=== PATIENT | male | born 1945 | race Caucasian/White ===

== ENCOUNTER 2024-01-15 10:58 | Outpatient (CLI) | payer MEDICARE, BC, SELFPAY ==
--- OUTSIDE RECORDS SUMMARY | 2024-01-15 11:06 | XMS_ITS | Encounter Summary ---
Author Name Department of [facility] Organization Department of [facility] Address [address] [place] [address] Support Name Relationship Address Phone IKE GREENYCE Next of Kin [address] [phone] DEMETRA GREEN Emergency Contact [address] [place] [address] Insurance Providers: All historical and current Section Date Range: From patient's date of to the date document was created. This section includes the names of all active insurance providers for the patient. Insurance Provider Type of Coverage Plan Name Start of Policy Coverage End of Policy Coverage Group Number Member ID Insurance Provider's Telephone Number Policy Lawson's Name Patient's Relationship to Policy Lawson BCBS [facility] (WNR) MEDICARE ADVANTAGE [facility] (WNR) Oct 07, 2015 [id number] [phone] VAISHNAVI GREEN ERT PATIENT Selected Encounter This section includes the information on record at ID for the Encounter. Date/Time Encounter Type Encounter Description Reason Provider Source Mar 12, 2023 10:30 AM OFFICE O/P EST MOD 30-39 MIN RHEUMATOLOGY/ART HRITIS ICD-10-CM M06.4 Inflammatory polyarthropathy JACOB BLISS MD Leanna Encounter Template Text not used by [facility] Assessments - Encounter Diagnoses This section includes the primary and secondary diagnoses documented for the Encounter. 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 This section includes future appointments and future orders which are active, pending or scheduled. Future Appointments This section includes appointments that were scheduled to occur 6 months from the date of the Encounter, up to a maximum of 20 appointments. The data comes from all ID treatment facilities. Appointment Date/Time Appointment Type Appointme nt Facility Name Mar 14, 2023 11:30 AM [facility]ORY - [facility]ICINE [facility] Apr 10, 2023 01:00 PM AMBULATORY - MEDICINE [facility] Apr 23, 2023 11:00 AM AMBULATORY - MEDICINE [facility] May 01, 2023 11:00 AM AMBULATORY - MEDICINE [facility] May 21, 2023 11:00 AM AMB[facility]ATORY - NONE [facility] May 27, 2023 09:30 AM AMBULATORY - MEDICINE [facility] Jul 09, 2023 09:00 AM [facility]ORY - [facility]ICINE [facility] Jul 10, 2023 12:00 PM AMBULATORY - MEDICINE [facility] Sep 11, 2023 02:00 PM AMBULATORY - REHAB MEDICIN [facility] Lab Results: +/- 30 days of the encounter This section includes the Chemistry and Hematology Lab Results on record with ID for the patient. Radiology Reports and Pathology Reports are provided separately, in subsequent sections. Lab Results This section contains the Chemistry/Hematology Results that were resulted 30 days before or 30 daysafter the date of the Encounter. Date/Time Source Result Type Result - Unit Interpretation Reference Range Comment Mar 12, 2023 10:20 AM [facility] AST/SGOT Specimen Type: PLASMA No comment entered. Ordering Provider: LUIS ALBERTO BLISS MD Report Released Date/Time: Jan 25, 2023 03:57 PM Reporting Lab: [facility] [id number] Performing Lab: [place] [phone] AST/SGOT 30 See_Comment Mar 12, 2023 10:20 AM [facility] ALT/SGPT Specimen Type: PLASMA No comment entered. Ordering Provider: LUIS ALBERTO BLISS MD Report Released Date/Time: Jan 25, 2023 03:57 PM Reporting Lab: [facility] [id number] Performing Lab: [place] [id number] ALT/SGPT 34 See_Comment Mar 12, 2023 10:20 AM [facility] SED RATE Specimen Type: BLOOD No comment entered. Ordering Provider: LUIS ALBERTO BLISS MD Report Released Date/Time: Jan 25, 2023 03:57 PM Reporting Lab: [facility] [id number] Performing Lab: [place] [phone] SED RATE 18 H 5-15 Mar 12, 2023 10:20 AM [facility] CREATININE(INCLUDES EGFR) Specimen Type: PLASMA No comment entered. Ordering Provider: LUIS ALBERTO BLISS MD Report Released Date/Time: Jan 25, 2023 03:57 PM Reporting Lab: [facility] [id number] Performing Lab: [facility] [id number] CREATININE 1.0 0.7-1.2 .CREAT EGFR(CKD-EPI) 78 See_Comment Mar 12, 2023 10:20 AM [facility] CBC & DIFF Specimen Type: BLOOD Comment: Automated Differential Performed Ordering Provider: LUIS ALBERTO BLISS MD Report Released Date/Time: Jan 25, 2023 03:57 PM Reporting Lab: [facility] [id number] Performing Lab: [facility] [id number] WBC 11.89 H 4.0-11.0 RBC 4.03 L 4.6-6.2 HGB 12.9 L 13.5-17.9 HCT 39.0 L 41-54 MCV 96.8 80-100 MCH 32.0 27-33 MCHC 33.1 32.0-37.5 PLT 195 150-400 MPV 10.5 H 7.4-10.4 NEUT 81.6 LYMPHS 8.7 MONO 6.0 EOSINO 1.2 BASO 0.6 RDW 12.8 11.5-14.5 ABS LYMPH 1.04 1.0-4.0 ABS MONO 0.71 0.1-1.0 ABS NEUT 9.70 H 2.0-7.7 ABS EOS 0.14 0-0.5 ABS BASO 0.07 0-0.2 IG(META,MYELO ,PRO) 1.9 ABS IMMATURE GRAN 0.23 H 0-0.1 Vital Signs: All taken on the encounter date This section contains inpatient and outpatient Vital Signs collected on the date of the Encounter. Date/Time Temperature Pulse Blood Pressure Respiratory Rate SP02 Pain Height Weight Body Mass Index Source Mar 12, 2023 10:17 AM 97.5 F 75 /min 131/79 mm[Hg] 16 /min 96 % 7 233 lb 39 [facility] Advance Directives: All historical and current Section Date Range: From patient's date of to the date document was created. This section includes ALL of a patient's completed or amended ID Advance and Rescinded Directives. The entries below indicate that a directive exists for the patient, but an actual copy is not included with this document. The data comes from all ID facilities. Date Advance Directives Provider Source Jul 22, 2018 ADVANCE DIRECTIVE DEONTE DIAZ [facility] Jul 22, 2018 ADVANCE DIRECTIVE DISCUSSION DEONTE DIAZ [facility] Encounter Notes: All associated encounter notes This section contains the clinical notes associated to the Encounter. Date/Time Encounter Note(s) Provider Source Mar 12, 2023 12:09 PM RHEUMATOLOGY ATTEN DING NOTE: LOCAL TITLE: RHEUMATOLOGY CLINIC NOTE STANDARD TITLE: RHEUMATOLOGY ATTENDING NOTE DATE OF NOTE: MAR 12, 2023@12:09 ENTRY DATE: FEBRUARY 18, 2023@16:35:23 AUTHOR: JOCELYNN BLISS EXP COSIGNER: URGENCY: STATUS: COMPLETED CC: F/U Arthralgia, Hemochromatosis, Chondrocalcinosis/CPPD, OA, seronegative inflammatory arthritis History of present illness: Pt well known to me from my [facility] practice, now following at [facility]. Multifactorial arthralgia concerns. History of multiple orthopedic surgeries including CTS , reverse total shoulder. 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 History of gout, on allopurinol, had podagra. Has not had definite gout attacks for many years. Complained of increasing arthritis pain espcially in hands over several years. Some locking, Ortho tried injections without robust benefit at that time. Was aching with fine motor tasks. No acute swelling suggestive of crystalline arthropathy symptoms. Joints have enlarged over time. We started him on prednisone, Plaquenil, then SSZ. Arthritis symptoms had initially improved, then complained of increased aching especially in the small joints of the hands, wrists over several weeks.Had some benefit from topical diclofenac.Was feeling pretty good so tapered off prednisone at that point. Continued to feel sulfasalazine, Plaquenil had provided benefit. Previously concerns with itching and occasional intermittent red scaly rash. We were wondering if could be related to topical diclofenac, so this was held. Hands were aching more with holding diclofenac. Unfortunately it seemed to irritate his chronic dermatitis, does follow with [facility]. Was noting increasing pain in right wrist, prednisone previously increased to 10 mg daily without benefit for this, decreased back to 5 mg daily. Recheck RF/ CCP remain neg.Status post R wrist injection through Ortho (Dr Lula Yap at [facility]) with benefit 12/15/21,. He has also seen Ortho for knee bursitis, did physical Therapy for. History of lumbar spine surgery, with intermittent increased mechanical low back pain concerns. 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 History of anterior scleritis/episcleritis, follows with [facility], has been treated with topicals intermittently with flares . Also has ocular sicca symptoms. Had been noting increasing hand and wrist arthralgia symptoms, needing increased prednisone dose. Low-dose leflunomide added in, tolerating. Was able to stop prednisone for some time, then flaring noted, see patient contact notes. Leflunomide increased to full dose, tolerating without concerns. Overall has felt leflunomide has provided benefit. In attempt to simplify his medication regimen we have decreased his sulfasalazine to 2 in the morning 2 in the evening, did well with dose lowering and subsequently tried going off prednisone 07/15, needed to restart about 5 days later due to some increasing aching in both hands and knees, however was not associated with swelling. Chronic swelling/deformity of the right wrist , continues to follow with Ortho for this, injections have provided some benefit. They have offered him surgery, sounds like wrist fusion which he hopes to avoid. Severe lumbar spine disease following with [facility]/Dr. Kelly, potential surgical intervention needed. Interim history: Arthralgias are about the same, continues to need prednisone up to 10 mg daily. He has been in a holding pattern for back surgery, now at this point it sounds like it may not happen. Surgeon has been sending him for additional neuro evaluation/peripheral neuropathy eval. He has an upcoming appointment with [facility]. Ophthalmology notes reviewed, has had flare of episcleritis. --------- ROS: - Constitutional:No fevers - HEENT:No oral ulcers - CVS: Denies cardiac concerns. - RESP: No change in resp status - GI: No change in bowel habits - SKIN : no new rashes ------- Past Medical History: Hallux valgus AND bunion ([facility] [id number])Hammer toe ([facility] [id number]) Essential hypertension ([facility] [id number]) Gout ([facility] [id number]) Benign prostatic hyperplasia ([facility] 747909Muujnqaf legs ([facility] 97117292) Hemochromatosis ([facility] 124218192) Chronic low back pain ([facility] 957875328) Osteoarthritis of knee ([facility] 034876814) Obstructive sleep apnea ([facility] 15727998) History of male erectile disorder ([facility] 4Dupuytren's contracture ([facility] 926695929) Bunion ([facility] 214960214) Chronic sinusitis ([facility] 84101079) Deviated nasal septum ([facility] 077691041) Obesity ([facility] 165729094) Pseudophakia ([facility] 04627017) Benign monoclonal gammopathy ([facility] 83711484) Orchialgia ([facility] 28272281) History of inflammatory bowel disease ([facility] [id number]) Injury of tendon of the rotator cuff of Impaired fasting glycaemia ([facility] 346020569) Edema ([facility] 105354173) Hallux valgus AND bunion ([facility] 392188451) Inflammatory polyarthropathy ([facility] [id number] ([facility] 595455689) Episcleritis ([facility] 468480) Gastroesophageal reflux disease ([facility] 770333925) Sensorineural hearing loss, bilateral (SDry eyes ([facility] 267165123) History of polyp of colon ([facility] [id number] ------- Social Hx: Marital status: -------- Allergies: SEASONAL ALLERGIES (Jun 16, 2009) LEVOFLOXACIN (Oct 20, 2010) DICLOFENAC (Jul 13, 2022) Active Medications: Active Outpatient Medications (including Supplies): Active Outpatient Medications Status 1) ALLOPURINOL 300MG TAB TAKE ONE TABLET BY MOUTH EVERY ACTIVE MORNING 2) ATENOLOL 50/CHLORTHALIDONE 25MG TAB TAKE 1 TABLET BY ACTIVE MOUTH EVERY DAY 3) CYCLOSPORINE 0.05% (PF) OPH EMUL 0.4ML 1 DROP BOTH ACTIVE EYES TWICE A DAY 4) DOCUSATE NA 100MG CAP TAKE ONE CAPSULE BY MOUTH TWICE ACTIVE A DAY NEEDED FOR CONSTIPATION 90 DAY SUPPLY 5) DOXAZOSIN MESYLATE 8MG TAB TAKE ONE TABLET BY MOUTH ACTIVE EVERY DAY 6) FLUTICASONE PROP 50MCG 120D NASAL INHL SPRAY 2 SPRAYS ACTIVE IN EACH NOSTRIL AT BEDTIME FOR NASAL SYMPTOMS 7) HYDROXYCHLOROQUINE SULFATE 200MG TAB TAKE ONE TABLET ACTIVE (S) BY MOUTH EVERY DAY 8) LACTOBACILLUS ACIDOPHILUS TAB TAKE 1 TABLET BY MOUTH ACTIVE EVERY MORNING 9) LEFLUNOMIDE 20MG TAB TAKE ONE TABLET BY MOUTH EVERY ACTIVE DAY 10) OMEPRAZOLE 20MG EC CAP TAKE TWO CAPSULES BY MOUTH ACTIVE EVERY DAY ON AN EMPTY STOMACH, AT LEAST 30 MINUTES PRIOR TO A MEAL 11) PRAMIPEXOLE DIHYDROCHLORIDE 0.25MG TAB TAKE THREE ACTIVE TABLETS BY MOUTH EVERY EVENING FOR RESTLESS LEGS 12) PREDNISOLONE ACETATE 1% OPH SUSP INSTILL 1 DROP IN ACTIVE RIGHT EYE EVERY OTHER DAY SHAKE WELL 13) PREDNISONE 5MG TAB TAKE 1 TO 2 TABLETS BY MOUTH EVERY ACTIVE DAY NEEDED FOR JOINT PAIN * TAKE 1 TO 2 TABLETS DAILY DIRECTED TAPER 14) SODIUM CHLORIDE 0.65% SOLN NASAL SPRAY SPRAY 2 SPRAYS ACTIVE IN EACH NOSTRIL TWICE A DAY FOR NASAL DRYNESS 15) SULFASALAZINE 500MG TAB TAKE ONE TABLET BY MOUTH HOLD TWICE A DAY 16) TAMSULOSIN HCL 0.4MG CAP TAKE ONE CAPSULE BY MOUTH ACTIVE EVERY DAY 17) VANICREAM TOP CREAM APPLY THIN LAYER TOPICALLY EVERY ACTIVE DAY FOR DRY SKIN TO AREAS OF DRY SKIN, IDEALLY WITHIN 3 MINUTES AFTER BATH OR SHOWER. Active Non-VA Medications Status 1) Non-VA CELECOXIB 200MG CAP 200MG MOUTH TWICE A DAY ACTIVE 2) Non-VA GABAPENTIN 300MG CAP 300MG MOUTH THREE TIMES A ACTIVE DAY 3) Non-VA LUBIPROSTONE CAP,ORAL 8 MCG MOUTH TWICE A DAY ACTIVE 4) Non-VA MULTIVITAMIN CAP/TAB 1 TABLET MOUTH EVERY DAY ACTIVE 5) Non-VA OXYCODONE 20MG SA TAB 20MG MOUTH EVERY 12 ACTIVE HOURS 6) Non-VA OXYCODONE 5MG TAB 5MG MOUTH TWICE A DAY ACTIVE NEEDED 23 Total Medications --------- Physical Examination: Vital signs: As per Nurse note GENERAL: NAD. GEEENT: PERRL, EOMI, non icteric SKIN focused exam remarkable findings are: no rash noted. Good skin turgor and normal tenting.No digital pitting MSK , focused exam remarkable findings are: Heberden and Jody nodules Right wrist with chronic deformity and decreased range of motion, question of some low-grade synovitis ongoing, mild tenderness. Slight left wrist swelling without definite synovitis -------- LABORATORY DATA: WBC 10.56 (11/13/22) HGB 11.9 L (11/13/22) PLT 220 (11/13/22) CREATININE 0.9 (11/13/22) COMPUTED CREATININE CLEARANCE____ URINE PROTEIN____ SGOT 35 H (11/13/22) SGPT 37 (11/13/22) ALK PHOSPHATASE____ BILIRUBIN, TOTAL____ WESTERGREN 35 H (11/13/22) C-REACTIVE PROTEIN____ RHEUMATOID FACTOR____ CCP URIC ACID____ URIC ACID CRYSTALS____ ANTINUCLEAR ABY____ SLT - SHANIQUA No data available for: .SHANIQUA SCREEN ANTI-CLAUDIO ANTI-SENIOR SOFTWARE QA ANALYST ANTI-SSA/RO ANTI-SSB/LA ANTI-SCL-70 ANTI-IKE-1 ANCA No data available Aldolase ANTI-HBs____ HBsAg____ ANTI-HEPATITIS C NEGATIVE SERUM (09/11/21 08:08) NEGATIVE SERUM (06/27/18 10:19) -------- Imaging: -------- Assessment/Plan: Osteoarthritis, suspected changes associated with hemachromatosis/ chondrocalcinosis. [employer] to have component of polyarticular CPPD, seronegative inflammatory arthritis. Also Hx of gout. - Multifactorial concerns, history of mechanical, crystalline, and inflammatory arthritis. Has had benefit from injections by hand orthopedics, repeat as needed. No new gout concerns, uric acid has been at goal on allopurinol. Overall seemed to be doing better in regards to inflammatory concerns with addition of leflunomide to sulfasalazine. Over time right wrist is more bothersome, difficult to say exactly what is driving this given his complex history. Previously Ophthalmology notes reviewed ,felt to have some increased risk factors for Plaquenil toxicity although none was noted specifically on exam, dosage lowered to 1 daily with close monitoring through ophthalmology. No Plaquenil toxicity noted from exam 03/27/2022. He has had intermittently active episcleritis. Arthritis has had variable response to increased dose of prednisone, however complicated by possible need for spine surgery. We have been in a bit of a holding pattern for potential surgery versus escalating his immunosuppressive regimen. At this point it sounds like surgery may be not happen. We will see what his peripheral neuropathy assessment is from [facility], asked that records be forwarded for my review, await further plan by surgeon. Discussed with patient and our next step would be reasonable to add an biologic, consider Humira as may be beneficial for his episcleritis. We briefly discussed side effects and concerns with this medication. Hopefully will have a plan for surgery or not within the coming weeks. I would like to see him in [place] in a few weeks for recheck, if no surgical plan we will start Humira/teaching at that visit. Continue current medications for now, pending response to Humira next goal would be to consolidate his medication regimen. High-risk medication monitoring/drug therapy requiring intensive monitoring for toxicity; monitoring labs have been acceptable. Ophthalmology following for Plaquenil, dosing remains at below 5mg/kg guideline. /es/ JOCELYNN BLISS MD Rheumatology, Staff Physician Signed: 03/18/2023 12:36 JOCELYNN BLISS MD [facility] Mar 12, 2023 10:19 AM PRIMARY CARE NURSI MCKINLEY NOTE: LOCAL TITLE: [facility] NURSING PROGRESS NOTE STANDARD TITLE: PRIMARY CARE NURSING NOTE DATE OF NOTE: MAR 12, 2023@10:19 ENTRY DATE: MAR 12, 2023@10:19:57 AUTHOR: ZOË MULTANI COSIGNER: URGENCY: STATUS: COMPLETED TYPE OF VISIT: Appointment Check In Type of appointment: In-person appointment REASON FOR VISIT: Rheum ALLERGIES: SEASONAL ALLERGIES (Jun 16, 2009) LEVOFLOXACIN (Oct 20, 2010) DICLOFENAC (Jul 13, 2022) VITAL SIGNS: Blood Pressure: 131/79 (03/12/2023 10:17) Pulse: 75 (03/12/2023 10:17) Respiration: 16 (03/12/2023 10:17) Temperature: 97.5 F [36.4 C] (03/12/2023 10:17) Weight: 233 lb [105.69 kg] (03/12/2023 10:17) Height: 65 in [165.1 cm] (07/13/2022 10:21) BMI: 38.9 O2 Sat: 96% (03/12/2023 10:17) Pain: 7 (03/12/2023 10:17) PAIN SCREEN: Patient is having significant pain that they would like to talk to their provider about today. Old (Chronic) (began more than 6 months ago) Patient states their average pain this past week is 7 Patient states the average number on how the chronic pain affects their enjoyment of life the past week is 7 Patient states during the past week the average number on how the pain has interfered with their general activity is 7 MEDICATION Active Outpatient Medications (including Supplies): ALLOPURINOL 300MG TAB TAKE ONE TABLET BY MOUTH EVERY ACTIVE MORNING ATENOLOL 50/CHLORTHALIDONE 25MG TAB TAKE 1 TABLET BY MOUTH ACTIVE EVERY DAY CYCLOSPORINE 0.05% (PF) OPH EMUL 0.4ML 1 DROP BOTH EYES ACTIVE TWICE A DAY DOCUSATE NA 100MG CAP TAKE ONE CAPSULE BY MOUTH TWICE A ACTIVE DAY NEEDED FOR CONSTIPATION 90 DAY SUPPLY DOXAZOSIN MESYLATE 8MG TAB TAKE ONE TABLET BY MOUTH EVERY ACTIVE DAY FLUTICASONE PROP 50MCG 120D NASAL INHL SPRAY 2 SPRAYS IN ACTIVE EACH NOSTRIL AT BEDTIME FOR NASAL SYMPTOMS HYDROXYCHLOROQUINE SULFATE 200MG TAB TAKE ONE TABLET BY ACTIVE MOUTH EVERY DAY LACTOBACILLUS ACIDOPHILUS TAB TAKE 1 TABLET BY MOUTH EVERY ACTIVE MORNING LEFLUNOMIDE 20MG TAB TAKE ONE TABLET BY MOUTH EVERY DAY ACTIVE OMEPRAZOLE 20MG EC CAP TAKE TWO CAPSULES BY MOUTH EVERY ACTIVE DAY ON AN EMPTY STOMACH, AT LEAST 30 MINUTES PRIOR TO A MEAL PRAMIPEXOLE DIHYDROCHLORIDE 0.25MG TAB TAKE THREE TABLETS ACTIVE BY MOUTH EVERY EVENING FOR RESTLESS LEGS PREDNISOLONE ACETATE 1% OPH SUSP INSTILL 1 DROP IN RIGHT ACTIVE EYE EVERY OTHER DAY SHAKE WELL PREDNISONE 5MG TAB TAKE 1 TO 2 TABLETS BY MOUTH EVERY DAY ACTIVE NEEDED FOR JOINT PAIN * TAKE 1 TO 2 TABLETS DAILY DIRECTED TAPER SODIUM CHLORIDE 0.65% SOLN NASAL SPRAY SPRAY 2 SPRAYS IN ACTIVE EACH NOSTRIL TWICE A DAY FOR NASAL DRYNESS SULFASALAZINE 500MG TAB TAKE ONE TABLET BY MOUTH TWICE A HOLD DAY TAMSULOSIN HCL 0.4MG CAP TAKE ONE CAPSULE BY MOUTH EVERY ACTIVE DAY VANICREAM TOP CREAM APPLY THIN LAYER TOPICALLY EVERY DAY ACTIVE FOR DRY SKIN TO AREAS OF DRY SKIN, IDEALLY WITHIN 3 MINUTES AFTER BATH OR SHOWER. Non-VA CELECOXIB 200MG CAP 200MG MOUTH TWICE A DAY ACTIVE Non-VA GABAPENTIN 300MG CAP 300MG MOUTH THREE TIMES A DAY ACTIVE Non-VA LUBIPROSTONE CAP,ORAL 8 MCG MOUTH TWICE A DAY ACTIVE Non-VA MULTIVITAMIN CAP/TAB 1 TABLET MOUTH EVERY DAY ACTIVE Non-VA OXYCODONE 20MG SA TAB 20MG MOUTH EVERY 12 HOURS ACTIVE Non-VA OXYCODONE 5MG TAB 5MG MOUTH TWICE A DAY NEEDED ACTIVE /maame/ ZOË MULTANI LPN LICENSED PRACTICAL NURSE Signed: 03/12/2023 10:25 ZOË MULTANI [facility]
--- OUTSIDE RECORDS SUMMARY | 2024-01-15 11:06 | XMS_ITS | Encounter Summary ---
Author Name [facility] Organization Department of [employer] Address [address] [place] [address] Support Name Relationship Address Phone IKE GREENYCE Next of Kin [address] [phone] DEMETRA GREEN Emergency Contact [address] [...] Name Patient's Relationship to Policy Lawson BCBS [facility] (WNR) MEDICARE ADVANTAGE MCR (WNR) Oct 07, 2015 [id number] [phone] VAISHNAVI GREEN ERT PATIENT Selected Encounter This section includes the information on record at [place] for the Encounter. Date/Time Encounter Type Encounter Description Reason Provider Source Apr 10, 2023 01:00 PM OFFICE O/P EST MOD 30-39 MIN SLEEP MEDICINE ICD-10-CM G47.33 Obstructive sleep apnea (adult) (pediatric) JULIO GARZA Leanna Encounter Template Text not used by [place] Assessments - Encounter Diagnoses This section includes the primary and secondary diagnoses documented for the Encounter. Date/Time Primary/Secondary Diagnosis Diagnosis Name Provider Source Apr 10, 2023 01:25 PM PRIMARY Obstructive sleep apnea (adult) (pediatric) JULIO GARZA [facility] Apr 10, 2023 01:25 PM SECONDARY Restless legs syndrome JULIO GARZA [facility] Plan of Treatment: Future Appointments (+ 6 months) and Future Tests (+/- 45 days) The Plan of Treatment section includes future care activities for the patient from [facility]. This section includes future appointments and future orders which are active, pending or scheduled. Future Appointments This section includes appointments that were scheduled to occur 6 months from the date of the Encounter, up to a maximum of 20 appointments. The data comes from all [facility] facilities. Appointment Date/Time Appointment Type Appointme nt Facility Name Apr 23, 2023 11:00 AM AMBULATORY - MEDICINE [facility] May 01, 2023 11:00 AM AMBULATORY - MEDICINE [facility] May 21, 2023 11:00 AM AMBULATORY - NONE [facility] May 27, 2023 09:30 AM AMBULATORY - MEDICINE [facility] Jul 09, 2023 09:00 AM [facility]ORY - [facility]ICINE [facility] Jul 10, 2023 12:00 PM AMBULATORY - MEDICINE [facility] Sep 11, 2023 02:00 PM AMBULATORY - REHAB MEDICIN [facility] Lab Results: +/- 30 days of the encounter This section includes the Chemistry and Hematology Lab Results on record with [place] for the patient. Radiology Reports and Pathology Reports are provided separately, in subsequent sections. Lab Results This section contains the Chemistry/Hematology Results that were resulted 30 days before or 30 daysafter the date of the Encounter. Date/Time Source Result Type Result - Unit Interpretation Reference Range Comment Mar 12, 2023 10:20 AM [facility] ALT/SGPT Specimen Type: PLASMA No comment entered. Ordering Provider: LUIS ALBERTO BLISS MD Report Released Date/Time: Jan 25, 2023 03:57 PM Reporting Lab: [facility] [id number] Performing Lab: [facility] [id number] ALT/SGPT 34 See_Comment Mar 12, 2023 10:20 AM [facility] AST/SGOT Specimen Type: PLASMA No comment entered. Ordering Provider: LUIS ALBERTO BLISS MD Report Released Date/Time: Jan 25, 2023 03:57 PM Reporting Lab: [facility] [id number] Performing Lab: [facility] [id number] AST/SGOT 30 See_Comment Mar 12, 2023 10:20 AM [facility] SED RATE Specimen Type: BLOOD No comment entered. Ordering Provider: LUIS ALBERTO BLISS MD Report Released Date/Time: Jan 25, 2023 03:57 PM Reporting Lab: [facility] [id number] Performing Lab: [facility] [id number] SED RATE 18 H 5-15 Mar 12, 2023 10:20 AM [facility] CREATININE(INCLUDES EGFR) Specimen Type: PLASMA No comment entered. Ordering Provider: LUIS ALBERTO BLISS MD Report Released Date/Time: Jan 25, 2023 03:57 PM Reporting Lab: [facility] [id number] Performing Lab: [facility] [id number] CREATININE 1.0 0.7-1.2 .CREAT EGFR(CKD-EPI) 78 See_Comment Mar 12, 2023 10:20 AM [facility] CBC & DIFF Specimen Type: BLOOD Comment: Automated Differential Performed Ordering Provider: LUIS ALBERTO BLISS MD Report Released Date/Time: Jan 25, 2023 03:57 PM Reporting Lab: [facility] [id number] Performing Lab: [facility] [id number] WBC 11.89 H 4.0-11.0 RBC 4.03 L [...] 1.9 ABS IMMATURE GRAN 0.23 H 0-0.1 Social History: Smoking Status (Most current) and Tobacco Use (All prior to encounter date) This section includes the most current, and the historical, smoking and tobacco- related health factors from the [place] facility where the Encounter took place. Current Smoking Status This section includes the most current smoking, or tobacco-related health factor, from the [place] facility where the Encounter took place. Date/Time Current Smoking Status Comment Facil ity Jul 23, 2017 07:44 AM FORMER TOBACCO USER OR [facility] Tobacco Use History This section includes a history of the smoking, or tobacco-related health factors, that were collected on or before the date of the Encounter. The data comes from the [place] facility where the Encounter took place. Date/Time Smoking Status/Tobacco Use Comment F acility Jul 24, 2016 08:09 AM FORMER TOBACCO USER 7 OR [facility] Jul 27, 2015 07:54 AM FORMER TOBACCO USER OR [facility] Jun 18, 2014 09:49 AM FORMER TOBACCO USER 7 OR [facility] Nov 22, 2010 09:21 AM FORMER TOBACCO USER 7 OR [facility] Jun 30, 2009 08:27 AM FORMER TOBACCO USER OR [facility] Advance Directives: All historical and current Section Date Range: From patient's date of to the date document was created. This section includes ALL of a patient's completed or amended [place] Advance and Rescinded Directives. The entries below indicate that a directive exists for the patient, but an actual copy is not included with this document. The data comes from all [facility]. Date Advance Directives Provider Source Jul 22, 2018 ADVANCE DIRECTIVE DEONTE DIAZ [facility] Jul 22, 2018 ADVANCE DIRECTIVE DISCUSSION DEONTE DIAZ [facility] Encounter Notes: All associated encounter notes This section contains the clinical notes associated to the Encounter. Date/Time Encounter Note(s) Provider Source Jun 19, 2023 01:00 PM ADDENDUM: LOCAL TITLE: Addendum STANDARD TITLE: ADDENDUM DATE OF NOTE: JUN 19, 2023@13:00:24 ENTRY DATE: JUN 19, 2023@13:00:25 AUTHOR: DIVINE MCNEIL EXP COSIGNER: URGENCY: STATUS: COMPLETED Received phone call from patient regarding his RLS and Pregabalin prescription. States he is currently taking three 25mg capsules (total 75mg). Reporting residual RLS symptoms 2x/week, which he said has decreased from previous reports of 3-4x/week. -Patient was initially instructed to titrate up to 100mg, but would like to remain at 75mg for now, states he will increase if he starts to feel his symptoms worsen. -Next f/u with sleep provider scheduled 07/10/23 PLAN: -Alerting sleep provider, please address Pregabalin refill request (would need enough capsules/month to take 75mg dose) -Patient to call sleep RN if he needs to increase to 100mg Total time with patient: 8 minutes /es/ DIVINE MCNEIL RN REGISTERED NURSE Signed: 06/19/2023 13:07 Receipt Acknowledged By: 06/19/2023 15:13 /es/ JULIO GARZA MD Staff: Pulmonary, Critical Care & Sleep Medicine --- Original Document --- 04/10/23 SLEEP MEDICINE NOTE: History of Present Illness: Macario has been using his CPAP but there is interval decrease in his overall PAP compliance lately due to back pain which makes him sleep on his recliner. Few days back he has brought down his CPAP to living area and using it when sleeping on his recliner. Furthermore despite taking his Pramipexole 0.75mg in the evening he has some residual sharp pains in his legs along with feeling numb. He will be evaluated by Neurology for possible peripheral neuropathy. He is recovering from a recent cardiac surgery. Obstructive Sleep Apnea (WILI) Auto-CPAP: 14-20 cm H2O PAP download reviewed and reported below: - 04/09/2023 Average usage: 5 hours 4 minutes (days used) Average (AHI): 8.0 (which indicates effective treatment) Average leak: 5 minutes, 39 seconds Compliance>4hours: 70% [place] Sleeepiness Scale -Sitting and reading 2 -Watching TV 3 -Sitting inactive in a public place 0 -Being a Passenger in a motor vehicle for 1 hr or more 2 -Lying down in the afternoon 2 -Sitting and talking to someone 0 -Sitting quietly after lunch 1 -Stopped for a few mins in traffic 0 -Total 07/30 The confirms or denies the following symptoms as noted: Non-restorative sleep: Denies Snoring: Denies Witnessed apneas: Denies Gasping: Denies Nocturia: Confirms Morning headaches: Denies Difficulty initiating sleep: Denies Difficulty maintaining sleep: Denies Sleep Walking: Denies Somniloquy: Denies Cataplexy: Denies Sleep paralysis: Denies Hypnagogic hallucinations: Denies Hypnopompic hallucinations: Denies Difficulty concentrating: Denies Memory loss: Denies Dry mouth: Denies Nasal congestion: Denies Nocturnal limb movements: Denies Weight gain: Denies Weight loss: Denies Bruxism: Denies Mood disorder: Denies Mood swings: Denies Sore throat: Denies Past Medical History Active problems - Computerized Problem List is the source for the followin. Hallux valgus AND bunion (SNOMED CT 419689486) 2. Hammer toe (SNOMED CT 517958684) 3. Essential hypertension 4. Gout 5. Benign prostatic hyperplasia 6. Restless legs 7. Hemochromatosis 8. Chronic low back pain - since 1995 9. Osteoarthritis of knee - R TKA 2018, L TKA 10. Obstructive sleep apnea 11. History of male erectile disorder 12. Dupuytren's contracture 13. Bunion 14. Chronic sinusitis 15. Deviated nasal septum 16. Obesity 17. Pseudophakia 18. Benign monoclonal gammopathy - IgG kappa 19. Orchialgia - 2009 20. History of inflammatory bowel disease 21. Injury of tendon of the rotator cuff of shoulder - surgery right ? 2 , left ? 1 22. Impaired fasting glycaemia 23. Edema 24. Hallux valgus AND bunion 25. Inflammatory polyarthropathy 26. Chondrocalcinosis 27. Episcleritis 28. Gastroesophageal reflux disease 29. Sensorineural hearing loss, bilateral 30. Dry eyes 31. History of polyp of colon Medications: Active Outpatient Medications (including Supplies): Outpatient Medications Status 1) ALLOPURINOL 300MG TAB TAKE ONE TABLET BY MOUTH EVERY ACTIVE MORNING 2) ATENOLOL 50/CHLORTHALIDONE 25MG TAB TAKE 1 TABLET BY ACTIVE MOUTH EVERY DAY 3) CYCLOSPORINE 0.05% (PF) OPH EMUL 0.4ML 1 DROP BOTH ACTIVE EYES TWICE A DAY 4) DICLOFENAC NA 1% TOP GEL APPLY 4 GRAMS TOPICALLY FOUR ACTIVE TIMES A DAY NEEDED TO AFFECTED AREA FOR PAIN 5) DOCUSATE NA 100MG CAP TAKE ONE CAPSULE BY MOUTH TWICE ACTIVE A DAY NEEDED FOR CONSTIPATION 90 DAY SUPPLY 6) DOXAZOSIN MESYLATE 8MG TAB TAKE ONE TABLET BY MOUTH ACTIVE EVERY DAY 7) FLUTICASONE PROP 50MCG 120D NASAL INHL SPRAY 2 SPRAYS ACTIVE IN EACH NOSTRIL AT BEDTIME FOR NASAL SYMPTOMS 8) HYDROXYCHLOROQUINE SULFATE 200MG TAB TAKE ONE TABLET ACTIVE BY MOUTH EVERY DAY 9) LACTOBACILLUS ACIDOPHILUS TAB TAKE 1 TABLET BY MOUTH ACTIVE EVERY MORNING 10) LEFLUNOMIDE 20MG TAB TAKE ONE TABLET BY MOUTH EVERY ACTIVE DAY 11) OMEPRAZOLE 20MG EC CAP TAKE TWO CAPSULES BY MOUTH ACTIVE EVERY DAY ON AN EMPTY STOMACH, AT LEAST 30 MINUTES PRIOR TO A MEAL 12) PRAMIPEXOLE DIHYDROCHLORIDE 0.25MG TAB TAKE THREE ACTIVE TABLETS BY MOUTH EVERY EVENING FOR RESTLESS LEGS 13) PREDNISOLONE ACETATE 1% OPH SUSP INSTILL 1 DROP IN ACTIVE RIGHT EYE EVERY OTHER DAY SHAKE WELL 14) PREDNISONE 5MG TAB TAKE 1 TO 2 TABLETS BY MOUTH EVERY ACTIVE DAY NEEDED FOR JOINT PAIN * TAKE 1 TO 2 TABLETS DAILY DIRECTED TAPER 15) SODIUM CHLORIDE 0.65% SOLN NASAL SPRAY SPRAY 2 SPRAYS ACTIVE IN EACH NOSTRIL TWICE A DAY FOR NASAL DRYNESS 16) SULFASALAZINE 500MG TAB TAKE ONE TABLET BY MOUTH HOLD TWICE A DAY 17) TAMSULOSIN HCL 0.4MG CAP TAKE ONE CAPSULE BY MOUTH ACTIVE EVERY DAY 18) VANICREAM TOP CREAM APPLY THIN LAYER TOPICALLY EVERY ACTIVE DAY FOR DRY SKIN TO AREAS OF DRY SKIN, IDEALLY WITHIN 3 MINUTES AFTER BATH OR SHOWER. 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 1.Severe WILI: On suto-CPAP with interval decrease in overall compliance. Mildly elevated residual AHI which is in the therapeutic range. -discussed benefits of treatment, device maintenance, use and interval replacement of supplies -counseled the patient about smoking and weight loss -educated pt about risks, benefits, side effects, and alternatives to treatment 2. RLS: Currently on Pramipexol 0.75 mg 2 hours prior to bedtime. Has residual RLS and neuropathy symptoms. Recommendation: 1. Continue Pramipexole at current dose. Start Pregabalin with gradual increase up to 100mg to be taken 2 hours prior to intended sleep. 2. Increase PAP compliance to > 70% > 4 hours per night. Return to clinic for follow up evaluation in 6 months. /maame/ JULIO GARZA MD Staff: Pulmonary, Critical Care & Sleep Medicine Signed: 04/10/2023 13:26 05/14/2023 ADDENDUM STATUS: COMPLETED Renewal request for pregabalin 25mg, four tabs qhs. Phone contact made with . He confirmed he is taking 100mg qhs. Drill Press Operator Numerical Control informed on new dosing instructions with his medication renewal for pregabalin 100mg to take one tab qhs /es/ ANAND DUVAL PHYSICIAN ROLLER MACHINE OPERATOR Signed: 05/14/2023 16:20 05/15/2023 ADDENDUM STATUS: COMPLETED Received the following Secure Message from the patient today, 05/15/23: I'm sorry I got the medication mixed up with my other sleep medication for my restless legs that I've been on 3-25 mg. The medication that Dr Mendoza put me on the pharmacy would only send me 30 pills every time so I couldn't take them as you prescribed so I couldn't take as many as I should have because the pharmacy didn't really read my prescription right so I will have to start all over. I will await for your response and I'm sorry for not letting you know sooner. Thank You Contacted patient to discuss. Patient confirms he is taking the following: -Pramipexole 0.75mg (0.25mg tabs x3/night) -Pregabalin 25mg Patient reports he was never able to titrate his Pregabalin up to 100mg because each prescription bottle only contained 30 capsules. Therefore, patient states he has been on 25mg for 3 weeks. Consulted with Nita Cantu PA-C: *patient to hold 100mg Pregabalin when prescription arrives; advised patient to place prescription in a place where it will not get confused with another prescription *patient to resume titration schedule as previously planned. Advised patient to track his RLS sx each week and stop at the dose that controls his residual RLS - patient is aware this may be lower than 100mg. RLS: -On 25mg Pregabalin, patient reports his RLS sx have started to improve. Notes residual sx at least 3x/week. Denies grogginess or other side effects. PLAN: -Sleep RN will f/u with patient to assess response in 2-3 weeks -Co-signing Dr. Garza and Nita Cantu to update Total time with patient: 22 minutes /es/ DIVINE MCNEIL RN REGISTERED NURSE Signed: 05/15/2023 16:12 Receipt Acknowledged By: 05/15/2023 16:14 /maame/ ANAND DUVAL PHYSICIAN ROLLER MACHINE OPERATOR for JULIO BRENDAN 05/15/2023 16:14 /maame/ ANAND DUVAL PHYSICIAN ROLLER MACHINE OPERATOR DIVINE MCNEIL [facility] May 15, 2023 03:52 PM ADDENDUM: LOCAL TITLE: Addendum STANDARD TITLE: ADDENDUM DATE OF NOTE: MAY 15, 2023@15:52:54 ENTRY DATE: MAY 15, 2023@15:52:55 AUTHOR: DIVINE MCNEIL EXP COSIGNER: URGENCY: STATUS: COMPLETED Received the following Secure Message from the patient today, 05/15/23: I'm sorry I got the medication mixed up with my other sleep medication for my restless legs that I've been on 3-25 mg. The medication that Dr Mendoza put me on the pharmacy would only send me 30 pills every time so I couldn't take them as you prescribed so I couldn't take as many as I should have because the pharmacy didn't really read my prescription right so I will have to start all over. I will await for your response and I'm sorry for not letting you know sooner. Thank You Contacted patient to discuss. Patient confirms he is taking the following: -Pramipexole 0.75mg (0.25mg tabs x3/night) -Pregabalin 25mg Patient reports he was never able to titrate his Pregabalin up to 100mg because each prescription bottle only contained 30 capsules. Therefore, patient states he has been on 25mg for 3 weeks. Consulted with BILL HusseinC: *patient to hold 100mg Pregabalin when prescription arrives; advised patient to place prescription in a place where it will not get confused with another prescription *patient to resume titration schedule as previously planned. Advised patient to track his RLS sx each week and stop at the dose that controls his residual RLS - patient is aware this may be lower than 100mg. RLS: -On 25mg Pregabalin, patient reports his RLS sx have started to improve. Notes residual sx at least 3x/week. Denies grogginess or other side effects. PLAN: -Sleep RN will f/u with patient to assess response in 2-3 weeks -Co-signing Dr. Garza and Nita Cantu to update Total time with patient: 22 minutes /es/ DIVINE MCNEIL RN REGISTERED NURSE Signed: 05/15/2023 16:12 Receipt Acknowledged By: 05/15/2023 16:14 /maame/ ANAND DUVAL PHYSICIAN ROLLER MACHINE OPERATOR for JOANNECHACHOCHARITY GARZA 05/15/2023 16:14 /maame/ ANAND DUVAL PHYSICIAN ROLLER MACHINE OPERATOR --- Original Document --- 04/10/23 SLEEP MEDICINE NOTE: History of Present Illness: Macario has been using his CPAP but there is interval decrease in his overall PAP compliance lately due to back pain which makes him sleep on his recliner. Few days back he has brought down his CPAP to living area and using it when sleeping on his recliner. Furthermore despite taking his Pramipexole 0.75mg in the evening he has some residual sharp pains in his legs along with feeling numb. He will be evaluated by Neurology for possible peripheral neuropathy. He is recovering from a recent cardiac surgery. Obstructive Sleep Apnea (WILI) Auto-CPAP: 14-20 cm H2O PAP download reviewed and reported below: - 04/09/2023 Average usage: 5 hours 4 minutes (days used) Average (AHI): 8.0 (which indicates effective treatment) Average leak: 5 minutes, 39 seconds Compliance>4hours: 70% [place] Sleeepiness Scale -Sitting and reading 2 -Watching TV 3 -Sitting inactive in a public place 0 -Being a Passenger in a motor vehicle for 1 hr or more 2 -Lying down in the afternoon 2 -Sitting and talking to someone 0 -Sitting quietly after lunch 1 -Stopped for a few mins in traffic 0 -Total 07/30 The confirms or denies the following symptoms as noted: Non-restorative sleep: Denies Snoring: Denies Witnessed apneas: Denies Gasping: Denies Nocturia: Confirms Morning headaches: Denies Difficulty initiating sleep: Denies Difficulty maintaining sleep: Denies Sleep Walking: Denies Somniloquy: Denies Cataplexy: Denies Sleep paralysis: Denies Hypnagogic hallucinations: Denies Hypnopompic hallucinations: Denies Difficulty concentrating: Denies Memory loss: Denies Dry mouth: Denies Nasal congestion: Denies Nocturnal limb movements: Denies Weight gain: Denies Weight loss: Denies Bruxism: Denies Mood disorder: Denies Mood swings: Denies Sore throat: Denies Past Medical History Active problems - Computerized Problem List is the source for the followin. Hallux valgus AND bunion (SNOMED CT [id number]) 2. Hammer toe (SNOMED CT 706525407) 3. Essential hypertension 4. Gout 5. Benign prostatic hyperplasia 6. Restless legs 7. Hemochromatosis 8. Chronic low back pain - since 1995 9. Osteoarthritis of knee - R TKA 2019, L TKA 10. Obstructive sleep apnea 11. History of male erectile disorder 12. Dupuytren's contracture 13. Bunion 14. Chronic sinusitis 15. Deviated nasal septum 16. Obesity 17. Pseudophakia 18. Benign monoclonal gammopathy - IgG kappa 19. Orchialgia - 2010 20. History of inflammatory bowel disease 21. Injury of tendon of the rotator cuff of shoulder - surgery right ? 2 , left ? 1 22. Impaired fasting glycaemia 23. Edema 24. Hallux valgus AND bunion 25. Inflammatory polyarthropathy 26. Chondrocalcinosis 27. Episcleritis 28. Gastroesophageal reflux disease 29. Sensorineural hearing loss, bilateral 30. Dry eyes 31. History of polyp of colon Medications: Active Outpatient Medications (including Supplies): Outpatient Medications Status 1) ALLOPURINOL 300MG TAB TAKE ONE TABLET BY MOUTH EVERY ACTIVE MORNING 2) ATENOLOL 50/CHLORTHALIDONE 25MG TAB TAKE 1 TABLET BY ACTIVE MOUTH EVERY DAY 3) CYCLOSPORINE 0.05% (PF) OPH EMUL 0.4ML 1 DROP BOTH ACTIVE EYES TWICE A DAY 4) DICLOFENAC NA 1% TOP GEL APPLY 4 GRAMS TOPICALLY FOUR ACTIVE TIMES A DAY NEEDED TO AFFECTED AREA FOR PAIN 5) DOCUSATE NA 100MG CAP TAKE ONE CAPSULE BY MOUTH TWICE ACTIVE A DAY NEEDED FOR CONSTIPATION 90 DAY SUPPLY 6) DOXAZOSIN MESYLATE 8MG TAB TAKE ONE TABLET BY MOUTH ACTIVE EVERY DAY 7) FLUTICASONE PROP 50MCG 120D NASAL INHL SPRAY 2 SPRAYS ACTIVE IN EACH NOSTRIL AT BEDTIME FOR NASAL SYMPTOMS 8) HYDROXYCHLOROQUINE SULFATE 200MG TAB TAKE ONE TABLET ACTIVE BY MOUTH EVERY DAY 9) LACTOBACILLUS ACIDOPHILUS TAB TAKE 1 TABLET BY MOUTH ACTIVE EVERY MORNING 10) LEFLUNOMIDE 20MG TAB TAKE ONE TABLET BY MOUTH EVERY ACTIVE DAY 11) OMEPRAZOLE 20MG EC CAP TAKE TWO CAPSULES BY MOUTH ACTIVE EVERY DAY ON AN EMPTY STOMACH, AT LEAST 30 MINUTES PRIOR TO A MEAL 12) PRAMIPEXOLE DIHYDROCHLORIDE 0.25MG TAB TAKE THREE ACTIVE TABLETS BY MOUTH EVERY EVENING FOR RESTLESS LEGS 13) PREDNISOLONE ACETATE 1% OPH SUSP INSTILL 1 DROP IN ACTIVE RIGHT EYE EVERY OTHER DAY SHAKE WELL 14) PREDNISONE 5MG TAB TAKE 1 TO 2 TABLETS BY MOUTH EVERY ACTIVE DAY NEEDED FOR JOINT PAIN * TAKE 1 TO 2 TABLETS DAILY DIRECTED TAPER 15) SODIUM CHLORIDE 0.65% SOLN NASAL SPRAY SPRAY 2 SPRAYS ACTIVE IN EACH NOSTRIL TWICE A DAY FOR NASAL DRYNESS 16) SULFASALAZINE 500MG TAB TAKE ONE TABLET BY MOUTH HOLD TWICE A DAY 17) TAMSULOSIN HCL 0.4MG CAP TAKE ONE CAPSULE BY MOUTH ACTIVE EVERY DAY 18) VANICREAM TOP CREAM APPLY THIN LAYER TOPICALLY EVERY ACTIVE DAY FOR DRY SKIN TO AREAS OF DRY SKIN, IDEALLY WITHIN 3 MINUTES AFTER BATH OR SHOWER. 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 1.Severe WILI: On suto-CPAP with interval decrease in overall compliance. Mildly elevated residual AHI which is in the therapeutic range. -discussed benefits of treatment, device maintenance, use and interval replacement of supplies -counseled the patient about smoking and weight loss -educated pt about risks, benefits, side effects, and alternatives to treatment 2. RLS: Currently on Pramipexol 0.75 mg 2 hours prior to bedtime. Has residual RLS and neuropathy symptoms. Recommendation: 1. Continue Pramipexole at current dose. Start Pregabalin with gradual increase up to 100mg to be taken 2 hours prior to intended sleep. 2. Increase PAP compliance to > 70% > 4 hours per night. Return to clinic for follow up evaluation in 6 months. /es/ JULIO GARZA MD Staff: Pulmonary, Critical Care & Sleep Medicine Signed: 04/10/2023 13:26 05/14/2023 ADDENDUM STATUS: COMPLETED Renewal request for pregabalin 25mg, four tabs qhs. Phone contact made with . He confirmed he is taking 100mg qhs. Drill Press Operator Numerical Control informed on new dosing instructions with his medication renewal for pregabalin 100mg to take one tab qhs /maame/ ANAND DUVAL PHYSICIAN ROLLER MACHINE OPERATOR Signed: 05/14/2023 16:20 [facility] Apr 10, 2023 12:47 PM SLEEP MEDICINE NOTE: LOCAL TITLE: SLEEP MEDICINE NOTE STANDARD TITLE: SLEEP MEDICINE NOTE DATE OF NOTE: APR 10, 2023@12:47 ENTRY DATE: APR 10, 2023@12:48:07 AUTHOR: JULIO GARZA EXP COSIGNER: URGENCY: STATUS: COMPLETED SLEEP MEDICINE NOTE Has ADDENDA History of Present Illness: Macario has been using his CPAP but there is interval decrease in his overall PAP compliance lately due to back pain which makes him sleep on his recliner. Few days back he has brought down his CPAP to living area and using it when sleeping on his recliner. Furthermore despite taking his Pramipexole 0.75mg in the evening he has some residual sharp pains in his legs along with feeling numb. He will be evaluated by Neurology for possible peripheral neuropathy. He is recovering from a recent cardiac surgery. Obstructive Sleep Apnea (WILI) Auto-CPAP: 14-20 cm H2O PAP download reviewed and reported below: - 04/09/2023 Average usage: 5 hours 4 minutes (days used) Average (AHI): 8.0 (which indicates effective treatment) Average leak: 5 minutes, 39 seconds Compliance>4hours: 70% [place] Sleeepiness Scale -Sitting and reading 2 -Watching TV 3 -Sitting inactive in a public place 0 -Being a Passenger in a motor vehicle for 1 hr or more 2 -Lying down in the afternoon 2 -Sitting and talking to someone 0 -Sitting quietly after lunch 1 -Stopped for a few mins in traffic 0 -Total 07/30 The confirms or denies the following symptoms as noted: Non-restorative sleep: Denies Snoring: Denies Witnessed apneas: Denies Gasping: Denies Nocturia: Confirms Morning headaches: Denies Difficulty initiating sleep: Denies Difficulty maintaining sleep: Denies Sleep Walking: Denies Somniloquy: Denies Cataplexy: Denies Sleep paralysis: Denies Hypnagogic hallucinations: Denies Hypnopompic hallucinations: Denies Difficulty concentrating: Denies Memory loss: Denies Dry mouth: Denies Nasal congestion: Denies Nocturnal limb movements: Denies Weight gain: Denies Weight loss: Denies Bruxism: Denies Mood disorder: Denies Mood swings: Denies Sore throat: Denies Past Medical History Active problems - Computerized Problem List is the source for the followin. Hallux valgus AND bunion (SNOMED CT 055940645) 2. Hammer toe (SNOMED CT 861335137) 3. Essential hypertension 4. Gout 5. Benign prostatic hyperplasia 6. Restless legs 7. Hemochromatosis 8. Chronic low back pain - since 1995 9. Osteoarthritis of knee - R TKA 2019, L TKA 10. Obstructive sleep apnea 11. History of male erectile disorder 12. Dupuytren's contracture 13. Bunion 14. Chronic sinusitis 15. Deviated nasal septum 16. Obesity 17. Pseudophakia 18. Benign monoclonal gammopathy - IgG kappa 19. Orchialgia - 2009 20. History of inflammatory bowel disease 21. Injury of tendon of the rotator cuff of shoulder - surgery right ? 2 , left ? 1 22. Impaired fasting glycaemia 23. Edema 24. Hallux valgus AND bunion 25. Inflammatory polyarthropathy 26. Chondrocalcinosis 27. Episcleritis 28. Gastroesophageal reflux disease 29. Sensorineural hearing loss, bilateral 30. Dry eyes 31. History of polyp of colon Medications: Active Outpatient Medications (including Supplies): Outpatient Medications Status 1) ALLOPURINOL 300MG TAB TAKE ONE TABLET BY MOUTH EVERY ACTIVE MORNING 2) ATENOLOL 50/CHLORTHALIDONE 25MG TAB TAKE 1 TABLET BY ACTIVE MOUTH EVERY DAY 3) CYCLOSPORINE 0.05% (PF) OPH EMUL 0.4ML 1 DROP BOTH ACTIVE EYES TWICE A DAY 4) DICLOFENAC NA 1% TOP GEL APPLY 4 GRAMS TOPICALLY FOUR ACTIVE TIMES A DAY NEEDED TO AFFECTED AREA FOR PAIN 5) DOCUSATE NA 100MG CAP TAKE ONE CAPSULE BY MOUTH TWICE ACTIVE A DAY NEEDED FOR CONSTIPATION 90 DAY SUPPLY 6) DOXAZOSIN MESYLATE 8MG TAB TAKE ONE TABLET BY MOUTH ACTIVE EVERY DAY 7) FLUTICASONE PROP 50MCG 120D NASAL INHL SPRAY 2 SPRAYS ACTIVE IN EACH NOSTRIL AT BEDTIME FOR NASAL SYMPTOMS 8) HYDROXYCHLOROQUINE SULFATE 200MG TAB TAKE ONE TABLET ACTIVE BY MOUTH EVERY DAY 9) LACTOBACILLUS ACIDOPHILUS TAB TAKE 1 TABLET BY MOUTH ACTIVE EVERY MORNING 10) LEFLUNOMIDE 20MG TAB TAKE ONE TABLET BY MOUTH EVERY ACTIVE DAY 11) OMEPRAZOLE 20MG EC CAP TAKE TWO CAPSULES BY MOUTH ACTIVE EVERY DAY ON AN EMPTY STOMACH, AT LEAST 30 MINUTES PRIOR TO A MEAL 12) PRAMIPEXOLE DIHYDROCHLORIDE 0.25MG TAB TAKE THREE ACTIVE TABLETS BY MOUTH EVERY EVENING FOR RESTLESS LEGS 13) PREDNISOLONE ACETATE 1% OPH SUSP INSTILL 1 DROP IN ACTIVE RIGHT EYE EVERY OTHER DAY SHAKE WELL 14) PREDNISONE 5MG TAB TAKE 1 TO 2 TABLETS BY MOUTH EVERY ACTIVE DAY NEEDED FOR JOINT PAIN * TAKE 1 TO 2 TABLETS DAILY DIRECTED TAPER 15) SODIUM CHLORIDE 0.65% SOLN NASAL SPRAY SPRAY 2 SPRAYS ACTIVE IN EACH NOSTRIL TWICE A DAY FOR NASAL DRYNESS 16) SULFASALAZINE 500MG TAB TAKE ONE TABLET BY MOUTH HOLD TWICE A DAY 17) TAMSULOSIN HCL 0.4MG CAP TAKE ONE CAPSULE BY MOUTH ACTIVE EVERY DAY 18) VANICREAM TOP CREAM APPLY THIN LAYER TOPICALLY EVERY ACTIVE DAY FOR DRY SKIN TO AREAS OF DRY SKIN, IDEALLY WITHIN 3 MINUTES AFTER BATH OR SHOWER. 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 1.Severe WILI: On suto-CPAP with interval decrease in overall compliance. Mildly elevated residual AHI which is in the therapeutic range. -discussed benefits of treatment, device maintenance, use and interval replacement of supplies -counseled the patient about smoking and weight loss -educated pt about risks, benefits, side effects, and alternatives to treatment 2. RLS: Currently on Pramipexol 0.75 mg 2 hours prior to bedtime. Has residual RLS and neuropathy symptoms. Recommendation: 1. Continue Pramipexole at current dose. Start Pregabalin with gradual increase up to 100mg to be taken 2 hours prior to intended sleep. 2. Increase PAP compliance to > 70% > 4 hours per night. Return to clinic for follow up evaluation in 6 months. /maame/ JULIO GARZA MD Staff: Pulmonary, Critical Care & Sleep Medicine Signed: 04/10/2023 13:26 05/14/2023 ADDENDUM STATUS: COMPLETED Renewal request for pregabalin 25mg, four tabs qhs. Phone contact made with . He confirmed he is taking 100mg qhs. Drill Press Operator Numerical Control informed on new dosing instructions with his medication renewal for pregabalin 100mg to take one tab qhs /es/ ANAND DUVAL PHYSICIAN ROLLER MACHINE OPERATOR Signed: 05/14/2023 16:20 05/15/2023 ADDENDUM STATUS: COMPLETED Received the following Secure Message from the patient today, 05/15/23: I'm sorry I got the medication mixed up with my other sleep medication for my restless legs that I've been on 3-[address]. [address] medication that Dr Mendoza put me on the pharmacy would only send me 30 pills every time so I couldn't take them as you prescribed so I couldn't take as many as I should have because the pharmacy didn't really read my prescription right so I will have to start all over. I will await for your response and I'm sorry for not letting you know sooner. Thank You Contacted patient to discuss. Patient confirms he is taking the following: -Pramipexole 0.75mg (0.25mg tabs x3/night) -Pregabalin 25mg Patient reports he was never able to titrate his Pregabalin up to 100mg because each prescription bottle only contained 30 capsules. Therefore, patient states he has been on 25mg for 3 weeks. Consulted with Nita Cantu PA-C: *patient to hold 100mg Pregabalin when prescription arrives; advised patient to place prescription in a place where it will not get confused with another prescription *patient to resume titration schedule as previously planned. Advised patient to track his RLS sx each week and stop at the dose that controls his residual RLS - patient is aware this may be lower than 100mg. RLS: -On 25mg Pregabalin, patient reports his RLS sx have started to improve. Notes residual sx at least 3x/week. Denies grogginess or other side effects. PLAN: -Sleep RN will f/u with patient to assess response in 2-3 weeks -Co-signing Dr. Garza and Nita Cantu to update Total time with patient: 22 minutes /maame/ DIVINE MCNEIL RN REGISTERED NURSE Signed: 05/15/2023 16:12 Receipt Acknowledged By: 05/15/2023 16:14 /maame/ ANAND DUVAL PHYSICIAN ROLLER MACHINE OPERATOR for JULIO GARZA 05/15/2023 16:14 /maame/ ANAND DUVAL PHYSICIAN ROLLER MACHINE OPERATOR 06/19/2023 ADDENDUM STATUS: COMPLETED Received phone call from patient regarding his RLS and Pregabalin prescription. States he is currently taking three 25mg capsules (total 75mg). Reporting residual RLS symptoms 2x/week, which he said has decreased from previous reports of 3-4x/week. -Patient was initially instructed to titrate up to 100mg, but would like to remain at 75mg for now, states he will increase if he starts to feel his symptoms worsen. -Next f/u with sleep provider scheduled 07/10/23 PLAN: -Alerting sleep provider, please address Pregabalin refill request (would need enough capsules/month to take 75mg dose) -Patient to call sleep RN if he needs to increase to 100mg Total time with patient: 8 minutes /es/ DIVINE MCNEIL RN REGISTERED NURSE Signed: 06/19/2023 13:07 Receipt Acknowledged By: * AWAITING SIGNATURE * JULIO GARZA [facility]
--- OUTSIDE RECORDS SUMMARY | 2024-01-15 11:06 | XMS_ITS | Continuity of Care Document ---
Author Name [facility] Organization [facility] Care Team Providers Care Tire Design Engineer Name Role Phone [facility] Unavailable Unavailable Problems Combined list of problems from Department of Defense and Veterans Affairs facilities. It does not include entries that were removed or entered in error. Problem Status Onset Date Problem Type Date of Resolution Comments Source Benign monoclonal gammopathy Active Condition Jun 25, 2018 Entered By: CHACHO MARTIN Comment: IgG kappa [facility] Benign prostatic hyperplasia Active Condition [facility] Bunion Active Condition [facility] Chondrocalcinosis [facility] Chronic low back pain Active Condition Jun 25, 2018 Entered By: CHACHO MARTIN Comment: since 1995 [facility] Chronic sinusitis Active Condition [facility] Deviated nasal septum Active Condition [facility] Dry eyes Active Condition [facility] Dupuytren's contracture Active Condition [facility] Edema Active Condition [facility] Episcleritis Active Condition [facility] Essential hypertension Active Condition [facility] Gastroesophageal reflux disease Active Condition [facility] Gout Active Condition [facility] Hallux valgus AND bunion Active Condition [facility] Hallux valgus AND bunion (SNOMED CT 358466855) Active Condition [facility] Hammer toe (SNOMED CT 459892126) Active Condition [facility] Hemochromatosis [facility] History of gout Active Condition [facility] History of inflammatory bowel disease Active Condition [facility] History of male erectile disorder Active Condition [facility] History of polyp of colon Active Condition [facility] Impaired fasting glycaemia Active Condition [facility] Inflammatory polyarthropathy Active Condition [facility] Injury of tendon of the rotator cuff of shoulder Active Condition Jun 25, 2018 Entered By: CHACHO MARTIN Comment: surgery right ? 2 , left ? 1 [facility] Obesity Active Condition [facility] Obstructive sleep apnea Active Condition May 01, 2023 Entered By: PETE PERALTA Comment: resmed airsense s11 apap 14-20 ramp 8x15 min [facility] Orchialgia Active Condition Jun 25, 2018 Entered By: CHACHO MARTIN W Comment: 2009 [facility] Osteoarthritis of knee Active Condition Jul 06, 2020 Entered By: López RATLIFF Comment: R TKA 2019, L TKA [facility] Pseudophakia Active Condition [facility] Restless legs Active Condition [facility] Sensorineural hearing loss, bilateral Active Condition [facility] Hypertension (SNOMED CT 86710966) Inactive Condition 04/16/2018 [facility] Diagnosis: ICD-10-CM M06.4 Inflammatory polyarthropathy Active Diagnosis [facility] Diagnosis: ICD-10-CM Z73.6 Limitation of activities due to disability Active Diagnosis [facility] Diagnosis: ICD-10-CM Z74.09 Other reduced mobility Active Diagnosis [facility] Diagnosis: ICD-10-CM G47.33 Obstructive sleep apnea (adult) (pediatric) Active Diagnosis [facility] Diagnosis: ICD-10-CM M54.51 Vertebrogenic low back pain Active Diagnosis [facility] Diagnosis: ICD-10-CM L98.9 Disorder of the skin and subcutaneous tissue, unspecified Active Diagnosis [facility] Diagnosis: ICD-10-CM Z01.118 Encntr for exam of ears and hearing w oth abnormal findings Active Diagnosis [facility] Diagnosis: ICD-10-CM Z46.1 Encounter for fitting and adjustment of hearing aid Active Diagnosis [facility] Diagnosis: ICD-10-CM M54.50 Low back pain, unspecified Active Diagnosis [facility] Medications Combined list of outpatient medications from Department of Defense and [facility] Affairs facilities.Medications provided include 1) outpatient medications from the last 15 months, and 2) patient-reported medications. Medication Details Route Status Patient Instructions Prescription Expires Prescription Number Last Dispense Date Ordering Provider Order Date Source ALLOPURINOL 300MG TAB TAKE ONE TABLET BY MOUTH EVERY MORNING ORALLY ACTIVE 07/09/2024 [id number] 4 Carlos HEARD NNE 2022 [facility] ALLOPURINOL 300MG TAB TAKE ONE TABLET BY MOUTH EVERY MORNING ORALLY DISCONT INUED 07/10/2023 [id number] 3 FÉLIX,A NNE 2021 [facility] ATENOLOL 50MG/CHLORT HALIDONE 25MG TAB TAKE 1 TABLET BY MOUTH EVERY DAY ORALLY ACTIVE 07/09/2024 [id number] 3 FÉLIX,A NNE 2022 [facility] ATENOLOL 50MG/CHLORT HALIDONE 25MG TAB TAKE 1 TABLET BY MOUTH EVERY DAY ORALLY DISCONT INUED 07/14/2023 [id number] 3 FÉLIX,A NNE 2021 [facility] CELECOXIB 200MG CAP TAKE 1 CAPSULE BY MOUTH TWICE A DAY ORALLY ACTIVE TAZ MAKI 2008 [facility] CYCLOSPORIN E 0.05% (PF) EMULSION,OP H,0.4ML INSTILL 1 DROP BOTH EYES TWICE A DAY BOTH EYES ACTIVE 10/30/2024 [id number] 4 SUDHIR GONZALEZ 2023 [facility] CYCLOSPORIN E 0.05% (PF) EMULSION,OP H,0.4ML 1 DROP BOTH EYES TWICE A DAY BOTH EYES 07/18/2023 [id number] 3 SUDHIR GONZALEZ 2021 [facility] DICLOFENAC NA 1% GEL,TOP APPLY 4 GRAMS TOPICALL Y FOUR TIMES A DAY NEEDED TO AFFECTED AREA FOR PAIN TOPICA LLY ACTIVE 03/15/2024 [id number] 3 JOCELYNN BLISS MD 2022 [facility] DOCUSATE NA 100MG CAP TAKE ONE CAPSULE BY MOUTH TWICE A DAY NEEDED FOR CONSTIPA TION 90 DAY SUPPLY ORALLY ACTIVE 07/09/2024 [id number] 4 FÉLIX,A NNE 2022 [facility] DOCUSATE NA 100MG CAP TAKE ONE CAPSULE BY MOUTH TWICE A DAY NEEDED FOR CONSTIPA TION 90 DAY SUPPLY ORALLY DISCONT INUED 07/14/2023 [id number] 3 FÉLIX,A NNE 2021 [facility] DOXAZOSIN MESYLATE 8MG TAB TAKE ONE TABLET BY MOUTH EVERY DAY ORALLY ACTIVE 07/09/2024 [id number] 4 FÉLIX,A NNE 2022 [facility] DOXAZOSIN MESYLATE 8MG TAB TAKE ONE TABLET BY MOUTH EVERY DAY ORALLY DISCONT INUED 07/14/2023 [id number] 3 FÉLIX,A NNE 2021 [facility] FLUTICASONE PROPIONATE 50MCG/SPRAY SOLN,NASAL, 16GM SPRAY 2 SPRAYS IN EACH NOSTRIL AT BEDTIME FOR NASAL SYMPTOMS NASAL 12/15/2023 [id number] 3 ZACHARY OAKLEY 2022 [facility] GABAPENTIN 300MG CAP TAKE 1 CAPSULE BY MOUTH THREE TIMES A DAY ORALLY ACTIVE TAZ MAKI 2008 [facility] HYDROXYCHLO ROQUINE SO4 200MG TAB TAKE ONE TABLET BY MOUTH EVERY DAY ORALLY ACTIVE 10/28/2024 [id number] 4 JOCELYNN BLISS MD 2023 [facility] HYDROXYCHLO ROQUINE SO4 200MG TAB TAKE ONE TABLET BY MOUTH EVERY DAY ORALLY DISCONT INUED 02/05/2024 [id number] 3 JOCELYNN BLISS MD 2022 [facility] HYDROXYCHLO ROQUINE SO4 200MG TAB TAKE ONE TABLET BY MOUTH EVERY DAY ORALLY DISCONT INUED 05/08/2023 [id number] 3 JOCELYNN BLISS MD 2021 [facility] LACTOBACILL US ACIDOPHILUS TAB TAKE 1 TABLET BY MOUTH EVERY MORNING ORALLY ACTIVE 07/09/2024 [id number] FÉLIX,A NNE 2022 [facility] LACTOBACILL US ACIDOPHILUS TAB TAKE 1 TABLET BY MOUTH EVERY MORNING ORALLY DISCONT INUED 07/14/2023 [id number] 3 FÉLIX,A NNE 2021 [facility] LEFLUNOMIDE 20MG TAB TAKE ONE TABLET BY MOUTH EVERY DAY ORALLY DISCONT INUED 06/11/2023 [id number] 3 JOCELYNN BLISS MD 2022 [facility] LEFLUNOMIDE 20MG TAB TAKE ONE TABLET BY MOUTH EVERY DAY ORALLY DISCONT INUED 03/17/2023 [id number] 3 JOCELYNN BLISS MD 2022 [facility] LEFLUNOMIDE 20MG TAB TAKE ONE TABLET BY MOUTH EVERY DAY ORALLY 08/25/2023 [id number] 3 JOCELYNN BLISS MD 2022 [facility] LUBIPROSTON E CAP,ORAL TAKE 8 MCG BY MOUTH TWICE A DAY ORALLY ACTIVE Hola MARTIN W 2018 [facility] MULTIVITAMI NS CAP/TAB TAKE ONE TABLET BY MOUTH EVERY DAY ORALLY ACTIVE TAZ MAKI 2008 [facility] OMEPRAZOLE 20MG CAP,EC TAKE TWO CAPSULES BY MOUTH EVERY DAY ON AN EMPTY STOMACH, AT LEAST 30 MINUTES PRIOR TO A MEAL ORALLY ACTIVE 07/09/2024 [id number] 3 Carlos HEARD NNE 2022 [facility] OMEPRAZOLE 20MG CAP,EC TAKE TWO CAPSULES BY MOUTH EVERY DAY ON AN EMPTY STOMACH, AT LEAST 30 MINUTES PRIOR TO A MEAL ORALLY DISCONT INUED 07/14/2023 [id number] 3 Carlos HEARD NNE 2021 [facility] OXYCODONE HCL 20MG TAB,SA TAKE ONE TABLET BY MOUTH EVERY 12 HOURS ORALLY ACTIVE Hola MARTIN 2017 [facility] OXYCODONE HCL 5MG TAB TAKE ONE TABLET BY MOUTH TWICE A DAY NEEDED ORALLY ACTIVE Hola MARTIN W 2017 [facility] POLYETHYLEN E GLYCOL 3350 PWDR,ORAL TAKE 17 GRAMS BY MOUTH EVERY DAY FOR CONSTIPA TION MIXED IN JUICE OR WATER DIRECTED USE THE CAP A MEASURE ORALLY ACTIVE 10/09/2024 [id number] 4 Carlos HEARD NNE 2023 [facility] PRAMIPEXOLE DIHYDROCHLO RIDE 0.25MG TAB TAKE THREE TABLETS BY MOUTH EVERY EVENING FOR RESTLESS LEGS ORALLY ACTIVE 09/20/2024 [id number] 4 [facility] 2022 [facility] PRAMIPEXOLE DIHYDROCHLO RIDE 0.25MG TAB TAKE THREE TABLETS BY MOUTH EVERY EVENING FOR RESTLESS LEGS ORALLY DISCONT INUED 06/16/2023 [id number] 3 JOANNE CARDONA JAT 2021 [facility] PREDNISOLON E ACETATE 1% SUSP,OPH INSTILL 1 DROP IN RIGHT EYE EVERY DAY RIGHT EYE ACTIVE 10/30/2024 [id number] 4 SUDHIR GONZALEZ 2023 [facility] PREDNISOLON E ACETATE 1% SUSP,OPH INSTILL 1 DROP IN RIGHT EYE EVERY DAY RIGHT EYE DISCONT INUED 05/16/2024 [id number] 3 SUDHIR GONZALEZ 2022 [facility] PREDNISOLON E ACETATE 1% SUSP,OPH INSTILL 1 DROP IN RIGHT EYE EVERY OTHER DAY SHAKE WELL RIGHT EYE 06/06/2023 [id number] 3 SUDHIR GONZALEZ 2021 [facility] PREDNISONE 5MG TAB TAKE ONE TABLET BY MOUTH EVERY DAY ORALLY HOLD 01/13/2025 [id number] JOCELYNN BLISS MD 2023 [facility] PREDNISONE 5MG TAB TAKE 1 TO 2 TABLETS BY MOUTH EVERY DAY NEEDED FOR JOINT PAIN * TAKE 1 TO 2 TABLETS DAILY DIRECTED TAPER ORALLY DISCONT INUED (EDIT) 11/04/2024 [id number] 4 JOCELYNN BLISS MD 2023 [facility] PREDNISONE 5MG TAB TAKE 1 TO 2 TABLETS BY MOUTH EVERY DAY NEEDED FOR JOINT PAIN * TAKE 1 TO 2 TABLETS DAILY DIRECTED TAPER ORALLY DISCONT INUED 12/18/2023 [id number] 3 JOCELYNN BLISS MD 2022 [facility] PREGABALIN 100MG CAP,ORAL TAKE ONE CAPSULE BY MOUTH AT BEDTIME FOR RESTLESS LEGS SYNDROME ORALLY DISCONT INUED 11/14/2023 [id number] 3 PETE BROWN 2022 [facility] PREGABALIN 25MG CAP,ORAL TAKE ONE CAPSULE BY MOUTH AT BEDTIME FOR 1 WEEK, THEN TAKE TWO CAPSULES AT BEDTIME FOR 1 WEEK, THEN TAKE THREE CAPSULES AT BEDTIME FOR 1 WEEK, THEN TAKE FOUR CAPSULES AT BEDTIME FOR RESTLESS LEGS SYNDROME START WITH ONE CAPSULE AT BEDTIME. INCREASE TIL EFFECTIV E. MAXIMUM 4 CAPSULES . ORALLY DISCONT INUED 10/12/2023 [id number] 3 JOANNE CARDONA 2022 [facility] PREGABALIN 25MG CAP,ORAL TAKE 2 CAPSULES BY MOUTH AT BEDTIME FOR 1 WEEK, THEN TAKE 3 CAPSULES AT BEDTIME NEEDED FOR 1 WEEK, THEN TAKE 4 CAPSULES AT BEDTIME NEEDED FOR RESTLESS LEGS SYNDROME ORALLY 06/14/2023 [id number] 3 PETE BROWN 2022 [facility] PREGABALIN 75MG CAP,ORAL TAKE ONE CAPSULE BY MOUTH AT BEDTIME -- START FOR RLS WITH ONE PILL AT NIGHT AND TITRATE TO EFFECT IF NOT LIMITED BY SIDE EFFECT. MAX OF 100MG. -- START FOR RLS WITH ONE PILL AT NIGHT AND TITRATE TO EFFECT IF NOT LIMITED BY SIDE EFFECT. MAX OF 100MG. ORALLY 12/20/2023 [id number] 4 JOANNE CARDONA 2022 [facility] SODIUM CHLORIDE 0.65% SOLN,NASAL SPRAY SPRAY 2 SPRAYS IN EACH NOSTRIL TWICE A DAY FOR NASAL DRYNESS NASAL 12/15/2023 [id number] 3 ZACHARY OAKLEY 2022 [facility] VANICREAM APPLY THIN LAYER TOPICALL Y EVERY DAY FOR DRY SKIN TO AREAS OF DRY SKIN, IDEALLY WITHIN 3 MINUTES AFTER BATH OR SHOWER. FOR DRY SKIN TO AREAS OF DRY SKIN, IDEALLY WITHIN 3 MINUTES AFTER BATH OR SHOWER. TOPICA LLY ACTIVE 07/09/2024 [id number] 3 FÉLIX,A NNE 2022 [facility] VANICREAM APPLY THIN LAYER TOPICALL Y EVERY DAY FOR DRY SKIN TO AREAS OF DRY SKIN, IDEALLY WITHIN 3 MINUTES AFTER BATH OR SHOWER. FOR DRY SKIN TO AREAS OF DRY SKIN, IDEALLY WITHIN 3 MINUTES AFTER BATH OR SHOWER. TOPICA LLY DISCONT INUED 08/06/2023 [id number] 3 FÉLIX,A NNE 2021 [facility] Allergies, Adverse Reactions, Alerts Combined list of allergies from Department of Defense and Veterans [facility] facilities. It does not include entries that were removed or entered in error. Substance Category Reaction Severity Reaction type Status Date Reported Comments Source DICLOFENAC Propensity to adverse reactions to drug (finding) Eruption MILD active 2 [facility] LEVOFLOXACIN Propensity to adverse reactions to drug (finding) Muscle pain, Muscle weakness active 1 [facility] SEASONAL ALLERGIES Propensity to adverse reaction (finding) Allergic rhinitis active 9 [facility] Immunizations Combined list of available immunizations from the Department of [facility] and [facility] facilities. Immunization Series Date Given Administered By Site Reaction Lot Number CVX Code Drug Audio Visual Director Status Comments Source COVID-19 (PFIZER), MRNA, LNP-S, PF, ONESIMO-SUCROSE, 30 MCG/0.3 ML (AGES 12+ YEARS) 2022 309 complet ed [facility] INFLUENZA VACCINE, QUADRIVALENT, ADJUVANTED 2022 205 complet ed [facility] COVID-19 (PFIZER), MRNA, LNP-S, BIVALENT, PF, 30 MCG/0.3 ML DOSE 2022 300 complet ed [facility] INFLUENZA VACCINE, QUADRIVALENT, ADJUVANTED 2021 205 complet ed [facility] COVID-19 ([place]), MRNA, LNP-S, PF, 30 MCG/0.3 ML DOSE, ONESIMO-SUCROSE (AGES 12+ YEARS) 4 2021 217 complet ed PFR; [id number]; 2 [facility] COVID-19 (MODERNA), MRNA, LNP-S, PF, 100 MCG/0.5ML DOSE OR 50 MCG/0.25ML DOSE 3 2020 207 complet ed [facility] INFLUENZA, INJECTABLE, QUADRIVALENT, PRESERVATIVE FREE 2020 150 complet ed [facility] COVID-19 (MODERNA), MRNA, LNP-S, PF, 100 MCG/0.5 ML DOSE 2 2020 207 complet ed MOD: [id number]; 1 [facility] COVID-19 (MODERNA), MRNA, LNP-S, PF, 100 MCG/0.5 ML DOSE 1 2020 207 complet ed MOD; [id number]; 1 [facility] ZOSTER RECOMBINANT 2 2019 187 complet ed [facility] ZOSTER RECOMBINANT 1 2019 187 complet ed [facility] INFLUENZA VACCINE, QUADRIVALENT, ADJUVANTED 2019 205 complet ed [facility] INFLUENZA, UNSPECIFIED FORMULATION 2019 88 complet ed [facility] INFLUENZA, TRIVALENT, ADJUVANTED 2018 168 complet ed [facility] INFLUENZA, SEASONAL, INJECTABLE 2018 141 complet ed [facility] INFLUENZA, TRIVALENT, ADJUVANTED 2018 168 complet ed [facility] INFLUENZA, TRIVALENT, ADJUVANTED 2017 168 complet ed [facility] TD (ADULT), 2 LF TETANUS TOXOID, PRESERVATIVE FREE, ADSORBED 2017 09 complet ed [employer], [id number], 05/02/20 [facility] INFLUENZA, TRIVALENT, ADJUVANTED 2016 168 complet ed [facility] INFLUENZA, HIGH DOSE SEASONAL 2016 135 complet ed [facility] INFLUENZA, HIGH DOSE SEASONAL 2015 135 complet ed [facility] INFLUENZA, HIGH DOSE SEASONAL 2015 135 complet ed [facility] PNEUMOCOCCAL CONJUGATE PCV 13 2015 133 complet ed [facility] INFLUENZA, HIGH DOSE SEASONAL 2014 135 complet ed [facility] INFLUENZA, SEASONAL, INJECTABLE 2014 141 complet ed [facility] PNEUMOCOCCAL CONJUGATE PCV 13 2014 133 complet ed [facility] INFLUENZA, UNSPECIFIED FORMULATION 2013 88 complet ed [facility] INFLUENZA, HIGH DOSE SEASONAL 2013 135 complet ed [facility] PNEUMOCOCCAL POLYSACCHARID E PPV23 2012 33 complet ed [facility] INFLUENZA, SEASONAL, INJECTABLE 2012 141 complet ed [facility] INFLUENZA, UNSPECIFIED FORMULATION 2012 88 complet ed [facility] PNEUMOCOCCAL, UNSPECIFIED FORMULATION 2012 109 complet ed [facility] ZOSTER LIVE 2012 121 complet ed merck;[id number] 1008'01/06 [facility] INFLUENZA, SEASONAL, INJECTABLE 2011 141 complet ed [facility] INFLUENZA, UNSPECIFIED FORMULATION 2011 88 complet ed [facility] INFLUENZA, SEASONAL, INJECTABLE, PRESERVATIVE FREE 2010 140 complet ed [facility] INFLUENZA, UNSPECIFIED FORMULATION 2010 88 complet ed [facility] INFLUENZA, UNSPECIFIED FORMULATION 2009 88 complet ed [facility] INFLUENZA, SEASONAL, INJECTABLE 2009 141 complet ed [facility] TDAP 2009 115 complet ed [facility] INFLUENZA, UNSPECIFIED FORMULATION 2008 88 complet ed [facility] INFLUENZA, SEASONAL, INJECTABLE 2007 141 complet ed [facility] TDAP 2007 115 complet ed [facility] TD(ADULT) UNSPECIFIED FORMULATION 2007 139 complet ed [facility] INFLUENZA, SEASONAL, INJECTABLE 2006 141 complet ed [facility] INFLUENZA, SEASONAL, INJECTABLE 2005 141 complet ed [facility] INFLUENZA, UNSPECIFIED FORMULATION 2004 88 complet ed [facility] INFLUENZA, UNSPECIFIED FORMULATION 2002 88 complet ed [facility] INFLUENZA (HISTORICAL) 1996 STAFF,NURSE 88 complet ed [facility] Results Combined list of recent chemistry, hematology and other laboratory results from Department of Defense and Veterans Affairs, ranging from 15 months to all on record, depending upon the facility. Order Name Results Value Reference Range Date Interpretation Specimen Comments Source ALT/SGPT ALANINE AMINOTRANS FERASE [ENZYMATIC ACTIVITY/V OLUME] IN SERUM OR PLASMA 23 <55 - 55 12/02 Specimen Type: PLASMA No comment entered. Ordering Provider: ST ANASTACIO BLISS MD Report Released Date/Time: Jul 15, 2023 06:28 PM Reporting Lab: [facility] [phone] Performing Lab: [facility] [phone] [facility] AST/SGOT ASPARTATE AMINOTRANS FERASE [ENZYMATIC ACTIVITY/V OLUME] IN SERUM OR PLASMA 20 <34 - 34 12/02 Specimen Type: PLASMA No comment entered. Ordering Provider: ST ANASTACIO BLISS MD Report Released Date/Time: Jul 15, 2023 06:28 PM Reporting Lab: [facility] [phone] Performing Lab: [facility] [phone] [facility] CREATINI NE(INCLU JUAN ANTONIO EGFR) CREATININE [MASS/VOLU ME] IN SERUM OR PLASMA 0.8 0.7 - 1.2 12/02 Specimen Type: PLASMA No comment entered. Ordering Provider: ST ANASTACIO BLISS MD Report Released Date/Time: Jul 15, 2023 06:28 PM Reporting Lab: [facility] [phone] Performing Lab: [facility] [phone] [facility] CREATINI NE(INCLU JUAN ANTONIO EGFR) GLOMERULAR FILTRATION RATE/1.73 SQ M.PREDICTE D [VOLUME RATE/AREA] IN SERUM, PLASMA OR BLOOD BY CREATININE -BASED FORMULA (CKD-EPI 2020) >90 60 12/02 Specimen Type: PLASMA No comment entered. Ordering Provider: ST ANASTACIO BLISS MD Report Released Date/Time: Jul 15, 2023 06:28 PM Reporting Lab: [facility] [phone] Performing Lab: [facility] [phone] [facility] SED RATE ERYTHROCYT E SEDIMENTAT ION RATE 97 5 - 15 12/02 H Specimen Type: BLOOD No comment entered. Ordering Provider: [facility] ANASTACIO BLISS MD Report Released Date/Time: Jul 15, 2023 06:28 PM Reporting Lab: [facility] [phone] Performing Lab: [facility] [phone] [facility] CBC & DIFF LEUKOCYTES [#/VOLUME] IN BLOOD BY AUTOMATED COUNT 19.25 4.0 - 11.0 12/02 H Specimen Type: BLOOD Comment: Manual Differentia l Performed Ordering Provider: ST ANASTACIO BLISS MD Report Released Date/Time: Jul 15, 2023 06:28 PM Reporting Lab: [facility] [phone] Performing Lab: [facility] [phone] [facility] CBC & DIFF ERYTHROCYT ES [#/VOLUME] IN BLOOD BY AUTOMATED COUNT 3.40 4.6 - 6.2 12/02 L Specimen Type: BLOOD Comment: Manual Differentia l Performed Ordering Provider: ST ANASTACIO BLISS MD Report Released Date/Time: Jul 15, 2023 06:28 PM Reporting Lab: [facility] [phone] Performing Lab: [facility] [phone] [facility] CBC & DIFF HEMOGLOBIN [MASS/VOLU ME] IN BLOOD 8.5 13.5 - 17.9 12/02 L Specimen Type: BLOOD Comment: Manual Differentia l Performed Ordering Provider: ST ANASTACIO BLISS MD Report Released Date/Time: Jul 15, 2023 06:28 PM Reporting Lab: [facility] [phone] Performing Lab: [facility] [phone] [facility] CBC & DIFF HEMATOCRIT [VOLUME FRACTION] OF BLOOD BY AUTOMATED COUNT 28.3 41 - 54 12/02 L Specimen Type: BLOOD Comment: Manual Differentia l Performed Ordering Provider: ST ANASTACIO BLISS MD Report Released Date/Time: Jul 15, 2023 06:28 PM Reporting Lab: [facility] [phone] Performing Lab: [facility] [phone] [facility] CBC & DIFF MCV [ENTITIC VOLUME] BY AUTOMATED COUNT 83.2 80 - 100 12/02 Specimen Type: BLOOD Comment: Manual Differentia l Performed Ordering Provider: ST ANASTACIO BLISS MD Report Released Date/Time: Jul 15, 2023 06:28 PM Reporting Lab: [facility] [phone] Performing Lab: [facility] [phone] [facility] CBC & DIFF MCH [ENTITIC MASS] BY AUTOMATED COUNT 25.0 27 - 33 12/02 L Specimen Type: BLOOD Comment: Manual Differentia l Performed Ordering Provider: ST ANASTACIO BLISS MD Report Released Date/Time: Jul 15, 2023 06:28 PM Reporting Lab: [facility] [phone] Performing Lab: [facility] [phone] [facility] CBC & DIFF MCHC [MASS/VOLU ME] BY AUTOMATED COUNT 30.0 32.0 - 37.5 12/02 L Specimen Type: BLOOD Comment: Manual Differentia l Performed Ordering Provider: ST ANASTACIO BLISS MD Report Released Date/Time: Jul 15, 2023 06:28 PM Reporting Lab: [facility] [phone] Performing Lab: [facility] [phone] [facility] CBC & DIFF PLATELETS [#/VOLUME] IN BLOOD BY AUTOMATED COUNT 481 150 - 400 12/02 H Specimen Type: BLOOD Comment: Manual Differentia l Performed Ordering Provider: ST ANASTACIO BLISS MD Report Released Date/Time: Jul 15, 2023 06:28 PM Reporting Lab: [facility] [phone] Performing Lab: [facility] [phone] [facility] CBC & DIFF PLATELET MEAN VOLUME [ENTITIC VOLUME] IN BLOOD BY AUTOMATED COUNT 9.1 7.4 - 10.4 12/02 Specimen Type: BLOOD Comment: Manual Differentia l Performed Ordering Provider: ST ANASTACIO LBISS MD Report Released Date/Time: Jul 15, 2023 06:28 PM Reporting Lab: [facility] [phone] Performing Lab: [facility] [phone] [facility] CBC & DIFF NEUTROPHIL S/100 LEUKOCYTES IN BLOOD BY MANUAL COUNT 85.5 12/02 Specimen Type: BLOOD Comment: Manual Differentia l Performed Ordering Provider: ST ANASTACIO BLISS MD Report Released Date/Time: Jul 15, 2023 06:28 PM Reporting Lab: [facility] [phone] Performing Lab: [facility] [phone] [facility] CBC & DIFF LYMPHOCYTE S/100 LEUKOCYTES IN BLOOD BY MANUAL COUNT 10.5 12/02 Specimen Type: BLOOD Comment: Manual Differentia l Performed Ordering Provider: ST ANASTACIO BLISS MD Report Released Date/Time: Jul 15, 2023 06:28 PM Reporting Lab: [facility] [phone] Performing Lab: [facility] [phone] [facility] CBC & DIFF MONOCYTES/ 100 LEUKOCYTES IN BLOOD BY AUTOMATED COUNT 3.0 12/02 Specimen Type: BLOOD Comment: Manual Differentia l Performed Ordering Provider: ST ANASTACIO BLISS MD Report Released Date/Time: Jul 15, 2023 06:28 PM Reporting Lab: [facility] [phone] Performing Lab: [facility] [phone] [facility] CBC & DIFF EOSINOPHIL S/100 LEUKOCYTES IN BLOOD BY AUTOMATED COUNT 0.5 12/02 Specimen Type: BLOOD Comment: Manual Differentia l Performed Ordering Provider: ST ANASTACIO BLISS MD Report Released Date/Time: Jul 15, 2023 06:28 PM Reporting Lab: [facility] [address] Performing Lab: [facility] [id number] [facility] CBC & DIFF BASOPHILS/ 100 LEUKOCYTES IN BLOOD BY MANUAL COUNT 0.5 12/02 Specimen Type: BLOOD Comment: Manual Differentia l Performed Ordering Provider: ST ANASTACIO BLISS MD Report Released Date/Time: Jul 15, 2023 06:28 PM Reporting Lab: [facility] [id number] Performing Lab: [facility] [address] INUPIAT [facility] CBC & DIFF ANISOCYTOS IS [PRESENCE] IN BLOOD BY LIGHT MICROSCOPY MODERATE 12/02 Specimen Type: BLOOD Comment: Manual Differentia l Performed Ordering Provider: ST ANASTACIO BLISS MD Report Released Date/Time: Jul 15, 2023 06:28 PM Reporting Lab: [facility] [id number] Performing Lab: [facility] [phone] [facility] CBC & DIFF MICROCYTES [PRESENCE] IN BLOOD BY LIGHT MICROSCOPY SLIGHT 12/02 Specimen Type: BLOOD Comment: Manual Differentia l Performed Ordering Provider: ST ANASTACIO BLISS MD Report Released Date/Time: Jul 15, 2023 06:28 PM Reporting Lab: [facility] [address] Performing Lab: [facility] [address] [facility] CBC & DIFF MACROCYTES [PRESENCE] IN BLOOD BY LIGHT MICROSCOPY SLIGHT 12/02 Specimen Type: BLOOD Comment: Manual Differentia l Performed Ordering Provider: ST ANASTACIO BLISS MD Report Released Date/Time: Jul 15, 2023 06:28 PM Reporting Lab: [facility] [address] Performing Lab: [facility] [address] [facility] CBC & DIFF POLYCHROMA KATHRYN [PRESENCE] IN BLOOD BY LIGHT MICROSCOPY SLIGHT 12/02 Specimen Type: BLOOD Comment: Manual Differentia l Performed Ordering Provider: ST ANASTACIO BLISS MD Report Released Date/Time: Jul 15, 2023 06:28 PM Reporting Lab: [facility] [phone] Performing Lab: [facility] [address] [facility] CBC & DIFF HYPOCHROMI A [PRESENCE] IN BLOOD BY LIGHT MICROSCOPY MODERATE 12/02 Specimen Type: BLOOD Comment: Manual Differentia l Performed Ordering Provider: ST ANASTACIO BLISS MD Report Released Date/Time: Jul 15, 2023 06:28 PM Reporting Lab: [facility] [address] Performing Lab: [facility] [address] [facility] CBC & DIFF ERYTHROCYT E DISTRIBUTI ON WIDTH [RATIO] BY AUTOMATED COUNT 18.2 11.5 - 14.5 12/02 H Specimen Type: BLOOD Comment: Manual Differentia l Performed Ordering Provider: ST ANASTACIO BLISS MD Report Released Date/Time: Jul 15, 2023 06:28 PM Reporting Lab: [facility] [address] Performing Lab: [facility] [address] [facility] CBC & DIFF LYMPHOCYTE S [#/VOLUME] IN BLOOD BY AUTOMATED COUNT 2.02 1.0 - 4.0 12/02 Specimen Type: BLOOD Comment: Manual Differentia l Performed Ordering Provider: ST ANASTACIO BLISS MD Report Released Date/Time: Jul 15, 2023 06:28 PM Reporting Lab: [facility] [address] Performing Lab: [facility] [address] [facility] CBC & DIFF MONOCYTES [#/VOLUME] IN BLOOD BY AUTOMATED COUNT 0.58 0.1 - 1.0 12/02 Specimen Type: BLOOD Comment: Manual Differentia l Performed Ordering Provider: ST ANASTACIO BLISS MD Report Released Date/Time: Jul 15, 2023 06:28 PM Reporting Lab: [facility] [address] Performing Lab: [facility] [address] [facility] CBC & DIFF NEUTROPHIL S [#/VOLUME] IN BLOOD BY AUTOMATED COUNT 16.46 2.0 - 7.7 12/02 H Specimen Type: BLOOD Comment: Manual Differentia l Performed Ordering Provider: ST ANASTACIO BLISS MD Report Released Date/Time: Jul 15, 2023 06:28 PM Reporting Lab: [facility] [address] Performing Lab: [facility] [address] [facility] CBC & DIFF EOSINOPHIL S [#/VOLUME] IN BLOOD BY AUTOMATED COUNT 0.10 0 - 0.5 12/02 Specimen Type: BLOOD Comment: Manual Differentia l Performed Ordering Provider: ST ANASTACIO BLISS MD Report Released Date/Time: Jul 15, 2023 06:28 PM Reporting Lab: [facility] [address] Performing Lab: [facility] [address] [facility] CBC & DIFF BASOPHILS [#/VOLUME] IN BLOOD BY AUTOMATED COUNT 0.10 0 - 0.2 12/02 Specimen Type: BLOOD Comment: Manual Differentia l Performed Ordering Provider: ST ANASTACIO BLISS MD Report Released Date/Time: Jul 15, 2023 06:28 PM Reporting Lab: [facility] [address] Performing Lab: [facility] [address] [facility] CBC & DIFF ERYTHROCYT E MORPHOLOGY FINDING [IDENTIFIE R] IN BLOOD PRESENT 12/02 Specimen Type: BLOOD Comment: Manual Differentia l Performed Ordering Provider: ST ANASTACIO BLISS MD Report Released Date/Time: Jul 15, 2023 06:28 PM Reporting Lab: [facility] [address] Performing Lab: [facility] [address] [facility] HEMOGLOB IN A1C HEMOGLOBIN A1C/HEMOGL OBIN.TOTAL IN BLOOD 5.1 4.0 - 6.0 07/09 Specimen Type: BLOOD Comment: Values obtained from A1C measurement s can vary. For typical A1C assays, a reported value of 7.0 could actually be between 6.7 and 7.3 if measured by a reference method. A reported value of 9.0 could actually be between 8.7 and 9.3. Ref: http://www. ngsp.org/[place] Pdata.asp Ordering Provider: SANDRA HEARD Report Released Date/Time: Jul 09, 2023 09:30 AM Reporting Lab: [facility] [address] Performing Lab: [facility] [address] [facility] LIPID PANEL,NO N-FASTIN G CHOLESTERO L [MASS/VOLU ME] IN SERUM OR PLASMA 157 <199 - 199 07/09 Specimen Type: PLASMA No comment entered. Ordering Provider: SANDRA HEARD Report Released Date/Time: Jul 09, 2023 09:30 AM Reporting Lab: [facility] [address] Performing Lab: [facility] [address] [facility] LIPID PANEL,NO N-FASTIN G CHOLESTERO L IN HDL [MASS/VOLU ME] IN SERUM OR PLASMA 43 40 07/09 Specimen Type: PLASMA No comment entered. Ordering Provider: SANDRA HEARD Report Released Date/Time: Jul 09, 2023 09:30 AM Reporting Lab: [facility] [address] Performing Lab: [facility] [address] [facility] LIPID PANEL,NO N-FASTIN G CHOLESTERO L IN LDL [MASS/VOLU ME] IN SERUM OR PLASMA BY CALCULATIO N 90 <99 - 99 07/09 Specimen Type: PLASMA No comment entered. Ordering Provider: SANDRA HEARD Report Released Date/Time: Jul 09, 2023 09:30 AM Reporting Lab: [facility] [address] Performing Lab: [facility] [address] [facility] LIPID PANEL,NO N-FASTIN G CHOLESTERO L IN VLDL [MASS/VOLU ME] IN SERUM OR PLASMA BY CALCULATIO N 24 <29 - 29 07/09 Specimen Type: PLASMA No comment entered. Ordering Provider: SANDRA HEARD Report Released Date/Time: Jul 09, 2023 09:30 AM Reporting Lab: [facility] [address] Performing Lab: [facility] [address] [facility] LIPID PANEL,NO N-FASTIN G CHOLESTERO L NON HDL [MASS/VOLU ME] IN SERUM OR PLASMA 114 <129 - 129 07/09 Specimen Type: PLASMA No comment entered. Ordering Provider: SANDRA HEARD Report Released Date/Time: Jul 09, 2023 09:30 AM Reporting Lab: [facility] [address] Performing Lab: [facility] [address] [facility] LIPID PANEL,NO N-FASTIN G TRIGLYCERI DE [MASS/VOLU ME] IN SERUM OR PLASMA 118 <149 - 149 07/09 Specimen Type: PLASMA No comment entered. Ordering Provider: SANDRA HEARD Report Released Date/Time: Jul 09, 2023 09:30 AM Reporting Lab: [facility] [address] Performing Lab: [facility] [address] [facility] BASIC METABOLI C PANEL+MG CREATININE [MASS/VOLU ME] IN SERUM OR PLASMA 0.9 0.7 - 1.2 07/09 Specimen Type: PLASMA No comment entered. Ordering Provider: SANDRA HEARD Report Released Date/Time: Jul 09, 2023 09:30 AM Reporting Lab: [facility] [address] Performing Lab: [facility] [address] [facility] BASIC METABOLI C PANEL+MG UREA NITROGEN [MASS/VOLU ME] IN SERUM OR PLASMA 11 8 - 26 07/09 Specimen Type: PLASMA No comment entered. Ordering Provider: SANDRA HEARD Report Released Date/Time: Jul 09, 2023 09:30 AM Reporting Lab: [facility] [address] Performing Lab: [facility] [address] [facility] BASIC METABOLI C PANEL+MG GLUCOSE [MASS/VOLU ME] IN SERUM OR PLASMA 138 70 - 100 07/09 H Specimen Type: PLASMA No comment entered. Ordering Provider: SANDRA HEARD Report Released Date/Time: Jul 09, 2023 09:30 AM Reporting Lab: [facility] [address] Performing Lab: [facility] [address] [facility] BASIC METABOLI C PANEL+MG SODIUM [MOLES/VOL UME] IN SERUM OR PLASMA 138 136 - 145 07/09 Specimen Type: PLASMA No comment entered. Ordering Provider: SANDRA HEARD Report Released Date/Time: Jul 09, 2023 09:30 AM Reporting Lab: [facility] [address] Performing Lab: [facility] [address] [facility] BASIC METABOLI C PANEL+MG POTASSIUM [MOLES/VOL UME] IN SERUM OR PLASMA 3.2 3.5 - 5.1 07/09 L Specimen Type: PLASMA No comment entered. Ordering Provider: SANDRA HEARD Report Released Date/Time: Jul 09, 2023 09:30 AM Reporting Lab: [facility] [address] Performing Lab: [facility] [address] [facility] BASIC METABOLI C PANEL+MG CHLORIDE [MOLES/VOL UME] IN SERUM OR PLASMA 100 98 - 107 07/09 Specimen Type: PLASMA No comment entered. Ordering Provider: SANDRA HEARD Report Released Date/Time: Jul 09, 2023 09:30 AM Reporting Lab: [facility] [address] Performing Lab: [facility] [address] [facility] BASIC METABOLI C PANEL+MG CARBON DIOXIDE, TOTAL [MOLES/VOL UME] IN SERUM OR PLASMA 26 22 - 29 07/09 Specimen Type: PLASMA No comment entered. Ordering Provider: SANDRA HEARD Report Released Date/Time: Jul 09, 2023 09:30 AM Reporting Lab: [facility] [address] Performing Lab: [facility] [address] [facility] BASIC METABOLI C PANEL+MG CALCIUM [MASS/VOLU ME] IN SERUM OR PLASMA 9.3 8.4 - 10.2 07/09 Specimen Type: PLASMA No comment entered. Ordering Provider: SANDRA HEARD Report Released Date/Time: Jul 09, 2023 09:30 AM Reporting Lab: [facility] [address] Performing Lab: [facility] [address] [facility] BASIC METABOLI C PANEL+MG MAGNESIUM [MASS/VOLU ME] IN SERUM OR PLASMA 1.8 1.6 - 2.6 07/09 Specimen Type: PLASMA No comment entered. Ordering Provider: SANDRA HEARD Report Released Date/Time: Jul 09, 2023 09:30 AM Reporting Lab: [facility] [address] Performing Lab: [facility] [address] [facility] BASIC METABOLI C PANEL+MG ANION GAP IN SERUM OR PLASMA 12 5 - 15 07/09 Specimen Type: PLASMA No comment entered. Ordering Provider: SANDRA HEARD Report Released Date/Time: Jul 09, 2023 09:30 AM Reporting Lab: [facility] [address] Performing Lab: [facility] [address] [facility] BASIC METABOLI C PANEL+MG GLOMERULAR FILTRATION RATE/1.73 SQ M.PREDICTE D [VOLUME RATE/AREA] IN SERUM, PLASMA OR BLOOD BY CREATININE -BASED FORMULA (CKD-EPI 2020) 89 60 07/09 Specimen Type: PLASMA No comment entered. Ordering Provider: SANDRA HEARD Report Released Date/Time: Jul 09, 2023 09:30 AM Reporting Lab: [facility] [address] Performing Lab: [facility] [address] [facility] CBC LEUKOCYTES [#/VOLUME] IN BLOOD BY AUTOMATED COUNT 10.76 4.0 - 11.0 07/09 Specimen Type: BLOOD No comment entered. Ordering Provider: SANDRA HEARD Report Released Date/Time: Jul 09, 2023 09:30 AM Reporting Lab: [facility] [address] Performing Lab: [facility] [address] [facility] CBC ERYTHROCYT ES [#/VOLUME] IN BLOOD BY AUTOMATED COUNT 4.21 4.6 - 6.2 07/09 L Specimen Type: BLOOD No comment entered. Ordering Provider: SANDRA HEARD Report Released Date/Time: Jul 09, 2023 09:30 AM Reporting Lab: [facility] [address] Performing Lab: [facility] [address] [facility] CBC HEMOGLOBIN [MASS/VOLU ME] IN BLOOD 13.4 13.5 - 17.9 07/09 L Specimen Type: BLOOD No comment entered. Ordering Provider: SANDRA HEARD Report Released Date/Time: Jul 09, 2023 09:30 AM Reporting Lab: [facility] [address] Performing Lab: [facility] [address] [facility] CBC HEMATOCRIT [VOLUME FRACTION] OF BLOOD BY AUTOMATED COUNT 39.6 41 - 54 07/09 L Specimen Type: BLOOD No comment entered. Ordering Provider: SANDRA HEARD Report Released Date/Time: Jul 09, 2023 09:30 AM Reporting Lab: [facility] [address] Performing Lab: [facility] [address] [facility] CBC MCV [ENTITIC VOLUME] BY AUTOMATED COUNT 94.1 80 - 100 07/09 Specimen Type: BLOOD No comment entered. Ordering Provider: SANDRA HEARD Report Released Date/Time: Jul 09, 2023 09:30 AM Reporting Lab: [facility] [address] Performing Lab: [facility] [address] [facility] CBC MCH [ENTITIC MASS] BY AUTOMATED COUNT 31.8 27 - 33 07/09 Specimen Type: BLOOD No comment entered. Ordering Provider: SANDRA HEARD Report Released Date/Time: Jul 09, 2023 09:30 AM Reporting Lab: [facility] [address] Performing Lab: [facility] [address] [facility] CBC MCHC [MASS/VOLU ME] BY AUTOMATED COUNT 33.8 32.0 - 37.5 07/09 Specimen Type: BLOOD No comment entered. Ordering Provider: SANDRA HEARD Report Released Date/Time: Jul 09, 2023 09:30 AM Reporting Lab: [facility] [address] Performing Lab: [facility] [address] [facility] CBC PLATELETS [#/VOLUME] IN BLOOD BY AUTOMATED COUNT 215 150 - 400 07/09 Specimen Type: BLOOD No comment entered. Ordering Provider: SANDRA HEARD Report Released Date/Time: Jul 09, 2023 09:30 AM Reporting Lab: [facility] [address] Performing Lab: [facility] [address] [facility] CBC PLATELET MEAN VOLUME [ENTITIC VOLUME] IN BLOOD BY AUTOMATED COUNT 11.0 7.4 - 10.4 07/09 H Specimen Type: BLOOD No comment entered. Ordering Provider: SANDRA HEARD Report Released Date/Time: Jul 09, 2023 09:30 AM Reporting Lab: [facility] [address] Performing Lab: [facility] [address] [facility] CBC ERYTHROCYT E DISTRIBUTI ON WIDTH [RATIO] BY AUTOMATED COUNT 13.2 11.5 - 14.5 07/09 Specimen Type: BLOOD No comment entered. Ordering Provider: SANDRA HEARD Report Released Date/Time: Jul 09, 2023 09:30 AM Reporting Lab: [facility] [address] Performing Lab: [facility] [address] [facility] LIPID PANEL,NO N-FASTIN G CHOLESTERO L [MASS/VOLU ME] IN SERUM OR PLASMA 155 <199 - 199 07/09 Specimen Type: PLASMA No comment entered. Ordering Provider: SANDRA HEARD Report Released Date/Time: Jul 09, 2023 09:30 AM Reporting Lab: [facility] [address] Performing Lab: [facility] [address] [facility] LIPID PANEL,NO N-FASTIN G CHOLESTERO L IN HDL [MASS/VOLU ME] IN SERUM OR PLASMA 43 40 07/09 Specimen Type: PLASMA No comment entered. Ordering Provider: SANDRA EHARD Report Released Date/Time: Jul 09, 2023 09:30 AM Reporting Lab: [facility] [address] Performing Lab: [facility] [address] [facility] LIPID PANEL,NO N-FASTIN G CHOLESTERO L IN LDL [MASS/VOLU ME] IN SERUM OR PLASMA BY CALCULATIO N 88 <99 - 99 07/09 Specimen Type: PLASMA No comment entered. Ordering Provider: SANDRA HEARD Report Released Date/Time: Jul 09, 2023 09:30 AM Reporting Lab: [facility] [address] Performing Lab: [facility] [address] [facility] LIPID PANEL,NO N-FASTIN G CHOLESTERO L IN VLDL [MASS/VOLU ME] IN SERUM OR PLASMA BY CALCKEKE N 24 <29 - 29 07/09 Specimen Type: PLASMA No comment entered. Ordering Provider: SANDRA HEARD Report Released Date/Time: Jul 09, 2023 09:30 AM Reporting Lab: [facility] [address] Performing Lab: [facility] [address] [facility] LIPID PANEL,NO N-FASTIN G CHOLESTERO L NON HDL [MASS/VOLU ME] IN SERUM OR PLASMA 112 <129 - 129 07/09 Specimen Type: PLASMA No comment entered. Ordering Provider: SANDRA HEARD Report Released Date/Time: Jul 09, 2023 09:30 AM Reporting Lab: [facility] [address] Performing Lab: [facility] [address] [facility] LIPID PANEL,NO N-FASTIN G TRIGLYCERI DE [MASS/VOLU ME] IN SERUM OR PLASMA 120 <149 - 149 07/09 Specimen Type: PLASMA No comment entered. Ordering Provider: SANDRA HEARD Report Released Date/Time: Jul 09, 2023 09:30 AM Reporting Lab: [facility] [address] Performing Lab: [facility] [address] [facility] Vital Signs Combined list of inpatient and outpatient Vital Signs from Department of Defense and Veterans Affairs, ranging from 12 months to all on record, depending upon the facility. Vital Sign Value Date Comments Source SYSTOLIC BLOOD PRESSURE 129 07/09/2023 08:57:57 [facility] DIASTOLIC BLOOD PRESSURE 80 07/09/2023 08:57:57 [facility] PULSE OXIMETRY 94% 07/09/2023 08:57:57 [facility] WEIGHT 218.4 07/09/2023 08:57:57 [facility] BMI 38kg/m2 07/09/2023 08:57:57 [facility] PAIN 10 07/09/2023 08:57:57 [facility] HEIGHT 64 07/09/2023 08:57:57 [facility] TEMPERATURE 97.3 07/09/2023 08:57:57 [facility] PULSE 86 07/09/2023 08:57:57 [facility] RESPIRATION 16 07/09/2023 08:57:57 [facility] SYSTOLIC BLOOD PRESSURE 135 05/27/2023 09:25:43 [facility] DIASTOLIC BLOOD PRESSURE 81 05/27/2023 09:25:43 [facility] PULSE OXIMETRY 96% 05/27/2023 09:25:43 [facility] WEIGHT 224.1 05/27/2023 09:25:43 [facility] BMI 37kg/m2 05/27/2023 09:25:43 [facility] TEMPERATURE 97 05/27/2023 09:25:43 [facility] PULSE 90 05/27/2023 09:25:43 [facility] RESPIRATION 16 05/27/2023 09[facility]25:43 [facility] SYSTOLIC BLOOD PRESSURE 131 03/12/2023 10:17:32 [facility] DIASTOLIC BLOOD PRESSURE 79 03/12/2023 10:17:32 [facility] PULSE OXIMETRY 96% 03/12/2023 10:17:32 [facility] WEIGHT 233 03/12/2023 10:17:32 [facility] BMI 39kg/m2 03/12/2023 10:17:32 [facility] PAIN 7 03/12/2023 10:17:32 [facility] TEMPERATURE 97.5 03/12/2023 10:17:32 [facility] PULSE 75 03/12/2023 10:17:32 [facility] RESPIRATION 16 03/12/2023 10:17:32 [facility] Encounters Combined list of: 1) Encounters from Department of Veterans Affairs facilities going back up to thelast 18 months. 2) Encounters from the Department of Defense facilities going back up to 280 months. Location Location Details Encounter Type Encounter Number Reason For Visit Attending Provider ADM Date DC Date Status Disposition Source [facility] Outpatient Encounter [id number] CHATO RUGGIERO IDGET M 07/16 [place] [facility] [place] [facility] Outpatient Encounter [id number] KENDELL MORRISON SHAKIRA M 08/03 [place] [facility] OFFICE O/P EST MOD 30-39 MIN [id number] Diagnos is: ICD-10- CM 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
Geraldine BLISS MD 08/07 [facility] [place] [facility] Outpatient Encounter [id number] 08/07 [place] [facility] [place] [facility] Outpatient Encounter [id number] López BULLARD 09/13 [place] [facility] [place] [facility] Outpatient Encounter [id number] ODELL LLOYD AEL F 10/05 [place] [facility] [place] [facility] Outpatient Encounter [id number] CHATO RUGGIERO IDGET M 10/07 [place] [facility] [place] [facility] Outpatient Encounter [id number] CHATO RUGGIEROGET M 10/09 [place] [facility] [place] [facility] Outpatient Encounter [id number] PETE PERALTA S 10/29 [place] [facility] [facility] [place] [facility] Outpatient Encounter [id number] 10/30 [place] [facility] [facility] [place] [facility] Outpatient Encounter [id number] PETE PERALTA S 10/30 [place] [facility] [facility] [place] [facility] Outpatient Encounter [id number] 11/01 [place] [facility] [place] [facility] OFF/OP CNSLTJ NEW/EST MOD 40 [id number] Diagnos is: ICD-10- CM M54.50 Low back pain, unspeci fied
JACOB LUKE T 11/05 [facility] HEARING AID CHECK BOTH EARS [id number] Diagnos is: ICD-10- CM Z46.1 Encount er for fitting and adjustm ent of hearing aid<br/ > VINCENTCecil CHARLENE 11/07 [facility] OFFICE O/P EST MOD 30-39 MIN [id number] Diagnos is: ICD-10- CM 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
Geraldine BLISS MD 11/13 [facility] Outpatient Encounter [id number] 11/16 [facility] Outpatient Encounter [id number] 11/27 [facility] Outpatient Encounter [id number] Diagnos is: ICD-10- CM G47.33 Obstruc tive sleep apnea (adult) (pediat issa)
ALEXUS CARDONA AHAT 12/14 [facility] Outpatient Encounter [id number] Diagnos is: ICD-10- CM 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
Geraldine BLISS MD 12/17 [facility] HEARING AID FITTING/CH ECKING [id number] Diagnos is: ICD-10- CM Z01.118 Encntr for exam of ears and hearing w oth abnorma l finding s
RUBI NAVARRO 01/08 [facility] Outpatient Encounter [id number] 01/29 [facility] Outpatient Encounter [id number] 01/30 [place] [facility] [place] [facility] Outpatient Encounter [id number] 02/04 [place] [facility] [place] [facility] Outpatient Encounter [id number] 02/07 [place] [facility] [place] [facility] PRO PHONE CALL 11-20 MIN [id number] Diagnos is: ICD-10- CM G47.33 Obstruc tive sleep apnea (adult) (pediat sisa)
PETE PERALTA S 02/09 [place] [facility] [place] [facility] Outpatient Encounter [id number] 02/21 [place] [facility] [place] [facility] Outpatient Encounter [id number] 02/21 [place] [facility] [place] [facility] Outpatient Encounter [id number] PETE PERALTA S 03/07 [place] [facility] OFFICE O/P EST MOD 30-39 MIN [id number] Diagnos is: ICD-10- CM 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
Geraldine BLISS MD 03/12 [facility] [place] [facility] Outpatient Encounter [id number] López BULLARD 03/14 [place] [facility] OFF/OP EST MAY X REQ PHY/QHP [id number] Diagnos is: ICD-10- CM L98.9 Disorde r of the skin and subcuta neous tissue, unspeci fied
BONNY STRICKLAND 03/14 [facility] Out[facility] Encounter [id number] 03/21 [place] [facility] [place] [facility] Outpatient Encounter [id number] 03/26 [place] [facility] [place] [facility] Outpatient Encounter [id number] CACHORRO DENSON Ghislaine 04/08 [place] [facility] [place] [facility] OFFICE O/P EST MOD 30-39 MIN [id number] Diagnos is: ICD-10- CM G47.33 Obstruc tive sleep apnea (adult) (pediat issa)
ALEXUS CARDONA 04/10 [place] [facility] [place] [facility] Outpatient Encounter [id number] López BULLARD 04/16 [place] [facility] [place] [facility] Outpatient Encounter [id number] PETE PERALTA ICA S 04/17 [place] [facility] [place] [facility] Outpatient Encounter [id number] PETE PERALTA ICA S 04/18 [place] [facility] [place] [facility] Outpatient Encounter [id number] BONNY STRICKLAND 04/19 [facility] [place] [facility] Outpatient Encounter [id number] PETE PERALTA ICA S 04/19 [facility] PT EDUCATION NOC INDIVID [id number] Diagnos is: ICD-10- CM G47.33 Obstruc tive sleep apnea (adult) (pediat issa)
PETE PERALTA ICA S 04/23 [place] [facility] [place] [facility] Outpatient Encounter [id number] PETE PERALTA ICA S 04/25 [place] [facility] [place] [facility] Outpatient Encounter [id number] PETE PERALTA ICA S 04/26 [place] [facility] [place] [facility] Outpatient Encounter [id number] Lóepz BULLARD 04/29 [place] [facility] [place] [facility] Outpatient Encounter [id number] 04/29 [place] [facility] [place] [facility] PT EDUCATION NOC INDIVID [id number] Diagnos is: ICD-10- CM G47.33 Obstruc tive sleep apnea (adult) (pediat issa)
PETE PERALTA 05/01 [place] [facility] [place] [facility] Outpatient Encounter [id number] 05/14 [place] [facility] [place] [facility] Outpatient Encounter [id number] 05/16 [place] [facility] [place] [facility] OFFICE O/P EST MOD 30-39 MIN [id number] Diagnos is: ICD-10- CM 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
Geraldine BLISS MD 05/27 [place] [facility] [place] [facility] Outpatient Encounter [id number] 07/09 [place] [facility] [place] [facility] Outpatient Encounter [id number] ALIZE HEARD NE 07/09 [place] [facility] OFFICE O/P EST MOD 30-39 MIN [id number] Diagnos is: ICD-10- CM M54.51 Vertebr ogenic low back pain
ALIZE HEARD NE 07/09 [facility] [place] [facility] OFF[place] O/P EST MOD 30-39 MIN [id number] Diagnos is: ICD-10- CM G47.33 Obstruc tive sleep apnea (adult) (pediat issa)
ALEXUS CARDONA AHAHerbie 07/10 [place] [facility] [place] [facility] Outpatient Encounter [id number] CAROL OLSON 07/18 [place] [facility] [place] [facility] Outpatient Encounter [id number] López BULLARD 09/03 [place] [facility] [place] [facility] Outpatient Encounter [id number] 09/03 [place] [facility] [place] [facility] Outpatient Encounter [id number] 09/03 [place] [facility] [place] [facility] Outpatient [facility]counter [id number] Geraldine BLISS MD 09/04 [place] [facility] [place] [facility] SELF CARE MNGMENT TRAINING [id number] Diagnos is: ICD-10- CM Z74.09 Other reduced mobilit y
FRANCESCO BALL 09/11 [place] [facility] [place] [facility] Outpatient Encounter [id number] 09/17 [place] [facility] [place] [facility] Outpatient Encounter [id number] 09/23 [place] [facility] [place] [facility] Outpatient Encounter [id number] 09/25 [place] [facility] [place] [facility] Outpatient Encounter [id number] BONNY STRICKLAND 10/01 [place] [facility] [place] [facility] Outpatient Encounter [id number] BONNY STRICKLAND 10/01 [place] [facility] [place] [facility] Outpatient Encounter [id number] 10/04 [place] [facility] [place] [facility] Outpatient Encounter [id number] HERPA Zara 10/09 [place] [facility] [place] [facility] Outpatient Encounter [id number] ANAND VERMA 10/09 [facility] [place] [facility] SELF CARE MNGMENT TRAINING [id number] Diagnos is: ICD-10- CM Z73.6 Limitat ion of activit ies due to disabil ity<br/ > ANNETTARA STEFANI 11/26 [facility] [place] [facility] Outpatient Encounter [id number] PETE PERALTA 11/26 [place] [facility] [place] [facility] Outpatient Encounter [id number] 12/08 [place] [facility] [place] [facility] Outpatient Encounter [id number] López BULLARD 12/22 [facility] [place] [facility] OFFICE O/P EST MOD 30 MIN [id number] Diagnos is: ICD-10- CM 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
Geraldine BLISS MD 12/29 [facility] [place] [facility] Outpatient Encounter [id number] CAROL OLSON 12/29 [facility] [place] [facility] OFFICE O/P EST MOD 30 MIN [id number] Diagnos is: ICD-10- CM 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
Geraldine BLISS MD 01/12 [facility] [place] [facility] Outpatient Encounter [id number] 01/12 [facility] Social History Combined list of available smoking, tobacco, and other social history from Department of Defense and Veterans Affairs facilities. Social History Type Response Date Comment Sourc e Tobacco smoking status [facility] VA-TOBACCO FORMER USER 07/09/2023 [facility] History of tobacco use VA-TOBACCO QUIT 1 5 YRS OR MORE 07/09/2023 [facility] History of tobacco use [facility]-TOBACCO QUIT 1 5 YRS OR MORE 07/13/2022 [facility] OR MORE 04[facility]23/2019 [facility] History of tobacco use FORMER TOBACCO US ER 7Y OR GREATER 06/27/2018 [facility] History of tobacco use FORMER TOBACCO US ER 7Y OR GREATER 07/23/2017 [facility] History of tobacco use FORMER TOBACCO US ER 7Y OR GREATER 07/24/2016 [facility] History of tobacco use FORMER TOBACCO US ER 7Y OR GREATER 07/27/2015 [facility] History of tobacco use FORMER TOBACCO US ER 7Y OR GREATER 06/18/2014 [facility] History of tobacco use FORMER TOBACCO US ER 7Y OR GREATER 11/22/2010 [facility] History of tobacco use FORMER TOBACCO US ER 7Y OR GREATER 06/30/2009 [facility] Plan of Care List of future care activities from Department of Veterans Affairs facilities. Additional future care activities may be listed in the Assessment and Plan section. Date/Time Care Activity Care Activity Detail Facili ty 04/23/2024 AMBULATORY - MEDICINE AMBULATORY - MEDICI [facility] Advance Directives List of completed, amended, or rescinded Advance Directives on record at Department of Veterans Affairs facilities. An actual copy of the Directive is not included. Date Advance Directive Provider Source 07/22/2018 ADVANCE DIRECTIVE DEONTE DIAZ [facility] 07/22/2018 ADVANCE DIRECTIVE DISCUSSION DEONTE DIAZ [facility]
--- OUTSIDE RECORDS SUMMARY | 2024-01-15 11:06 | XMS_ITS | Clinical Summary ---
Author Name Unknown Organization [facility] Address [place], [place] [address] Care Team Providers Care Software Engineering Associate Manager Name Role Phone Brandyn Musa Marissa Unavailable [phone] Lisa Villaseñor NP Primary Care Provider Cara Brown MD Unavailable [phone] Lula Mandujano NP Unavailable Allergies Active Allergy Reactions Criticality Noted Date Comments Homeopathic Products 01/01/2007 Levofloxacin Arthralgia High 10/09/2010 Medications Medication Sig Dispensed Refills Start Date End Date Status docusate (COLACE) 100 mg capsule Take 100 mg by mouth 2 times daily if needed for Constipation. 0 11/01/19 15 Active allopurinol (ZYLOPRIM) 300 mg tabletIndications:p revention of acute gout attack Take 1 tablet by mouth once daily. 90 tablet 2 05/25/20 16 Active Lactobacillus Acidophilus 1 billion cell tabIndications:gut bacteria TAKE 1 TABLET BY MOUTH EVERY MORNING 04/28/20 20 Active cycloSPORINE (RESTASIS) 0.05 % ophthalmic emulsionIndications :keratoconjunctivit is sicca INSTILL 1 DROP BOTH EYES TWICE A DAY 12/31/19 21 Active prednisoLONE acetate 1% ophthalmic (ECONOPRED PLUS, PRED FORTE, OMNIPRED) suspensionIndicatio ns:severe ocular inflammation Place 1 Drop into right eye once daily. 02/04/20 21 Active doxazosin (CARDURA) 8 mg tabletIndications:b enign prostatic hyperplasia with lower urinary tract sx Take 4 mg by mouth at bedtime. 0 09/22/20 21 Active pramipexole (MIRAPEX) 0.25 mg tabletIndications:r estless leg syndrome Take 0.75 mg by mouth once daily in the evening. 06/15/20 22 Active hydroxychloroquine (PLAQUENIL) 200 mg tabletIndications:r heumatoid arthritis Take 1 Tablet by mouth once daily. 10/28/19 24 Active warfarin (COUMADIN) 2 mg tabletIndications:p revention of venous thromboembolism recurrence Take by mouth 4 mg (2 mg x 2) every Sat, Sat; 3 mg (2 mg x 1.5) all other days in the evening OR as directed 150 Tablet 12/02/19 24 Active atenoloL (TENORMIN) 25 mg tabletIndications:h ypertension Take 12.5 mg by mouth once daily. Active gabapentin (NEURONTIN) 600 mg tabletIndications:I nflammatory polyarthropathy (HC),Pain medication agreement Take 1 Tablet (600 mg) by mouth three times daily. 20 Tablet 12/19/19 24 Active gabapentin (NEURONTIN) 600 mg tabletIndications:I nflammatory polyarthropathy (HC),Pain medication agreement Take 0.5 Tablets (300 mg) by mouth at bedtime. 20 Tablet 12/19/19 24 Active oxyCODONE (OxyCONTIN) 20 mg SUSTAINED release tabletIndications:P ain management contract agreement,Encounter related to worker's compensation claim,Nontraumatic complete tear of rotator cuff, unspecified laterality Take 1 Tablet (20 mg) by mouth every 12 hours. 60 Tablet 12/19/19 24 Active oxyCODONE 10 mg tabletIndications:P ain medication agreement,Pain management contract agreement Take 1 Tablet (10 mg) by mouth every 3 hours if needed for Pain. 20 Tablet 12/19/19 24 Active pregabalin (LYRICA) 75 mg capsuleIndications: Pain medication agreement,Pain management contract agreement Take 1 Capsule (75 mg) by mouth at bedtime. 20 Capsule 12/19/19 24 Active lidocaine 4 % topical patchIndications:Pa in medication agreement Apply to intact skin to cover most painful area for max 12hr per 24hr period. 12/20/19 24 Active miconazole nitrate 2% ointment (CRITIC-AID CLEAR AF) 2 % ointIndications:Int ertriginous candidiasis Apply topically to affected area(s) two times daily. 12/19/19 Active amoxicillin (AMOXIL) 500 mg capsuleIndications: Indication present for endocarditis prophylaxis TAKE 4 CAPSULES BY MOUTH 1 HOUR PRIOR TO DENTAL APPOINTMENT 4 Capsule 2 06/05/20 23 024 Discontinued(*I P Discontinued) Amitiza 8 mcg capIndications:Stoker Mechanic gregory constipation TAKE TWO CAPSULES BY MOUTH EVERY MORNING AND TAKE ONE CAPSULE BY MOUTH EVERY EVENING 270 Capsule 2 09/14/20 024 Discontinued(*I P Discontinued) OxyCONTIN 20 mg SUSTAINED release tabletIndications:P ain management contract agreement,Encounter related to worker's compensation claim,Nontraumatic complete tear of rotator cuff, unspecified laterality TAKE ONE TABLET BY MOUTH EVERY 12 HOURS 60 Tablet 11/18/19 24 Discontinued pregabalin (LYRICA) 75 mg capsule Take 75 mg by mouth at bedtime. Discontinued oxyCODONE (ROXICODONE) 5 mg immediate release tablet Take 5 mg by mouth 2 times daily if needed for Pain. Discontinued(*I P Discontinued) gabapentin (NEURONTIN) 600 mg tablet Take 600 mg by mouth three times daily. 06/30/20 024 Discontinued gabapentin (NEURONTIN) 600 mg tablet Take 300 mg by mouth at bedtime. 11/19/19 24 024 Discontinued cefdinir (OMNICEF) 300 mg capsuleIndications: lower respiratory infection Take 1 Capsule (300 mg) by mouth every 12 hours for 7 days. 14 Capsule 12/19/19 24 024 sennosides-docusate (SENOKOT S) (8.6-50 mg) tabletIndications:C onstipation, unspecified constipation type Take 1-4 Tablets by mouth two times daily. 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 12/19/19 024 Active Problems Patient Care Coordination No te Formatting of this note migh t be different from the original. Patient goes to the [facility] fax [phone] Problem Noted Date Diagnosed Date Anemia 12/06/2023 HYPERTENSION 12/05/2023 RLL pneumonia 12/05/2023 Parapneumonic effusion 12/05/2023 History of pulmonary embolism 12/05/2023 Empyema of right pleural space 12/05/2023 Severe sepsis 12/05/2023 Empyema 12/05/2023 VTE (venous thromboembolism) 12/05/2023 Disorder of the skin and subcutaneous tissue, un specified 10/04/2023 Hematoma 10/04/2023 PE (pulmonary thromboembolism) 08/30/2023 PEA (Pulseless electrical activity) 08/30/2023 Other acute pulmonary embolism without acute cor pulmonale 08/30/2023 Anticoagulation monitoring, INR range 2-3 2022 Spinal stenosis of lumbar region 04/17/2023 Inflammatory polyarthropathy 03/20/2022 Obesity, morbid 03/20/2022 Pain medication agreement 12/29/2019 Overview: oxycontin SR 20 mg bid. roxicodone 5 mg every 8 hours max 2 daily. Work comp injury left rotator cuff. Drug compliance up to date. Last visit 09/22/21. Pectoralis muscle strain 02/27/2018 Gastric reflux 01/28/2018 Ventral hernia without obstruction or gangrene 0 01/28/2018 Ingrown fingernail 01/28/2018 Constipation, acute 01/28/2018 WILI (obstructive sleep apnea) 08/19/2017 Venous insufficiency 07/26/2017 Strain of left deltoid muscle 11/29/2015 Skin cancer, basal cell 10/20/2015 Hereditary hemochromatosis 07/04/2015 Overview: Follows with [facility] Wilman Rodrigo CONTINUOUS DRIER HELPER BPH (benign prostatic hyperplasia) 04/27/2015 S/P total knee arthroplasty 02/08/2015 Overview: Left Elevated hemoglobin A1c 01/20/2015 Left shoulder pain 10/21/2014 Right shoulder status post r everse total shoulder arthroplasty; DOS: 04/14/2014 06/29/2014 Leukocytosis 03/09/2014 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 Brown oncology/hematology. Sensorineural hearing loss, bilateral 02/03/2014 Subjective tinnitus 02/03/2014 Complete rupture of rotator cuff 09/04/2011 Right shoulder pain with irrepairable RCT 2010 s/p left shoulder revision RCR on 12/06/10 011 Gout 11/06/2008 Unspecified essential hypertension 01/23/2008 Pain in joint, shoulder region 11/18/2007 Lumbago 08/20/2007 Restless legs syndrome (RLS) 01/01/2007 Hx of colonic polyp Gastritis Polyp of colon Resolved Problems Problem Noted Date Diagnosed Date Resolved Date Ulcer of right lower extremi ty, limited to breakdown of skin 09/02/2017 01/28/2018 Ulcer of lower extremity, li mited to breakdown of skin 07/26/2017 09/02/2017 right rotator cuff tear 01/30/201108/08 Esophageal reflux 01/01/2007 01/28/2018 Cholecystitis 01/28/2018 Encounters Date Type Department Care Team Description 01/09/2024 Lab Requisition [facility] [phone] Anneliese Diehl NP 01/06/[address] [address] Lisa Villaseñor NP Anticoagulation (CHART UPDATE/INR OVERDUE REMINDER #1 ) 01/03/2024 10:10 AM CDT Office Visit [address] [address] Lisa Villaseñor NP Consult (INR ) 01/03/2024 9:30 AM CDT Office Visit [address] [address] Lisa Villaseñor NP Occ Med (medication) 01/03/2024 Travel 12/26/2023 Lab Requisition [facility] [phone] Sid Barboza MD 12/25/2023 Travel 12/23/2023 Lab Requisition [facility] [phone] Sid Barboza MD 12/23/2023 [address]phone [address] [place] [address] Lula Mandujano, CONTINUOUS DRIER HELPER Appointment 12/18/2023 Travel 12/15/2023 Travel 12/13/[address] [address] Francis Daigle, Follow Up (Empyema) 12/11/2023 Travel 12/10/2023 1:45 PM DE ICER FINISHER Anesthesia Event [address] [address] Claudy Vasquez MD Garbow, Miller Shea, RADIOLOGY THERAPIST 12/10/2023 1:15 PM DE ICER FINISHER - 12/10/2023 3:50 PM DE ICER FINISHER Surgery [address] [address] Andres Saenz MD RIGHT VIDEO ASSITED THORACOSCOPY, RIGHT THORACOTOMY 12/09/2023 9:16 AM DE ICER FINISHER Anesthesia Event [address] [address] Sona Patel MD 12/09/2023 Travel 12/05/2023 7:11 PM DE ICER FINISHER - 12/19/2023 11:45 AM CDT Hospital Encounter [address] [address] [facility], Hospitalist [facility] [place], MD Jermaine Whatley, MD Lorene Morgan Lyudmila, MD Cohenour, MD Kael Gonzalez, Jeff Almaguer MD Anemia, unspecified type (Primary Dx); Parapneumonic effusion; Inflammatory polyarthropathy (HC); Pain medication agreement; Pain management contract agreement; Encounter related to worker's compensation claim; Nontraumatic complete tear of rotator cuff, unspecified laterality; Pneumonia of right lower lobe due to infectious organism; Intertriginous candidiasis; Constipation, unspecified constipation type; Other chronic pulmonary embolism without acute cor pulmonale (HC) Discharge Disposition: [facility] 12/04/2023 7:12 PM DE ICER FINISHER - 12/05/2023 6:00 PM DE ICER FINISHER Hospital Encounter [facility] [address] [place] [address] Valente Flynn, ANAND Toney, MD Yamini Buckley, Alejandro Pisano, DO Street, Diego Hamm, CONTINUOUS DRIER HELPER Yelena, Carlos Valiente, [facility] Pleural effusion on right (Primary Dx); Leukocytosis, unspecified type; Elevated brain natriuretic peptide (BNP) level; Elevated lactic acid level; Elevated C-reactive protein (CRP); Anticoagulated; Thrombocytosis; Anemia, unspecified type Discharge Disposition: Health Care Facility Not On List 12/04/2023 6:40 PM DE ICER FINISHER Office Visit [facility] [address] [place] [address] Heide Araya NP Person Under Investigation (PUI) (Cough and rattling in chest x 2-3 weeks. Today seems worse. also noted some wheezing) 12/04/2023 Travel 12/02/[address] [address] Lisa Villaseñor NP Form 12/02/[address] [address] Lisa Villaseñor NP Form 11/30/[address] [address] Lisa Villaseñor NP Refill Request (Warfarin) 11/29/[address] [address] Lisa Villaseñor NP Form 11/28/2023 11:34 AM DE ICER FINISHER - 11/28/2023 11:59 PM DE ICER FINISHER Hospital Encounter [facility] [address] [place] [address] Hereditary hemochromatosis (HC) 11/28/2023 11:00 AM DE ICER FINISHER Office Visit [facility] [address] [facility] [address] Cara Brown MD Follow Up (Hereditary hemochromatosis (HC)//) 11/28/2023 10:30 AM DE ICER FINISHER Orders Only [address] [place] [address] Lab, [facility] <No scans attached> 11/28/[address] [facility] [address] Lisa Villaseñor NP Anticoagulation (12/13/2023 IVC Filter Removal ) 11/28/2023 Anticoagulation (warfarin) [address] [place] [address] 1, [facility] Anticoagulation (Chart update ) 11/28/2023 Anticoagulation (warfarin) [address] [place] [address] 1, [facility] Anticoagulation 11/28/2023 Travel 11/27/[address], [place] [address] Lisa Villaseñor NP Form 11/24/2023 Travel 11/21/2023 11:00 AM DE ICER FINISHER Office Visit [facility] [address] [facility] [address] Cara Brown MD Follow Up (Hereditary hemochromatosis (HC)//) 11/21/2023 Travel 11/15/[address] [facility] [place] [address] Lisa Villaseñor NP Refill Request (Oxycontin) 11/14/2023 10:50 AM DE ICER FINISHER Orders Only [address] [place] [address] Lab, [facility] 11/14/2023 10:30 AM DE ICER FINISHER Office Visit [address] [place] [address] Lisa Villaseñor NP Follow Up (Needs lab after appointment) 11/14/2023 Anticoagulation (warfarin) [address] [place] [address] 1, [facility] Anticoagulation 11/13/2023 Travel 11/06/2023 Orders Only [address] [place] [address] Cara Brown MD <No scans attached> 11/05/[address] [place] [address] Cara Brown MD Appointment 11/01/[address] [place] [address] Lisa Villaseñor NP Form 11/01/2023 Anticoagulation (warfarin) [address] [place] [address] 1, [facility] Anticoagulation 11/01/2023 Travel 10/25/[address] [place] [address] Lisa Villaseñor NP Fall (BACK) 10/19/[address] [place] [address] Lisa Villaseñor NP Refill Request (Oxycontin) 10/18/2023 Anticoagulation (warfarin) [address] [place] [address] 1, [facility] Anticoagulation 10/18/2023 Travel from Last 3 Months Immunizations Name Administration Dates Next Due AMB Influenza, IIV3 (Age >=3 years)(Flu Clinic Only) 07/25/2010,07/28/2008 Amb Influenza, Inact (High-d ose) (Flu Clinic Only) 06/24/2014 COVID-19 vaccine (Moderna 100mcg/0.5mL) PF, MDV 09/15/2021,12/17/2020,11/19/2020 COVID-19 vaccine (Pfizer-Bio NTech 30mcg/0.3mL) 12YO+ ONESIMO-SUCROSE PF, MDV 01/11/2022 Influenza Virus, Unspecified 07/01/2020,06/18/20 19,08/04/1997 Influenza, High-dose Inactivated 07/10/2016,06/07 Influenza, IIV3 (Age 6-35 mos) 07/01/2011 Influenza, IIV3 (Age >=3 years) 06/25/20 13,06/19/2012,07/01/2011,2006,08/26/2006 Influenza, IIV4 07/06/2021 Influenza, Inactivated AIIV4 (Age 65+ Years) Preserv Free 07/09/2023,07/13/2022,07/01/2020 Influenza, Inactivated IIV3 (Age 65+ Years) Preserv Free 06/15/2019,07/29/2018,07/02/2017 Pneumococcal Poly,23-Valent (Pneumovax) 07/03/2013 Pneumococcal conj 13-Valent (Prevnar 13) 10/10/2015,10/07/2014 Pneumococcal, Unspecified 06/07/2013 TD, UNSPECIFIED 10/07/2007 Td (Age >=7 Years) 06/27/2018 Tdap 10/07/2009,06/16/2008 Tuberculin (PPD) 12/10/2007 Zoster (Shingrix-RZV, recombinant) 09/06/2020, Zoster (Zostavax-ZVL, live) 03/11/2013 Family History Medical History Relation Name Comments Cancer Father Relation Name Status Comments Father (Age 89) Mother (Age 82) Social History Tobacco Use Types Packs/Day Years Used Date Smoking Tobacco: Former Cigarettes 1 10 0 01/01/1967 - 01/01/1977 Smokeless Tobacco: Never Tobacco Cessation:Counseling Given: Yes Alcohol Use Standard Drinks/Week Comments Yes 2 (1 standard drink = 0.6 oz pur e alcohol) social, 2 drinks a month PHQ-2 Answer Date Recorded PHQ-2 TOTAL SCORE 0 04/05/2023 Social Connections Answer Date Recorded Frequency of Communication with Friends and Fami ly 0 09/29/2023 Financial Resource Strain Answer Date R ecorded Difficulty of Paying Living Expenses 3 09/29/2023 Difficulty of Paying Living Expenses Not on file 09/29/2023 Food Insecurity Answer Date Recorded Worried About Running Out of Food in the Last Ye ar 1 09/29/2023 Transportation Needs Answer Date Record ed Lack of Transportation (Medical) 1 09/29/2023 Housing Stability Answer Date Recorded Unable to Pay for Housing in the Last Year 1 09/29/2023 Sex and Gender Information Value Date Recorded Sex Assigned at Not on file Gender Identity Not on file Sexual Orientation Not on file Obstetrics History Last Filed Vital Signs Vital Sign Reading Time Taken Comments Blood Pressure 110/54 01/03/2024 9:40 AM CDT Pulse 106 01/03/2024 9:40 AM CDT Temperature 36.7 ??C (98 ??F) 12/19/2023 8:26 AM CDT Respiratory Rate 16 12/19/2023 8:26 AM CDT Oxygen Saturation 96% 01/03/2024 9:40 AM CDT Inhaled Oxygen Concentration - - Weight 87.6 kg (193 lb 1.6 oz) 12/19/2023 6:28 A M CDT Height 165.1 cm (5' 5) 12/14/2023 5:36 AM DE ICER FINISHER Body Mass Index 32.13 12/14/2023 5:36 AM DE ICER FINISHER Plan of Treatment Upcoming Encounters Date Type Department Care Team (Late st Contact Info) Description 01/21/2024 10:50 AM CDT Office Visit [facility] [address] [place] [address] Lisa Villaseñor NP [address] [place] [address] 01/24/2024 10:30 AM CDT Appointment [facility] [address] [place] [address] 01/31/2024 10:45 AM CDT Office Visit [facility] [address] [place] [address] Lula Mandujano, CONTINUOUS DRIER HELPER [address] [facility] [place] [address] 02/17/2024 11:00 AM CDT Office Visit [facility] [address] [facility] [place] [address] Casa Sterling MD [address] [place] [address] Health Maintenance Due Date Last Done Comments Depression screening for age 12+ 04/05/2024 04/05/2023, 04/05/2023, 11/10/2021, Additional history exists Medicare Wellness for age 65+ 05/14/2024 11/19/2019 Postponed from 11/19/2020 (Patient discretion) Influenza for age 65+ 06/07/2024 07/09/2023 , 07/13/2022, 07/06/2021, Additional history exists BMI (ht and wt on same day) for age 18+ 09/09/2024 09/09/2023, 06/07/2023, 05/20/2023, Additional history exists Tetanus booster 06/27/2028 06/27/2018, 10/2009, 06/16/2008, Additional history exists Tdap Completed 10/07/2009, 06/16/2008 Pneumococcal series for age 65+ Completed 10/10/2015, 10/07/2014, 07/03/2013, Additional history exists Hepatitis C screening for age 18-79 Completed 07/11/2016 Zoster (shingles) series for age 50+ Completed 09/06/2020, 07/06/2020, 03/11/2013 COVID-19 vaccine series Completed 07/09/20, 11/16/2022, 01/11/2022, Additional history exists Medical Devices Implanted Type Area Hand Plug Shaper Device Identifier Shelf Expiration Date Model / Serial / Lot Anchr Full Threaded 4.5mm - [id number] Implanted:Qty: 2 on 12/06/2010 at [facility] Left: Shoulder [employer] [id number]# / / [id number] Baseplate [id number] Std Post - [id number] Implanted:Qty: 1 on 04/14/2014 at [facility] Right: Shoulder [employer] [id number]# / [id number] / Screw Rev [id number] Self Tap Canclls Lock - [id number] Implanted:Qty: 1 on 04/14/2014 at [facility] Right: Shoulder [employer] [id number]# / / Screw Rev [id number] Self Tap Canclls Lock - [id number] Implanted:Qty: 1 on 04/14/2014 at [facility] Right: Shoulder [employer] [id number]# / / Screw Rev [id number] Comp Self Tap Cnclls - [id number] Implanted:Qty: 1 on 04/14/2014 at [facility] Right: Shoulder [employer] [id number]# / / Glenoid [id number] 10deg Aeq Rev Ii Tilted - [id number] Implanted:Qty: 1 on 04/14/2014 at [facility] Right: Shoulder [employer] [id number]# / [id number] / Stem Hum Sz3b Ascend Flex Std - [id number] Implanted:Qty: 1 on 04/14/2014 at [facility] Right: Shoulder [employer] [id number]# / [id number] / Liner Hum Sz36mm +6 Ascend Flex - [id number] Implanted:Qty: 1 on 04/14/2014 at [facility] Right: Shoulder [employer] [id number]# / [id number] / Ty Sz0 Ascend Flex Hi Off - [id number] Implanted:Qty: 1 on 04/14/2014 at [facility] Right: Shoulder [employer] [id number]# / [id number] / Cement Simplex P#6191-1-010 - [id number] Implanted:Qty: 1 on 02/08/2015 by Abel Dowd MD at [facility] Left: Knee [employer] 01/04/2017 6191-1-01 0 / / [id number] Cement Simplex P#6191-1-010 - [id number] Implanted:Qty: 1 on 02/08/2015 by Abel Dowd MD at [facility] Left: Knee [employer] 02/03/2017 6191-1-01 0 / / [id number] - [id number] Implanted:Qty: 1 on 02/08/2015 by Abel Dowd MD at [facility] Left: Knee [employer] 10/06/2024 [id number] / / [id number] Description:Journey Nonporou s tibial baseplate [id number] - [id number] Implanted:Qty: 1 on 02/08/2015 by Abel Dowd MD at [facility] Left: Knee [employer] 11/06/2024 [id number] / / [id number] Description:Yamilet ii resur facing patellar component [id number] - [id number] Implanted:Qty: 1 on 02/08/2015 by Abel Dowd MD at [facility] Left: Knee [employer] 01/04/2025 [id number] / / [id number] Description:Bi-cruciate stab ilized journey II BCS oxinium femoral component [id number] - [id number] Implanted:Qty: 1 on 02/08/2015 by Abel Dowd MD at [facility] Left: Knee [employer] 10/06/2024 [id number] / / [id number] Description:Journey II BCS X LPE, A/P 48mm, M/L 68 mm, Articular insert Procedures Procedure Name Priority Date/Time Associated Diagnosis Comments RED CELL MORPHOLOGY Routine 01/14/2024 7 :49 AM CDT Pyothorax without fistula (HC) Weakness PLATELET ESTIMATE Routine 01/14/2024 7:4 9 AM CDT Pyothorax without fistula (HC) Weakness MANUAL DIFFERENTIAL Routine 01/14/2024 7 :49 AM CDT Pyothorax without fistula (HC) Weakness CBC WITH AUTO DIFFERENTIAL Routine 01/14/2024 7:49 AM CDT Pyothorax without fistula (HC) Weakness BASIC METABOLIC PANEL Routine 01/14/2024 7:49 AM CDT Pyothorax without fistula (HC) Weakness CBC WITH AUTO DIFFERENTIAL Routine 01/14/2024 7:49 AM CDT Pyothorax without fistula (HC) Weakness HEMOGLOBIN Routine 12/31/2023 7:12 AM CDT Anemia, unspecified RED CELL MORPHOLOGY Routine 12/24/2023 8 :00 AM CDT Pyothorax without fistula (HC) PLATELET ESTIMATE Routine 12/24/2023 8:0 0 AM CDT Pyothorax without fistula (HC) MANUAL DIFFERENTIAL Routine 12/24/2023 8 :00 AM CDT Pyothorax without fistula (HC) CBC WITH AUTO DIFFERENTIAL Routine 12/24/2023 8:00 AM CDT Pyothorax without fistula (HC) BASIC METABOLIC PANEL Routine 12/24/2023 8:00 AM CDT Pyothorax without fistula (HC) CBC WITH AUTO DIFFERENTIAL Routine 12/24/2023 8:00 AM CDT Pyothorax without fistula (HC) PROTIME-INR Early AM 12/19/2023 4:27 AM CDT APTT Early AM 12/19/2023 4:27 AM CDT HEMOGLOBIN Early AM 12/19/2023 4:27 AM CDT PLATELET COUNT Early AM 12/19/2023 4:27 AM CDT TRANSFUSE RBC (NURSE COMMUNICATION ORDER) Today 12/18/2023 1:01 PM CDT RED BLOOD CELLS EA UNIT Today 12/18/2023 11:41 AM CDT RBC W TYPE AND SCREEN Today 12/18/2023 11:17 AM CDT PROTIME-INR MIKEL 12/18/2023 4:57 AM CDT APTT Early AM 12/18/2023 4:57 AM CDT HEMOGLOBIN Early AM 12/18/2023 4:57 AM CDT PLATELET COUNT Early AM 12/18/2023 4:57 AM CDT XR VIDEO SWALLOW W SPEECH Routine 12/17/2023 11:26 AM CDT SCAN-CARDIAC STRIP 12/17/2023 8: 05 AM CDT APTT MIKEL 12/17/2023 7:51 AM CDT XR CHEST 1 VIEW PORTABLE Routine 12/17/2023 5:48 AM CDT PROTIME-INR Early AM 12/17/2023 4:23 AM CDT SODIUM Early AM 12/17/2023 4:23 AM CDT POTASSIUM Early AM 12/17/2023 4:23 AM CDT CO2,TOTAL Early AM 12/17/2023 4:23 AM CDT CREATININE Early AM 12/17/2023 4:23 AM CDT MAGNESIUM Early AM 12/17/2023 4:23 AM CDT BUN Early AM 12/17/2023 4:23 AM CDT HEMOGLOBIN Early AM 12/17/2023 4:23 AM CDT PLATELET COUNT Early AM 12/17/2023 4:23 AM CDT SCAN-CARDIAC STRIP 12/16/2023 10:59 PM CDT SCAN-CARDIAC STRIP 12/16/2023 5: 31 PM CDT XR SHOULDER 2 VIEWS LEFT PORTABLE MIKEL 12/16/2023 2:13 PM CDT SCAN-CARDIAC STRIP 12/16/2023 10:31 AM CDT APTT Early AM 12/16/2023 5:59 AM CDT HEMOGLOBIN Early AM 12/16/2023 5:59 AM CDT PLATELET COUNT Early AM 12/16/2023 5:59 AM CDT XR CHEST 1 VIEW PORTABLE Timed 12/16/2023 5:30 AM CDT SCAN-CARDIAC STRIP 12/15/2023 10:10 PM CDT SCAN-CARDIAC STRIP 12/15/2023 10:10 PM CDT SODIUM Early AM 12/15/2023 5:54 AM CDT POTASSIUM Early AM 12/15/2023 5:54 AM CDT CO2,TOTAL Early AM 12/15/2023 5:54 AM CDT CREATININE Early AM 12/15/2023 5:54 AM CDT MAGNESIUM Early AM 12/15/2023 5:54 AM CDT BUN Early AM 12/15/2023 5:54 AM CDT APTT Early AM 12/15/2023 5:54 AM CDT HEMOGLOBIN Early AM 12/15/2023 5:54 AM CDT PLATELET COUNT Early AM 12/15/2023 5:54 AM CDT XR CHEST 1 VIEW PORTABLE Timed 12/15/2023 5:17 AM CDT APTT Timed 12/14/2023 5:32 AM DE ICER FINISHER HEMOGLOBIN Early AM 12/14/2023 5:32 AM DE ICER FINISHER PLATELET COUNT Early AM 12/14/2023 5:32 AM DE ICER FINISHER XR CHEST 1 VIEW PORTABLE Routine 12/14/2023 5:31 AM DE ICER FINISHER APTT Timed 12/13/2023 5:37 AM DE ICER FINISHER SODIUM Early AM 12/13/2023 5:37 AM DE ICER FINISHER POTASSIUM Early AM 12/13/2023 5:37 AM DE ICER FINISHER CO2,TOTAL Early AM 12/13/2023 5:37 AM DE ICER FINISHER CREATININE Early AM 12/13/2023 5:37 AM DE ICER FINISHER MAGNESIUM Early AM 12/13/2023 5:37 AM DE ICER FINISHER BUN Early AM 12/13/2023 5:37 AM DE ICER FINISHER WHITE BLOOD COUNT Early AM 12/13/2023 5:3 7 AM DE ICER FINISHER HEMOGLOBIN Early AM 12/13/2023 5:37 AM DE ICER FINISHER PLATELET COUNT Early AM 12/13/2023 5:37 AM DE ICER FINISHER TYPE & SCREEN Early AM 12/13/2023 5:35 AM DE ICER FINISHER XR CHEST 1 VIEW PORTABLE Routine 12/13/2023 5:01 AM DE ICER FINISHER APTT Timed 12/12/2023 8:22 PM DE ICER FINISHER APTT Timed 12/12/2023 4:51 PM DE ICER FINISHER APTT Timed 12/12/2023 9:44 AM DE ICER FINISHER XR CHEST 1 VIEW PORTABLE Routine 12/12/2023 5:32 AM DE ICER FINISHER WHITE BLOOD COUNT Early AM 12/12/2023 3:2 1 AM DE ICER FINISHER HEMOGLOBIN Early AM 12/12/2023 3:21 AM DE ICER FINISHER PLATELET COUNT Early AM 12/12/2023 3:21 AM DE ICER FINISHER CREATININE Early AM 12/12/2023 3:20 AM DE ICER FINISHER APTT Timed 12/12/2023 3:20 AM DE ICER FINISHER APTT Timed 12/11/2023 8:44 PM DE ICER FINISHER APTT MIKEL 12/11/2023 1:48 PM DE ICER FINISHER XR VIDEO SWALLOW W SPEECH Routine 12/11/2023 10:20 AM DE ICER FINISHER XR CHEST 1 VIEW PORTABLE MIKEL 12/11/2023 7:23 AM DE ICER FINISHER PLATELET COUNT Early AM 12/11/2023 5:10 AM DE ICER FINISHER HEMOGLOBIN Early AM 12/11/2023 5:10 AM DE ICER FINISHER CALCIUM Early AM 12/11/2023 5:10 AM DE ICER FINISHER SODIUM Early AM 12/11/2023 5:10 AM DE ICER FINISHER POTASSIUM Early AM 12/11/2023 5:10 AM DE ICER FINISHER CO2,TOTAL Early AM 12/11/2023 5:10 AM DE ICER FINISHER CREATININE Early AM 12/11/2023 5:10 AM DE ICER FINISHER MAGNESIUM Early AM 12/11/2023 5:10 AM DE ICER FINISHER BUN Early AM 12/11/2023 5:10 AM DE ICER FINISHER PROTIME-INR Early AM 12/11/2023 5:10 AM DE ICER FINISHER SCAN-CARDIAC STRIP 12/11/2023 2: 20 AM DE ICER FINISHER XR CHEST 1 VIEW PORTABLE STAT 12/10/2023 5:44 PM DE ICER FINISHER PATH TISSUE EXAM Today 12/10/2023 4:11 PM DE ICER FINISHER AFB CULTURE, STAIN Today 12/10/2023 4: 01 PM DE ICER FINISHER TISSUE CULTURE, STAIN (AEROBIC) Today 12/10/2023 4:01 PM DE ICER FINISHER ANAEROBIC CULTURE Today 12/10/2023 4:0 1 PM DE ICER FINISHER ENDOTRACHEAL TUBE Routine 12/10/2023 2:1 9 PM DE ICER FINISHER ENDOTRACHEAL TUBE Routine 12/10/2023 2:1 9 PM DE ICER FINISHER ENDOTRACHEAL TUBE Routine 12/10/2023 2:1 9 PM DE ICER FINISHER ENDOTRACHEAL TUBE Routine 12/10/2023 2:1 9 PM DE ICER FINISHER THORACOTOMY 12/10/2023 1:30 PM DE ICER FINISHER EMPYEMA Case Notes 1330- 90MIN Special Needs 65 / 94.3 kg BMI 34.6 THORACOSCOPY 12/10/2023 1:30 PM DE ICER FINISHER EMPYEMA Case Notes 1330- 90MIN Special Needs 65 / 94.3 kg BMI 34.6 RED CELL MORPHOLOGY STAT 12/10/2023 1 :12 PM DE ICER FINISHER PLATELET ESTIMATE STAT 12/10/2023 1:1 2 PM DE ICER FINISHER MANUAL DIFFERENTIAL STAT 12/10/2023 1 :12 PM DE ICER FINISHER CBC WITH AUTO DIFFERENTIAL Preop 12/10/2023 1:12 PM DE ICER FINISHER PROTIME-INR Preop 12/10/2023 1:12 PM DE ICER FINISHER CREATININE Preop 12/10/2023 1:12 PM DE ICER FINISHER BUN Preop 12/10/2023 1:12 PM DE ICER FINISHER POTASSIUM Preop 12/10/2023 1:12 PM DE ICER FINISHER CBC WITH AUTO DIFFERENTIAL Preop 12/10/2023 1:12 PM DE ICER FINISHER SCAN-CARDIAC STRIP 12/10/2023 8: 14 AM DE ICER FINISHER PLATELET COUNT Early AM 12/10/2023 7:45 AM DE ICER FINISHER WHITE BLOOD COUNT Early AM 12/10/2023 7:4 5 AM DE ICER FINISHER HEMOGLOBIN Early AM 12/10/2023 7:45 AM DE ICER FINISHER SODIUM Early AM 12/10/2023 7:45 AM DE ICER FINISHER POTASSIUM Early AM 12/10/2023 7:45 AM DE ICER FINISHER CO2,TOTAL Early AM 12/10/2023 7:45 AM DE ICER FINISHER CREATININE Early AM 12/10/2023 7:45 AM DE ICER FINISHER MAGNESIUM Early AM 12/10/2023 7:45 AM DE ICER FINISHER BUN Early AM 12/10/2023 7:45 AM DE ICER FINISHER ALK PHOSPHATASE Early AM 12/10/2023 7:45 AM DE ICER FINISHER PROTIME-INR Early AM 12/10/2023 7:45 AM DE ICER FINISHER XR CHEST 1 VIEW PORTABLE STAT 12/09/2023 10:43 PM DE ICER FINISHER PROTIME-INR Today 12/09/2023 7:45 PM DE ICER FINISHER SCAN-CARDIAC STRIP 12/09/2023 10:30 AM DE ICER FINISHER SCAN-CARDIAC STRIP 12/09/2023 9: 01 AM DE ICER FINISHER CLOSTRIDIOIDES DIFFICILE TOXIN PCR Today 12/09/2023 7:45 AM DE ICER FINISHER TYPE & SCREEN Today 12/09/2023 7:00 AM DE ICER FINISHER BUN Early AM 12/09/2023 7:00 AM DE ICER FINISHER CREATININE Early AM 12/09/2023 7:00 AM DE ICER FINISHER WHITE BLOOD COUNT Early AM 12/09/2023 7:0 0 AM DE ICER FINISHER POTASSIUM Early AM 12/09/2023 7:00 AM DE ICER FINISHER SODIUM Early AM 12/09/2023 7:00 AM DE ICER FINISHER HEMOGLOBIN Timed 12/09/2023 7:00 AM DE ICER FINISHER PROTIME-INR Early AM 12/09/2023 7:00 AM DE ICER FINISHER SCAN-CARDIAC STRIP 12/08/2023 9: 09 PM DE ICER FINISHER HEMOGLOBIN Timed 12/08/2023 5:46 PM DE ICER FINISHER PROTIME-INR Early AM 12/08/2023 8:34 AM DE ICER FINISHER BUN Early AM 12/08/2023 8:31 AM DE ICER FINISHER CREATININE Early AM 12/08/2023 8:31 AM DE ICER FINISHER WHITE BLOOD COUNT Early AM 12/08/2023 8:3 1 AM DE ICER FINISHER POTASSIUM Early AM 12/08/2023 8:31 AM DE ICER FINISHER SODIUM Early AM 12/08/2023 8:31 AM DE ICER FINISHER HEMOGLOBIN Timed 12/08/2023 8:31 AM DE ICER FINISHER SCAN-CARDIAC STRIP 12/08/2023 7: 45 AM DE ICER FINISHER HEMOGLOBIN Timed 12/07/2023 6:46 PM DE ICER FINISHER IR CHEST TUBE W WATER SEAL INSERTION Routine 12/07/2023 2:34 PM DE ICER FINISHER ANAEROBIC CULTURE Today 12/07/2023 2:3 0 PM DE ICER FINISHER AEROBIC BACTERIAL CULTURE, STAIN Today 12/07/2023 2:30 PM DE ICER FINISHER PLASMA ORDER STAT 12/07/2023 9:55 AM DE ICER FINISHER PLASMA SNGL DON FFPEA UNIT STAT 12/07/2023 9:53 AM DE ICER FINISHER PRO-BNP MIKEL 12/07/2023 8:37 AM DE ICER FINISHER BUN Early AM 12/07/2023 8:37 AM DE ICER FINISHER CREATININE Early AM 12/07/2023 8:37 AM DE ICER FINISHER POTASSIUM Early AM 12/07/2023 8:37 AM DE ICER FINISHER SODIUM Early AM 12/07/2023 8:37 AM DE ICER FINISHER CBC WITH AUTO DIFFERENTIAL STAT 12/07/2023 8:36 AM DE ICER FINISHER PROTIME-INR STAT 12/07/2023 8:36 AM DE ICER FINISHER CBC WITH AUTO DIFFERENTIAL STAT 12/07/2023 8:36 AM DE ICER FINISHER VITAMIN B12 Early AM 12/07/2023 8:36 AM DE ICER FINISHER FERRITIN Early AM 12/07/2023 8:36 AM DE ICER FINISHER PROCALCITONIN Early AM 12/07/2023 8:36 AM DE ICER FINISHER SCAN-CARDIAC STRIP 12/07/2023 8: 22 AM DE ICER FINISHER XR CHEST 1 VIEW PORTABLE STAT 12/07/2023 7:48 AM DE ICER FINISHER SCAN-CARDIAC STRIP 12/07/2023 6: 40 AM DE ICER FINISHER SCAN-CARDIAC STRIP 12/07/2023 6: 25 AM DE ICER FINISHER VANCOMYCIN TROUGH Timed 12/07/2023 2:0 3 AM DE ICER FINISHER SCAN-CARDIAC STRIP 12/06/2023 10:44 PM DE ICER FINISHER SCAN-CARDIAC STRIP 12/06/2023 8: 29 PM DE ICER FINISHER HEMOGLOBIN Timed 12/06/2023 5:56 PM DE ICER FINISHER FOLIC ACID Timed 12/06/2023 5:56 PM DE ICER FINISHER IRON PLUS IRON BINDING CAP Today 12/06/2023 5:56 PM DE ICER FINISHER SCAN-CARDIAC STRIP 12/06/2023 5: 44 PM DE ICER FINISHER TRANSFUSE RBC (NURSE COMMUNICATION ORDER) STAT 12/06/2023 2:30 PM DE ICER FINISHER LEGIONELLA AND PNEUMOCOCCAL URINE ANTIGEN STAT 12/06/2023 1:35 PM DE ICER FINISHER SPUTUM CULTURE, STAIN STAT 12/06/2023 1:35 PM DE ICER FINISHER US VENOUS LOWER EXTREMITY BILATERAL Routine 12/06/2023 1:02 PM DE ICER FINISHER TRANSFUSE RBC (NURSE COMMUNICATION ORDER) STAT 12/06/2023 11:00 AM DE ICER FINISHER RBC W/O TYPE & SCREEN STAT 12/06/2023 10:13 AM DE ICER FINISHER RED BLOOD CELLS EA UNIT STAT 12/06/2023 10:12 AM DE ICER FINISHER RED BLOOD CELLS EA UNIT STAT 12/06/2023 10:12 AM DE ICER FINISHER CBC WITH AUTO DIFFERENTIAL Early AM 12/06/2023 8:55 AM DE ICER FINISHER PROCALCITONIN STAT 12/06/2023 8:55 AM DE ICER FINISHER PROTIME-INR Early AM 12/06/2023 8:55 AM DE ICER FINISHER BASIC METABOLIC PANEL Early AM 12/06/2023 8:55 AM DE ICER FINISHER CBC WITH AUTO DIFFERENTIAL Early AM 12/06/2023 8:55 AM DE ICER FINISHER TYPE & SCREEN Today 12/05/2023 8:32 PM DE ICER FINISHER PROTIME-INR Today 12/05/2023 1:16 PM DE ICER FINISHER TRANSFUSE PLASMA (NURSE COMMUNICATION ORDER) STAT 12/05/2023 11:05 AM DE ICER FINISHER PLASMA ORDER STAT 12/05/2023 9:35 AM DE ICER FINISHER PLASMA SNGL DON FFPEA UNIT STAT 12/05/2023 9:27 AM DE ICER FINISHER PLASMA SNGL DON FFPEA UNIT STAT 12/05/2023 9:27 AM DE ICER FINISHER US THORACENTESIS RIGHT Routine 12/05/2023 9:20 AM DE ICER FINISHER LD,BODY FLUID Today 12/05/2023 8:50 AM DE ICER FINISHER PROTEIN,BODY FLUID Today 12/05/2023 8: 50 AM DE ICER FINISHER GLUCOSE,BODY FLUID Today 12/05/2023 8: 50 AM DE ICER FINISHER BODY FLUID CULTURE,STAIN (AEROBIC) Today 12/05/2023 8:50 AM DE ICER FINISHER SCAN-CARDIAC STRIP 12/05/2023 8: 05 AM DE ICER FINISHER MAGNESIUM MIKEL 12/05/2023 6:03 AM DE ICER FINISHER WHITE BLOOD COUNT Early AM 12/05/2023 6:0 3 AM DE ICER FINISHER CREATININE Early AM 12/05/2023 6:03 AM DE ICER FINISHER SCAN-CARDIAC STRIP 12/05/2023 1: 26 AM DE ICER FINISHER SCAN-CARDIAC STRIP 12/05/2023 12:00 AM DE ICER FINISHER LACTATE VENOUS Timed 12/04/2023 10:[address] CHEST PE STUDY STAT 12/04/2023 10:22 PM DE ICER FINISHER COVID-19 MOLECULAR STAT 12/04/2023 8: 45 PM DE ICER FINISHER INFLUENZA A/B PCR STAT 12/04/2023 8:4 5 PM DE ICER FINISHER BLOOD CULTURE Today 12/04/2023 8:21 PM DE ICER FINISHER BLOOD BANK EXTRA LAVENDER TOP STAT 12/04/2023 7:52 PM DE ICER FINISHER RED CELL MORPHOLOGY STAT 12/04/2023 7 :52 PM DE ICER FINISHER PLATELET ESTIMATE STAT 12/04/2023 7:5 2 PM DE ICER FINISHER MANUAL DIFFERENTIAL STAT 12/04/2023 7 :52 PM DE ICER FINISHER HEPATIC FUNCTION PANEL MIKEL 12/04/2023 7:52 PM DE ICER FINISHER BLOOD CULTURE STAT 12/04/2023 7:52 PM DE ICER FINISHER PRO-BNP MIKEL 12/04/2023 7:52 PM DE ICER FINISHER C-REACTIVE PROTEIN STAT 12/04/2023 7: 52 PM DE ICER FINISHER LACTATE VENOUS Today 12/04/2023 7:52 PM DE ICER FINISHER PROCALCITONIN STAT 12/04/2023 7:52 PM DE ICER FINISHER CBC WITH AUTO DIFFERENTIAL STAT 12/04/2023 7:52 PM DE ICER FINISHER PROTIME-INR STAT 12/04/2023 7:52 PM DE ICER FINISHER BASIC METABOLIC PANEL STAT 12/04/2023 7:52 PM DE ICER FINISHER CBC WITH AUTO DIFFERENTIAL STAT 12/04/2023 7:52 PM DE ICER FINISHER XR CHEST 1 VIEW PORTABLE STAT 12/04/2023 7:43 PM DE ICER FINISHER EKG 12 LEAD STAT 12/04/2023 7:38 PM DE ICER FINISHER FACTOR II GENE MUTATION (EVALUATE THROMBOPHILIA) Today 11/28/2023 11:43 AM DE ICER FINISHER Hereditary hemochromatosis (HC) FACTOR V LEIDEN MUTATION (EVALUATE THROMBOPHILIA) Today 11/28/2023 11:43 AM DE ICER FINISHER Hereditary hemochromatosis (HC) PROTIME-INR STAT 11/28/2023 10:33 AM DE ICER FINISHER PE (pulmonary thromboembolism) (HC) PEA (Pulseless electrical activity) (HC) Other acute pulmonary embolism without acute cor pulmonale (HC) Anticoagulation monitoring, INR range 2-3 PERIPHERAL BLD MORPHOLOGY Routine 11/21/2023 12:06 PM DE ICER FINISHER Hereditary hemochromatosis (HC) IMMUNOFIXATION,SERUM Routine 11/21/2023 12:06 PM DE ICER FINISHER Hereditary hemochromatosis (HC) RED CELL MORPHOLOGY Routine 11/21/2023 12:06 PM DE ICER FINISHER Hereditary hemochromatosis (HC) RED CELL MORPHOLOGY Routine 11/21/2023 12:06 PM DE ICER FINISHER Hereditary hemochromatosis (HC) PLATELET ESTIMATE Routine 11/21/2023 12:06 PM DE ICER FINISHER Hereditary hemochromatosis (HC) MANUAL DIFFERENTIAL Routine 11/21/2023 12:06 PM DE ICER FINISHER Hereditary hemochromatosis (HC) CBC WITH AUTO DIFFERENTIAL Routine 11/21/2023 12:06 PM DE ICER FINISHER Hereditary hemochromatosis (HC) ELP AND FREE LIGHT CHAINS W REFLEX, BLOOD Routine 11/21/2023 12:06 PM DE ICER FINISHER Hereditary hemochromatosis (HC) HAPTOGLOBIN Routine 11/21/2023 12:06 PM DE ICER FINISHER Hereditary hemochromatosis (HC) LD,TOTAL Routine 11/21/2023 12:06 PM DE ICER FINISHER Hereditary hemochromatosis (HC) FOLIC ACID Routine 11/21/2023 12:06 PM DE ICER FINISHER Hereditary hemochromatosis (HC) VITAMIN B12 Routine 11/21/2023 12:06 PM DE ICER FINISHER Hereditary hemochromatosis (HC) CBC WITH AUTO DIFFERENTIAL Routine 11/21/2023 12:06 PM DE ICER FINISHER Hereditary hemochromatosis (HC) RETICULOCYTES Routine 11/21/2023 12:06 PM DE ICER FINISHER Hereditary hemochromatosis (HC) RED CELL MORPHOLOGY Routine 11/14/2023 11:12 AM DE ICER FINISHER Hereditary hemochromatosis (HC) PLATELET ESTIMATE Routine 11/14/2023 11:12 AM DE ICER FINISHER Hereditary hemochromatosis (HC) MANUAL DIFFERENTIAL Routine 11/14/2023 11:12 AM DE ICER FINISHER Hereditary hemochromatosis (HC) CBC WITH AUTO DIFFERENTIAL Routine 11/14/2023 11:12 AM DE ICER FINISHER Hereditary hemochromatosis (HC) IRON PLUS IRON BINDING CAP Routine 11/14/2023 11:12 AM DE ICER FINISHER Hereditary hemochromatosis (HC) FERRITIN Routine 11/14/2023 11:12 AM DE ICER FINISHER Hereditary hemochromatosis (HC) AFP TUMOR MARKER SERUM Routine 11/14/2023 11:12 AM DE ICER FINISHER Hereditary hemochromatosis (HC) HEPATIC FUNCTION PANEL Routine 11/14/2023 11:12 AM DE ICER FINISHER Hereditary hemochromatosis (HC) CBC WITH AUTO DIFFERENTIAL Routine 11/14/2023 11:12 AM DE ICER FINISHER Hereditary hemochromatosis (HC) PROTIME-INR STAT 11/14/2023 11:12 AM DE ICER FINISHER PE (pulmonary thromboembolism) (HC) PEA (Pulseless electrical activity) (HC) Other acute pulmonary embolism without acute cor pulmonale (HC) Anticoagulation monitoring, INR range 2-3 PROTIME-INR STAT 11/01/2023 10:35 AM DE ICER FINISHER PE (pulmonary thromboembolism) (HC) PEA (Pulseless electrical activity) (HC) Other acute pulmonary embolism without acute cor pulmonale (HC) Anticoagulation monitoring, INR range 2-3 PROTIME-INR STAT 10/18/2023 10:19 AM DE ICER FINISHER PE (pulmonary thromboembolism) (HC) PEA (Pulseless electrical activity) (HC) Other acute pulmonary embolism without acute cor pulmonale (HC) Anticoagulation monitoring, INR range 2-3 ANTI HCV Routine 07/11/2016 11:13 AM T Arthralgia, unspecified joint High risk medication use from Last 3 Months or Most Recently Relevant to Health Maintenance Results * (ABNORMAL) CBC WITH AUTO DIFFERENTIAL (01/14/2024 7:49 AM [facility]) Only the most recent of8 resultswithin the time period is included. WHITE BLOOD COUNT 7.4 4.5 - 11.0 thou/cu mm 01/14/2024 10:00 AM [facility] RED BLOOD COUNT 3.69(L) 4.30 - 5.90 mil/cu mm 01/14/2024 10:00 AM [facility] HEMOGLOBIN 10.0(L) 13.5 - 17.5 g/dL 01/14/2024 10:00 AM [facility] HEMATOCRIT 33.7(L) 37.0 - 53.0 % 01/14/2024 10:00 AM [facility] MCV 91 80 - 100 fL 01/14/2024 10:00 AM [facility] MCH 27.1 26.0 - 34.0 pg 01/14/2024 10:00 AM CDT [facility] MCHC 29.7(L) 32.0 - 36.0 g/dL 01/14/2024 10:00 AM [facility] RDW 19.7(H) 11.5 - 15.5 % 01/14/2024 10:00 AM [facility] PLATELET COUNT 320 140 - 440 thou/cu mm 01/14/2024 10:00 AM [facility] MPV 9.7 6.5 - 11.0 fL 01/14/2024 10:00 AM [facility] Blood BLOOD SPECIMEN / Unknown Venipuncture / Unknown 01/14/2024 7:49 AM CDT 01/14/2024 8:59 AM CDT Anneliese Diehl NP HEMATOLOGY Performing Organization Address City/[facility] Co de Phone Number [facility] [address] [place] [address] * RED CELL MORPHOLOGY (01/14/2024 7:49 AM CDT) Only the most recent of7 resultswithin the time period is included. RBC COMMENT RBC morphology appears normal RBC morphology appears normal, RBC morphology within normal limits for newborns. 01/14/2024 10:00 AM [facility] LARGE PLATELETS Present 01/14/2024 10:00 AM [facility] Blood BLOOD SPECIMEN / Unknown Venipuncture / Unknown 01/14/2024 7:49 AM CDT 01/14/2024 8:59 AM CDT Anneliese Diehl NP HEMATOLOGY Performing Organization Address City/[facility]/ZIP Co de Phone Number [facility] [address] [place] [address] * PLATELET ESTIMATE (01/14/2024 7:49 AM CDT) Only the most recent of6 resultswithin the time period is included. PLATELET ESTIMATE Adequate Adequate, No estimate 01/14/2024 10:00 AM [facility] Blood BLOOD SPECIMEN / Unknown Venipuncture / Unknown 01/14/2024 7:49 AM CDT 01/14/2024 8:59 AM CDT Anneliese Diehl NP HEMATOLOGY [facility] [address] [place] [address] * MANUAL DIFFERENTIAL (01/14/2024 7:49 AM CDT) Only the most recent of6 resultswithin the time period is included. % NEUTROPHILS 71.0 % 01/14/2024 10:00 AM [facility] % LYMPHOCYTES 17.0 % 01/14/2024 10:00 AM [facility] % MONOCYTES 6.0 % 01/14/2024 10:00 AM [facility] % EOSINOPHILS 5.0 % 01/14/2024 10:00 AM [facility] % BASOPHILS 1.0 % 01/14/2024 10:00 AM [facility] NEUTROPHILS ABSOLUTE 5.3 1.7 - 7.0 thou/cu mm 01/14/2024 10:00 AM [facility] LYMPHOCYTES ABSOLUTE 1.3 0.9 - 2.9 thou/cu mm 01/14/2024 10:00 AM [facility] MONOCYTES ABSOLUTE 0.4 <0.9 thou/cu mm 01/14/2024 10:00 AM [facility] EOSINOPHILS ABSOLUTE 0.4 <0.5 thou/cu mm 01/14/2024 10:00 AM [facility] BASOPHILS ABSOLUTE 0.1 <0.3 thou/cu mm 01/14/2024 10:00 AM [facility] Blood BLOOD SPECIMEN / Unknown Venipuncture / Unknown 01/14/2024 7:49 AM CDT 01/14/2024 8:59 AM CDT Anneliese Diehl NP HEMATOLOGY [facility] [address] [place] [address] * (ABNORMAL) BASIC METABOLIC PANEL (01/14/2024 7:49 AM CDT) Only the most recent of4 resultswithin the time period is included. SODIUM 147(H) 136 - 145 mmol/L 01/14/2024 9:35 AM [facility] POTASSIUM 3.9 3.5 - 5.1 mmol/L 01/14/2024 9:35 AM [facility] CHLORIDE 106 98 - 107 mmol/L 01/14/2024 9:35 AM [facility] CO2,TOTAL 32(H) 22 - 29 mmol/L 01/14/2024 9:35 AM [facility] ANION GAP 9 5 - 18 01/14/2024 9:35 AM [facility] GLUCOSE 89 70 - 99 mg/dL 01/14/2024 9:35 AM [facility] CALCIUM 9.9 8.8 - 10.2 mg/dL 01/14/2024 9:35 AM [facility] BUN 15 8 - 23 mg/dL 01/14/2024 9:35 AM [facility] CREATININE 0.72 0.70 - 1.20 mg/dL 01/14/2024 9:35 AM [facility] BUN/CREAT RATIO 21(H) 10 - 20 9:35 AM [facility] eGFR >90 >90 mL/min/1.7 3m2 01/14/2024 9:35 AM [facility] Comment:As of 2021, eG FR is calculated by the CKD-EPI creatinine equation without race adjustment. ??eGFR can be influenced by muscle mass, exercise, and diet. ??The reported eGFR is an estimation only and is only applicable if the renal function is stable. Blood BLOOD SPECIMEN / Unknown Venipuncture / Unknown 01/14/2024 7:49 AM CDT 01/14/2024 8:59 AM CDT Anneliese Diehl NP CHEMISTRY [facility] [address] [place] [id number] * (ABNORMAL) HEMOGLOBIN (12/31/2023 7:12 AM CDT) Only the most recent of16 resultswithin the time period is included. HEMOGLOBIN 9.5(L) 13.5 - 17.5 g/dL 12/31/2023 9:29 AM CDT [facility] MCV 90 80 - 100 fL 12/31/2023 9:29 AM CDT [facility] Blood BLOOD SPECIMEN / Unknown Venipuncture / Unknown 12/31/2023 7:12 AM CDT 12/31/2023 9:16 AM CDT Sid Barboza MD HEMATOLOGY Performing Organization Address [facility]/ZIP Co de Phone Number [facility] [address] [place] [address] * (ABNORMAL) PLATELET COUNT (12/19/2023 4:27 AM CDT) Only the most recent of10 resultswithin the time period is included. PLATELET COUNT 446(H) 140 - 440 thou/cu mm 12/19/2023 5:52 AM CDT [facility] MPV 9.0 6.5 - 11.0 fL 12/19/2023 5:52 AM CDT [facility] Blood BLOOD SPECIMEN / Unknown Venipuncture / Unknown 12/19/2023 4:27 AM CDT 12/19/2023 5:37 AM CDT Narrative [facility] - 12/19/2023 5:52 AM CDT Every morning while on IV heparin. Necessary every morning while on IV heparin. Claus Iraheta MD HEMATOLOGY [facility] SENDOUT INTERNAL ZIP [id number] [place] [id number] * (ABNORMAL) APTT (12/19/2023 4:27 AM CDT) Only the most recent of13 resultswithin the time period is included. APTT 37(H) 28 - 36 sec 12/19/2023 5:49 AM CDT [facility] Blood BLOOD SPECIMEN / Unknown Venipuncture / Unknown 12/19/2023 4:27 AM CDT 12/19/2023 5:37 AM CDT [facility] - 12/19/2023 5:49 AM CDT Therapeutic Range: 57-87 seconds Claus Iraheta MD HEMATOLOGY Performing Organization Address [facility] Co de Phone Number [facility] SENDOUT INTERNAL [facility] [id number] [place] [phone] * (ABNORMAL) PROTIME-INR (12/19/2023 4:27 AM CDT) Only the most recent of17 resultswithin the time period is included. INR 1.3(H) <1.3 12/19/2023 5:49 AM CDT [facility] PROTIME 14.5(H) 10.3 - 12.3 sec 12/19/2023 5:49 AM CDT [facility] Blood BLOOD SPECIMEN / Unknown Venipuncture / Unknown 12/19/2023 4:27 AM CDT 12/19/2023 5:37 AM CDT [facility] - 12/19/2023 5:49 AM CDT ?Therapeutic Range 2.0-3.0 for most anticoagulated patients 2.5-3.5 or 4.0 for high risk patients The INR is only used for patients on stable oral anticoagulant therapy. It makes no significant contribution to the diagnosis or treatment of patients whose Protime is prolonged for other reasons. INR results are increased when heparin levels exceed 1.0 U/mL, which corresponds to an aPTT >125 seconds if the patient is on UFH. Jeff Scruggs MD HEMATOLOGY Performing Organization Address [facility]/ZIP Co de Phone Number [facility] SENDOUT INTERNAL ZIP [phone] [place] [address] * TRANSFUSE RBC (NURSE COMMUNICATION ORDER) (12/18/2023 4:09 PM CDT) Blood BLOOD SPECIMEN / Unknown Jeff Scruggs MD NURSING BLO OD BANK * RED BLOOD CELLS EA UNIT (12/18/2023 11:41 AM CDT) Only the most recent of3 resultswithin the time period is included. CROSSMATCH Compatible Compatible [facility] BLOOD BANK PRODUCT BLOOD TYPE A Rh Positive [facility] BLOOD BANK PRODUCT ID NUMBER [id number] [facility] BLOOD BANK PRODUCT STATUS Transfused [facility] BLOOD BANK PRODUCT DESCRIPTION RBC -1 LR [facility] BLOOD BANK PRODUCT CODE [id number] [facility] BLOOD BANK ISSUE DATE/TIME 12/18/23 12:44 [facility] BLOOD BANK Jeff Scruggs MD BLOOD BANK Performing Organization Address City/[facility]/ZIP Co de Phone Number [facility] BLOOD BANK [address] [place] [address] * RBC W TYPE AND SCREEN (12/18/2023 11:17 AM CDT) ABORH A Rh Positive 12/18/2023 12:20 PM CDT [facility] BLOOD BANK ANTIBODY SCREEN Negative Negative 12/18/2023 12:20 PM CDT [facility] BLOOD BANK SPECIMEN EXPIRATION DATE/TIME 12/21/23 23:59 12/18/2023 12:20 PM CDT [facility] BLOOD BANK Blood BLOOD SPECIMEN / Unknown Venipuncture / Unknown 12/18/2023 11:17 AM CDT 12/18/2023 11:32 AM CDT Jfef Scruggs MD BLOOD BANK Performing Organization Address City/[facility]/ZIP Co de Phone Number [facility] BLOOD BANK [address] [place] [address] * XR VIDEO SWALLOW W SPEECH (12/17/2023 11:26 AM CDT) Only the most recent of2 resultswithin the time period is included. Anatomical Region Laterality Modality Esophagus Computed Radiogr aphy 12/17/2023 11:2 6 AM CDT Impressions 12/17/2023 12:22 PM CDT FINDINGS/IMPRESSION: Swallow study with Speech Pathology using multiple barium thicknesses. Silent aspiration with thin liquid consistency accompanied by penetration with mildly thick liquid consistency. With chin intact and head turn, there was no penetration with mildly thick liquid consistency. Using the same maneuvers, there was still a small amount of flash penetration with thin liquid consistency. Vallecular and piriform sinus residual seen with paste consistency taken by spoon. Narrative 12/17/2023 12:22 PM CDT For Patients: As a result of the Cures Act, medical imaging exams and procedure reports are released immediately into your electronic medical record. You may view this report before your referring provider. If you have questions, please contact your health care provider. EXAM: XR VIDEO SWALLOW W SPEECH LOCATION: [facility] MEDICAL [facility]AG[facility] DATE: 12/17/2023 INDICATION: Difficulty swallowing. Aspiration. COMPARISON: None. TECHNIQUE: Routine swallow study with speech pathology using multiple barium thicknesses. RADIATION DOSE: DAP 344.1. Procedure Note Rivera Garza MD - 12/17/2023 For Patients: As a result of the Cures Act, medical imagingexams and procedure reports are released immediately into your electronicmedical record. You may view this report before your referring provider.If you have questions, please contact your health care provider. EXAM: XR VIDEO SWALLOW W SPEECH LOCATION: [facility] MED[facility]AG[facility] DATE: 12/17/2023 INDICATION: Difficulty swallowing. Aspiration. COMPARISON: None. TECHNIQUE: Routine swallow study with speech pathology using multiplebarium thicknesses. RADIATION DOSE: DAP 344.1. IMPRESSION: FINDINGS/IMPRESSION: Swallow study with Speech Pathology using multiple barium thicknesses. Silent aspiration with thin liquid consistency accompanied by penetrationwith mildly thick liquid consistency. With chin intact and head turn,there was no penetration with mildly thick liquid consistency. Using thesame maneuvers, there was still a small amount of flash penetration withthin liquid consistency. Vallecular and piriform sinus residual seen withpaste consistency taken by spoon. Claus Iraheta MD FLUOROSCOPY * SCAN-CARDIAC STRIP (12/17/2023 8:05 AM CDT) Scanner OTHER * XR CHEST 1 VIEW PORTABLE (12/17/2023 5:48 AM CDT) Only the most recent of11 resultswithin the time period is included. Anatomical Region Laterality Modality HEART, THORAX, CHEST Computed Ra diography 12/17/2023 5:48 AM CDT Impressions 12/17/2023 7:49 AM CDT Interval removal of two right chest tubes. A single right chest tube remains with tip terminating in the right base. Similar size of a medium right and small left pleural effusions. Bibasilar airspace opacities, possibly atelectasis, edema, aspiration, or a combination; overall these opacities are similar to minimally worsened on the left compared to prior. No appreciable pneumothorax. No other change. Narrative 12/17/2023 7:49 AM CDT For Patients: As a result of the Cures Act, medical imaging exams and procedure reports are released immediately into your electronic medical record. You may view this report before your referring provider. If you have questions, please contact your health care provider. EXAM: XR CHEST 1 VIEW PORTABLE LOCATION: [facility] MED[facility]AG[facility] DATE: 12/17/2023 INDICATION: Post Procedure COMPARISON: 12/16/2023 Procedure Note Ivan Teague MD - 12/17/2023 For Patients: As a result of the Cures Act, medical imagingexams and procedure reports are released immediately into your electronicmedical record. You may view this report before your referring provider.If you have questions, please contact your health care provider. EXAM: XR CHEST 1 VIEW PORTABLE LOCATION: [facility] DATE: 12/17/2023 INDICATION: Post Procedure COMPARISON: 12/16/2023 IMPRESSION: Interval removal of two right chest tubes. A single right chest tuberemains with tip terminating in the right base. Similar size of a mediumright and small left pleural effusions. Bibasilar airspace opacities,possibly atelectasis, edema, aspiration, or a combination; overall theseopacities are similar to minimally worsened on the left compared to prior.No appreciable pneumothorax. No other change. Savi [facility] * BUN (12/17/2023 4:23 AM CDT) Only the most recent of9 resultswithin the time period is included. BUN 10 8 - 23 mg/dL 12/17/2023 5:23 AM CDT [facility] Blood BLOOD SPECIMEN / Unknown Venipuncture / Unknown 12/17/2023 4:23 AM CDT 12/17/2023 4:57 AM CDT Claus Iraheta MD CHEMISTRY [facility] SENDOUT INTERNAL ZIP [id number] [place] [address] * SODIUM (12/17/2023 4:23 AM CDT) Only the most recent of8 resultswithin the time period is included. SODIUM 140 136 - 145 mmol/L 12/17/2023 5:23 AM CDT [facility] Blood BLOOD SPECIMEN / Unknown Venipuncture / Unknown 12/17/2023 4:23 AM CDT 12/17/2023 4:57 AM CDT Claus Iraheta MD CHEMISTRY [facility] SENDOUT [place] ZIP [id number] [place] [address] * POTASSIUM (12/17/2023 4:23 AM CDT) Only the most recent of9 resultswithin the time period is included. POTASSIUM 4.0 3.5 - 5.1 mmol/L 12/17/2023 5:23 AM CDT [facility] Blood BLOOD SPECIMEN / Unknown Venipuncture / Unknown 12/17/2023 4:23 AM CDT 12/17/2023 4:57 AM CDT Claus Iraheta MD CHEMISTRY [facility] SENDOUT [place]NAL ZIP [address] [place] [address] * (ABNORMAL) CREATININE (12/17/2023 4:23 AM CDT) Only the most recent of11 resultswithin the time period is included. [facility] eGFR >90 >90 mL/min/1.7 3m2 12/17/2023 5:23 AM CDT [facility] Comment:As of 2021, eG FR is calculated by the CKD-EPI creatinine equation without race adjustment. ??eGFR can be influenced by muscle mass, exercise, and diet. ??The reported eGFR is an estimation only and is only applicable if the renal function is stable. CREATININE 0.60(L) 0.70 - 1.20 mg/dL 12/17/2023 5:23 AM CDT [facility] Blood BLOOD SPECIMEN / Unknown Venipuncture / Unknown 12/17/2023 4:23 AM CDT 12/17/2023 4:57 AM CDT Claus Iraheta MD CHEMISTRY [facility] SENDOUT [place] ZIP [phone] [place] [address] * (ABNORMAL) CO2,TOTAL (12/17/2023 4:23 AM CDT) Only the most recent of5 resultswithin the time period is included. [facility] CO2,TOTAL 32(H) 22 - 29 mmol/L 12/17/2023 5:23 AM CDT [facility] Blood BLOOD SPECIMEN / Unknown Venipuncture / Unknown 12/17/2023 4:23 AM CDT 12/17/2023 4:57 AM CDT Claus Iraheta MD CHEMISTRY [facility] SENDOUT [place]NAL ZIP [id number] [place] [address] * MAGNESIUM (12/17/2023 4:23 AM CDT) Only the most recent of6 resultswithin the time period is included. [facility] MAGNESIUM 1.8 1.6 - 2.4 mg/dL 12/17/2023 5:23 AM CDT [facility] Blood BLOOD SPECIMEN / Unknown Venipuncture / Unknown 12/17/2023 4:23 AM CDT 12/17/2023 4:57 AM CDT Claus Iraheta MD CHEMISTRY [facility] SENDOUT [address] [id number] [address] [place] [address] * SCAN-CARDIAC STRIP (12/16/2023 10:59 PM CDT) Scanner OTHER * SCAN-CARDIAC STRIP (12/16/2023 5:31 PM CDT) Scanner OTHER * XR SHOULDER 2 VIEWS LEFT PORTABLE (12/16/2023 2:13 PM CDT) Anatomical Region Laterality Modality SHOULDERS, SHOULDER L Computed R adiography 12/16/2023 2:13 PM CDT Impressions 12/16/2023 2:18 PM CDT No fracture. Advanced left glenohumeral joint osteoarthritis with subacromial narrowing/superior migration of the humeral head suggesting chronic rotator cuff tearing. Soft tissue anchor in the left humeral head. No significant interval change. Narrative 12/16/2023 2:18 PM CDT For Patients: As a result of the Cures Act, medical imaging exams and procedure reports are released immediately into your electronic medical record. You may view this report before your referring provider. If you have questions, please contact your health care provider. EXAM: XR SHOULDER 2 VIEWS LEFT PORTABLE LOCATION: [facility] MED[facility]AG[facility] DATE: 12/16/2023 INDICATION: Pain COMPARISON: 02/10/2021. Procedure Note Francis Jacobson MD - 12/16/2023 For Patients: As a result of the Cures Act, medical imagingexams and procedure reports are released immediately into your electronicmedical record. You may view this report before your referring provider.If you have questions, please contact your health care provider. EXAM: XR SHOULDER 2 VIEWS LEFT PORTABLE LOCATION: [facility] DATE: 12/16/2023 INDICATION: Pain COMPARISON: 02/10/2021. IMPRESSION: No fracture. Advanced left glenohumeral joint osteoarthritis withsubacromial narrowing/superior migration of the humeral head suggestingchronic rotator cuff tearing. Soft tissue anchor in the left humeral head.No significant interval change. Claus Iraheta MD GENERAL IMAGING * SCAN-CARDIAC STRIP (12/16/2023 10:31 AM CDT) Scanner OTHER * SCAN-CARDIAC STRIP (12/15/2023 10:10 PM CDT) Scanner OTHER * SCAN-CARDIAC STRIP (12/15/2023 10:10 PM CDT) Scanner OTHER * WHITE BLOOD COUNT (12/13/2023 5:37 AM DE ICER FINISHER) Only the most recent of6 resultswithin the time period is included. WHITE BLOOD COUNT 10.7 4.5 - 11.0 thou/cu mm 12/13/2023 5:53 AM DE ICER FINISHER [facility] NRBC 0.0 % 12/13/2023 5:53 AM DE ICER FINISHER [facility] ABS NRBC 0.0 thou /cu mm 12/13/2023 5:53 AM DE ICER FINISHER [facility] Blood BLOOD SPECIMEN / Unknown Butterfly / Unknown 12/13/2023 5:37 AM DE ICER FINISHER 12/13/2023 5:44 AM DE ICER FINISHER Narrative [facility] - 12/13/2023 5:53 AM DE ICER FINISHER Every morning while on IV heparin. Necessary every morning while on IV heparin. Claus Iraheta MD HEMATOLOGY [facility] SENDOUT INTERNAL [address] [id number] [address] [place] [address] * TYPE & SCREEN (12/13/2023 5:35 AM DE ICER FINISHER) Only the most recent of3 resultswithin the time period is included. ABORH A Rh Positive 12/13/2023 6:42 AM DE ICER FINISHER [facility] BLOOD BANK ANTIBODY SCREEN Negative Negative 12/13/2023 6:42 AM DE ICER FINISHER [facility] BLOOD BANK SPECIMEN EXPIRATION DATE/TIME 12/16/23 23:59 12/13/2023 6:42 AM DE ICER FINISHER [facility] BLOOD BANK Blood BLOOD SPECIMEN / Unknown Butterfly / Unknown 12/13/2023 5:35 AM DE ICER FINISHER 12/13/2023 5:44 AM DE ICER FINISHER Claus Iraheta MD BLOOD BANK Performing Organization Address City/[facility]/ZIP Co de Phone Number [facility] BLOOD BANK [address] [place] [address] * (ABNORMAL) CALCIUM (12/11/2023 5:10 AM DE ICER FINISHER) Pathologist [facility] CALCIUM 8.6(L) 8.8 - 10.2 mg/dL 12/11/2023 6:46 AM DE ICER FINISHER [facility] Blood BLOOD SPECIMEN / Unknown Venipuncture / Unknown 12/11/2023 5:10 AM DE ICER FINISHER 12/11/2023 6:14 AM DE ICER FINISHER Claus Iraheta MD CHEMISTRY Performing Organization Address [facility]/ZIP Co de Phone Number [facility] SENDOUT INTERNAL ZIP [phone] [place] [address] * SCAN-CARDIAC STRIP (12/11/2023 2:20 AM DE ICER FINISHER) Scanner OTHER * PATH TISSUE EXAM (12/10/2023 4:11 PM DE ICER FINISHER) Pathologist [facility] Case Report Pathology Report ?Case: [id number] ? Authorizing Provider: ??Andres Saenz, ?? Collected: ? 12/10/2023 1611 ? MD ? Ordering Location: ? [facility] ?Received: ?12/11/2023 0738 ? Pathologist: ? Lacie Ritter MD ? Specimen: ?Tissue, Other, RIGHT Parietal Pleura ? 4 9:35 AM [facility] Final Diagnosis A) PLEURA, RIGHT PARIETAL, PLEURECTOMY: 1. ??Acute and fibrinous pleuritis 2. ??Negative for malignancy 4 9:35 AM [facility] Comment Case seen in consultation with Dr. Resendiz. 4 9:35 AM [facility] Clinical Information Right empyema. Right thoracotomy with total lung decortication and parietal pleurectomy. 4 9:35 AM [facility] Gross Description A) Received fresh labeled with the patient's name and right parietal pleura, is a 9.2 x 3.4 x 1.5 cm giles-pink and yellow, ragged, dense fibrous tissue fragment. ??One surface is partially layered by a giles-yellow, lobulated adipose tissue. ??Sectioning reveals giles-white, dense fibrous cut surfaces. ??Oven Roaster sections are submitted in 3 cassettes. Time and date in formalin: 1844 on 12/10/2023 NAHID 12/11/2023 Additional tissue is submitted in cassettes 4-13. NAHID 12/12/2023 4 9:35 AM T [facility] Microscopic Description The final diagnosis is based on microscopic examination of appropriate sections of all specimens. Due to the thickness of the spindle cell proliferation and attached apparent adipose tissue, immunostains were performed using block A3 to evaluate the relationship between the mesothelial cells and the fat with results as follows: Cytokeratin cocktail: Highlights a dense myofibroblastic rind without fatty infiltration WT1: Highlights the dense myofibroblastic rind and submesothelial fibroblasts SMA: Positive in a similar distribution to WT1 Calretinin: No abnormal staining GATA3: No abnormal staining S100: Highlights areas of fat CK7: Essentially negative MTAP: Intact expression BAP1: Intact expression Immunostains were performed using each of blocks A10 and A11 to investigate the distribution of keratin positive cells with respect to fat. ??Results are as follows: S100: Highlights areas of fat Cytokeratin cocktail: Highlights dense myofibroblastic proliferation without infiltration of fat CK7: Essentially negative The ancillary stain results support the diagnosis. ?? Support for the interpretation of this case may have included the use of immunohistochemistry and/or in situ hybridization tests that were performed by [facility] [employer] and whose performance characteristics were evaluated by pathologists from [facility]. These tests have not been cleared or approved by the U.S. Food and Drug Administration. The FDA has determined that such clearance or approval is not necessary. These tests are used for clinical purposes and should not be regarded as investigational or for research. This laboratory is certified under the Clinical Laboratory Improvement Amendments of 1988 (CLIA) as qualified to perform high complexity clinical laboratory testing. 4 9:35 AM [facility] Additional Information Interpreted at [facility] - [address], [place] [address] 4 9:35 AM [facility] Tissue TISSUE SPECIMEN / Unknown 12/10/2023 4:11 PM DE ICER FINISHER 12/11/2023 7:38 AM DE ICER FINISHER Andres Saenz MD PATHOLOGY/CYTO LOGY [facility] [address] [place] [address], * TISSUE CULTURE, STAIN (AEROBIC) (12/10/2023 4:01 PM DE ICER FINISHER) CULTURE No Growth. 12/15/2023 11:41 AM CDT [facility] GRAM STAIN 1+ PMNs 12/15/2023 11:41 AM CDT [facility] GRAM STAIN 1+ RBCs 12/15/2023 11:41 AM CDT [facility] GRAM STAIN No Epithelial cells 12/15/2023 11:41 AM CDT [facility] GRAM STAIN No organisms seen 12/15/2023 11:41 AM CDT [facility] GRAM STAIN Gram stain performed by [place], [place] 12/15/2023 11:41 AM CDT [facility] Tissue (Other) Non-Blood / Unknown 12/10/2023 4:01 PM DE ICER FINISHER 12/10/2023 4:46 PM DE ICER FINISHER Andres Saenz MD MICROBIOLOGY Performing Organization Address [facility]/ZIP Co de Phone Number [facility] [address] [place] [address], [facility] SENDOUT INTERNAL ZIP [phone] [place] [address] * ANAEROBIC CULTURE (12/10/2023 4:01 PM DE ICER FINISHER) Only the most recent of2 resultswithin the time period is included. CULTURE No anaerobes isolated 12/16/2023 10:31 AM CDT [facility] Tissue (Other) Non-Blood / Unknown 12/10/2023 4:01 PM DE ICER FINISHER 12/10/2023 4:46 PM DE ICER FINISHER Andres Saenz MD MICROBIOLOGY [facility] [address] [place] [address], * HCHG TUBE PR1, HCHG TUBE TRACH PR40, HCHG STYLET PR1, HCHG MOUTHPIECE PR1 (12/10/2023 2:19 PM DE ICER FINISHER) Narrative Miller Rasmussen CRNA - 12/10/2023 2:19 PM DE ICER FINISHER Miller Rasmussen CRNA ? 12/10/2023 ??2:20 PM Procedure: ETT Patient location during procedure: OR ETT Properties Mask Ventilation: easy Final Technique: direct laryngoscopy Type: straight and ETT - double lumen left Location: oral Cuffed: yes Stylet: yes Laryngoscope Blade: Trevizo Blade Size: 2 Cormack-Lehane Grade View: 1 Insertion Attempts: 1 Placement Verification: auscultation, end tidal CO2, symmetrical chest wall movement and fiber optic visualization Assessment: pharynx clear, atraumatic and dentition unchanged Secured at: other (comment) (28) Measured From: lips Tooth guard used and removed: yes Difficulty: 0 (not difficult) Tube Size: 35 Fr Miller Rasmussen CRNA ANESTHESIA P X NOTE ORDERABLES * SCAN-CARDIAC STRIP (12/10/2023 8:14 AM DE ICER FINISHER) Scanner OTHER * (ABNORMAL) ALK PHOSPHATASE (12/10/2023 7:45 AM DE ICER FINISHER) ALK PHOSPHATASE 172(H) 40 - 129 IU/L 12/10/2023 9:02 AM DE ICER FINISHER [facility] Blood BLOOD SPECIMEN / Unknown Line/Port / Unknown 12/10/2023 7:45 AM DE ICER FINISHER 12/10/2023 8:32 AM DE ICER FINISHER Claus Iraheta MD CHEMISTRY [facility] SENDOUT INTERNAL ZIP [phone] [place] [address] * SCAN-CARDIAC STRIP (12/09/2023 10:30 AM DE ICER FINISHER) Scanner OTHER * SCAN-CARDIAC STRIP (12/09/2023 9:01 AM DE ICER FINISHER) Scanner OTHER * CLOSTRIDIOIDES DIFFICILE TOXIN PCR (12/09/2023 7:45 AM DE ICER FINISHER) CLOSTRIDIUM DIFFICILE PCR Negative 12/09/2023 8:53 AM DE ICER FINISHER [facility] PRESUMPTIVE NAP1 STRAIN Negative 12/09/2023 8:53 AM DE ICER FINISHER [facility] Stool STOOL SPECIMEN / Unknown Non-Blood / Unknown 12/09/2023 7:45 AM DE ICER FINISHER 12/09/2023 7:58 AM DE ICER FINISHER Narrative [facility] - 12/09/2023 8:53 AM DE ICER FINISHER The NAP1 (027 or BI) strain is a hypervirulent strain. Detection may be useful for epidemiological purposes. Lisa Hilton NP MICROBIOLOGY [facility] SENDOUT INTERNAL ZIP [phone] [place] [address] * SCAN-CARDIAC STRIP (12/08/2023 9:09 PM DE ICER FINISHER) Scanner OTHER * SCAN-CARDIAC STRIP (12/08/2023 7:45 AM DE ICER FINISHER) Scanner OTHER * IR CHEST TUBE W WATER SEAL INSERTION (12/07/2023 2:34 PM DE ICER FINISHER) Anatomical Region Laterality Modality CHEST, THORAX, Lung X-Ray Angiog lonnie 12/07/2023 2:34 PM DE ICER FINISHER Impressions 12/07/2023 3:04 PM DE ICER FINISHER 1. ??Ultrasound-guided chest tube placement into right-sided empyema. Narrative 12/07/2023 3:04 PM DE ICER FINISHER For Patients: As a result of the Century Cures Act, medical imaging exams and procedure reports are released immediately into your electronic medical record. You may view this report before your referring provider. If you have questions, please contact your health care provider. EXAM: 1. PERCUTANEOUS CHEST TUBE PLACEMENT RIGHT PLEURAL SPACE 2. ULTRASOUND GUIDANCE LOCATION: [facility] DATE/TIME: 12/07/2023 2:34 PM DE ICER FINISHER INTERVENTIONAL RADIOLOGIST: Leonidas Albert MD. INDICATION: Right-sided empyema PROCEDURE: Informed consent obtained. Time out performed. The site was prepped and draped in sterile fashion. 10 mL of 1% lidocaine was infused into the local soft tissues. Using standard technique and under direct ultrasound guidance, a 12 [place] chest tube catheter was inserted into the pleural space. The catheter was fixed in place with sutures and adhesive device, and the tubing was banded. Chest tube placed to Pluer-evac suction. SPECIMEN: 5 mL of purulent fluid was aspirated and sent to lab for cultures and Gram stain. BLOOD LOSS: Minimal. The patient tolerated the procedure well. No immediate complications. RADIOLOGIC SUPERVISION AND INTERPRETATION: ULTRASOUND GUIDANCE: Images demonstrate the needle and subsequent chest tube to be in good position. Procedure Note Leonidas Albert MD - 12/07/2023 For Patients: As a result of the Cures Act, medical imagingexams and procedure reports are released immediately into your electronicmedical record. You may view this report before your referring provider.If you have questions, please contact your health care provider. EXAM: 1. PERCUTANEOUS CHEST TUBE PLACEMENT RIGHT PLEURAL SPACE 2. ULTRASOUND GUIDANCE LOCATION: [facility] DATE/TIME: 12/07/2023 2:34 PM DE ICER FINISHER INTERVENTIONAL RADIOLOGIST: Leonidas Albert MD. INDICATION: Right-sided empyema PROCEDURE: Informed consent obtained. Time out performed. The site wasprepped and draped in sterile fashion. 10 mL of 1% lidocaine was infusedinto the local soft tissues. Using standard technique and under directultrasound guidance, a 12 [place] chest tube catheter was inserted into thepleural space. The catheter was fixed in place with sutures and adhesivedevice, and the tubing was banded. Chest tube placed to Pluer-evacsuction. SPECIMEN: 5 mL of purulent fluid was aspirated and sent to lab forcultures and Gram stain. BLOOD LOSS: Minimal. The patient tolerated the procedure well. No immediate complications. RADIOLOGIC SUPERVISION AND INTERPRETATION: ULTRASOUND GUIDANCE: Images demonstrate the needle and subsequent chesttube to be in good position. IMPRESSION: 1. Ultrasound-guided chest tube placement into right-sided empyema. Ezequiel Haas MD IR * (ABNORMAL) Aerobic Bacterial Culture, Stain (12/07/2023 2:30 PM DE ICER FINISHER) CULTURE RESULT(A) 12/10/2023 8:53 AM DE ICER FINISHER [facility] CULTURE 4+ Streptococcus intermedius 12/10/2023 8:53 AM DE ICER FINISHER [facility] Comment:See susceptibility o n other culture. GRAM STAIN 3+ PMNs 12/10/2023 8:53 AM DE ICER FINISHER [facility] GRAM STAIN No Epithelial cells 12/10/2023 8:53 AM DE ICER FINISHER [facility] GRAM STAIN 1+ RBCs 12/10/2023 8:53 AM DE ICER FINISHER [facility] GRAM STAIN 4+ Gram Positive Cocci 12/10/2023 8:53 AM DE ICER FINISHER [facility] GRAM STAIN Gram stain performed by [place] 12/10/2023 8:53 AM DE ICER FINISHER [facility] [facility] Other (Other) Non-Blood / Unknown 12/07/2023 2:30 PM DE ICER FINISHER 12/07/2023 3:06 PM DE ICER FINISHER Leonidas Albert MD MICROBIOLOGY [facility] [address] [place] [address], [facility] SENDOUT [place]NAL ZIP [address] [place] [address] * PLASMA ORDER, 1 unit (12/07/2023 9:55 AM DE ICER FINISHER) Only the most recent of2 resultswithin the time period is included. QUANTITY 1 12/07/2023 9:55 AM DE ICER FINISHER [facility] BLOOD B[facility] Blood BLOOD SPECIMEN / Unknown 12/07/2023 9:49 AM DE ICER FINISHER Ni Paulson MD BLOOD BANK [facility] BLOOD BANK [address] [place] [address] * PLASMA SNGL DON FFPEA UNIT (12/07/2023 9:53 AM DE ICER FINISHER) Only the most recent of3 resultswithin the time period is included. PRODUCT BLOOD TYPE A Rh Negative [facility] B[facility] PRODUCT ID NUMBER [id number] 6 [facility] PRODUCT STATUS /Rele ased [facility] PRODUCT DESCRIPTION FP CPD [facility] BLOOD [facility] PRODUCT CODE [id number] [facility] B[facility]OD [facility] Ni Paulson MD BLOOD BANK [facility] BLOOD BANK [address] [place] [address] * (ABNORMAL) PRO-BNP (12/07/2023 8:37 AM DE ICER FINISHER) Only the most recent of2 resultswithin the time period is included. PRO-BNP 5,485(H) <450 pg/mL 12/07/2023 11:01 AM DE ICER FINISHER [facility] Blood BLOOD SPECIMEN / Unknown Venipuncture / Unknown 12/07/2023 8:37 AM DE ICER FINISHER 12/07/2023 8:42 AM DE ICER FINISHER Narrative [facility] - 12/07/2023 11:01 AM DE ICER FINISHER The following cut-points have been suggested for the use of proBNP for the diagnostic evaluation of heart failure (HF) in patient with acute dyspnea. Patients with eGFR >= 60 Diagnosis (rule in CHF) ? <50 Years Old ?450 pg/mL 50 - 75 Years Old ?900 pg/mL >75 Years Old ? 1800 pg/mL Exclusion (rule out CHF) Age Independent ?300 pg/mL A cutoff of 1200 pg/mL for patients with an eGFR <60 yields a diagnostic sensitivity of 89% and specificity of 72% for acute congestive heart failure. ? Ezequiel Haas MD SEND OUTS [facility] SENDOUT INTERNAL ZIP [id number] [address] [place] [address] * PROCALCITONIN (12/07/2023 8:36 AM DE ICER FINISHER) Only the most recent of3 resultswithin the time period is included. PROCALCITONIN 0.24 ng/ml 12/07/2023 10:25 AM DE ICER FINISHER [facility] Blood BLOOD SPECIMEN / Unknown Venipuncture / Unknown 12/07/2023 8:36 AM DE ICER FINISHER 12/07/2023 8:42 AM DE ICER FINISHER Narrative [facility] - 12/07/2023 10:25 AM DE ICER FINISHER Procalcitonin for initial assessment of Lower Respiratory Tract Infection: Results Interpretation <0.10 ng/mL Antibiotic therapy strongly discoraged. ??Indicates absent of bacterial infection. * 0.10 - 0.25 ng/mL Antibiotic therapy discouraged. ??Bacterial infection unlikely. * 0.26 - 0.50 ng/mL Antibiotic therapy encouraged. ??Bacterial infection possible. >0.50 ng/mL Antibiotic therapy strongly encouraged. ??Suggestive of presence of bacterial infection. *Antibiotic therapy should be considered regardless of PCT result if the patient is clinically unstable, is at high risk for adverse outcome, has strong evidence of bacterial pathogen, or the clinical context indicates antibiotic therapy is warranted. ??If antibiotics are withheld, reassess if symptoms persist/worsen and/or repeat PCT measurement within 6-24 hours. ? In order to assess treatment success and to support a decision to discontinue antibiotic therapy, follow up samples should be tested once every 1-2 days, based upon physician discretion taking into account patient's evolution and progress. Procalcitonin for initial assessment of severe sepsis risk: Results Interpretation <0.5 ng/ml A PCT level below 0.5 ng/ml on the first day of ICU admission is associated with a low risk for progression to severe sepsis and/or septic shock. > 2.0 ng/mL A PCT level above 2.0 ng/mL on the first day of ICU admission is associated with a high risk for progression to severe sepsis and/or septic shock. Note: Concentrations < 0.5 ng/mL do not exclude an infection, on account of localized infections (without systemic signs) which can be associated with such low concentrations, or a systemic infection in its initial stages(< 6 hours). Furthermore, increased procalcitonin can occur without infection. PCT concentrations between 0.5 and 2.0 ng/mL should be interpreted taking into account the patient's history. It is recommended to retest PCT within 6-24 hours if any concentrations < 2 ng/mL are obtained. Juan Dean MD SEND OUTS [facility] SENDOUT INTERNAL [facility] [id number] [place] [address] * (ABNORMAL) FERRITIN (12/07/2023 8:36 AM DE ICER FINISHER) Only the most recent of2 resultswithin the time period is included. FERRITIN 1,489.0(H) 30.0 - 400.0 ng/mL 12/07/2023 2:45 PM DE ICER FINISHER [facility] Blood BLOOD SPECIMEN / Unknown Venipuncture / Unknown 12/07/2023 8:36 AM DE ICER FINISHER 12/07/2023 8:42 AM DE ICER FINISHER Juan Dean MD CHEMISTRY [facility] [address] * VITAMIN B12 (12/07/2023 8:36 AM DE ICER FINISHER) Only the most recent of2 resultswithin the time period is included. VITAMIN B12 888 232 - 1,245 pg/mL 12/07/2023 2:40 PM DE ICER FINISHER [facility] Blood BLOOD SPECIMEN / Unknown Venipuncture / Unknown 12/07/2023 8:36 AM DE ICER FINISHER 12/07/2023 8:42 AM DE ICER FINISHER Narrative [facility] - 12/07/2023 2:40 PM DE ICER FINISHER Biotin supplements may cause clinically significant interference for this test assay. ??If interference is suspected, it is strongly recommended that biotin is discontinued for at least one week prior to retesting. Juan Dean MD CHEMISTRY [facility] [address] [place] [address], * SCAN-CARDIAC STRIP (12/07/2023 8:22 AM DE ICER FINISHER) Scanner OTHER * SCAN-CARDIAC STRIP (12/07/2023 6:40 AM DE ICER FINISHER) Scanner OTHER * SCAN-CARDIAC STRIP (12/07/2023 6:25 AM DE ICER FINISHER) Scanner OTHER * VANCOMYCIN TROUGH (12/07/2023 2:03 AM DE ICER FINISHER) VANCOMYCIN,TRO UGH 18.8 7.0 - 20.0 ug/mL 12/07/2023 2:42 AM DE ICER FINISHER [facility] DATE OF LAST DOSE,TROUGH Not Given 12/07/2023 2:42 AM DE ICER FINISHER [facility] TIME OF LAST DOSE,TROUGH Not Given 12/07/2023 2:42 AM DE ICER FINISHER [facility] Blood BLOOD SPECIMEN / Unknown Butterfly / Unknown 12/07/2023 2:03 AM DE ICER FINISHER 12/07/2023 2:06 AM DE ICER FINISHER Micah Nam MD CHEMISTRY [facility] SENDOUT INTERNAL [facility] [id number] [place] [address] * SCAN-CARDIAC STRIP (12/06/2023 10:44 PM DE ICER FINISHER) Scanner OTHER * SCAN-CARDIAC STRIP (12/06/2023 8:29 PM DE ICER FINISHER) Scanner OTHER * (ABNORMAL) IRON PLUS IRON BINDING CAP (12/06/2023 5:56 PM DE ICER FINISHER) Only the most recent of2 resultswithin the time period is included. IRON 75 61 - 157 ug/dL 12/06/2023 6:29 PM DE ICER FINISHER [facility] UIBC (UNSATURATED) 56(L) 112 - 347 ug/dL 12/06/2023 6:29 PM DE ICER FINISHER [facility] IRON BINDING CAPACITY 131(L) 250 - 400 ug/dL 12/06/2023 6:29 PM DE ICER FINISHER [facility] IRON,% SATURATION 57(H) 14 - 50 % 12/06/2023 6:29 PM DE ICER FINISHER [facility] Blood BLOOD SPECIMEN / Unknown Venipuncture / Unknown 12/06/2023 5:56 PM DE ICER FINISHER 12/06/2023 6:03 PM DE ICER FINISHER Juan Dean MD CHEMISTRY [facility] SENDOUT INTERNAL [facility] [address] [place] [address] * FOLIC ACID (12/06/2023 5:56 PM DE ICER FINISHER) Only the most recent of2 resultswithin the time period is included. Pathologist [facility] FOLIC ACID 15.2 4.6 - 34.8 ng/mL 12/06/2023 10:11 PM DE ICER FINISHER [facility] Blood BLOOD SPECIMEN / Unknown Venipuncture / Unknown 12/06/2023 5:56 PM DE ICER FINISHER 12/06/2023 6:03 PM DE ICER FINISHER Narrative [facility] - 12/06/2023 10:11 PM DE ICER FINISHER Biotin supplements may cause clinically significant interference for this test assay. ??If interference is suspected, it is strongly recommended that biotin is discontinued for at least one week prior to retesting. Juan Dean MD CHEMISTRY [facility] [address] [place] [address], * SCAN-CARDIAC STRIP (12/06/2023 5:44 PM DE ICER FINISHER) Scanner OTHER * TRANSFUSE RBC (NURSE COMMUNICATION ORDER) (12/06/2023 5:05 PM DE ICER FINISHER) Blood BLOOD SPECIMEN / Unknown Ezequiel Haas MD NURSING BLOOD BAN K * TRANSFUSE RBC (NURSE COMMUNICATION ORDER) (12/06/2023 2:00 PM DE ICER FINISHER) Blood BLOOD SPECIMEN / Unknown Ezequiel Haas MD NURSING BLOOD BAN K * LEGIONELLA AND PNEUMOCOCCAL URINE ANTIGEN (12/06/2023 1:35 PM DE ICER FINISHER) STREP PNEUMO ANTIGEN Negative 12/06/2023 5:49 PM DE ICER FINISHER [facility] Comment:Presumptive negative for pneumococcal pneumonia, suggesting no current or recent pneumococcal infection. Infection due to S. pneumoniae cannot be ruled out since the antigen present in the sample may be below the detection limit of the test. LEGIONELLA ANTIGEN Negative 12/06/2023 5:49 PM DE ICER FINISHER [facility] Comment:Negative for L.pneum ophila serogroup 1 antigen, suggesting no recent or current infection. Infection due to Legionella cannot be ruled out since other serogroups and species may cause disease, antigen may not be present in urine in early infection, and the level of antigen present may be below the detection limit of the test. Low test sensitivity in patients with mild pneumonia. Urine URINE SPECIMEN / Unknown Non-Blood / Unknown 12/06/2023 1:35 PM DE ICER FINISHER 12/06/2023 1:44 PM DE ICER FINISHER Juan Dean MD MICROBIOLO GY [facility] [address] [place] [address], * SPUTUM CULTURE, STAIN (12/06/2023 1:35 PM DE ICER FINISHER) CULTURE Usual frank 12/08/2023 8:08 AM DE ICER FINISHER [facility] GRAM STAIN 3+ PMNs 12/08/2023 8:08 AM DE ICER FINISHER [facility] GRAM STAIN 2+ Gram Positive Cocci 12/08/2023 8:08 AM DE ICER FINISHER [facility] GRAM STAIN No RBCs 12/08/2023 8:08 AM DE ICER FINISHER [facility] GRAM STAIN 1+ Epithelial cells 12/08/2023 8:08 AM DE ICER FINISHER [facility] GRAM STAIN Gram stain performed by [place] 12/08/2023 8:08 AM DE ICER FINISHER [facility] Sputum SPUTUM SPECIMEN / Unknown Non-Blood / Unknown 12/06/2023 1:35 PM DE ICER FINISHER 12/06/2023 1:44 PM DE ICER FINISHER Juan Dean MD MICROBIOLO GY [facility] [address] [place] [address], [facility] SENDOUT INTERNAL ZIP [address] [address] [place] [address] * US VENOUS LOWER EXTREMITY BILATERAL (12/06/2023 1:02 PM DE ICER FINISHER) Anatomical Region Laterality Modality LEGS, LEG L, LEG R Ultrasound 12/06/2023 1:02 PM DE ICER FINISHER Addenda Addendum by Luis Deitz MD on 12/10/2023 9:54 AM DE ICER FINISHER Addendum: Indication: Pulmonary embolism. Impressions 12/06/2023 3:01 PM DE ICER FINISHER 1. ??No deep venous thrombosis in the bilateral lower extremities. Narrative 12/06/2023 3:01 PM DE ICER FINISHER For Patients: As a result of the Cures Act, medical imaging exams and procedure reports are released immediately into your electronic medical record. You may view this report before your referring provider. If you have questions, please contact your health care provider. EXAM: US VENOUS LOWER EXTREMITY BILATERAL LOCATION: [facility] DATE: 12/06/2023 INDICATION: Sepsis. COMPARISON: None. TECHNIQUE: Venous Duplex ultrasound of bilateral lower extremities with and without compression, augmentation and duplex. Color flow and spectral Doppler with waveform analysis performed. FINDINGS: Exam includes the common femoral, femoral, popliteal veins as well as segmentally visualized deep calf veins and greater saphenous vein. RIGHT: No deep vein thrombosis. No superficial thrombophlebitis. No popliteal cyst. LEFT: No deep vein thrombosis. No superficial thrombophlebitis. No popliteal cyst. Procedure Note Luis Dietz MD - 12/06/2023 For Patients: As a result of the 21st Century Cures Act, medical imagingexams and procedure reports are released immediately into your electronicmedical record. You may view this report before your referring provider.If you have questions, please contact your health care provider. EXAM: US VENOUS LOWER EXTREMITY BILATERAL LOCATION: [facility] DATE: 12/06/2023 INDICATION: Sepsis. COMPARISON: None. TECHNIQUE: Venous Duplex ultrasound of bilateral lower extremities withand without compression, augmentation and duplex. Color flow and spectralDoppler with waveform analysis performed. FINDINGS: Exam includes the common femoral, femoral, popliteal veins aswell as segmentally visualized deep calf veins and greater saphenous vein. RIGHT: No deep vein thrombosis. No superficial thrombophlebitis. Nopopliteal cyst. LEFT: No deep vein thrombosis. No superficial thrombophlebitis. Nopopliteal cyst. IMPRESSION: 1. No deep venous thrombosis in the bilateral lower extremities. Ezequiel Haas MD US * RBC W/O TYPE & SCREEN (12/06/2023 10:13 AM DE ICER FINISHER) QUANTITY 2 12/06/2023 10:13 AM DE ICER FINISHER [facility] BLOOD BANK Blood BLOOD SPECIMEN / Unknown 12/06/2023 9:34 AM DE ICER FINISHER Ezequiel Haas MD BLOOD BANK Performing Organization Address City/State/[facility] Co de Phone Number [facility] BLOOD BANK [address] [place] [address] * TRANSFUSE PLASMA (NURSE COMMUNICATION ORDER) (12/05/2023 12:37 PM DE ICER FINISHER) Blood BLOOD SPECIMEN / Unknown Alejandro Kc DO NURSING BLOOD BAN K * US THORACENTESIS RIGHT (12/05/2023 9:20 AM DE ICER FINISHER) Anatomical Region Laterality Modality CHEST, THORAX Ultrasound Impressions 12/06/2023 6:34 AM DE ICER FINISHER Successful, limited, ultrasound-guided right thoracentesis with removal of 50 mL of what is likely infected fluid and therefore consistent with a thoracic empyema. No additional fluid was removed. There were no postprocedural complications. A report was verbally communicated to the hospitalist at the termination of the procedure. Dictated by Hola Gold MD @ 12/05/2023 10:02:26 AM Signed by: Hola Gold MD @12/05/2023 10:02:26 AM (Electronic Signature) Narrative 12/06/2023 6:34 AM DE ICER FINISHER INDICATION: Loculated right pleural effusion. TECHNIQUE: Ultrasound-guided right thoracentesis. FINDINGS/PROCEDURE: Bryant protocol and Time Out procedure were performed completely prior to the procedure as is the standard protocol. Risks, benefits, and alternatives to the procedure including but not limited to the risk of bleeding, infection, injury to surrounding organs, and pneumothorax were explained in detail to the patient who understood and elected to proceed. Patient signed informed consent form. Using sterile technique, local anesthesia, and ultrasound guidance, a 5-[place]izen [place] catheter was used to perform a right-sided thoracentesis. 50 mL of thick cloudy fluid was removed without complication. This is at least suggestive of an empyema and the aspirate was sent to the laboratory for appropriate analysis. There was no bleeding at the puncture site or complication. The patient was stable and without complaints at the termination of the procedure. Carlos Kirk [facility] US * (ABNORMAL) BODY FLUID CULTURE,STAIN (AEROBIC) (12/05/2023 8:50 AM DE ICER FINISHER) CULTURE RESULT(A) 12/09/2023 10:41 AM [facility] CULTURE 4+ Streptococcus intermedius 12/09/2023 10:41 AM [facility] GRAM STAIN 4+ PMNs(A) 12/09/2023 10:41 AM [facility] GRAM STAIN 4+ Gram Positive Cocci(A) 12/09/2023 10:41 AM [facility] GRAM STAIN Gram stain performed by [place], [place](A) 12/09/2023 10:41 AM [facility] Body Fluid (Pleural) Non-Blood / Unknown 12/05/2023 8:50 AM DE ICER FINISHER 12/05/2023 9:13 AM DE ICER FINISHER Narrative Organism Antibiotic Method Susceptibility Streptococcus intermedius PENICILLIN <=0.06: S Streptococcus intermedius ERYTHROMYCIN S Streptococcus intermedius CLINDAMYCIN S Streptococcus intermedius VANCOMYCIN S Streptococcus intermedius CEFTRIAXONE S Streptococcus intermedius CLARITHROMYCIN S Alejandro Kc DO MICROBIOLOGY Performing Organization Address City/[facility]/ZIP Co de Phone Number [facility] [address] [place] [address], [facility] [address] [place] [id number] * PROTEIN,BODY FLUID (12/05/2023 8:50 AM DE ICER FINISHER) SPECIMEN SOURCE pleural 12/05/2023 10:12 PM DE ICER FINISHER [facility] PROTEIN,BODY FLUID 1.9 g/dL 12/05/2023 10:12 PM DE ICER FINISHER [facility] Comment:No Reference Range D efined. Body Fluid (Pleural) Non-Blood / Unknown 12/05/2023 8:50 AM DE ICER FINISHER 12/05/2023 9:13 AM DE ICER FINISHER Narrative [facility] - 12/05/2023 10:12 PM DE ICER FINISHER Pleural: Pleural fluid transudate total protein to serum total protein ratio typically </=0.5. Pleural fluid exudate total protein to serum total protein ratio typically >0.5. Peritoneal: Ascitic fluid total protein is a reflection of serum protein concentration. May be useful in differentiating secondary bacterial peritonitis from spontaneous bacterial peritonitis when at least two of the three criteria are met in ascetic fluid: Total Protein > 1.0 g/dL Glucose < 50 mg/dL LDH > Upper reference limit for serum Ascitic fluid total protein may be elevated > 2.5 g/dL in patients with high albumin gradient ascites caused by heart failure. Test developed & performance characteristics determined [facility] [place] [place] consistent with CLIA requirements. Not cleared or approved by [place] FDA. Alejandro Kc DO BODY FLUID Performing Organization Address [facility]/ZIP Co de Phone Number [facility] [address], [place] [address], * LD,BODY FLUID (12/05/2023 8:50 AM DE ICER FINISHER) SPECIMEN SOURCE pleural 12/05/2023 11:18 PM DE ICER FINISHER [facility] LD,BODY FLUID >10,000 IU/L 12/05/2023 11:18 PM DE ICER FINISHER [facility] Body Fluid (Pleural) Non-Blood / Unknown 12/05/2023 8:50 AM DE ICER FINISHER 12/05/2023 9:13 AM DE ICER FINISHER Narrative [facility] - 12/05/2023 11:18 PM DE ICER FINISHER Pleural: ? Pleural fluid LDH to serum LDH ratio <= 0.6 or less than 2/3 the ?upper limit of normal serum LDH consistent with transudative ?effusions, while pleural fluid LDH to serum LDH ratio > 0.6 is ?consistent with exudative effusions. Peritoneal: ??Ascitic fluid LDH may be useful in differentiating secondary ?bacterial peritonitis from spontaneous bacterial peritonitis when ?at least two of the three criteria are met in ascites Fluid: ? Total protein >1.0 g/dL ? Glucose <50 mg/dL ? LDH > upper reference limit for serum Test developed & performance characteristics determined by [facility], [place], [place] consistent with CLIA requirements. Not cleared or approved by [place] FDA. Alejandro Kc DO BODY FLUID [facility] [address] [place] [address], * GLUCOSE,BODY FLUID (12/05/2023 8:50 AM DE ICER FINISHER) SPECIMEN SOURCE pleural 12/05/2023 10:12 PM DE ICER FINISHER [facility] GLUCOSE,BODY FLUID <2 mg/dL 12/05/2023 10:12 PM DE ICER FINISHER [facility] Comment:No Reference Range D efined. Body Fluid (Pleural) Non-Blood / Unknown 12/05/2023 8:50 AM DE ICER FINISHER 12/05/2023 9:13 AM DE ICER FINISHER Narrative [facility] - 12/05/2023 10:12 PM DE ICER FINISHER Pleural: Transudative pleural fluid glucose concentrations similar to serum glucose concentrations, while exudates have glucose concentrations less than serum glucose Glucose <60 mg/dL typically associated with low fluid pH Pericardial: Pericardial fluid glucose to serum glucose ratio <1.0 may be useful in differentiating exudate from transudate and infective from parainfective effusions Test developed & performance characteristics determined by [facility], [place], [place] consistent with CLIA requirements. Not cleared or approved by [place] FDA. Alejandro Kc DO BODY FLUID [facility] [address] [place] [address], * SCAN-CARDIAC STRIP (12/05/2023 8:05 AM DE ICER FINISHER) Scanner OTHER * SCAN-CARDIAC STRIP (12/05/2023 1:26 AM DE ICER FINISHER) Scanner OTHER * SCAN-CARDIAC STRIP (12/05/2023 12:00 AM DE ICER FINISHER) Narrative 12/05/2023 12:00 AM DE ICER FINISHER Ordered by an unspecified provider. Other Clinical Staff OTHER * (ABNORMAL) LACTATE VENOUS (12/04/2023 10:35 PM DE ICER FINISHER) Only the most recent of2 resultswithin the time period is included. LACTATE,VENOUS 2.3(H) 0.5 - 2.0 mmol/L 12/04/2023 11:30 PM DE ICER FINISHER [facility] Blood BLOOD SPECIMEN / Unknown Butterfly / Unknown 12/04/2023 10:35 PM DE ICER FINISHER 12/04/2023 10:39 PM DE ICER FINISHER Valente MICHEL CHEMISTRY [facility] [address] [place] [address] * CT CHEST PE STUDY (12/04/2023 10:22 PM DE ICER FINISHER) Anatomical Region Laterality Modality CHEST, THORAX, HEART Computed To mography Impressions 12/05/2023 12:12 PM DE ICER FINISHER 1. Motion degrades evaluation of the distal segmental and subsegmental pulmonary arteries. No large central or proximal segmental pulmonary embolus. 2. Large right pleural effusion with features of loculation as well as visceral and parietal wall thickening with a small amount associated intrinsic gas. Leading differential considerations include aspiration in the setting of chronic longstanding effusion versus empyema if there has been no recent aspiration. Consider cytologic correlation not already. 3. Passive right lower lobe atelectasis. Developing superimposed infection is considered in the differential if clinically warranted. Please note that all CT scans at this facility use dose modulation, iterative reconstruction, and/or weight-based dosing when appropriate to reduce radiation dose to as low as reasonably achievable. Dictated by Claudy Cunningham MD @ 12/04/2023 11:08:43 PM Signed by: Claudy Cunningham MD @12/04/2023 11:08:43 PM (Electronic Signature) Narrative 12/05/2023 12:12 PM DE ICER FINISHER INDICATION: Cough, pleural effusion. TECHNIQUE: CT chest PE was acquired with 100 cc Omnipaque 350 IV contrast. COMPARISON: March 2015 FINDINGS: Pulmonary Arteries: Motion degrades evaluation of the distal segmental and subsegmental pulmonary arteries. No large central or proximal segmental pulmonary embolus. No pulmonary hypertension or right ventricular strain. Heart and Mediastinum: The visualized portions of the thyroid are normal. No axillary or supraclavicular lymphadenopathy. No mediastinal, hilar or retrocrural lymphadenopathy. Normal heart size. Normal caliber aorta. Atherosclerotic calcifications. Lungs and Airways: Motion. Right lower lobe passive atelectasis. No endoluminal lesion. Pleura: Large right pleural effusion with features of loculation as well as visceral and parietal wall thickening with a small amount associated intrinsic gas. Abdomen: The visualized upper abdominal organs are unremarkable. Bones and soft tissues: Thoracolumbar fixation hardware. Old bilateral rib fractures. Right shoulder arthroplasty. Valente MICHEL CT * COVID-19 MOLECULAR (12/04/2023 8:45 PM DE ICER FINISHER) [facility] COVID 19 [place] MOLECULAR Not detected Not detected 12/04/2023 9:43 PM DE ICER FINISHER [facility] TESTING LABORATORY [facility] 12/04/2023 9:43 PM DE ICER FINISHER [facility] Comment:Specimen submitted t o [facility] for testing. Other SPECIMEN FROM NASOPHARYNGEAL STRUCTURE / Unknown Non-Blood / Unknown 12/04/2023 8:45 PM DE ICER FINISHER 12/04/2023 8:48 PM DE ICER FINISHER Narrative [facility] - 12/04/2023 9:43 PM DE ICER FINISHER This test has been authorized by FDA under an Emergency Use Authorization (EUA). This test is only authorized for the duration of time the declaration that circumstances exist justifying the authorization of the emergency use of in vitro diagnostic tests for detection of SARS-CoV-2 virus and/or diagnosis of COVID-19 infection under section 564(b)(1) of the Act, 21 U.S.C. 360bbb-3(b) (1), unless the authorization is terminated or revoked sooner. Valente MICHEL MICROBIOLOG Y [facility] [address] [place] [id number] * INFLUENZA A/B PCR (12/04/2023 8:45 PM DE ICER FINISHER) [facility] INFLUENZA A PCR NOT Detected 12/04/2023 9:43 PM DE ICER FINISHER [facility] INFLUENZA B PCR NOT Detected 12/04/2023 9:43 PM DE ICER FINISHER [facility] Other SPECIMEN FROM NASOPHARYNGEAL STRUCTURE / Unknown Non-Blood / Unknown 12/04/2023 8:45 PM DE ICER FINISHER 12/04/2023 8:48 PM DE ICER FINISHER Valente MICHEL MICROBIOLOG Y [facility] [address] [place] [address] * BLOOD CULTURE (12/04/2023 8:21 PM DE ICER FINISHER) Only the most recent of2 resultswithin the time period is included. CULTURE No Growth. 12/10/2023 2:42 AM DE ICER FINISHER [facility] Blood BLOOD SPECIMEN / Unknown IV Start / Unknown 12/04/2023 8:21 PM DE ICER FINISHER 12/04/2023 9:48 PM DE ICER FINISHER Valente MICHEL MICROBIOLOG Y Performing Organization Address [facility] Co de Phone Number [facility] [address] [place] [address] * BLOOD BANK EXTRA LAVENDER TOP (12/04/2023 7:52 PM DE ICER FINISHER) Blood BLOOD SPECIMEN / Unknown Venipuncture / Unknown 12/04/2023 7:52 PM DE ICER FINISHER 12/04/2023 8:05 PM DE ICER FINISHER Doctor Unknown BLOOD BANK Performing Organization Address [facility] Co de Phone Number [facility] [address] [place] [phone] * (ABNORMAL) C-REACTIVE PROTEIN (12/04/2023 7:52 PM DE ICER FINISHER) C-REACTIVE PROTEIN 15.4(H) <0.5 mg/dL 12/04/2023 8:25 PM DE ICER FINISHER [facility] Blood BLOOD SPECIMEN / Unknown Venipuncture / Unknown 12/04/2023 7:52 PM DE ICER FINISHER 12/04/2023 7:55 PM DE ICER FINISHER Valente MICHEL CHEMISTRY Performing Organization Address [facility] Co de Phone Number [facility] [address] [place] [address] * (ABNORMAL) HEPATIC FUNCTION PANEL (12/04/2023 7:52 PM DE ICER FINISHER) Only the most recent of2 resultswithin the time period is included. ALBUMIN 3.3(L) 4.0 - 4.9 g/dL 12/04/2023 8:53 PM [facility] PROTEIN,TOTAL 7.9 6.0 - 8.0 g/dL 12/04/2023 8:53 PM [facility] BILIRUBIN,TOTAL 0.5 0.0 - 1.2 mg/dL 12/04/2023 8:53 PM [facility] BILIRUBIN,DIRECT 0.3 0.0 - 0.3 mg/dL 12/04/2023 8:53 PM [facility] BILIRUBIN,INDIRE CT 0.2 0.2 - 0.8 mg/dL 12/04/2023 8:53 PM [facility] ALK PHOSPHATASE 316(H) 40 - 129 IU/L 12/04/2023 8:53 PM [facility] ALT (SGPT) 18 10 - 50 IU/L 12/04/2023 8:53 PM [facility] AST (SGOT) 29 10 - 50 IU/L 12/04/2023 8:53 PM [facility] Blood BLOOD SPECIMEN / Unknown Venipuncture / Unknown 12/04/2023 7:52 PM DE ICER FINISHER 12/04/2023 7:55 PM [facility] Valente MICHEL CHEMISTRY [facility] [address] [place] [address] * EKG 12 LEAD (12/04/2023 7:38 PM DE ICER FINISHER) Pathologist [facility] Interpretation Sinus tachycardia Nonspecific ST abnormality Abnormal ECG Sign artifact ?? BEYOND NOW Ventricular Rate 132 BPM BEYOND NOW Atrial Rate 133 BPM BEYOND NOW P-R Interval 152 ms BEYOND NOW QRS Duration 70 ms BEYOND NOW QT 262 ms BEYOND NOW QTc 388 ms BEYOND NOW P [place] 66 degrees BEYOND NOW R [place] -15 degrees BEYOND NOW T [place] 15 degrees BEYOND NOW 12/04/2023 7:38 PM DE ICER FINISHER 12/05/2023 3:45 AM DE ICER FINISHER Shabbir Rodrigez MD EKG ORD [place]YOND [place], [place] * FACTOR V LEIDEN MUTATION (EVALUATE THROMBOPHILIA) (11/28/2023 11:43 AM DE ICER FINISHER) FACTOR V LEIDEN Mutation not detected Mutation not detected 12/04/2023 3:30 PM DE ICER FINISHER [facility]TRAL [facility] INTERPRETATION Patient does not carry the Leiden ([id number]) mutation on either copy of the Factor V (F5) gene. 12/04/2023 3:30 PM DE ICER FINISHER [facility] Blood BLOOD SPECIMEN / Unknown Venipuncture / Unknown 11/28/2023 11:43 AM DE ICER FINISHER 11/28/2023 11:43 AM DE ICER FINISHER Narrative [facility] - 12/04/2023 3:30 PM DE ICER FINISHER Method: archie?? Factor II and Factor V Test Cara Brown MD LABORATORY Performing Organization Address City/[facility]/ZIP Co de Phone Number [facility] [address] [place] [phone], * FACTOR II GENE MUTATION (EVALUATE THROMBOPHILIA) (11/28/2023 11:43 AM DE ICER FINISHER) FACTOR II GENE MUTATION Mutation not detected Mutation not detected 12/04/2023 3:28 PM DE ICER FINISHER [facility] NTRAL LABORATORY INTERPRETATION Patient does not carry the [id number] mutation on either copy of the Factor II (F2) gene. 12/04/2023 3:28 PM DE ICER FINISHER [facility] Blood BLOOD SPECIMEN / Unknown Venipuncture / Unknown 11/28/2023 11:43 AM DE ICER FINISHER 11/28/2023 11:43 AM DE ICER FINISHER Narrative [facility] - 12/04/2023 3:28 PM DE ICER FINISHER Method: archie?? Factor II and Factor V Test Cara Brown MD SEND OUTS [facility] [address] [place] [phone], * (ABNORMAL) ELP AND FREE LIGHT CHAINS W REFLEX, BLOOD (11/21/2023 12:06 PM DE ICER FINISHER) ELP,ALBUMIN 2.51(L) 3.31 - 5.31 g/dL 11/25/2023 7:21 PM DE ICER FINISHER [facility] ELP,ALPHA 1 0.50(H) 0.19 - 0.42 g/dL 11/25/2023 7:21 PM DE ICER FINISHER [facility] ELP,ALPHA 2 1.28(H) 0.44 - 1.03 g/dL 11/25/2023 7:21 PM DE ICER FINISHER [facility] ELP,GAMMA 1.61(H) 0.59 - 1.46 g/dL 11/25/2023 7:21 PM DE ICER FINISHER [facility] ELP,BETA 0.80 0.52 - 1.05 g/dL 11/25/2023 7:21 PM [facility] MONOCLONAL PEAK 1 0.76 <=0.00 g/dL 11/25/2023 7:21 PM [facility] KAPPA FREE LIGHT CHAIN, S 5.96(H) 0.33 - 1.94 mg/dL 11/25/2023 7:21 PM [facility] LAMBDA FREE LIGHT CHAIN, S 4.81(H) 0.57 - 2.63 mg/dL 11/25/2023 7:21 PM [facility] KAPPA/LAMBDA FLC RATIO 1.24 0.26 - 1.65 11/25/2023 7:21 PM [facility] ELP INTERP,SERUM Interval study shows an increase in magnitude of previously identified monoclonal peak. Previous Study: 0.57 gm/dL on 05/01/2023. Interpreted and electronically signed by: Sapphire Gerardo MD 11/25/2023 7:21 PM [facility] PROTEIN,TOTAL 6.7 6.0 - 8.0 g/dL 11/25/2023 7:21 PM DE ICER FINISHER [facility] Blood BLOOD SPECIMEN / Unknown Venipuncture / Unknown 11/21/2023 12:06 PM DE ICER FINISHER 11/21/2023 12:06 PM DE ICER FINISHER Cara Brown MD CHEMISTRY Performing Organization Address [facility] de Phone Number [facility] 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 Interpreted and electronically signed by: Sapphire Gerardo MD 11/25/2023 7:21 PM [facility] Blood BLOOD SPECIMEN / Unknown Venipuncture / Unknown 11/21/2023 12:06 PM DE ICER FINISHER 11/21/2023 12:06 PM DE ICER FINISHER Cara Brown MD CHEMISTRY Performing Organization Address [facility] Co de Phone Number [facility] [address] [place] [phone], * PERIPHERAL BLD MORPHOLOGY (11/21/2023 12:06 PM DE ICER FINISHER) Case Report Special Hematology Report ? Case: [id number] ? Authorizing Provider: ??Cara Brown MD ?Collected: ? 11/21/2023 1206 ? Ordering Location: ? [facility] ? Received: ?11/21/2023 120 ? [facility] ? Pathologist: ? Jj Gan MD ? Specimen: ?Blood ? 11/22/2023 12:29 PM DE ICER FINISHER [employer] ENTRAL LABORATORY Final Diagnosis PERIPHERAL BLOOD: 1. Moderate normocytic anemia with moderate rouleaux formation present 2. Leukocytosis reflecting mild absolute neutrophilia, favor reactive 3. See comment 11/22/2023 12:29 PM DE ICER FINISHER [employer] Comment The features of the anemia are nonspecific. The differential includes iron deficiency, anemia of chronic disease, anemia of chronic renal insufficiency, anatomic blood loss and medication effect. There is no morphologic evidence of hemolysis or findings to suggest a primary bone marrow disorder. There are no morphologic features to suggest the etiology of the neutrophilia. Neutrophilia may be associated with infectious diseases, steroids, and acute inflammation. Clinical correlation is recommended. 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 Please refer to the patient's most recent serum protein electrophoresis performed 05/01/2023. There is no evidence of circulating plasma cells. This case was also reviewed by Noelle Crowder MT, MS (ASCP). 11/22/2023 12:29 PM [facility] Clinical Information The patient is a 78-year-old male. Pertinent clinical information: Leukocytosis and anemia. Per EPIC: Additional history includes hypertension, PE, hereditary hemochromatosis, MGUS, and BPH. He is currently receiving prednisone. His most recent peripheral blood morphology April 2023 ([id number]) showed a mild normocytic anemia and leukocytosis secondary to neutrophilia and lymphocytopenia. 05/01/23 12:53 ELP INTERP,SERUM ? : Interval study shows essentially no change in magnitude of previously identified monoclonal peak. Previous Study: 0.56 gm/dL on 11/27/2022. 11/17/20 10:07 IFIX INTERP,SERUM: Immunofixation on serum shows biclonal pattern with complete IgG kappa and trace complete IgG lambda monoclonal proteins, no free light chains detected. 11/14/23 11:12 FERRITIN: ?775.0 (H) IRON: ?17 (L) IRON BINDING CAPACITY ?: 142 (L) IRON,% SATURATION ?: 12 (L) UIBC (UNSATURATED) ? : 125 11/21/23 12:06 VITAMIN B12: ? 634 FOLIC ACID: ?17.1 HAPTOGLOBIN ?: 560 (H) LD,TOTAL: ?171 11/22/2023 12:29 PM DE ICER FINISHER [facility] ENTRAL LABORATORY CBC and Differential HEMATOLOGY PARAMETERS Tested at: ??[facility] ? RESULTS ??EXPECTED VALUES WBC: ? 14.4 ? 4.5-44u5751/cumm ?ELEVATED RBC: ? 3.46 ? 4.30-5.90 mil/cumm ??DECREASED HGB: ? 8.9 ?13.5-17.5 gm/di ? DECREASED HCT: ? 29.2 ? 37-53% ?DECREASED MCV: ? 84.0 ? 80-100 fl ? NORMOCYTIC MCH: ? 25.7 ? 26-34 pg ?DECREASED MCHC: ?30.5 ? 32-36 gm/dl ? HYPOCHROMIC RDW: ? 17.9 ? 11.5-15.5% ?ELEVATED PLT: ? 434 ?[id number]/uL ? MPV: ? 8.1 ?6.5-11 fl ? Retic: ?? 2.7 ?0.5-1.5% ?ELEVATED Differential ?Absolute (%) ?Expected (%) ?(x10*9/L) ? (x10*9/L) Neutrophils: ?13.0 (90.3) ? 1.7-7.0 (42-72%) ?ELEVATED Lymphocytes: ?0.9 (6.3) ? 0.9-2.9 (20-44%) ?? Monocytes: ?0.4 (2.8) ?<0.9 (0-11%) ? Myelocytes: ? 0.1 (.7) ? <0.1 (<0.1%) ? ELEVATED 11/22/2023 12:29 PM DE ICER FINISHER [facility] ENTRAL LABORATORY Microscopic Description The final diagnosis is based on microscopic examination of an appropriately stained blood smear. 11/22/2023 12:29 PM DE ICER FINISHER [facility]-C ENTRAL LABORATORY Additional Information Interpreted at [facility], Central Laboratory - [address] [facility] [address], [place] [address] 11/22/2023 12:29 PM DE ICER FINISHER [facility] ENTRAL LABORATORY Blood BLOOD SPECIMEN / Unknown 11/21/2023 12:06 PM DE ICER FINISHER 11/21/2023 12:06 PM DE ICER FINISHER Comment:CURRENT MEDICATIONSC urrent Outpatient Medications: ? ? acetaminophen (TYLENOL) 325 mg tablet, Take 650 mg by mouth., Disp: , Rfl: ? ? allopurinol (ZYLOPRIM) 300 mg tablet, Take 1 tablet by mouth once daily., Disp: 90 tablet, Rfl: 2? ? Amitiza 8 mcg cap, TAKE TWO CAPSULES BY MOUTH EVERY MORNING AND TAKE ONE CAPSULE BY MOUTH EVERY EVENING, Disp: 270 Capsule, Rfl: 2? ? amoxicillin (AMOXIL) 500 mg capsule, TAKE 4 CAPSULES BY MOUTH 1 HOUR PRIOR TO DENTAL APPOINTMENT, Disp: 4 Capsule, Rfl: 2? ? atenoloL (TENORMIN) 25 mg tablet, Take 0.5 Tablets (12.5 mg) by mouth once daily., Disp: 90 Tablet, Rfl: 1? ? CPAP, , Disp: 1 unit, Rfl: 0? ? cyclobenzaprine (FLEXERIL) 5 mg tablet, Take 1 Tablet (5 mg) by mouth 2 times daily if needed for Muscle Spasm., Disp: 60 Tablet, Rfl: 2? ? cycloSPORINE (RESTASIS) 0.05 % ophthalmic emulsion, INSTILL 1 DROP BOTH EYES TWICE A DAY, Disp: , Rfl: ? ? docusate (COLACE) 100 mg capsule, Take 1 capsule by mouth 2 times daily., Disp: , Rfl: 0? ? doxazosin (CARDURA) 4 mg tablet, Take 1 Tablet (4 mg) by mouth at bedtime., Disp: , Rfl: 0? ? emollient (VANICREAM,NEUTRAGENA) cream, APPLY THIN LAYER EVERY DAY FOR DRY SKIN TO AREAS OF DRY SKIN, IDEALLY WITHIN 3 MINUTES AFTER BATH OR SHOWER. FOR DRY SKIN TO AREAS OF DRY SKIN, IDEALLY WITHIN 3 MINUTES AFTER BATH OR SHOWER., Disp: , Rfl: ? ? fluticasone (50 mcg per actuation) nasal solution (FLONASE), SPRAY 1 - 2 SPRAY(S) IN EACH NOSTRIL EVERY DAY USE REGULARLY FOR RELIEF OF ALLERGIES/CONGESTION, Disp: , Rfl: ? ? gabapentin (NEURONTIN) 600 mg tablet, Take 1 tab in am, afternoon and 1 at bedtime, Disp: 120 Tablet, Rfl: 1? ? hydroxychloroquine (PLAQUENIL) 200 mg tablet, Take 1 Tablet by mouth once daily., Disp: , Rfl: ? ? Lactobacillus Acidophilus 1 billion cell tab, TAKE 1 TABLET BY MOUTH EVERY MORNING, Disp: , Rfl: ? ? leflunomide (ARAVA) 20 mg tablet, Take 1 Tablet by mouth once daily., Disp: , Rfl: ? ? oxyCODONE (ROXICODONE) 5 mg immediate release tablet, TAKE ONE TABLET BY MOUTH EVERY 8 HOURS NEEDED FOR PAIN. MAX OF 2 TABLETS PER DAY, Disp: 60 Tablet, Rfl: 0? ? OxyCONTIN 20 mg SUSTAINED release tablet, TAKE ONE TABLET BY MOUTH EVERY 12 HOURS, Disp: 60 Tablet, Rfl: 0? ? pedi multivit no.12 w-fluoride ([id number]-[id number]-LOMRV A ORAL), Daily, Disp: , Rfl: ? ? Polyethylene Glycol 3350 powder, Mix 17 g in liquid then take by mouth., Disp: , Rfl: ? ? pramipexole (MIRAPEX) 0.25 mg tablet, 0.75 mg., Disp: , Rfl: ? ? prednisoLONE acetate 1% ophthalmic (ECONOPRED PLUS, PRED FORTE, OMNIPRED) suspension, INSTILL 1 DROP IN LEFT EYE EVERY 2 HOURS WHILE AWAKE FOR 3 DAYS THEN USE FOUR TIMES DAILY FOR 1 WEEK., Disp: , Rfl: ? ? predniSONE (DELTASONE) 5 mg tablet, TAKE 1 TO 2 TABLETS BY MOUTH EVERY DAY NEEDED FOR JOINT PAIN * TAKE 1 TO 2 TABLETS DAILY DIRECTED TAPER, Disp: , Rfl: ? ? sulfaSALAzine (AZULFIDINE) 500 mg tablet, Take 500 mg by mouth two times daily., Disp: 540 tablet, Rfl: 0? ? Walker - 4 wheels, For home use. Length of need: 99, Disp: 1 Each, Rfl: 0? ? Walker, Walker with front wheels for home use., Disp: 1 Each, Rfl: 0? ? warfarin (COUMADIN) 2 mg tablet, Take by mouth 4 mg (2 mg x 2) every Sat, Sat; 3 mg (2 mg x 1.5) all other days in the evening OR as directed, Disp: , Rfl: Cara Brown MD HEMATOLOGY Performing Organization Address [facility]/ZIP Co de Phone Number [facility] [address] [place] [address], * LD,TOTAL (11/21/2023 12:06 PM DE ICER FINISHER) Pathologist [facility] LD,TOTAL 171 135 - 225 IU/L 11/21/2023 1:02 PM DE ICER FINISHER [facility] Blood BLOOD SPECIMEN / Unknown Venipuncture / Unknown 11/21/2023 12:06 PM DE ICER FINISHER 11/21/2023 12:06 PM DE ICER FINISHER Cara Brown MD CHEMISTRY Performing Organization Address [facility]/ZIP Co de Phone Number [facility] [address] [place] [phone] * (ABNORMAL) RETICULOCYTES (11/21/2023 12:06 PM DE ICER FINISHER) Pathologist [facility] RETIC% 2.7(H) 0.5 - 1.5 % 11/21/2023 10:34 PM DE ICER FINISHER [facility] TRAL LABORATORY RETIC (ABSOLUTE) 0.09(H) 0.03 - 0.08 mil/cu mm 11/21/2023 10:34 PM DE ICER FINISHER [facility] TRAL LABORATORY Blood BLOOD SPECIMEN / Unknown Venipuncture / Unknown 11/21/2023 12:06 PM DE ICER FINISHER 11/21/2023 12:06 PM DE ICER FINISHER Cara Brown MD HEMATOLOGY Performing Organization Address City/[facility]/ZIP Co de Phone Number [facility] [address] [place] [address], * (ABNORMAL) HAPTOGLOBIN (11/21/2023 12:06 PM DE ICER FINISHER) Haptoglobin 560(H) 30 - 200 mg/dL 11/21/2023 10:16 PM DE ICER FINISHER [facility] Blood BLOOD SPECIMEN / Unknown Venipuncture / Unknown 11/21/2023 12:06 PM DE ICER FINISHER 11/21/2023 12:06 PM DE ICER FINISHER Cara Brown MD CHEMISTRY Performing Organization Address [facility] Co de Phone Number [facility] [address] [place] [address], * AFP TUMOR MARKER SERUM (11/14/2023 11:12 AM DE ICER FINISHER) AFP TUMOR MARKER,SERUM <1.8 <=8.3 ng/mL 11/14/2023 9:18 PM DE ICER FINISHER [facility] Blood BLOOD SPECIMEN / Unknown Venipuncture / Unknown 11/14/2023 11:12 AM DE ICER FINISHER 11/14/2023 11:12 AM DE ICER FINISHER Narrative [facility] - 11/14/2023 9:18 PM DE ICER FINISHER The test method changed on 10/09/2022. If this test has been used for serial monitoring, rebaselining is recommended. Rebaselining consists of 2 measurements, collected 3-6 weeks apart. The Ariel Elecsys AFP assay is an electrochemiluminescence immunoassay ECLIA performed on the Ariel Archie e immunoassy analyzers. Values obtained with different assay methods may be different and cannot be used interchangeably. Biotin supplements may cause clinically significant interference for this test assay. If interference is suspected, it is strongly recomended that biotin is discontinued for at least one week prior to retesting. Cara Brown MD SEND OUTS [facility] Access Information Management LABORATORY-CENTRAL LABORATORY [address] [place] [address], * ANTI HCV (07/11/2016 11:13 AM CDT) HEPATITIS C ANTIBODY Non-Reacti ve Non-Reacti ve 07/11/2016 5:36 PM CDT [facility] Access Information Management LABORATORY-[facility] TRAL LABORATORY Blood BLOOD SPECIMEN / Unknown Venipuncture / Unknown 07/11/2016 11:13 AM CDT 07/11/2016 11:13 AM CDT Narrative [facility] MyPermissions-CENTRAL LABORATORY - 07/11/2016 5:36 PM CDT Antibodies to HCV not detected; does not exclude the possibility of exposure to HCV. Lisa Coffman MD SEND OUTS [facility] MyPermissions-CENTRAL LABORATORY [address] [place] [address], from Last 3 Months or Most Recently Relevant to Health Maintenance Advance Directives Documents on File Type Date Recorded Patient Oven Roaster Expl anation Healthcare Directive 08/12/2017 12:28 AM 1 * Full Code (Latest Code Status on File) Date Activated Date Inactivated Comments 12/10/2023 1:00 PM 12/19/2023 1:56 PM Question Answer Comments Code Status Discussion: Reviewed Preferences * Full Code Date Activated Date Inactivated Comments 12/05/2023 8:02 PM 12/10/2023 1:00 PM Question Answer Comments Code Status Discussion: Reviewed Preferences * Full Code Date Activated Date Inactivated Comments 12/05/2023 12:58 AM 12/05/2023 7:11 PM Question Answer Comments Code Status Discussion: Reviewed Preferences * Full Code Date Activated Date Inactivated Comments 06/04/2022 8:31 AM 06/04/2022 1:26 PM Question Answer Comments Code Status Discussion: Discussed * Full Code Date Activated Date Inactivated Comments 06/20/2018 7:54 AM 06/20/2018 12:15 PM Question Answer Comments Code Status Discussion: Discussed Care Teams Software Engineering Associate Manager Relationship Specialty Start Date End Date Lisa Villaseñor NP [address] [place] [address] PCP - General Family Practice 02/10/15 Brandyn Musa V [address] [place], [place] Ophthalmology Family Practice 04/04/12 Cara Brown MD [address] [place] [address] Hematology Hematology and Oncology 05/09/20 Lula Mandujano NP [address] [place] [address] Hematology Nurse Practitioner - Family 05/09/20
--- OUTSIDE RECORDS SUMMARY | 2024-01-15 11:06 | XMS_ITS | Encounter Summary ---
Author Name Department of [facility] Affairs Organization [facility] Address [address] [place] [address] Support Name Relationship Address Phone DEMETRA GREEN Next of Kin [address] [place] [id number] DEMETRA GREEN Emergency Contact [address] [place] [address] Insurance Providers: All historical and current [...] Lawson's Name Patient's Relationship to Policy Lawson [facility] (WNR) MEDICARE ADVANTAGE [facility] (WNR) Oct 07, 2015 [id number] [phone] VAISHNAVI GREEN ERT PATIENT Selected Encounter This section includes the information on record at [place] for the Encounter. Date/Time Encounter Type Encounter Description Reason Provider Source Mar 14, 2023 11:30 AM OFF/OP EST FEBRUARY X REQ PHY/QHP PRIMARY CARE/MEDICINE ICD-10-CM L98.9 Disorder of the skin and subcutaneous tissue, unspecified SUSAN STRICKLAND Encounter Template Text not used by [facility] Assessments - Encounter Diagnoses This section includes the primary and secondary diagnoses documented for the Encounter. Date/Time Primary/Secondary Diagnosis Diagnosis Name Provider Source Mar 14, 2023 04:17 PM PRIMARY Disorder of the skin and subcutaneous tissue, unspecified [facility] Plan of Treatment: Future Appointments (+ 6 months) and Future Tests (+/- 45 days) The Plan of Treatment section includes future care activities for the patient [facility] This section includes future appointments and future orders which are active, pending or scheduled. Future Appointments This section includes appointments that were scheduled to occur 6 months from the date of the Encounter, up to a maximum of 20 appointments. The data comes from all [place] treatment facilities. Appointment Date/Time Appointment Type Appointme nt Facility Name Apr 10, 2023 01:00 PM AMBULATORY - MEDICINE [facility] Apr 23, 2023 11:00 AM AMBULATORY - MEDICINE [facility] May 01, 2023 11:00 AM AMBULATORY - MEDICINE [facility] May 21, 2023 11:00 AM AMBULATORY - NONE [facility] May 27, 2023 09:30 AM AMBULATORY - MEDICINE [facility] Jul 09, 2023 09:00 AM [facility]INE [facility] Jul 10, 2023 12:00 PM AMBULATORY - MEDICINE [facility] Sep 11, 2023 02:00 PM AMBULATORY - REHAB MEDICIN [facility] Lab Results: +/- 30 days of the encounter This section includes the Chemistry and Hematology Lab Results on record with [place] for the patient. Radiology Reports and Pathology Reports are provided separately, in subsequent sections. Lab Results This section contains the Chemistry/Hematology Results that were resulted 30 days before or 30 daysafter the date of the Encounter. Date/Time Source Result Type Result - Unit Interpretation Reference Range Comment Mar 12, 2023 10:20 AM [facility] ALT/SGPT Specimen Type: PLASMA No comment entered. Ordering Provider: LUIS ALBERTO BLISS MD Report Released Date/Time: Jan 25, 2023 03:57 PM Reporting Lab: [facility] [id number] Performing Lab: [facility] [phone] ALT/SGPT 34 See_Comment Mar 12, 2023 10:20 AM [facility] AST/SGOT Specimen Type: PLASMA No comment entered. Ordering Provider: LUIS ALBERTO BLISS MD Report Released Date/Time: Jan 25, 2023 03:57 PM Reporting Lab: [facility] [phone] Performing Lab: [facility] [id number] AST/SGOT 30 See_Comment Mar 12, 2023 10:20 AM [facility] SED RATE Specimen Type: BLOOD No comment entered. Ordering Provider: LUIS ALBERTO BLISS MD Report Released Date/Time: Jan 25, 2023 03:57 PM Reporting Lab: [facility] [id number] Performing Lab: [facility] [id number] SED RATE 18 H 5-15 Mar 12, 2023 10:20 AM [facility] CREATININE(INCLUDES EGFR) Specimen Type: PLASMA No comment entered. Ordering Provider: LUIS ALBERTO BLISS MD Report Released Date/Time: Jan 25, 2023 03:57 PM Reporting Lab: [facility] [phone] Performing Lab: [facility] [id number] CREATININE 1.0 0.7-1.2 .CREAT EGFR(CKD-EPI) 78 See_Comment Mar 12, 2023 10:20 AM [facility] CBC & DIFF Specimen Type: BLOOD Comment: Automated Differential Performed Ordering Provider: LUIS ALBERTO BLISS MD Report Released Date/Time: Jan 25, 2023 03:57 PM Reporting Lab: [facility] [id number] Performing Lab: [facility] [phone] WBC 11.89 H 4.0-11.0 RBC 4.03 L [...] and tobacco- related health factors from the [place] facility where the Encounter took place. Current Smoking Status This section includes the most current smoking, or tobacco-related health factor, from the [place] facility where the Encounter took place. Date/Time Current Smoking Status Comment Facil ity Jul 13, 2022 10:30 AM VA-TOBACCO FORMER USER [facility] Tobacco Use History This section includes a history of the smoking, or tobacco-related health factors, that were collected on or before the date of the Encounter. The data comes from the [place] facility where the Encounter took place. Date/Time Smoking Status/Tobacco Use Comment F acility Jul 13, 2022 10:30 AM VA-TOBACCO QUIT 15 YRS OR MORE [facility] Jul 06, 2021 08:00 AM VA-TOBACCO NEVER USED [facility] Jul 06, 2020 08:00 AM VA-TOBACCO FORMER USER [facility] Jul 06, 2020 08:00 AM VA-TOBACCO QUIT 15 YRS OR MORE [facility] Apr 23, 2019 09:31 AM VA-TOBACCO FORMER USER [facility] Apr 23, 2019 09:31 AM VA-TOBACCO QUIT 15 YRS OR MORE [facility] Jun 27, 2018 09:48 AM FORMER TOBACCO USER 7Y OR GREATE R [facility] Advance Directives: All historical and current Section Date Range: From patient's date of to the date document was created. This section includes ALL of a patient's completed or amended [place] Advance and Rescinded Directives. The entries below indicate that a directive exists for the patient, but an actual copy is not included with this document. The data comes from all [place] facilities. Date Advance Directives Provider Source Jul 22, 2018 ADVANCE DIRECTIVE DEONTE DIAZ [facility] Jul 22, 2018 ADVANCE DIRECTIVE DISCUSSION DEONTE DIAZ [facility] Encounter Notes: All associated encounter notes This section contains the clinical notes associated to the Encounter. Date/Time Encounter Note(s) Provider Source Mar 14, 2023 03:53 PM NURSING OUTPATIENT NOTE: LOCAL TITLE: [facility] NURSING RN NOTE STANDARD TITLE: NURSING OUTPATIENT NOTE DATE OF NOTE: MAR 14, 2023@15:53 ENTRY DATE: MAR 14, 2023@15:53:52 AUTHOR: KEELEY STRICKLAND EXP COSIGNER: URGENCY: STATUS: COMPLETED TYPE OF VISIT: Nurse Clinic REASON FOR VISIT: Toenail Trim ALLERGIES: FACILITY ALLERGY/ADR -------- No Remote Allergy/ADR Data available for this patient [facility] DICLOFENAC [facility] LEVOFLOXACIN [facility] SEASONAL ALLERGIES Patient in today for toenail trimming. Plan as written below. PLAN: B/L toenails trimmed and filed Procedure: Toe nail trimming done. Right foot Description of nails: elongated, thickening Treatment: paring Left foot Description of nails: elongated, thickening Treatment: paring Plan: RTC as needed /maame/ KEELEY AZUL Signed: 03/14/2023 16:17 KEELEY STRICKLAND
--- OUTSIDE RECORDS SUMMARY | 2024-01-15 11:07 | XMS_ITS | Encounter Summary ---
Author Name [facility] Organization [facility] Address [address] [place] [id number] Support Name Relationship Address Phone DEMETRA GREEN Next of Kin [address] [place] [address] DEMETRA GREEN Emergency Contact [address] [...] Name Patient's Relationship to Policy Lawson [employer] [place] [facility] (WNR) MEDICARE ADVANTAGE [facility] (WNR) Oct 07, 2015 [id number] [phone] VAISHNAVI GREEN ERT PATIENT Selected Encounter This section includes the information on record at [place] for the Encounter. Date/Time Encounter Type Encounter Description Reason Pro vider Source Oct 09, 2023 08:53 AM Outpatient Encounter EVENT (HISTORICAL) ANAND VERMA Encounter Template Text not used by [place] Plan of Treatment: Future Appointments (+ 6 months) and Future Tests (+/- 45 days) The Plan of Treatment section includes future care activities for the patient from all [facility] treatment[facility]ilities. This section includes future appointments and future orders which are active, pending or scheduled. Active, Pending, and Scheduled Orders This section includes a listing of several types of active, pending, and scheduled orders, including clinic medications orders, diagnostic test orders, procedure orders and consult orders; where the start date of the order is 45 days before the date of the Encounter or 45 days after the date of theEncounter. The data comes from all [place] treatment facilities. Test Date/Time Test Type Test Details Facility Name Oct 04, 2023 04:30 PM Consult Order PROSTHETIC S REQUEST - FLOW SHOES AND INSERTS [address] Cigar Patcher's Choice [facility] Nov 12, 2023 12:00 AM Laboratory - Chemi stry Order CREATININE(INCLUDES EGFR) PLASMA SP [facility] Nov 12, 2023 12:00 AM Laboratory - Chemi stry Order ALT/SGPT PLASMA SP [facility] Nov 12, 2023 12:00 AM Laboratory - Chemi stry Order AST/SGOT PLASMA SP [facility] Nov 12, 2023 12:00 AM Laboratory - Chemi stry Order SED RATE BLOOD SP [facility] Nov 12, 2023 12:00 AM Laboratory - Chemi stry Order CBC & DIFF BLOOD SP [facility] Social History: Smoking Status (Most current) and Tobacco Use (All prior to encounter date) This section includes the most current, and the historical, smoking and tobacco- related health factors from the [place] facility where the Encounter took place. Current Smoking Status This section includes the most current smoking, or tobacco-related health factor, from the [place] facility where the Encounter took place. Date/Time Current Smoking Status Comment Facil ity Jul 23, 2017 07:44 AM FORMER TOBACCO USER 7Y OR GREATE R [facility] Tobacco Use History This section includes a history of the smoking, or tobacco-related health factors, that were collected on or before the date of the Encounter. The data comes from the [place] facility where the Encounter took place. Date/Time Smoking Status/Tobacco Use Comment F acility Jul 24, 2016 08:09 AM FORMER TOBACCO USER 7Y OR GREATE R [facility] Jul 27, 2015 07:54 AM FORMER TOBACCO USER 7Y OR GREATE R [facility] Jun 18, 2014 09:49 AM FORMER TOBACCO USER 7Y OR GREATE R [facility] Nov 22, 2010 09:21 AM FORMER TOBACCO USER 7Y OR GREATE R [facility] Jun 30, 2009 08:27 AM FORMER TOBACCO USER 7Y OR GREATE R [facility] Advance Directives: All historical and current Section Date Range: From patient's date of to the date document was created. This section includes ALL of a patient's completed or amended [place] Advance and Rescinded Directives. The entries below indicate that a directive exists for the patient, but an actual copy is not included with this document. The data comes from all [place] facilities. Date Advance Directives Provider Source Jul 22, 2018 ADVANCE DIRECTIVE DEONTE DIAZ [facility] Jul 22, 2018 ADVANCE DIRECTIVE DISCUSSION DEONTE DIAZ [facility]
--- OUTSIDE RECORDS SUMMARY | 2024-01-15 11:07 | XMS_ITS | Encounter Summary ---
Author Name Department of Vetera Affairs Organization Department of Vetera Affairs Address [address] [place] [id number] Support Name Relationship Address Phone BARBARA GREENE Next of Kin [address] [address] VENUS GREEN Emergency Contact [address] [...] MEDICARE ADVANTAGE MCR (WNR) Oct 07, 2015 [id number] [phone] VAISHNAVI GREEN ERT PATIENT Selected Encounter This section includes the information on record at [place] for the Encounter. Date/Time Encounter Type Encounter Description Reason Provider Source Sep 11, 2023 02:00 PM SELF CARE MNGMENT TRAINING OCCUPATIONAL THERAPY ICD-10-CM Z74.09 Other reduced mobility GENESIS BALL Leanna Encounter Template Text not used by [place] Assessments - Encounter Diagnoses This section includes the primary and secondary diagnoses documented for the Encounter. Date/Time Primary/Secondary Diagnosis Diagnosis Name Provider Source Sep 11, 2023 02:30 PM PRIMARY Other reduced mobility GENESIS BALL [facility] Plan of Treatment: Future Appointments (+ 6 months) and Future Tests (+/- 45 days) The Plan of Treatment section includes future care activities for the patient from all [place] treatmentfacilities. This section includes future appointments and future orders which are active, pending or scheduled. Future Appointments This section includes appointments that were scheduled to occur 6 months from the date of the Encounter, up to a maximum of 20 appointments. The data comes from all [place] treatment [facility]. Appointment Date/Time Appointment Type Appointme nt Facility Name Nov 26, 2023 10:00 AM AMBULATORY - REHAB MEDICIN [facility] Nov 27, 2023 06:20 PM AMBULATORY - REHAB MEDICIN [facility] Dec 02, 2023 11:30 AM AMBULATORY - NONE [facility] Dec 30, 2023 12:30 PM AMBULATORY - MEDICINE [facility] Jan 13, 2024 11:30 AM AMBULATORY - MEDICINE [facility] Social History: Smoking Status (Most current) and Tobacco Use (All prior to encounter date) This section includes the most current, and the historical, smoking and tobacco- related health factors from the [place] facility where the Encounter took place. Current Smoking Status This section includes the most current smoking, or tobacco-related health factor, from the [place] facility where the Encounter took place. Date/Time Current Smoking Status Comment Facil ity Jul 23, 2017 07:44 AM FORMER TOBACCO USER 7 OR GREATE R [facility] Tobacco Use History This section includes a history of the smoking, or tobacco-related health factors, that were collected on or before the date of the Encounter. The data comes from the [place] facility where the Encounter took place. Date/Time Smoking Status/Tobacco Use Comment F acility Jul 24, 2016 08:09 AM FORMER TOBACCO USER 7Y OR GREATE R [facility] Jul 27, 2015 07:54 AM FORMER TOBACCO USER 7Y OR GREATE R [facility] Jun 18, 2014 09:49 AM FORMER TOBACCO USER 7Y OR GREATE R [facility] Nov 22, 2010 09:21 AM FORMER TOBACCO USER 7Y OR GREATE R [facility] Jun 30, 2009 08:27 AM FORMER TOBACCO USER 7Y OR GREATE R [facility] Advance Directives: All historical and current Section Date Range: From patient's date of to the date document was created. This section includes ALL of a patient's completed or amended [place] Advance and Rescinded Directives. The entries below indicate that a directive exists for the patient, but an actual copy is not included with this document. The data comes from all [facility]. Date Advance Directives Provider Source Jul 22, 2018 ADVANCE DIRECTIVE DEONTE DIAZ [facility] Jul 22, 2018 ADVANCE DIRECTIVE DISCUSSION DEONTE DIAZ [facility] Encounter Notes: All associated encounter notes This section contains the clinical notes associated to the Encounter. Date/Time Encounter Note(s) Provider Source Sep 11, 2023 03:28 PM ADDENDUM: LOCAL TITLE: Addendum STANDARD TITLE: ADDENDUM DATE OF NOTE: SEP 11, 2023@15:28:54 ENTRY DATE: SEP 11, 2023@15:28:55 AUTHOR: GENESIS BALL COSIGNER: URGENCY: STATUS: COMPLETED [employer] Occupational Therapist to help facilitate needs that came up in OT VVC appointment. Vet reports needing compression socks for LE edema management, briefs for incontinence and then a referall for physical therapy VVC appointment for a walker. /es/ GENESIS BALL Occupational Therapist Signed: 09/11/2023 15:30 Receipt Acknowledged By: 09/13/2023 15:28 /maame/ KEELEY HANCOCK [facility] --- Original Document --- 09/11/23 OCCUPATIONAL THERAPY CONSULT: OCCUPATIONAL THERAPY EQUIPMENT CONSULT Ordering provider: TISHA HEARD Consult request: OCCUPATIONAL THERAPY OPT OT EQUIPMENT CONSULT Diagnosis: Other Reduced Mobility(ICD-10-CM Z74.09) Encounter: 15 min low complexity evaluation 15 min self care Subjective: Reporting needing a walker, 17 inch walker looking for soemthing wider, briefs and pads for on the bed and chair, compression socks but not the real tight ones, the medium ones VVC Documentation: Visit conducted by synchronous telehealth. verbal consent obtained. Location/emergency number confirmed. Environment surveyed and all participants identified. Virtual conference room locked. Occupational Therapy: VVC Documentation: Confirmed the following prior to start of visit: -Acosta identified by Full name and Full Social Security number. -Consent to care through telerehabilitation -Acosta states he/she is in a safe and private environment suitable for the Telehealth encounter. Visit conducted by telehealth into the home using: Phone Troubleshooting required during visit: Others present: Venus Location of patient during session: Assessment/recommendations: Vet seen via clinic today to discuss adaptive equipment to increase safety and independence for showering. Vet is progressing with mobility in rehab. Vet reports currently doing bed baths and would benefit from equipment to participate in bathing and shower transfer safely. Identified the following barriers: -Generalized weakness -Hx of falls Vet will benefit from adaptive equipment to increase safety and functional independence and was provided education on features and benefits of equipment. Vet will benefit from the following adaptive equipment that was ordered at this date: - Grab bars: Vendor to install to 18 inch vertical grab bar on left wall and 24 inch horizontal grab bar on back - Tub transfer bench - Handheld shower hose - 4 [employer] Reusable Furniture Bed Protector Pads Product #: [id number] CURRENT MEDICAL HISTORY: Hallux valgus AND bunion ([facility] [id number])Hammer toe ([facility] 362836634) Essential hypertension ([facility] 56733223) Gout ([facility] 58273938) Benign prostatic hyperplasia (SCT 204361Sxgzdxuy legs (SCT 75551349) Hemochromatosis ([facility] 262029035) Chronic low back pain ([facility] 554122317) Osteoarthritis of knee ([facility] 255301141) Obstructive sleep apnea ([facility] 55973399) History of male erectile disorder (SCT 4Dupuytren's contracture (SCT 247926857) Bunion (SCT 472494065) Chronic sinusitis (SCT 28337163) Deviated nasal septum (SCT 337329339) Obesity (SCT 952426445) Pseudophakia (SCT 51899661) Benign monoclonal gammopathy (SCT 59871825) Orchialgia (SCT 07523887) History of inflammatory bowel disease (SCT 216889225) Injury of tendon of the rotator cuff of Impaired fasting glycaemia (SCT 305943961) Edema (SCT 495395355) Hallux valgus AND bunion ([facility] 204342146) Inflammatory polyarthropathy ([facility] 283527Vxncplkpsiontiymk ([facility] 156607196) Episcleritis ([facility] 522002) Gastroesophageal reflux disease ([facility] 537953801) Sensorineural hearing loss, bilateral (SDry eyes ([facility] 602541905) History of polyp of colon ([facility] 249498835Dxtprfi of gout ([facility] 530739130) CONTEXT SOCIAL HISTORY/HOME ENVIRONMENT: Lives: Primary Support System: HHN- Wound care and vitals Lives in: Multi-story home Home accessibility comments: - Ramp steps to enter with wheelchair - Main level - Upper level 7-8 steps Bathroom: Tub shower -Portable commode - Standard height toilet, with toilet riser PRIOR LEVEL OF FUNCTION: Activities of Daily Living (ADLs)/IADLs: - Vet reports (maxA for Lower Body Dressing with ADLs Falls in the last 6 months: November had a fall and injured back and then had surgery on back IADLs: Cooking: Cleaning: Laundry: Driving: Medication management: and N feed and farm management adviser: Funtional mobility: Manual wheelchair COGNITION: - Orientation: Oriented to self, place and situation - Attention span: Attended to full session without difficulty - Commands: Able to follow 2 step commands - Communication: Able to make needs known - Safety Awareness: Appears intact, pt demonstrates insight to current limitations EMOTIONAL/BEHAVIORAL: Appropriate affect, Eye contact, Acknowledges others, Initiates/engages conversation, Calm/pleasant, Cooperative Education: Vet indicates readiness to learn, verbalizes understanding, agreement and satisfaction with the treatment plan. Denies further questions. PLAN: No other OT needs at this time. GOALS: 1.Vet will identify areas of concern in the home to assist with equipment selection in order to maximize safety and (I). MET OCCUPATIONAL THERAPY EVALUATION COMPLEXITY Identifying and reporting the complexity level of an evaluation focuses on the first three of these factors--profile and history, assessment and determination of deficits, and clinical decision making. These three factors must be scored and defensible documentation written to support the choice of a level. (Information taken from: https://www.aota.org) PROFILE AND HISTORY (including chart view) Brief history of medical and/or therapy records relating to the presenting problem (low complexity) ASSESSMENT & PERFORMANCE DEFICITS (select all that apply): Physical & Cognition 1-3 performance deficits (Low complexity) LEVEL OF CLINICAL DECISION MAKING Problem-focused assessment(s), consideration of a limited number of treatment options, presents with no comorbidities and modification of tasks or assistance is not necessary.(Low complexity) LOW COMPLEXITY Brief history of medical/or therapy records relating to the presenting problem. An assessment(s) that identifies 1-3 performance deficits that result in activity limitation and/or participating restrictions. Includes analysis of the occupational profile, analysis of date from problem- focused assessment(s), and consideration of a limited number of treatment options. Patient presents with no comorbidities that affect occupational performance. Modification of tasks or assistance with assessment(s) is not necessary to enable completion of evaluation component. /maame/ GENESIS BALL Occupational Therapist Signed: 09/11/2023 15:24 09/13/2023 ADDENDUM STATUS: UNSIGNED You may not VIEW this UNSIGNED Addendum. GENESIS BALL [facility] Sep 11, 2023 08:31 AM OCCUPATIONAL THERAPY CONSULT: LOCAL TITLE: OCCUPATIONAL THERAPY CONSULT STANDARD TITLE: OCCUPATIONAL THERAPY CONSULT DATE OF NOTE: SEP 11, 2023@08:31 ENTRY DATE: SEP 11, 2023@08:31:17 AUTHOR: GENESIS BALL EXP COSIGNER: URGENCY: STATUS: COMPLETED OCCUPATIONAL THERAPY CONSULT Has ADDENDA OCCUPATIONAL THERAPY EQUIPMENT CONSULT Ordering provider: TISHA HEARD Consult request: OCCUPATIONAL THERAPY OPT OT EQUIPMENT CONSULT Diagnosis: Other Reduced Mobility(ICD-10-CM Z74.09) Encounter: 15 min low complexity evaluation 15 min self care Subjective: Reporting needing a walker, 17 inch walker looking for soemthing wider, briefs and pads for on the bed and chair, compression socks but not the real tight ones, the medium ones VVC Documentation: Visit conducted by synchronous telehealth. Acosta verbal consent obtained. Location/emergency number confirmed. Environment surveyed and all participants identified. Virtual conference room locked. Occupational Therapy: VVC Documentation: Confirmed the following prior to start of visit: -Acosta identified by Full name and Full Social Security number. -Consent to care through telerehabilitation - states he/she is in a safe and private environment suitable for the Telehealth encounter. Visit conducted by telehealth into the home using: Phone Troubleshooting required during visit: Others present: Venus Location of patient during session: Assessment/recommendations: Vet seen via clinic today to discuss adaptive equipment to increase safety and independence for showering. Vet is progressing with mobility in rehab. Vet reports currently doing bed baths and would benefit from equipment to participate in bathing and shower transfer safely. Identified the following barriers: -Generalized weakness -Hx of falls Vet will benefit from adaptive equipment to increase safety and functional independence and was provided education on features and benefits of equipment. Vet will benefit from the following adaptive equipment that was ordered at this date: - Grab bars: Vendor to install to 18 inch vertical grab bar on left wall and 24 inch horizontal grab bar on back - Tub transfer bench - Handheld shower hose - 4 [employer] Reusable Furniture Bed Protector Pads Product #: [id number] CURRENT MEDICAL HISTORY: Hallux valgus AND bunion ([facility] 813309914)Hammer toe ([facility] 311906188) Essential hypertension (SCT 67110271) Gout ([facility] 11169052) Benign prostatic hyperplasia (SCT 426394Tietrsed legs ([facility] 82486125) Hemochromatosis ([facility] 879619836) Chronic low back pain (SCT 436785265) Osteoarthritis of knee (SCT 073463259) Obstructive sleep apnea ([facility] 82050039) History of male erectile disorder (SCT 4Dupuytren's contracture ([facility] 414227963) Bunion ([facility] 836963748) Chronic sinusitis ([facility] 15228321) Deviated nasal septum (SCT 372715162) Obesity ([facility] 416102748) Pseudophakia ([facility] 36474730) Benign monoclonal gammopathy ([facility] 60964413) Orchialgia ([facility] 37727071) History of inflammatory bowel disease ([facility] 037887641) Injury of tendon of the rotator cuff of Impaired fasting glycaemia ([facility] 249223858) Edema ([facility] 279631963) Hallux valgus AND bunion ([facility] 247435125) Inflammatory polyarthropathy (SCT 723036Tynaaeuxbemugvrho ([facility] 198586657) Episcleritis ([facility] 282873) Gastroesophageal reflux disease ([facility] 320025824) Sensorineural hearing loss, bilateral (SDry eyes ([facility] 002332305) History of polyp of colon ([facility] 239392434Bjdwocr of gout ([facility] 648570259) CONTEXT SOCIAL HISTORY/HOME ENVIRONMENT: Lives: Primary Support System: HHN- Wound care and vitals Lives in: Multi-story home Home accessibility comments: - Ramp steps to enter with wheelchair - Main level - Upper level 7-8 steps Bathroom: Tub shower -Portable commode - Standard height toilet, with toilet riser PRIOR LEVEL OF FUNCTION: Activities of Daily Living (ADLs)/IADLs: - Vet reports (maxA for Lower Body Dressing with ADLs Falls in the last 6 months: November had a fall and injured back and then had surgery on back IADLs: Cooking: Cleaning: Laundry: Driving: Medication management: and HHN feed and farm management adviser: Funtional mobility: Manual wheelchair COGNITION: - Orientation: Oriented to self, place and situation - Attention span: Attended to full session without difficulty - Commands: Able to follow 2 step commands - Communication: Able to make needs known - Safety Awareness: Appears intact, pt demonstrates insight to current limitations EMOTIONAL/BEHAVIORAL: Appropriate affect, Eye contact, Acknowledges others, Initiates/engages conversation, Calm/pleasant, Cooperative Education: Vet indicates readiness to learn, verbalizes understanding, agreement and satisfaction with the treatment plan. Denies further questions. PLAN: No other OT needs at this time. GOALS: 1.Vet will identify areas of concern in the home to assist with equipment selection in order to maximize safety and (I). MET OCCUPATIONAL THERAPY EVALUATION COMPLEXITY Identifying and reporting the complexity level of an evaluation focuses on the first three of these factors--profile and history, assessment and determination of deficits, and clinical decision making. These three factors must be scored and defensible documentation written to support the choice of a level. (Information taken from: https://www.aota.org) PROFILE AND HISTORY (including chart view) Brief history of medical and/or therapy records relating to the presenting problem (low complexity) ASSESSMENT & PERFORMANCE DEFICITS (select all that apply): Physical & Cognition 1-3 performance deficits (Low complexity) LEVEL OF CLINICAL DECISION MAKING Problem-focused assessment(s), consideration of a limited number of treatment options, presents with no comorbidities and modification of tasks or assistance is not necessary.(Low complexity) LOW COMPLEXITY Brief history of medical/or therapy records relating to the presenting problem. An assessment(s) that identifies 1-3 performance deficits that result in activity limitation and/or participating restrictions. Includes analysis of the occupational profile, analysis of date from problem- focused assessment(s), and consideration of a limited number of treatment options. Patient presents with no comorbidities that affect occupational performance. Modification of tasks or assistance with assessment(s) is not necessary to enable completion of evaluation component. /rocco BALL Occupational Therapist Signed: 09/11/2023 15:24 09/11/2023 ADDENDUM STATUS: COMPLETED Alerting [employer] Occupational Therapist to help facilitate needs that came up in OT VVC appointment. Vet reports needing compression socks for LE edema management, briefs for incontinence and then a referall for physical therapy VVC appointment for a walker. /rocco BALL Occupational Therapist Signed: 09/11/2023 15:30 Receipt Acknowledged By: 09/13/2023 15:28 /maame/ KEELEY AZUL 09/13/2023 ADDENDUM STATUS: COMPLETED Patient contacted in regards to requests. Patient given phone number for assistance getting walker. Orders placed for depends and chuxs. Patient is planning to having home health nurse measure for compression stockings and check pedal pulses as he is unable to come in due to recent back surgery. /rocco AZUL Signed: 09/13/2023 15:37 GENESIS BALL [facility]
--- OUTSIDE RECORDS SUMMARY | 2024-01-15 11:07 | XMS_ITS | Encounter Summary ---
Author Name Department of Vetera Affairs Organization Department of Vetera ns Affairs Address [address] [place] [address] Support Name Relationship Address Phone DEMETRA GREEN [...] MEDICARE ADVANTAGE MCR (WNR) Oct 07, 2015 [id number] [phone] VAISHNAVI GREEN ERT PATIENT Selected Encounter This section includes the information on record at [place] for the Encounter. Date/Time Encounter Type Encounter Description Reason Pro vider Source Oct 09, 2023 09:53 AM Outpatient Encounter EVENT (HISTORICAL) DARIUS VERMA Encounter Template Text not used by [place] Plan of Treatment: Future Appointments (+ 6 [...] of theEncounter. The data comes from all [place] treatment facilities. Test Date/Time Test Type Test Details Facility Name Nov 12, 2023 12:00 AM Laboratory - Chemi stry Order ALT/SGPT PLASMA SP ONCE LUIGI MARQUEZ Nov 12, 2023 12:00 AM Laboratory - Chemi stry Order AST/SGOT PLASMA SP LUIGI MARQUEZ Nov 12, 2023 12:00 AM Laboratory - Chemi stry Order CBC & DIFF BLOOD SP [facility] Nov 12, 2023 12:00 AM Laboratory - Chemi stry Order CREATININE(INCLUDES EGFR) PLASMA SP [facility] Nov 12, 2023 12:00 AM Laboratory - Chemi stry Order SED RATE BLOOD SP [facility] Social History: Smoking Status (Most current) and Tobacco Use (All prior to encounter date) This section includes the most current, and the historical, smoking and tobacco- related health factors from the [place] facility where the Encounter took place. Current Smoking Status This section includes the most current smoking, or tobacco-related health factor, from the [place] facility where the Encounter took place. Date/Time Current Smoking Status Comment Facil ity Jul 23, 2017 07:44 AM FORMER TOBACCO USER 7Y OR GREATE R [facility] Tobacco Use History This section includes a history of the smoking, or tobacco-related health factors, that were collected on or before the date of the Encounter. The data comes from the [place] facility where the Encounter took place. Date/Time Smoking Status/Tobacco Use Comment F acility Jul 24, 2016 08:09 AM FORMER TOBACCO USER 7Y OR GREATE R [facility] Jul 27, 2015 07:54 AM FORMER TOBACCO USER 7Y OR GREATE R [facility] Jun 18, 2014 09:49 AM FORMER TOBACCO USER 7Y OR GREATE R [facility] Nov 22, 2010 09:21 AM FORMER TOBACCO USER 7Y OR GREATE R [facility] Jun 30, 2009 08:27 AM FORMER TOBACCO USER 7Y OR GREATE R [facility] Advance Directives: All historical and current Section Date Range: From patient's date of to the date document was created. This section includes ALL of a patient's completed or amended [place] Advance and Rescinded Directives. The entries below indicate that a directive exists for the patient, but an actual copy is not included with this document. The data comes from all [place] facilities. Date Advance Directives Provider Source Jul 22, 2018 ADVANCE DIRECTIVE DEONTE DIAZ [facility] Jul 22, 2018 ADVANCE DIRECTIVE DISCUSSION RYANNE DIAZY Tim [facility] Encounter Notes: All associated encounter notes This section contains the clinical notes associated to the Encounter. Date/Time Encounter Note(s) Provider Source Oct 09, 2023 09:53 AM PRIMARY CARE SECUR E MESSAGING: LOCAL TITLE: PRIMARY CARE SECURE MESSAGING STANDARD TITLE: PRIMARY CARE SECURE MESSAGING DATE OF NOTE: OCT 09, 2023@09:53 ENTRY DATE: OCT 09, 2023@08:53:40 AUTHOR: DARIUS VERMA EXP COSIGNER: URGENCY: STATUS: COMPLETED ------Original Message Sent: 10/08/2023 04:16 PM ET From: VIC GREEN To: NACHO/Kush Hodges [facility] ([place] Subject: Medication:Perrigo #[id number] is comparable to Irma lax for help with going poop because of the pain medication that I'm on. Constipation is hard and the pills are hard to regulate 1-3 pills and I get to much diarrhea for a couple days but the powder is easier on my stomach and just mix with water. ------Original Message Sent: 10/09/2023 09:53 AM ET From: DARIUS VERMA To: VIC GREEN Subject: Medication:Perrigo Good morning, I will send a renewal request and forward your message to the provider. Thank you, Darius Jovel /maame/ DARIUS Zuñiga HER Facility Maintenance Manager Signed: 10/09/2023 08:53 Receipt Acknowledged By: 10/10/2023 16:48 /maame/ TISHA HEARD M.D. Physician, Kush Hodges [facility] DARIUS VERMA [facility]
--- OUTSIDE RECORDS SUMMARY | 2024-01-15 11:07 | XMS_ITS | Encounter Summary ---
Author Name Department of Vetera Affairs Organization Department of Vetera [facility] Address [address] [place] [id number] Support Name Relationship Address Phone BARBARA GREENE [...] Name Patient's Relationship to Policy [place] ([place] MEDICARE ADVANTAGE MCR (WNR) Oct 07, 2015 [id number] [phone] VAISHNVAI GREEN ERT PATIENT Selected Encounter This section includes the information on record at [facility] for the Encounter. Date/Time Encounter Type Encounter Description Reason Provider Source Nov 26, 2023 01:35 PM Outpatient Encounter SLEEP MEDICINE JASON CROFT E Encounter Template Text not used by [facility] Plan of Treatment: Future Appointments (+ 6 months) and Future Tests (+/- 45 days) The Plan of Treatment section includes future care activities for the patient from all [place] treatmentfacilities. This section includes future appointments and future orders which are active, pending or scheduled. Future Appointments This section includes appointments that were scheduled to occur 6 months from the date of the Encounter, up to a maximum of 20 appointments. The data comes from all [place] treatment facilities. Appointment Date/Time Appointment Type Appointme nt Facility Name Nov 27, 2023 06:20 PM AMBULATORY - REHAB MEDICIN [facility] Dec 02, 2023 11:30 AM AMBULATORY - NONE [facility] Dec 30, 2023 12:30 PM AMBULATORY - MEDICINE [facility] Jan 13, 2024 11:30 AM AMBULATORY - MEDICINE [facility] Apr 23, 2024 11:30 AM AMBULATORY - MEDICINE [facility] Lab Results: +/- 30 days of the encounter This section includes the Chemistry and Hematology Lab Results on record with [facility] for the patient. Radiology Reports and Pathology Reports are provided separately, in subsequent sections. Lab Results This section contains the Chemistry/Hematology Results that were resulted 30 days before or 30 daysafter the date of the Encounter. Date/Time Source Result Type Result - Unit Interpretation Reference Range Comment Dec 02, 2023 11:20 AM [facility] ALT/SGPT Specimen Type: PLASMA No comment entered. Ordering Provider: DELMER BLISS MD Report Released Date/Time: Jul 15, 2023 06:28 PM Reporting Lab: [facility] [id number] Performing Lab: [facility] [id number] ALT/SGPT 23 <55 Dec 02, 2023 11:20 AM [facility] AST/SGOT Specimen Type: PLASMA No comment entered. Ordering Provider: DELMER BLISS MD Report Released Date/Time: Jul 15, 2023 06:28 PM Reporting Lab: [facility] [id number] Performing Lab: [facility] [id number] AST/SGOT 20 <34 Dec 02, 2023 11:20 AM [facility] CREATININE(INCLUDES EGFR) Specimen Type: PLASMA No comment entered. Ordering Provider: DELMER BLISS MD Report Released Date/Time: Jul 15, 2023 06:28 PM Reporting Lab: [facility] [id number] Performing Lab: [facility] [address] CREATININE 0.8 0.7-1.2 .CREAT EGFR(CKD-EPI) >90 >60 Dec 02, 2023 11:20 AM [facility] SED RATE Specimen Type: BLOOD No comment entered. Ordering Provider: DELMER BLISS MD Report Released Date/Time: Jul 15, 2023 06:28 PM Reporting Lab: [facility] [id number] Performing Lab: [facility] [id number] SED RATE 97 H 5-15 Dec 02, 2023 11:20 AM [facility] CBC & DIFF Specimen Type: BLOOD Comment: Manual Differential Performed Ordering Provider: DELMER BLISS MD Report Released Date/Time: Jul 15, 2023 06:28 PM Reporting Lab: [facility] [id number] Performing Lab: [facility] [phone] WBC 19.25 H 4.0-11.0 RBC 3.40 L 4.6-6.2 HGB 8.5 L 13.5-17.9 HCT 28.3 L 41-54 MCV 83.2 80-100 MCH 25.0 L 27-33 MCHC 30.0 L 32.0-37.5 PLT 481 H 150-400 MPV 9.1 7.4-10.4 NEUT 85.5 LYMPHS 10.5 MONO 3.0 EOSINO 0.5 BASO 0.5 ANISOCYTOSIS MODERATE MICROCYTOSIS SLIGHT MACROCYTOSIS SLIGHT POLYCHROMASIA SLIGHT HYPOCHROMASIA MODERATE RDW 18.2 H 11.5-14.5 ABS LYMPH 2.02 1.0-4.0 ABS MONO 0.58 0.1-1.0 ABS NEUT 16.46 H 2.0-7.7 ABS EOS 0.10 0-0.5 ABS BASO 0.10 0-0.2 .RBC MORPHOLOGY PRESENT Social History: Smoking Status (Most current) and Tobacco Use (All prior to encounter date) This section includes the most current, and the historical, smoking and tobacco- related health factors from the [facility] where the Encounter took place. Current Smoking Status This section includes the most current smoking, or tobacco-related health factor, from the [place] facility where the Encounter took place. Date/Time Current Smoking Status Comment Facil ity Jul 23, 2017 07:44 AM FORMER TOBACCO USER 7Y OR [facility] Tobacco Use History This section includes a history of the smoking, or tobacco-related health factors, that were collected on or before the date of the Encounter. The data comes from the [place] facility where the Encounter took place. Date/Time Smoking Status/Tobacco Use Comment F acility Jul 24, 2016 08:09 AM FORMER TOBACCO USER 7Y OR [facility] Jul 27, 2015 07:54 AM FORMER TOBACCO USER 7Y OR [facility] Jun 18, 2014 09:49 AM [facility] Nov 22, 2010 09:21 AM FORMER TOBACCO USER 7Y OR [facility] Jun 30, 2009 08:27 AM FORMER TOBACCO USER 7Y OR [facility] R [facility] Advance Directives: All historical and current Section Date Range: From patient's date of to the date document was created. This section includes ALL of a patient's completed or amended [place] Advance and Rescinded Directives. The entries below indicate that a directive exists for the patient, but an actual copy is not included with this document. The data comes from all [place] facilities. Date Advance Directives Provider Source Jul 22, 2018 ADVANCE DIRECTIVE DEONTE DIAZ [facility] Jul 22, 2018 ADVANCE DIRECTIVE DISCUSSION DEONTE DIAZ [facility] Encounter Notes: All associated encounter notes This section contains the clinical notes associated to the Encounter. Date/Time Encounter Note(s) Provider Source Nov 26, 2023 01:35 PM PULMONARY SECURE M ESSAGING: LOCAL TITLE: PULMONARY SECURE MESSAGING STANDARD TITLE: PULMONARY SECURE MESSAGING DATE OF NOTE: NOV 26, 2023@13:35 ENTRY DATE: NOV 26, 2023@12:35:22 AUTHOR: JASON CROFT EXP COSIGNER: URGENCY: STATUS: COMPLETED ------Original Message --- Sent: 11/23/2023 11:50 AM ET From: VIC GREEN To: [facility]--[facility] @ Subject: General:Phone video appointment with Dr Mendoza Last time when I talked to Dr Mendoza he said that I would have another video appointment. So I'm wondering if I will be hearing from him or not. Since I received my supplies from the [place] everything has been going well. Hope to hear back from sleep clinic. I've been out of the hospital since thanksgi and been having home therapy to help me walk and get my strength back. Thank You ------Original Message --- Sent: 11/26/2023 01:35 PM ET From: JASON CROFT To: VIC GREEN Subject: General:Phone video appointment with Dr Mendoza There is an order in for a [facility] home Sleep for Kayla to be scheduled around 01/05 however I regret to inform you that Dr. Garza is no longer at the [place]. When it is time to be scheduled, an [facility] will contact you and schedule you with another provider. Let me know if you have any other questions, thanks Jason Croft [employer] Registered Respiratory Therapist /maame/ JASON CROFT registered respiratory therapist Signed: 11/26/2023 12:35 JASON CROFT [facility]
--- OUTSIDE RECORDS SUMMARY | 2024-01-15 11:07 | XMS_ITS | Encounter Summary ---
Author Name [facility] Organization Department of [employer] Address [address] [place] [address] Support Name Relationship Address Phone IKE GREENYCE Next of Kin [address] [phone] DEMETRA GREEN Emergency Contact [address] [place] [address] Insurance Providers: All historical and current [...] Name Patient's Relationship to Policy Lawson BCBS [facility] (WNR) MEDICARE ADVANTAGE [facility] (WNR) Oct 07, 2015 [id number] [phone] VAISHNAVI GREEN ERT PATIENT Selected Encounter This section includes the information on record at [place] for the Encounter. Date/Time Encounter Type Encounter Description Reason Provider Source May 27, 2023 09:30 AM OFFICE O/P EST MOD 30-39 MIN RHEUMATOLOGY/ART HRITIS ICD-10-CM M06.4 Inflammatory polyarthropathy JACOB BLISS MD [facility] Encounter Template Text not used by [place] Assessments - Encounter Diagnoses This section includes the primary and secondary diagnoses documented for the Encounter. Date/Time Primary/Secondary Diagnosis Diagnosis Name Provider Source May 27, 2023 12:33 PM PRIMARY Inflammatory polyarthropathy JACOB BLISS MD [facility] May 27, 2023 12:33 PM SECONDARY Gout, unspecified JACOB BLISS MD [facility] May 27, 2023 12:33 PM SECONDARY skilled nursing (current) use of systemic steroids JACOB BLISS MD [facility] May 27, 2023 12:33 PM SECONDARY Other chondrocalcinosis, unspecified site JACOB BLISS MD [facility] May 27, 2023 12:33 PM SECONDARY Other buttermaker (current) drug therapy JACOB BLISS MD [facility] Plan of Treatment: Future Appointments (+ 6 months) and Future Tests (+/- 45 days) The Plan of Treatment section includes future care activities for the patient [facility] This section includes future appointments and future orders which are active, pending or scheduled. Future Appointments This section includes appointments that were scheduled to occur 6 months from the date of the Encounter, up to a maximum of 20 appointments. The data comes from all [place] treatment facilities. Appointment Date/Time Appointment Type Appointme nt Facility Name Jul 09, 2023 09:00 AM AMBULATORY - MEDICINE [facility] Jul 10, 2023 12:00 PM [facility] Sep 11, 2023 02:00 PM AMBULATORY - [facility] Nov 26, 2023 10:00 AM AMBULATORY - [facility] Nov 27, 2023 06:20 PM AMBULATORY - REHAB [facility] Lab Results: +/- 30 days of the encounter This section includes the Chemistry and Hematology Lab Results on record with [place] for the patient. Radiology Reports and Pathology Reports are provided separately, in subsequent sections. Lab Results This section contains the Chemistry/Hematology Results that were resulted 30 days before or 30 daysafter the date of the Encounter. Date/Time Source Result Type Result - Unit Interpretation Reference Range Comment May 21, 2023 11:01 AM [facility] QUANTIFERON-TB Specimen Type: BLOOD No comment entered. Ordering Provider: LUIS ALBERTO BLISS MD Report Released Date/Time: Mar 18, 2023 12:38 PM Reporting Lab: [facility] [id number] Performing Lab: [facility] [id number] .NIL 0.070 .MITOGEN-NIL >10 .QUANTIFERON- TB NEGATIVE .TB AG1-NIL -0.030 .TB AG2-NIL -0.020 May 21, 2023 11:01 AM [facility] ALT/SGPT Specimen Type: PLASMA No comment entered. Ordering Provider: LUIS ALBERTO BLISS MD Report Released Date/Time: Mar 18, 2023 12:38 PM Reporting Lab: [facility] [id number] Performing Lab: [place] [id number] ALT/SGPT 39 <55 May 21, 2023 11:01 AM [facility] AST/SGOT Specimen Type: PLASMA No comment entered. Ordering Provider: LUIS ALBERTO BLISS MD Report Released Date/Time: Mar 18, 2023 12:38 PM Reporting Lab: [facility] [id number] Performing Lab: [facility] [id number] AST/SGOT 37 H <34 May 21, 2023 11:01 AM [facility] CREATININE(INCLUDES EGFR) Specimen Type: PLASMA No comment entered. Ordering Provider: LUIS ALBERTO BLISS MD Report Released Date/Time: Mar 18, 2023 12:38 PM Reporting Lab: [facility] [id number] Performing Lab: [facility] [id number] CREATININE 0.9 0.7-1.2 .CREAT EGFR(CKD-EPI) 89 >60 May 21, 2023 11:01 AM [facility] SED RATE Specimen Type: BLOOD No comment entered. Ordering Provider: LUIS ALBERTO BLISS MD Report Released Date/Time: Mar 18, 2023 12:38 PM Reporting Lab: [facility] [id number] Performing Lab: [facility] [id number] SED RATE 36 H 5-15 May 21, 2023 11:01 AM [facility] CBC & DIFF Specimen Type: BLOOD Comment: Automated Differential Performed Ordering Provider: LUIS ALBERTO BLISS MD Report Released Date/Time: Mar 18, 2023 12:38 PM Reporting Lab: [facility] [id number] Performing Lab: [facility] [id number] WBC 10.71 4.0-11.0 RBC 3.64 L 4.6-6.2 HGB 11.7 L 13.5-17.9 HCT 35.1 L 41-54 MCV 96.4 80-100 MCH 32.1 27-33 MCHC 33.3 32.0-37.5 PLT 202 150-400 MPV 10.1 7.4-10.4 NEUT 79.5 40.0-80.0 LYMPHS 9.6 L 15.0-45.0 MONO 6.6 2.0-12.0 EOSINO 2.1 0.0-6.0 BASO 0.6 0.0-2.0 RDW 13.6 11.5-14.5 ABS LYMPH 1.03 1.0-4.0 ABS MONO 0.71 0.1-1.0 ABS NEUT 8.52 H 2.0-7.7 ABS EOS 0.22 0-0.5 ABS BASO 0.06 0-0.2 IG(META,MYELO ,PRO) 1.6 ABS IMMATURE GRAN 0.17 H 0-0.1 Vital Signs: All taken on the encounter date This section contains inpatient and outpatient Vital Signs collected on the date of the Encounter. Date/Time Temperature Pulse Blood Pressure Respiratory Rate SP02 Pain Height Weight Body Mass Index Source May 27, 2023 09:25 AM 97 F 90 /min 135/81 mm[Hg] 16 /min 96 % 224.1 lb 37 [place] [facility] Social History: Smoking Status (Most current) [...] took place. Date/Time Current Smoking Status Comment Lex itdorothea Jul 23, 2017 07:44 AM FORMER TOBACCO USER 7Y OR [facility] Tobacco Use History This section includes a history of the smoking, or tobacco-related health factors, that were collected on or before the date of the Encounter. The data comes from the [place] facility where the Encounter took place. Date/Time Smoking Status/Tobacco Use Comment F ackeshav Jul 24, 2016 08:09 AM [facility] Jul 27, 2015 07:54 AM FORMER TOBACCO USER 7Y OR [facility] Jun 18, 2014 09:49 AM FORMER TOBACCO USER 7Y OR [facility] Nov 22, 2010 09:21 AM FORMER TOBACCO USER 7Y OR [facility] Jun 30, 2009 08:27 AM FORMER TOBACCO USER 7Y OR [place] [facility] Advance Directives: All historical and current [...] Jul 22, 2018 ADVANCE DIRECTIVE DEONTE DIAZ [facility] Jul 22, 2018 ADVANCE DIRECTIVE DISCUSSION DEONTE DIAZ [facility] Encounter Notes: All associated encounter notes This section contains the clinical notes associated to the Encounter. Date/Time Encounter Note(s) Provider Source May 27, 2023 12:21 PM RHEUMATOLOGY ATTENDING NOTE: LOCAL TITLE: RHEUMATOLOGY CLINIC NOTE STANDARD TITLE: RHEUMATOLOGY ATTENDING NOTE DATE OF NOTE: MAY 27, 2023@12:21 ENTRY DATE: MAY 27, 2023@12:21:30 AUTHOR: JOCELYNN BLISS EXP COSIGNER: URGENCY: STATUS: COMPLETED CC: CC: F/U Arthralgia, Hemochromatosis, Chondrocalcinosis/CPPD, OA, seronegative inflammatory arthritis History of present illness: Pt well known to me from my [facility] practice, now following at [facility]. Multifactorial arthralgia concerns. History of multiple orthopedic surgeries including CTS , reverse total shoulder. History of Hemochromatosis and MGUS, with monitoring through his radiation control specialist ( Dr Cara Brown) for this. History [...] that point. Continued to feel sulfasalazine, Plaquenil have provided benefit. Previously concerns with itching and occasional intermittent red scaly rash. We were wondering if could be related to topical diclofenac, so this was held. Hands were aching more with holding diclofenac. Unfortunately it seemed to irritate his chronic dermatitis, [facility]. Was noting increasing pain in right wrist, prednisone previously increased to 10 mg daily without benefit for this, decreased back to 5 mg daily. Recheck RF/ CCP remain neg.Status post R wrist injection through Ortho (Dr Lula Yap at [facility]) with benefit 12/15/21,. He has also seen Ortho for knee bursitis, did physical Therapy for. History of lumbar spine surgery, with intermittent increased mechanical low back pain concerns, primary care increased prednisone for back pain flare with benefit at that time. 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 History of anterior scleritis/episcleritis, follows with [facility], has been treated with topicals intermittently with flares improved. Also has ocular sicca symptoms. Had been [...] wrist fusion which he hopes to avoid. Has not had any recent flares of inflammatory eye disease. Previously had some increased arthralgia symptoms wrist, hands, trial of increased prednisone to 10 mg daily, with some improvement. Interim history: Known significant lumbar spine disease, see recent secure messaging. Planning to have spine surgery at the [facility] in July. We backed his prednisone down to 5 mg seems to be doing okay since the dose change without definite flares other than his known wrist cyst is more swollen and painful. He has reached out to his orthopedist already. Sounds like an excision may be the next step. He will let me know on with the plans for this are. ROS: - Constitutional:No new concerns - HEENT:No new concerns - CVS: Denies cardiac concerns. - RESP: No change in resp status - GI: No change in bowel habits - SKIN : no new rashes Past Medical History: Hallux valgus AND bunion ([facility] [id number])Hammer toe ([facility] 144202453) Essential hypertension ([facility] 34268815) Gout ([facility] 87337933) Benign prostatic hyperplasia ([facility] [id number] legs ([facility] 68679016) Hemochromatosis ([facility] 046558167) Chronic low back pain ([facility] 941304113) Osteoarthritis of knee ([facility] 450748962) Obstructive sleep apnea ([facility] 99770332) History of male erectile disorder ([facility] 4Dupuytren's contracture ([facility] 954769969) Bunion ([facility] 937313903) Chronic sinusitis ([facility] 23501197) Deviated nasal septum ([facility] 969854651) Obesity ([facility] 786089681) Pseudophakia ([facility] 71684989) Benign monoclonal gammopathy ([facility] 11502592) Orchialgia ([facility] 74341740) History of inflammatory bowel disease ([facility] 080326892) Injury of tendon of the rotator cuff of Impaired fasting glycaemia ([facility] 381689080) Edema ([facility] 268964862) Hallux valgus AND bunion ([facility] 378499437) Inflammatory polyarthropathy ([facility] 956005Iiyygiqikcnjoakea (SCT 738797807) Episcleritis ([facility] 078077) Gastroesophageal reflux disease ([facility] 590199324) Sensorineural hearing loss, bilateral (SDry eyes ([facility] 234837532) History of polyp of colon ([facility] 663128221 Social Hx: Marital status: Allergies: SEASONAL ALLERGIES (Jun 16, 2009) LEVOFLOXACIN [...] TAB TAKE 1 TABLET BY MOUTH ACTIVE (S) EVERY MORNING 10) LEFLUNOMIDE 20MG TAB TAKE [...] TO 2 TABLETS DAILY DIRECTED TAPER 15) PREGABALIN 25MG ORAL CAP TAKE 2 CAPSULES BY MOUTH AT ACTIVE BEDTIME FOR 1 WEEK, THEN TAKE 3 CAPSULES AT BEDTIME NEEDED FOR 1 WEEK, THEN TAKE 4 CAPSULES AT BEDTIME NEEDED FOR RESTLESS LEGS SYNDROME 16) SODIUM CHLORIDE 0.65% SOLN NASAL SPRAY SPRAY 2 SPRAYS ACTIVE IN EACH NOSTRIL TWICE A DAY FOR NASAL DRYNESS 17) SULFASALAZINE 500MG TAB TAKE ONE TABLET BY MOUTH HOLD TWICE A DAY 18) TAMSULOSIN HCL 0.4MG CAP TAKE ONE CAPSULE BY MOUTH ACTIVE EVERY DAY 19) VANICREAM TOP CREAM APPLY THIN LAYER TOPICALLY [...] 5MG MOUTH TWICE A DAY ACTIVE NEEDED 25 Total Medications Physical Examination: Vital signs: As per Nurse note GENERAL: NAD. HENORMA: JAVI PIERRE, non icteric SKIN focused exam remarkable findings are: no rash noted. Good skin turgor and normal tenting.No digital pitting MSK , focused exam remarkable findings are: Right wrist cyst with mild global swelling, firm slightly mobile cystic lesion approximately 2 cm dorsum of the right wrist. Larger than last check. Hand and wrist joints otherwise look good today no synovitis. LABORATORY DATA: WBC 10.71 (05/21/23) HGB 11.7 L (05/21/23) PLT 202 (05/21/23) CREATININE 0.9 (05/21/23) COMPUTED CREATININE CLEARANCE____ URINE PROTEIN____ SGOT 37 H (05/21/23) SGPT 39 (05/21/23) ALK PHOSPHATASE____ BILIRUBIN, TOTAL____ WESTERGREN 36 H (05/21/23) C-REACTIVE PROTEIN____ RHEUMATOID FACTOR____ CCP URIC ACID____ URIC ACID CRYSTALS____ ANTINUCLEAR ABY____ SLT - SHANIQUA No data available for: .SHANIQUA SCREEN ANTI-CLAUDIO ANTI-DEPARTMENT OF SOCIOLOGY CHAIR ANTI-SSA/RO ANTI-SSB/LA ANTI-SCL-70 ANTI-IKE-1 ANCA No data available Aldolase ANTI-HBs____ HBsAg____ ANTI-HEPATITIS C NEGATIVE SERUM (09/11/21 08:08) NEGATIVE SERUM (06/27/18 10:19) Imaging: Assessment/Plan: Osteoarthritis, suspected changes associated with hemachromatosis/ chondrocalcinosis. [employer] to have component of polyarticular CPPD, seronegative [...] potential surgery versus escalating his immunosuppressive regimen. Now that we have a surgery date we discussed options. He has been on multiple medications still with intermittent flaring, at our prior visit we had discussed adding in Humira in hopes to have more consistent disease control as well as hopefully simplify his medication regimen in the future, decreased need for steroid. Our plan was to do the Humira teaching today but hold off on start until surgical recovery. Fortunately his joint disease actually looks quite good today. Follow-up with orthopedist as planned. See secure messaging for magali-op medication plan continue his prednisone at 5 mg daily/minimizing as best we can along with Plaquenil. Sulfasalazine and leflunomide can be held 2 weeks prior to surgery and resume 1 week following as long as healing as expected. We will plan a phone follow-up for end of July. High-risk medication monitoring/drug therapy requiring intensive monitoring for toxicity; monitoring labs have been acceptable. Ophthalmology following for Plaquenil, dosing remains at below 5mg/kg guideline. *Notes that patient was sent for Humira injection teaching today after our visit, unfortunately he waited over an hour and teaching not completed sounds like staffing issues today. Message sent to that we will come up with an alternative plan once we actually get the Humira started, I believe his is comfortable using Biologics as she has been on them herself. /maame/ JOCELYNN BLISS MD Rheumatology, Staff Physician Signed: 05/27/2023 12:33 JOCELYNN BLISS MD [facility] May 27, 2023 09:26 AM INTERNAL MEDICINE OUTPATIENT NOTE: LOCAL TITLE: MEDICINE CLINIC NURSING NOTE STANDARD TITLE: INTERNAL MEDICINE OUTPATIENT NOTE DATE OF NOTE: MAY 27, 2023@09:26 ENTRY DATE: MAY 27, 2023@09:26:15 AUTHOR: YOSELIN MONTANEZ COSIGNER: URGENCY: STATUS: COMPLETED MEDICINE CLINIC NURSING NOTE Has ADDENDA TYPE OF VISIT: Appointment Check In Type of appointment: In-person appointment REASON FOR VISIT: Scheduled Visit ALLERGIES: SEASONAL ALLERGIES (Jun 16, 2009) LEVOFLOXACIN (Oct 20, 2010) DICLOFENAC (Jul 13, 2022) VITAL SIGNS: Blood Pressure: 135/81 (05/27/2023 09:25) Pulse: 90 (05/27/2023 09:25) Respiration: 16 (05/27/2023 09:25) Temperature: 97 F [36.1 C] (05/27/2023 09:25) Weight: 224.1 lb [101.65 kg] (05/27/2023 09:25) Height: 65 in [165.1 cm] (07/13/2022 10:21) BMI: 37.4 O2 Sat: 96% (05/27/2023 09:25) Pain: 7 (03/12/2023 10:17) PAIN SCREEN: Patient is not having significant pain that they wish to discuss with their provider today. MEDICATION Active Outpatient Medications (including Supplies): ALLOPURINOL 300MG TAB TAKE ONE TABLET BY MOUTH EVERY ACTIVE MORNING ATENOLOL 50/CHLORTHALIDONE 25MG TAB TAKE 1 TABLET BY MOUTH ACTIVE EVERY DAY CYCLOSPORINE 0.05% (PF) OPH EMUL 0.4ML 1 DROP BOTH EYES ACTIVE TWICE A DAY DICLOFENAC NA 1% TOP GEL APPLY 4 GRAMS TOPICALLY FOUR ACTIVE TIMES A DAY NEEDED TO AFFECTED AREA FOR PAIN DOCUSATE NA 100MG CAP TAKE ONE CAPSULE [...] TAKE 1 TABLET BY MOUTH EVERY ACTIVE (S) MORNING LEFLUNOMIDE 20MG TAB TAKE ONE TABLET [...] 1 TO 2 TABLETS DAILY DIRECTED TAPER PREGABALIN 25MG ORAL CAP TAKE 2 CAPSULES BY MOUTH AT ACTIVE BEDTIME FOR 1 WEEK, THEN TAKE 3 CAPSULES AT BEDTIME NEEDED FOR 1 WEEK, THEN TAKE 4 CAPSULES AT BEDTIME NEEDED FOR RESTLESS LEGS SYNDROME SODIUM CHLORIDE 0.65% SOLN NASAL SPRAY SPRAY [...] 5MG MOUTH TWICE A DAY NEEDED ACTIVE Over the Counter/Herbal Medications: The patient states that they take some outside medications and/or herbals. Toxic Exposure Screening: The /caregiver was asked if they believe the [place] experienced any toxic exposure(s), such as Airborne Hazards and Open Burn Pit, [place] War related exposures, Agent [place], Radiation, contaminated water at [place] or other such exposures, while serving in the Armed Forces. [place] has no concerns about toxic exposure(s) while serving in the Armed Forces. The [place]/caregiver was informed that we will continue to ask this screening question every 5 years. They can contact their provider/healthcare team if they have concerns about exposures and would like to be screened sooner. Printed information was offered and provided if desired. /maame/ YOSELIN MONTANEZ LPN LPN Signed: 05/27/2023 09:27 05/27/2023 ADDENDUM STATUS: COMPLETED EDUCATION: pt left prior to teaching so he was called and teaching was discussed over the phone PARTICIPANT(s): Patient Humira (adalimumab) Instructions TEACHING STRATEGY 1:1 Written/Printed Materials mailed to home PATIENT/FAMILY RESPONSE (OUTCOME) Unable to assess due to done over the phone FOLLOW-UP RECOMMENDED None needed /maame/ AIDE GILBERT LPN LPN Signed: 05/27/2023 16:37 YOSELIN MONTANEZ [facility]
--- OUTSIDE RECORDS SUMMARY | 2024-01-15 11:07 | XMS_ITS | Encounter Summary ---
Author Name [employer] of Vetera Affairs Organization Department of Vetera Affairs Address [address] [place] [address] Support Name Relationship Address Phone IKE GREENYCE [...] Name Patient's Relationship to Policy [place] MCR ([place]) MEDICARE ADVANTAGE MCR (WNR) Oct 07, 2015 [id number] [phone] VAISHNAVI GREEN ERT PATIENT Selected Encounter This section includes the information on record at [place] for the Encounter. Date/Time Encounter Type Encounter Description Reason Provider Source May 01, 2023 11:00 AM PT EDUCATION NOC [facility] SLEEP MEDICINE ICD-10-CM G47.33 Obstructive sleep apnea (adult) (pediatric) JASON PERALTA E Encounter Template Text not used by [place] Assessments - Encounter Diagnoses This section includes the primary and secondary diagnoses documented for the Encounter. Date/Time Primary/Secondary Diagnosis Diagnosis Name Provider Source May 01, 2023 11:24 AM PRIMARY Obstructive sleep apnea (adult) (pediatric) JASON PERALTA [facility] Plan of Treatment: Future Appointments (+ 6 months) and Future Tests (+/- 45 days) The Plan of Treatment section includes future care activities for the patient from all [place] treatmentfacilities. This section includes future appointments and future orders which are active, pending or scheduled. Future Appointments This section includes appointments that were scheduled to occur 6 months from the date of the Encounter, up to a maximum of 20 appointments. The data comes from all [place] treatment facilities. Appointment Date/Time Appointment Type Appointme nt Facility Name May 21, 2023 11:00 AM AMBULATORY - NONE [facility] May 27, 2023 09:30 AM AMBULATORY - MEDICINE [facility] Jul 09, 2023 09:00 AM [facility]ORY - [facility]ICINE [facility] Jul 10, 2023 12:00 PM AMBULATORY - MEDICINE [facility] Sep 11, 2023 02:00 PM AMBULATORY - REHAB MEDICIN E [facility] Lab Results: +/- 30 days of the [...] Range Comment May 21, 2023 11:01 AM [facility] QUANTIFERON-TB Specimen Type: BLOOD No comment entered. Ordering Provider: LUIS ALBERTO BLISS MD Report Released Date/Time: Mar 18, 2023 12:38 PM Reporting Lab: [facility] [address] Performing Lab: [facility] [address] .NIL 0.070 .MITOGEN-NIL >10 .QUANTIFERON- TB NEGATIVE .TB AG1-NIL -0.030 .TB AG2-NIL -0.020 May 21, 2023 11:01 AM [facility] ALT/SGPT Specimen Type: PLASMA No comment entered. Ordering Provider: LUIS ALBERTO BLISS MD Report Released Date/Time: Mar 18, 2023 12:38 PM Reporting Lab: [facility] [address] Performing Lab: [facility] [id number] ALT/SGPT 39 <55 May 21, 2023 11:01 AM [facility] AST/SGOT Specimen Type: PLASMA No comment entered. Ordering Provider: LUIS ALBERTO BLISS MD Report Released Date/Time: Mar 18, 2023 12:38 PM Reporting Lab: [facility] [address] Performing Lab: [facility] [address] AST/SGOT 37 H <34 May 21, 2023 11:01 AM [facility] CREATININE(INCLUDES EGFR) Specimen Type: PLASMA No comment entered. Ordering Provider: LUIS ALBERTO BLISS MD Report Released Date/Time: Mar 18, 2023 12:38 PM Reporting Lab: [facility] [id number] Performing Lab: [facility] [address] CREATININE 0.9 0.7-1.2 .CREAT EGFR(CKD-EPI) 89 >60 May 21, 2023 11:01 AM [facility] SED RATE Specimen Type: BLOOD No comment entered. Ordering Provider: LUIS ALBERTO BLISS MD Report Released Date/Time: Mar 18, 2023 12:38 PM Reporting Lab: [facility] [address] Performing Lab: [facility] [address] SED RATE 36 H 5-15 May 21, 2023 11:01 AM [facility] CBC & DIFF Specimen Type: BLOOD Comment: Automated Differential Performed Ordering Provider: LUIS ALBERTO BLISS MD Report Released Date/Time: Mar 18, 2023 12:38 PM Reporting Lab: [facility] [address] Performing Lab: [facility] [address] WBC 10.71 4.0-11.0 RBC 3.64 L 4.6-6.2 [...] 1.6 ABS IMMATURE GRAN 0.17 H 0-0.1 Social History: Smoking Status (Most [...] 2017 07:44 AM FORMER TOBACCO USER OR [facility] Tobacco Use History This section includes a history of the smoking, or tobacco-related health factors, that were collected on or before the date of the Encounter. The data comes from the [place] facility where the Encounter took place. Date/Time Smoking Status/Tobacco Use Comment F acility Jul 24, 2016 08:09 AM FORMER TOBACCO USER 7Y OR [facility] Jul 27, 2015 07:54 AM FORMER TOBACCO USER 7Y OR [facility] Jun 18, 2014 09:49 AM FORMER TOBACCO USER 7Y OR [facility] Nov 22, 2010 09:21 AM FORMER TOBACCO USER 7 OR [facility] Jun 30, 2009 08:27 AM FORMER TOBACCO USER OR [facility] Advance Directives: All historical and current Section Date Range: From patient's date of to the date document was created. This section includes ALL of a patient's completed or amended [place] Advance and Rescinded Directives. The entries below indicate that a directive exists for the patient, but an actual copy is not included with this document. The data comes from all [facility]. Date Advance Directives Provider Source Jul 22, 2018 ADVANCE DIRECTIVE DEONTE DIAZ [facility] Jul 22, 2018 ADVANCE DIRECTIVE DISCUSSION DEONTE DIAZ [facility] Encounter Notes: All associated encounter notes This section contains the clinical notes associated to the Encounter. Date/Time Encounter Note(s) Provider Source May 01, 2023 11:08 AM SLEEP MEDICINE NOT E: LOCAL TITLE: SLEEP MEDICINE NOTE STANDARD TITLE: SLEEP MEDICINE NOTE DATE OF NOTE: MAY 01, 2023@11:08 ENTRY DATE: MAY 01, 2023@11:08:11 AUTHOR: JASON PERALTA EXP COSIGNER: URGENCY: STATUS: COMPLETED Pt was a F2F in clinic today for this reason: F2F clinic appointment today for this reason: MACHINE INTAKE Device complaint: service error code. Pt has had the device for 2 days and now stated that it fell off the night stand and has error code. Device was replaced: Yes SN: [id number] DN:[id number] RMA was filed: Y DS2 machine [id number] will be sent to [employer] for RMA, since this is his 3 replacement, resmed machine was issued HOME CONTINUOUS POSITIVE AIRWAY PRESSURE(CPAP) PLAN OF CARE/EDUCATION Prescription: Date of Prescription: Apr APAP Minimum Pressure 14 cm/H2O Maximum Pressure 20 cm/H2O EPR 3 cm/H2O REASON FOR VISIT Equipment Replacement machine issued Written instructions including equipment use and maintenance as well as phone number for questions/supplies provided with all issued equipment. FOLLOW-UP Patient gave consent to view PAP data or change settings remotely via wireless modem. Comment: Will deactive care tuft machine operator and add his new machine to AV, minimal instuct, welcome packet given and updated DL. Patient instructed to call with problems/questions or if symptoms aren't improved. /maame/ JASON PERALTA registered respiratory therapist Signed: 05/01/2023 11:24 JASON PERALTA [facility]
--- OUTSIDE RECORDS SUMMARY | 2024-01-15 11:07 | XMS_ITS | Encounter Summary ---
Author Name Department of Vetera Affairs Organization Department of Vetera Affairs Address [address] [place] [address] Support Name Relationship Address Phone BARBARA GREENE [...] MEDICARE ADVANTAGE MCR (WNR) Oct 07, 2015 [id number] [phone] VAISHNAVI GREEN ERT PATIENT Selected Encounter This section includes the information on record at CT for the Encounter. Date/Time Encounter Type Encounter Description Reason Provider Source Nov 26, 2023 10:00 AM SELF CARE MNGMENT TRAINING OCCUPATIONAL THERAPY ICD-10-CM Z73.6 Limitation of activities due to disability DANIELLE L[facility]JOHN [facility] Encounter Template Text not used by CT Assessments - Encounter Diagnoses This section includes the primary and secondary diagnoses documented for the Encounter. Date/Time Primary/Secondary Diagnosis Diagnosis Name Provider Source Nov 26, 2023 11:14 AM PRIMARY Limitation of activities due to disability DANIELLE LITTLEJOHN [facility] Plan of Treatment: Future Appointments (+ 6 months) and Future Tests (+/- 45 days) The Plan of Treatment section includes future care activities for the patient from all [place] treatmentfacilities. This section includes future appointments and future orders which are active, pending or scheduled. Future Appointments This section includes appointments that were scheduled to occur 6 months from the date of the Encounter, up to a maximum of 20 appointments. The data comes from all [facility]. Appointment Date/Time Appointment Type Appointme nt Facility Name Nov 27, 2023 06:20 PM AMBULATORY - REHAB MEDICIN E [facility] Dec 02, 2023 11:30 AM AMBULATORY - NONE [facility] Dec 30, 2023 12:30 PM AMBULATORY - MEDICINE [facility] Jan 13, 2024 11:30 AM AMBULATORY - MEDICINE [facility] Apr 23, 2024 11:30 AM AMBULATORY - MEDICINE [facility] Lab Results: +/- 30 days of the encounter This section includes the Chemistry and Hematology Lab Results on record with CT for the patient. Radiology Reports and Pathology Reports are provided separately, in subsequent sections. Lab Results This section contains the Chemistry/Hematology Results that were resulted 30 days before or 30 daysafter the date of the Encounter. Date/Time Source Result Type Result - Unit Interpretation Reference Range Comment Dec 02, 2023 11:20 AM [facility] ALT/SGPT Specimen Type: PLASMA No comment entered. Ordering Provider: DELMER BLISS MD Report Released Date/Time: Jul 15, 2023 06:28 PM Reporting Lab: [facility] [address] Performing Lab: [facility] [address] ALT/SGPT 23 <55 Dec 02, 2023 11:20 AM [facility] AST/SGOT Specimen Type: PLASMA No comment entered. Ordering Provider: DELMER BLISS MD Report Released Date/Time: Jul 15, 2023 06:28 PM Reporting Lab: [facility] [address] Performing Lab: [facility] [address] AST/SGOT 20 <34 Dec 02, 2023 11:20 AM [facility] SED RATE Specimen Type: BLOOD No comment entered. Ordering Provider: DELMER BLISS MD Report Released Date/Time: Jul 15, 2023 06:28 PM Reporting Lab: [facility] [address] Performing Lab: [facility] [address] SED RATE 97 H 5-15 Dec 02, 2023 11:20 AM [facility] CREATININE(INCLUDES EGFR) Specimen Type: PLASMA No comment entered. Ordering Provider: DELMER BLISS MD Report Released Date/Time: Jul 15, 2023 06:28 PM Reporting Lab: [facility] [address] Performing Lab: [facility] [address] CREATININE 0.8 0.7-1.2 .CREAT EGFR(CKD-EPI) >90 >60 Dec 02, 2023 11:20 AM [facility] CBC & DIFF Specimen Type: BLOOD Comment: Manual Differential Performed Ordering Provider: DELMER BLISS MD Report Released Date/Time: Jul 15, 2023 06:28 PM Reporting Lab: [facility] [phone] Performing Lab: [facility] [address] WBC 19.25 H 4.0-11.0 RBC 3.40 L [...] and tobacco- related health factors from the [facility] where the Encounter took place. Current Smoking Status This section includes the most current smoking, or tobacco-related health factor, from the [place] facility where the Encounter took place. Date/Time Current Smoking Status Comment Facil ity Jul 23, 2017 07:44 AM FORMER TOBACCO USER 7Y OR [facility] Tobacco Use History This section includes a history of the smoking, or tobacco-related health factors, that were collected on or before the date of the Encounter. The data comes from the [place] facility where the Encounter took place. Date/Time Smoking Status/Tobacco Use Comment [facility] Jul 24, 2016 08:09 AM FORMER TOBACCO USER 7Y OR [facility] Jul 27, 2015 07:54 AM FORMER TOBACCO USER 7Y OR [facility] Jun 18, 2014 09:49 AM FORMER TOBACCO USER 7Y OR [facility] Nov 22, 2010 09:21 AM [facility] Jun 30, 2009 08:27 AM FORMER TOBACCO USER 7Y OR [facility] R [facility] Advance Directives: All historical and current Section Date Range: From patient's date of to the date document was created. This section includes ALL of a patient's completed or amended CT Advance and Rescinded Directives. The entries below indicate that a directive exists for the patient, but an actual copy is not included with this document. The data comes from all [place] facilities. Date Advance Directives Provider Source Jul 22, 2018 [facility] Jul 22, 2018 ADVANCE DIRECTIVE DISCUSSION DEONTE DIAZ [facility] Encounter Notes: All associated encounter notes This section contains the clinical notes associated to the Encounter. Date/Time Encounter Note(s) Provider Source Nov 26, 2023 07:39 AM OCCUPATIONAL THERA PY CONSULT: LOCAL TITLE: OCCUPATIONAL THERAPY CONSULT STANDARD TITLE: OCCUPATIONAL THERAPY CONSULT DATE OF NOTE: NOV 26, 2023@07:39 ENTRY DATE: NOV 26, 2023@07:39:53 AUTHOR: DAINELLE LITTLEJOHN EXP COSIGNER: URGENCY: STATUS: COMPLETED OCCUPATIONAL THERAPY TELEHEALTH EQUIPMENT CONSULT Ordering provider: TISHA HEARD Consult request: AE: Adjustable Bed Rail Diagnosis: Other Reduced Mobility(ICD-10-CM Z74.09) Encounter: -OT Evaluation: Low complexity (1): 15- min. -Self-care, 11 min, 1 unit Subjective: Reports 5/10 pain in back. Reports grateful for his family and their help. Assessment/recommendations : Vet seen via telehealth today, Nov, to discuss adaptive equipment to increase safety and independence. Vet arrives to clinic via [facility], present in the home during the session. with a recent back surgery, resulting in decreased mobility, balance, and activity tolerance. reports need for increased assistance with all functional mobility and ADLs since the surgery. Reports difficulty getting in and out of bed, especially lifting legs into bed. Provided education on technique and use of AE to max I. Provided idgj-ty-qspn cueing as well as optimal set-up. At this time recommend use of leg internet programmer assist band and adjustable bedrail to max I and safety when completing functional mobility. Reviewed spinal precautions and modifications to ADLs. Identified the following barriers: -Generalized weakness -LE weakness -Post-op precautions, spinal precautions -Hx of falls -Impaired balance -Decreased activity tolerance Vet will benefit from adaptive equipment to increase safety and functional independence and was provided education on features and benefits of equipment. Vet will benefit from the following adaptive equipment: -Leg Obstetrics Teacher Assist Band ([employer]) -EZ Adjustable Bed Rail ([employer]) OT Education: Vet indicates readiness to learn, verbalizes understanding, agreement and satisfaction with the treatment plan. Denies further questions. P: No other OT needs at this time. D/C from telehealth OT. SHORT TERM GOAL to be met by end of session: 1. will engage in an OT evaluation to improve safety and independence with use of adaptive equipment. ADLs: Feeding: I Grooming & Hygiene: I Dressing: Max A for dressing since surgery Bathing: Completes sponge bath at this time Toileting: Total A since surgery Toilet Transfers: Near supervision Functional Mobility: Reports use of w/c for community and FWW when in home, reports CGA-near supervision History of Falls and Mobility: 2 falls in the past 6 months IADLs: Assistance at this time Previously owned AE: FWW, grab bars, w/c CVT Documentation- Confirmed the following prior to start of visit: -[place] identified by Full name and Full Social Security number. - has provided verbal consent to use [employer] ([employer]) and was informed of their right to request a hbbl-fc-fkzp visit instead at any time. -[place] states he/she is in a safe and private environment suitable for the Telehealth encounter. Visit conducted by synchronous telehealth. [place] verbal consent obtained. Location/emergency number confirmed. Environment surveyed and all participants identified. Virtual conference room locked. -Visit conducted by telehealth into the home using: -Smart phone Email: Troubleshooting required during visit: Others present: (Venus) Location of patient during session: [address] [place] [address] Emergency phone number (e391): [phone] Veterans Crisis Line: 988 & press #1 or text [phone] [facility] [employer] Help Desk (NTTHD): [phone] or [phone]. The verbalizes authorization of an Occupational Therapy Home evaluation to provide care and treatment ordered by their physician as needed. The also understands there may be a cost for the visit if not completed via telehealth. The notes responsibility to find out if they have a co- payment through their insurance. Questions regarding co-payment can be referred to the [facility] at . If the has concerns that arise during the visit that the home care team cannot resolve, they are understanding they can contact the patient exhibit display representative at [phone]. OCCUPATIONAL THERAPY EVALUATION COMPLEXITY Identifying and reporting [...] & PERFORMANCE DEFICITS (select all that apply): Physical: LE weakness, impaired balance, decreased activity tolerance Cognition: 1-3 performance deficits (Low complexity) LEVEL OF CLINICAL DECISION MAKING Comorbidities affect occupational performance: Yes (moderate or high complexity) Modifications of tasks or assistance to enable completion of evaluation: Not necessary (Low complexity) Problem-focused assessment(s), consideration of a limited number [...] necessary to enable completion of evaluation component. * /maame/ DANIELLE LITTLEJOHN OCCUPATIONAL THERAPIST Signed: 11/26/2023 11:14 D[facility]ELLE LITTLEJOHN [facility]
--- OUTSIDE RECORDS SUMMARY | 2024-01-15 11:07 | XMS_ITS | Encounter Summary ---
Author Name [employer] [facility] [employer] Organization [facility] Address [address] [place] [id number] Support Name Relationship Address Phone IKE GREENYCE [...] Name Patient's Relationship to Policy Lawson BCBS ID MCR (WNR) MEDICARE ADVANTAGE MCR (WNR) Oct 07, 2015 [id number] [phone] VAISHNAVI GREEN ERT PATIENT Selected Encounter This section includes the information on record at [facility] for the Encounter. Date/Time Encounter Type Encounter Description Reason Provider Source Apr 23, 2023 11:00 AM PT EDUCATION NOC [facility] SLEEP MEDICINE ICD-10-CM G47.33 Obstructive sleep apnea (adult) (pediatric) JASON CROFT E Encounter Template Text not used by [facility] Assessments - Encounter Diagnoses This section includes the primary and secondary diagnoses documented for the Encounter. Date/Time Primary/Secondary Diagnosis Diagnosis Name Provider Source Apr 23, 2023 11:12 AM PRIMARY Obstructive sleep apnea (adult) (pediatric) JASON CROFT [facility] Plan of Treatment: Future Appointments (+ 6 months) and Future Tests (+/- 45 days) The Plan of Treatment section includes future care activities for the patient from all [facility] treatmentfacilities. This section includes future appointments and future orders which are active, pending or scheduled. Future Appointments This section includes appointments that were scheduled to occur 6 months from the date of the Encounter, up to a maximum of 20 appointments. The data comes from all [facility] treatment facilities. Appointment Date/Time Appointment Type Appointme nt Facility Name May 01, 2023 11:00 AM AMBULATORY - MEDICINE [facility] May 21, 2023 11:00 AM AMBULATORY - NONE [facility] May 27, 2023 09:30 AM AMBULATORY - MEDICINE [facility] Jul 09, 2023 09:00 AM AMB[facility]ORY - MEDICINE [facility] Jul 10, 2023 12:00 PM AMBULATORY - MEDICINE [facility] Sep 11, 2023 02:00 PM AMBULATORY - REHAB MEDICIN E [facility] Lab Results: +/- 30 days of the encounter This section includes the Chemistry and Hematology Lab Results on record with [facility] for the patient. Radiology Reports and Pathology Reports are provided separately, in subsequent sections. Lab Results This section contains the Chemistry/Hematology Results that were resulted 30 days before or 30 daysafter the date of the Encounter. Date/Time Source Result Type Result - Unit Interpretation Reference Range Comment May 21, 2023 11:01 AM [facility] QUANTIFERON-TB Specimen Type: BLOOD No comment entered. Ordering Provider: LUIS ALBERTO BLISS MD Report Released Date/Time: Mar 18, 2023 12:38 PM Reporting Lab: [facility] [id number] Performing Lab: [facility] [id number] .NIL 0.070 .MITOGEN-NIL >10 .QUANTIFERON- TB NEGATIVE .TB AG1-NIL -0.030 .TB AG2-NIL -0.020 May 21, 2023 11:01 AM [facility] ALT/SGPT Specimen Type: PLASMA No comment entered. Ordering Provider: LUIS ALBERTO BLISS MD Report Released Date/Time: Mar 18, 2023 12:38 PM Reporting Lab: [facility] [address] Performing Lab: [facility] [id number] ALT/SGPT 39 <55 May 21, 2023 11:01 AM [facility] AST/SGOT Specimen Type: PLASMA No comment entered. Ordering Provider: LUIS ALBERTO BLISS MD Report Released Date/Time: Mar 18, 2023 12:38 PM Reporting Lab: [facility] [id number] Performing Lab: [facility] [id number] AST/SGOT 37 H <34 May 21, 2023 11:01 AM [facility] CREATININE(INCLUDES EGFR) Specimen Type: PLASMA No comment entered. Ordering Provider: LUIS ALBERTO BLISS MD Report Released Date/Time: Mar 18, 2023 12:38 PM Reporting Lab: [facility] [id number] Performing Lab: [facility] [phone] CREATININE 0.9 0.7-1.2 .CREAT EGFR(CKD-EPI) 89 >60 May 21, 2023 11:01 AM [facility] SED RATE Specimen Type: BLOOD No comment entered. Ordering Provider: LUIS ALBERTO BLISS MD Report Released Date/Time: Mar 18, 2023 12:38 PM Reporting Lab: [facility] [address] Performing Lab: [facility] [phone] SED RATE 36 H 5-15 May 21, 2023 11:01 AM [facility] CBC & DIFF Specimen Type: BLOOD Comment: Automated Differential Performed Ordering Provider: LUIS ALBERTO BLISS MD Report Released Date/Time: Mar 18, 2023 12:38 PM Reporting Lab: [facility] [phone] Performing Lab: [facility] [phone] WBC 10.71 4.0-11.0 RBC 3.64 L 4.6-6.2 [...] and tobacco- related health factors from the [facility] facility where the Encounter took place. Current Smoking Status This section includes the most current smoking, or tobacco-related health factor, from the [place] facility where the Encounter took place. Date/Time Current Smoking Status Comment Facil ity Jul 23, 2017 07:44 AM FORMER TOBACCO USER OR [facility] Tobacco Use History This section includes a history of the smoking, or tobacco-related health factors, that were collected on or before the date of the Encounter. The data comes from the [facility] facility where the Encounter took place. Date/Time Smoking Status/Tobacco Use Comment F acility Jul 24, 2016 08:09 AM FORMER TOBACCO USER 7Y [facility] Jul 27, 2015 07:54 AM FORMER TOBACCO USER 7Y OR [facility] Jun 18, 2014 09:49 AM FORMER TOBACCO USER 7Y OR [facility] Nov 22, 2010 09:21 AM FORMER TOBACCO USER 7Y OR [facility] Jun 30, 2009 08:27 AM FORMER TOBACCO USER 7 OR [facility] Advance Directives: All historical and current Section Date Range: From patient's date of to the date document was created. This section includes ALL of a patient's completed or amended [facility] Advance and Rescinded Directives. The entries below indicate that a directive exists for the patient, but an actual copy is not included with this document. The data comes from all [facility] facilities. Date Advance Directives Provider Source Jul 22, 2018 ADVANCE DIRECTIVE DEONTE DIAZ [facility] Jul 22, 2018 ADVANCE DIRECTIVE DISCUSSION DEONTE DIAZ [facility] Encounter Notes: All associated encounter notes This section contains the clinical notes associated to the Encounter. Date/Time Encounter Note(s) Provider Source Apr 23, 2023 11:03 AM SLEEP MEDICINE NOT E: LOCAL TITLE: SLEEP MEDICINE NOTE STANDARD TITLE: SLEEP MEDICINE NOTE DATE OF NOTE: APR 23, 2023@11:03 ENTRY DATE: APR 23, 2023@11:03:18 AUTHOR: JASON CROFT EXP COSIGNER: URGENCY: STATUS: COMPLETED Service error code with [id number] will sent to [employer] for RMA [id number] 07/25/2020 [employer] CONTINUOUS POSITIVE AIRWAY PRESSURE(CPAP) PLAN OF CARE/EDUCATION REASON FOR VISIT Equipment, DS 2 with service error code Replacement machine issued [id number] This device was added to [place] and programmed: Issued by Jason Croft Issued on 04/23/2023 Information Status SENT TO MODE Therapy mode AutoCPAP Device model (found on bottom of device) DreamStation 2 Auto CPAP Advanced Mode attribute A-Flex Device settings Min pressure 14 Max pressure 20 A-Flex setting 3 Auto off Off Auto on On Ramp+ time 15 Ramp+ start pressure 8 Mask resistance X1 Tubing type No change Opti-Start On EZ-Start Disabled Patient controls access On Patient data access On Humidifier settings Tube temperature 3 Humidifier 3 /maame/ JASON CROFT registered respiratory therapist Signed: 04/23/2023 11:12 JASON CROFT [facility]
--- OUTSIDE RECORDS SUMMARY | 2024-01-15 11:07 | XMS_ITS | Encounter Summary ---
Author Name [facility] Organization [facility] Address [address] [place] [address] Support Name Relationship Address Phone IKE GREENYCE Next of Kin [address] [place] [address] DEMETRA GREEN Emergency Contact [address] [...] Name Patient's Relationship to Policy Lawson BCBS [facility] (WNR) MEDICARE ADVANTAGE [facility] (WNR) Oct 07, 2015 [id number] [phone] VAISHNAVI GREEN ERT PATIENT Selected Encounter This section includes the information on record at [facility] for the Encounter. Date/Time Encounter Type Encounter Description Reason Provider Source Jul 09, 2023 09:00 AM OFFICE O/P EST MOD 30-39 MIN PRIMARY CARE/MEDICINE ICD-10-CM M54.51 Vertebrogenic low back pain FÉLIX,TISHA GRACE Encounter Template Text not used by [facility] Assessments - Encounter Diagnoses This section includes the primary and secondary diagnoses documented for the Encounter. Date/Time Primary/Secondary Diagnosis Diagnosis Name Provider Source Jul 09, 2023 10:00 AM PRIMARY Vertebrogenic low back pain FÉLIX,TISHA AZUL Jul 09, 2023 10:00 AM SECONDARY Benign prostatic hyperplasia with lower urinary tract symp FÉLIXTISHA Jul 09, 2023 10:00 AM SECONDARY Dry eye syndrome of bilateral lacrimal glands FÉLIX,TISHA DELGADO [facility] Jul 09, 2023 10:00 AM SECONDARY Encounter for general adult medical exam w abnormal findings TISHA HEARD [facility] Jul 09, 2023 10:00 AM SECONDARY Gastro-esophageal reflux disease without esophagitis TISHA HEARD [facility] Jul 09, 2023 10:00 AM SECONDARY Inflammatory polyarthropathy TISHA [facility]ARDHerbie [facility] Jul 09, 2023 10:00 AM SECONDARY Personal history of diseases of the ms sys and conn tiss TISHA HEARD [facility] Jul 09, 2023 10:00 AM SECONDARY Restless legs syndrome T[facility]HA [facility]ARDHerbie [facility] Jul 09, 2023 10:00 AM SECONDARY Sensorineural hearing loss, bilateral FÉLIXTISHA KUSH AZUL Plan of Treatment: Future Appointments (+ 6 months) and Future Tests (+/- 45 days) The Plan of Treatment section includes future care activities for the patient from all [place] [facility]. This section includes future appointments and future orders which are active, pending or scheduled. Future Appointments This section includes appointments that were scheduled to occur 6 months from the date of the Encounter, up to a maximum of 20 appointments. The data comes from all [facility] facilities. Appointment Date/Time Appointment Type Appointme nt Facility Name Jul 10, 2023 12:00 PM AMBULATORY - MEDICINE [facility] Sep 11, 2023 02:00 PM AMBULATORY - REHAB [facility]IC[facility] Nov 26, 2023 10:00 AM AMBULATORY - [facility] Nov 27, 2023 06:20 PM AMBULATORY - REHAB [facility]IC[facility] Dec 02, 2023 11:30 AM AMBULATORY - NONE KUSH AZUL Dec 30, 2023 12:30 PM AMBULATORY - MEDICINE [facility] Lab Results: +/- 30 days of the encounter This section includes the Chemistry and Hematology Lab Results on record with [place] for the patient. Radiology Reports and Pathology Reports are provided separately, in subsequent sections. Lab Results This section contains the Chemistry/Hematology Results that were resulted 30 days before or 30 daysafter the date of the Encounter. Date/Time Source Result Type Result - Unit Interpretation Reference Range Comment Jul 09, 2023 09:46 AM [facility] HEMOGLOBIN A1C Specimen Type: BLOOD Comment: Values obtained from A1C measurements can vary. For typical A1C assays, a reported value of 7.0 could actually be between 6.7 and 7.3 if measured by a reference method. A reported value of 9.0 could actually be between 8.7 and 9.3. Ref: http://www.ngsp .org/CAPdata.as p Ordering Provider: TISHA HEARD Report Released Date/Time: Jul 09, 2023 09:30 AM Reporting Lab: [facility] [id number] Performing Lab: [facility] [id number] HEMOGLOBIN A1C 5.1 4.0-6.0 Jul 09, 2023 09:46 AM KUSH HANCOCK [facility] LIPID PANEL,NON-FASTING Specimen Type: PLASMA No comment entered. Ordering Provider: TISHA HEARD Report Released Date/Time: Jul 09, 2023 09:30 AM Reporting Lab: [facility] [id number] Performing Lab: [facility] [id number] CHOLESTEROL 157 <199 .HDL 43 >40 LDL CALCULATION 90 <99 VLDL CALCULATION 24 <29 NON HDL CHOLESTEROL 114 <129 TRIG(NON FASTING) 118 <149 Jul 09, 2023 09:46 AM KUSH HANCOCK [facility] CBC Specimen Type: BLOOD No comment entered. Ordering Provider: TISHA HEARD Report Released Date/Time: Jul 09, 2023 09:30 AM Reporting Lab: [facility] [phone] Performing Lab: [facility] [phone] WBC 10.76 4.0-11.0 RBC 4.21 L 4.6-6.2 HGB 13.4 L 13.5-17.9 HCT 39.6 L 41-54 MCV 94.1 80-100 MCH 31.8 27-33 MCHC 33.8 32.0-37.5 PLT 215 150-400 MPV 11.0 H 7.4-10.4 RDW 13.2 11.5-14.5 Jul 09, 2023 09:46 AM [facility] BASIC METABOLIC PANEL+MG Specimen Type: PLASMA No comment entered. Ordering Provider: TISHA HEARD Report Released Date/Time: Jul 09, 2023 09:30 AM Reporting Lab: [facility] [phone] Performing Lab: [facility] [phone] CREATININE 0.9 0.7-1.2 UREA NITROGEN 11 8-26 GLUCOSE 138 H 70-100 SODIUM 138 136-145 POTASSIUM 3.2 L 3.5-5.1 CHLORIDE 100 98-107 CO2 26 22-29 CALCIUM 9.3 8.4-10.2 MAGNESIUM 1.8 1.6-2.6 ANION GAP 12 5-15 .CREAT EGFR(CKD-EPI) 89 >60 Jul 09, 2023 09:46 AM KUSH AZUL LIPID PANEL,NON-FASTING Specimen Type: PLASMA No comment entered. Ordering Provider: TISHA HEARD Report Released Date/Time: Jul 09, 2023 09:30 AM Reporting Lab: [facility] [phone] Performing Lab: [facility] [phone] CHOLESTEROL 155 <199 .HDL 43 >40 LDL CALCULATION 88 <99 VLDL CALCULATION 24 <29 NON HDL CHOLESTEROL 112 <129 TRIG(NON FASTING) 120 <149 Vital Signs: All taken on the encounter date This section contains inpatient and outpatient Vital Signs collected on the date of the Encounter. Date/Time Temperature Pulse Blood Pressure Respiratory Rate SP02 Pain Height Weight Body Mass Index Source Jul 09, 2023 08:57 AM 97.3 F 86 /min 129/80 mm[Hg] 16 /min 94 % 10 64 in 218.4 lb 38 KUSH AZUL Social History: Smoking Status (Most current) and Tobacco Use (All prior to encounter date) This section includes the most current, and the historical, smoking and tobacco- related health factors from the [place] facility where the Encounter took place. Current Smoking Status This section includes the most current smoking, or tobacco-related health factor, from the [place] facility where the Encounter took place. Date/Time Current Smoking Status Comment Lex ity Jul 09, 2023 09:00 AM [place]-TOBACCO FORMER USER [facility] Tobacco Use History This section includes a history of the smoking, or tobacco-related health factors, that were collected on or before the date of the Encounter. The data comes from the [place] facility where the Encounter took place. Date/Time Smoking Status/Tobacco Use Comment F acility Jul 09, 2023 09:00 AM VA-TOBACCO QUIT 15 YRS OR MORE [facility] Jul 13, 2022 10:30 AM VA-TOBACCO FORMER USER [facility] Jul 13, 2022 10:30 AM VA-TOBACCO QUIT 15 YRS OR MORE [facility] Jul 06, 2021 08:00 AM VA-TOBACCO NEVER USED [facility] Jul 06, 2020 08:00 AM VA-TOBACCO FORMER USER [facility] Jul 06, 2020 08:00 AM VA-TOBACCO QUIT 15 YRS OR MORE [facility] Apr 23, 2019 09:31 AM VA-TOBACCO FORMER USER [facility] Apr 23, 2019 09:31 AM VA-TOBACCO QUIT 15 YRS OR MORE [facility] Jun 27, 2018 09:48 AM FORMER TOBACCO USER 7Y OR GREATE R [facility] Advance Directives: All historical and current Section Date Range: From patient's date of to the date document was created. This section includes ALL of a patient's completed or amended [place] Advance and Rescinded Directives. The entries below indicate that a directive exists for the patient, but an actual copy is not included with this document. The data comes from all [place] facilities. Date Advance Directives Provider Source Jul 22, [address] [facility] Jul 22, 2018 ADVANCE DIRECTIVE DISCUSSION DEONTE DIAZ [facility] Encounter Notes: All associated encounter notes This section contains the clinical notes associated to the Encounter. Date/Time Encounter Note(s) Provider Source Jul 11, 2023 04:14 PM LETTERS: LOCAL TITLE: FOLLOW UP RESULTS LETTER STANDARD TITLE: LETTERS DATE OF NOTE: JUL 11, 2023@16:14 ENTRY DATE: JUL 11, 2023@16:14:39 AUTHOR: TISHA HEARD EXP COSIGNER: URGENCY: STATUS: COMPLETED [facility] [address] [place] [address] Jul VIC GREEN [address] [facility] [id number] Dear : You should be receiving another letter with the results of the tests you had done through the [facility]. I have reviewed the results and your potassium is slightly low at 3.3 (normal low 3.5). I recommend increasing high potassium foods: Eat an additional 2-3 servings of high potassium foods daily such as bananas, tomato sauce/juice, milk/yogurt, kiwi, avocados, sweet potatoes, legumes (e.g., kidney beans), prunes, carrot juice, etc. If you have any further questions or problems, please contact the call center at [phone] to speak with a nurse or leave me a message. Sincerely, TISHA HEARD M.D. Physician, TISHA Ulloa Jul 09, 2023 09:27 AM ADMINISTRATIVE NOT E: LOCAL TITLE: AFTER VISIT SUMMARY NOTE STANDARD TITLE: ADMINISTRATIVE NOTE DICT DATE: JUL 09, 2023@09:27:28 ENTRY DATE: JUL 09, 2023@09:27:29 DICTATED BY: TISHA HEARD: URGENCY: STATUS: COMPLETED The patient was provided with a copy of an after-visit summary at the conclusion of the visit. A copy of the after-visit summary provided to the patient is available in Bacula. SCANNED DOCUMENT SIGNATURE NOT REQUIRED Electronically Filed: 07/09/2023 by: TISHA HEARD M.D. Physician, TISHA Ulloa Jul 09, 2023 09:16 AM PRIMARY CARE NOTE: LOCAL TITLE: JORGE ALBERTO PROGRESS NOTE - [facility] STANDARD TITLE: PRIMARY CARE NOTE DATE OF NOTE: JUL 09, 2023@09:16 ENTRY DATE: JUL 09, 2023@09:16:52 AUTHOR: TISHA HEARD: URGENCY: STATUS: COMPLETED Assessment and Plan: #. Chronic low back pain from degenerative disc/joint disease. He will be having surgery at [facility] on 07/19/2023. He had a preop evaluation at the [facility]. #. BPH. Urine flow adequate on doxazosin 8 mg daily which was renewed today. #. Inflammatory polyarthropathy. Followed by [place] hair boiler operator. Currently managed on leflunomide and hydroxychloroquine, but the patient states he will be switched to Humira after his back surgery.. #. Gout. Taking allopurinol as prescribed. He has not had any gout flares this year. #. Restless legs. Symptoms well managed on pramipexole. #. GERD. Controlled on omeprazole 40 mg daily, which was renewed today. #. Hearing loss. Stable. Wears hearing aids. #. Dry eyes. Managed on cyclosporine eyedrops, which I reminded him will need to be renewed by ophthalmology. He is under a current care in the community ophthalmology consult that expires 02/21/2024. #. Healthcare maintenance. Screenings/reminders done per nurse note and per below. Influenza vaccine given today Return to clinic: 1 year for annual healthcare maintenance visit, and sooner as clinically needed Time documentation: ( x) Patient/Caregiver indicates readiness to learn, verbalizes understanding, agreement and satisfaction with the treatment plan. Patient/Caregiver doesn't have any further questions today. Nurse's notes reviewed from today. VIC GREEN is a 78 year old MALE here for annual healthcare maintenance visit and to follow-up on chronic conditions as noted above Co-managed care: Rick Aragon, Lisa Ornelas HPI: [facility]had [facility]-op there already. Has chronic low back pain made worse with walking or sitting too long. Pain radiates into thighs (anterior). No numbness or tingling. No incontinence. Pain on avg. 02/13. Originally work comp injury then had fall in 2022 that worsened back pain (work comp no longer following). Has inflammatory arthropathy and Dr. Coffman will start him on Humira after his upcoming surgery. States his pain has been doing pretty well. He denies any chest pain or shortness of breath. He states he had nuclear imaging stress testing as part [facility] did not show any low blood flow in his heart. Dry eye symptoms well managed on Restasis. Restless legs doing well with pramipexole. With medication reconciliation we discussed that he should probably no longer be on gabapentin since he is on pregabalin. The [facility]. ROS: 10 system review otherwise negative Family History: mom likely had RA he thinks and thinks mom's mom as well; dad had leukemia but due to severe asthma Social History: quit smoking over 40 years ago; rare alcohol use--1 every other month; Past Surgical History: Right trigger finger release Cystoscopy Right TKA Left TKA Rotator cuff repair, right and left Colonoscopy with polypectomy Active problems - Computerized Problem List is the source for the followin. Hallux valgus AND bunion (SNOMED CT 155516384) 2. Hammer toe (SNOMED CT 735234160) 3. Essential hypertension 4. Gout 5. Benign prostatic hyperplasia 6. Restless legs 7. Hemochromatosis 8. Chronic low back pain - since 1995 9. Osteoarthritis of knee - R TKA 2019, L TKA 10. Obstructive sleep apnea - resmed airsense s11 apap 14-20 ramp 8x15 min 11. History of male erectile disorder 12. [...] eyes 31. History of polyp of colon Allergies: SEASONAL ALLERGIES (Jun 16, 2009) LEVOFLOXACIN (Oct 20, 2010) DICLOFENAC (Jul 13, 2022) EXAM: VS: Temp: 97.3 F [36.3 C] (07/09/2023 08:57) BP: 129/80 (07/09/2023 08:57) Pulse:86 (07/09/2023 08:57) Resp: 16 (07/09/2023 08:57) Pain: 10 (07/09/2023 08:57) Weight: WEIGHTS IN LAST 6 MONTHS: 218.4 (JUL 09, 2023@08:57:57) 224.1 (MAY 27, 2023@09:25:43) BMI: 37.6 Pulse Ox: 94% (07/09/2023 08:57) Gen: well-nourished, obese, well-groomed, no acute distress HEENT: Normocephalic, Normal conjunctiva/sclera, no nasal drainage Respiratory: Normal respiratory effort, clear to auscultation bilaterally Cardiac: RRR, S1 and S2 normal, no murmur; no cyanosis; trace pitting bilateral lower extremity edema Skin: Warm, dry, no rashes on exposed skin Neuro: Alert and oriented ? 3 , slow steady gait using a walker Psych: Normal affect, normal thought processing and speech production Data/Labs: Labs drawn today include basic metabolic panel, CBC, lipid profile, A1c Medication Reconciliation: Education Evaluations *Was medication education provided for NEW medications or CHANGES to medications? (including medication name, dose, route, reason for use, and potential side effects). No new medications or medication changes during this encounter. TERATOGENIC MED & CONTRACEPTION REVIEW (Optional)... MEDICATION RECONCILIATION List Given: An updated medication list was provided to the patient/caregiver. Review Done: The medication list shown below was verified for accuracy and it includes all pending medications/active medications/all medications or discontinued within the last 90 days/all remote medications and non-VA medications. If a given category (i.e. remote meds) is not shown, that means that a patient doesn't have a medication(s) in that category. Allergies listed below were also reviewed/updated for accuracy. Allergies/ADR from [facility] may not display in CPRS. Use JLV MRT5 - Allergies/ADRs FACILITY ALLERGY/ADR -------- No Remote Allergy/ADR Data available for this patient [facility] DICLOFENAC [facility] LEVOFLOXACIN [facility] SEASONAL ALLERGIES Active and Recently Outpatient Medications (including Supplies): Issue Date Status Last Fill Active Outpatient Medications Refills Expiration 1) ALLOPURINOL 300MG TAB Qty: 90 for 90 ACTIVE Issu:07-09-22 days Sig: TAKE ONE TABLET BY MOUTH Refills: 0 Last:06-29-23 EVERY MORNING Expr:07-10-23 2) ATENOLOL 50/CHLORTHALIDONE 25MG TAB ACTIVE Issu:07-13-22 Qty: 90 for 90 days Sig: TAKE 1 Refills: 0 Last:05-14-23 TABLET BY MOUTH EVERY DAY Expr:07-14-23 3) CYCLOSPORINE 0.05% (PF) OPH EMUL 0.4ML ACTIVE Issu:07-17-22 Qty: 60 for 30 days Si DROP BOTH Refills: 5 Last:06-27-23 EYES TWICE A DAY Expr:07-18-23 4) DICLOFENAC NA 1% TOP GEL Qty: 100 for ACTIVE Issu:03-15-23 30 days Sig: APPLY 4 GRAMS TOPICALLY Refills: 3 Last:03-18-23 FOUR TIMES A DAY NEEDED TO AFFECTED Expr:03-15-24 AREA FOR PAIN 5) DOCUSATE NA 100MG CAP Qty: 200 for 90 ACTIVE Issu:07-13-22 days Sig: TAKE ONE CAPSULE BY MOUTH Refills: 2 Last:01-19-23 TWICE A DAY NEEDED FOR CONSTIPATION Expr:07-14-23 90 DAY SUPPLY 6) DOXAZOSIN MESYLATE 8MG TAB Qty: 90 for ACTIVE Issu:07-13-22 90 days Sig: TAKE ONE TABLET BY MOUTH Refills: 0 Last:05-18-23 EVERY DAY Expr:07-14-23 7) FLUTICASONE PROP 50MCG 120D NASAL INHL ACTIVE Issu:12-14-22 Qty: 1 for 30 days Sig: SPRAY 2 Refills: 7 Last:06-25-23 SPRAYS IN EACH NOSTRIL AT BEDTIME FOR Expr:12-15-23 NASAL SYMPTOMS 8) HYDROXYCHLOROQUINE SULFATE 200MG TAB ACTIVE Issu:02-04-23 Qty: 90 for 90 days Sig: TAKE ONE Refills: 0 Last:06-29-23 TABLET BY MOUTH EVERY DAY Expr:02-05-24 9) LACTOBACILLUS ACIDOPHILUS TAB Qty: 100 ACTIVE Issu:07-13-22 for 90 days Sig: TAKE 1 TABLET BY Refills: 0 Last:06-28-23 MOUTH EVERY MORNING Expr:07-14-23 10) LEFLUNOMIDE 20MG TAB Qty: 90 for 90 ACTIVE Issu:05-27-23 days Sig: TAKE ONE TABLET BY MOUTH Refills: 0 Last:06-02-23 EVERY DAY Expr:08-25-23 11) OMEPRAZOLE 20MG EC CAP Qty: 180 for 90 ACTIVE Issu:07-13-22 days Sig: TAKE TWO CAPSULES BY MOUTH Refills: 1 Last:05-21-23 EVERY DAY ON AN EMPTY STOMACH, AT Expr:07-14-23 LEAST 30 MINUTES PRIOR TO A MEAL 12) PREDNISOLONE ACETATE 1% OPH SUSP Qty: 5 ACTIVE Issu:05-16-23 for 30 days Sig: INSTILL 1 DROP IN Refills: 3 Last:06-13-23 RIGHT EYE EVERY DAY Expr:05-16-24 13) PREDNISONE 5MG TAB Qty: 180 for 90 days ACTIVE Issu:12-17-22 Sig: TAKE 1 TO 2 TABLETS BY MOUTH Refills: 1 Last:03-12-23 EVERY DAY NEEDED FOR JOINT PAIN * Expr:12-18-23 TAKE 1 TO 2 TABLETS DAILY DIRECTED TAPER 14) PREGABALIN 75MG ORAL CAP Qty: 30 for 30 ACTIVE Issu:06-19-23 days Sig: TAKE ONE CAPSULE BY MOUTH Refills: 4 Last:07-09-23 AT BEDTIME -- START FOR RLS WITH ONE Expr:12-20-23 PILL AT NIGHT AND TITRATE TO EFFECT IF NOT LIMITED BY SIDE EFFECT. MAX OF 100MG. 15) SODIUM CHLORIDE 0.65% SOLN NASAL SPRAY ACTIVE Issu:12-14-22 Qty: 45 for 30 days Sig: SPRAY 2 Refills: 3 Last:12-17-22 SPRAYS IN EACH NOSTRIL TWICE A DAY FOR Expr:12-15-23 NASAL DRYNESS 16) SULFASALAZINE 500MG TAB Qty: 180 for 90 HOLD Issu:08-07-22 days Sig: TAKE ONE TABLET BY MOUTH Refills: 1 TWICE A DAY Expr:08-08-23 17) VANICREAM TOP CREAM Qty: 454 for 30 ACTIVE Issu:08-05-22 days Sig: APPLY THIN LAYER TOPICALLY Refills: 9 Last:12-22-22 EVERY DAY FOR DRY SKIN TO AREAS OF Expr:08-06-23 DRY SKIN, IDEALLY WITHIN 3 MINUTES AFTER BATH OR SHOWER. Issue Date Status Last Fill Pending Outpatient Medications Refills Expiration 1) ALLOPURINOL 300MG TAB Qty: 90 Sig: PENDING TAKE ONE TABLET BY MOUTH EVERY MORNING Refills: 0 2) ATENOLOL 50/CHLORTHALIDONE 25MG TAB PENDING Qty: 90 Sig: TAKE 1 TABLET BY MOUTH Refills: 0 EVERY DAY 3) DOCUSATE NA 100MG CAP Qty: 200 Sig: PENDING TAKE ONE CAPSULE BY MOUTH TWICE A DAY Refills: 0 NEEDED FOR CONSTIPATION 90 DAY SUPPLY 4) DOXAZOSIN MESYLATE 8MG TAB Qty: 90 PENDING Sig: TAKE ONE TABLET BY MOUTH EVERY Refills: 0 DAY 5) LACTOBACILLUS ACIDOPHILUS TAB Qty: 100 PENDING Sig: TAKE 1 TABLET BY MOUTH EVERY Refills: 0 MORNING 6) OMEPRAZOLE 20MG EC CAP Qty: 180 Sig: PENDING TAKE TWO CAPSULES BY MOUTH EVERY DAY Refills: 0 ON AN EMPTY STOMACH, AT LEAST 30 MINUTES PRIOR TO A MEAL 7) VANICREAM TOP CREAM Qty: 454 Sig: PENDING APPLY THIN LAYER TOPICALLY EVERY DAY Refills: 0 FOR DRY SKIN TO AREAS OF DRY SKIN, IDEALLY WITHIN 3 MINUTES AFTER BATH OR SHOWER. Issue Date Status Last Fill Inactive Outpatient Medications Refills Expiration 1) HYDROXYCHLOROQUINE SULFATE 200MG TAB DISCONTINUED Issu:05-07-22 Qty: 90 for 90 days Sig: TAKE ONE Refills: 0 Last:12-29-22 TABLET BY MOUTH EVERY DAY Expr:05-08-23 2) LEFLUNOMIDE 20MG TAB Qty: 90 for 90 DISCONTINUED Issu:03-13-23 days Sig: TAKE ONE TABLET BY MOUTH Refills: 0 Last:03-14-23 EVERY DAY Expr:06-11-23 3) PRAMIPEXOLE DIHYDROCHLORIDE 0.25MG TAB Issu:06-15-22 Qty: 270 for 90 days Sig: TAKE THREE Refills: 0 Last:04-16-23 TABLETS BY MOUTH EVERY EVENING FOR Expr:06-16-23 RESTLESS LEGS 4) PRAMIPEXOLE DIHYDROCHLORIDE 1MG TAB DISCONTINUED Issu:04-10-22 Qty: 45 for 90 days Sig: TAKE (EDIT) Last:04-11-22 ONE-HALF TABLET BY MOUTH EVERY EVENING Refills: 3 Expr:04-11-23 FOR RESTLESS LEGS 5) PREDNISOLONE ACETATE 1% OPH SUSP Qty: 5 Issu:06-05-22 for 90 days Sig: INSTILL 1 DROP IN Refills: 0 Last:04-27-23 RIGHT EYE EVERY OTHER DAY SHAKE Expr:06-06-23 WELL 6) PREGABALIN 100MG ORAL CAP Qty: 30 for DISCONTINUED Issu:05-14-23 30 days Sig: TAKE ONE CAPSULE BY Refills: 5 Last:05-14-23 MOUTH AT BEDTIME FOR RESTLESS LEGS Expr:11-14-23 SYNDROME 7) PREGABALIN 25MG ORAL CAP Qty: 91 for 30 Issu:05-15-23 days Sig: TAKE 2 CAPSULES BY MOUTH AT Refills: 0 Last:05-15-23 BEDTIME FOR 1 WEEK, THEN TAKE 3 Expr:06-14-23 CAPSULES AT BEDTIME NEEDED FOR 1 WEEK, THEN TAKE 4 CAPSULES AT BEDTIME NEEDED FOR RESTLESS LEGS SYNDROME 8) PREGABALIN 25MG ORAL CAP Qty: 30 for 30 DISCONTINUED Issu:04-11-23 days Sig: TAKE ONE CAPSULE BY MOUTH Refills: 2 Last:04-11-23 AT BEDTIME FOR 1 WEEK, THEN TAKE TWO Expr:10-12-23 CAPSULES AT BEDTIME FOR 1 WEEK, THEN TAKE THREE CAPSULES AT BEDTIME FOR 1 WEEK, THEN TAKE FOUR CAPSULES AT BEDTIME FOR RESTLESS LEGS SYNDROME START WITH ONE CAPSULE AT BEDTIME.INCREASE TIL EFFECTIVE. MAXIMUM 4 CAPSULES. 9) SULFASALAZINE 500MG TAB Qty: 540 for 90 DISCONTINUED Issu:05-07-22 days Sig: TAKE THREE TABLETS BY MOUTH (EDIT) Last:06-02-22 TWICE A DAY Refills: 1 Expr:05-08-23 10) TAMSULOSIN HCL 0.4MG CAP Qty: 90 for 90 Issu:07-02-22 days Sig: TAKE ONE CAPSULE BY MOUTH Refills: 3 Last:07-03-22 EVERY DAY Expr:07-03-23 Start Date Active Non-VA Medications Refills Expiration 1) Non-VA CELECOXIB 200MG CAP SiMG ACTIVE MOUTH TWICE A DAY 2) Non-VA GABAPENTIN 300MG CAP SiMG ACTIVE MOUTH THREE TIMES A DAY 3) Non-VA LUBIPROSTONE CAP,ORAL Si MCG ACTIVE MOUTH TWICE A DAY 4) Non-VA MULTIVITAMIN CAP/TAB Si ACTIVE TABLET MOUTH EVERY DAY 5) Non-VA OXYCODONE 20MG SA TAB SiMG ACTIVE MOUTH EVERY 12 HOURS 6) Non-VA OXYCODONE 5MG TAB SiMG MOUTH ACTIVE TWICE A DAY NEEDED 40 Total Medications /es/ TISHA HEARD M.D. Physician, Kush Hancock [facility] Signed: 07/09/2023 10:02 TISHA HEARD [facility] Jul 09, 2023 09:05 AM PRIMARY CARE YINKA MCKINLEY NOTE: LOCAL TITLE: [facility] NURSING PROGRESS NOTE STANDARD TITLE: PRIMARY CARE NURSING NOTE DATE OF NOTE: JUL 09, 2023@09:05 ENTRY DATE: JUL 09, 2023@09:05:49 AUTHOR: SAPPHIRE LUI COSIGNER: URGENCY: STATUS: COMPLETED TYPE OF VISIT: Appointment Check In Type of appointment: In-person appointment REASON FOR VISIT: Annual ALLERGIES: SEASONAL ALLERGIES (Jun 16, 2009) LEVOFLOXACIN (Oct 20, 2010) DICLOFENAC (Jul 13, 2022) VITAL SIGNS: Blood Pressure: 129/80 (07/09/2023 08:57) Pulse: 86 (07/09/2023 08:57) Respiration: 16 (07/09/2023 08:57) Temperature: 97.3 F [36.3 C] (07/09/2023 08:57) Weight: 218.4 lb [99.06 kg] (07/09/2023 08:57) Height: 64 in [162.6 cm] (07/09/2023 08:57) BMI: 37.6 O2 Sat: 94% (07/09/2023 08:57) Pain: 10 (07/09/2023 08:57) PAIN SCREEN: Patient is not having significant [...] LEAST 30 MINUTES PRIOR TO A MEAL PREDNISOLONE ACETATE 1% OPH SUSP INSTILL 1 DROP IN RIGHT ACTIVE EYE EVERY DAY PREDNISONE 5MG TAB TAKE 1 TO 2 TABLETS BY MOUTH EVERY DAY ACTIVE NEEDED FOR JOINT PAIN * TAKE 1 TO 2 TABLETS DAILY DIRECTED TAPER PREGABALIN 75MG ORAL CAP TAKE ONE CAPSULE BY MOUTH AT ACTIVE BEDTIME -- START FOR RLS WITH ONE PILL AT NIGHT AND TITRATE TO EFFECT IF NOT LIMITED BY SIDE EFFECT. MAX OF 100MG. SODIUM CHLORIDE 0.65% SOLN NASAL SPRAY SPRAY 2 SPRAYS IN ACTIVE EACH NOSTRIL TWICE A DAY FOR NASAL DRYNESS SULFASALAZINE 500MG TAB TAKE ONE TABLET BY MOUTH TWICE A HOLD DAY VANICREAM TOP CREAM APPLY THIN LAYER [...] 5MG MOUTH TWICE A DAY NEEDED ACTIVE Depression Screening: Perform PHQ-2 A PHQ-2 screen was performed. The score was 0 which is a negative screen for depression. Over the past two weeks, how often have you been bothered by the following problems? 1. Little interest or pleasure in doing things Not at all 2. Feeling down, depressed, or hopeless Not at all Tobacco Use Screening: The patient is a former tobacco user. The patient quit fifteen or more years ago. Alcohol Use Screen (AUDIT-C): Alcohol Screen: SCREEN FOR ALCOHOL (AUDIT-C) An alcohol screening test (AUDIT-C) was negative (score=1). 1. How often did you have a drink containing alcohol in the past year? Monthly or less 2. How many drinks containing alcohol did you have on a typical day when you were drinking in the past year? One or two drinks 3. How often did you have six or more drinks on one occasion in the past year? Never Nursing Annual Screening: Fall History Screen During the past 12 months, have you had any falls? Patient reports one fall with injury requiring treatment in the past 12 months. MEDICATIONS: Patient is on one of the following medication classes: Antihypertensives, Antidepressants, Antipsychotics, Diuretics, or Controlled substance medication used for pain. FALL RISK ADVICE: Fall Risk Advice provided. Handout entitled Fall Prevention At Home reviewed and given to patient and/or significant other. Script Talk Screen Are you able to read your prescription bottles with your glasses, magnifiers or other aids? Yes or patient not taking any prescriptions. Skin Screen Patient reports any current pressure ulcers, a history of pressure ulcers, or a wound from a medical service representative or Patient is bed-confined or a wheelchair-user or Patient requires assistance to transfer/change position No, Skin Screen is Negative Home Abuse/Violence Screen Is your home free of abuse and violence? Yes Outpatient Nutrition Screen Body Mass Index (BMI)= 37.6 [place]: Collection DT Specimen Test Name Result Units Ref Range 07/09/2022 10:40 BLOOD !! HEMOGLOBIN A1C 4.9 % 4.0 - 6.0 !! Indicates COMMENTS AVAILABLE...Refer to Interim Lab Report. [place] Hgb A1C: No data available [place] Hgb A1C: No data available Point of Care Hgb A1C: POC HGB A1C____ Is patient's BMI less than 18.5? No Does patient have swallowing, coughing, or chewing problems affecting oral intake? No Has patient experienced unplanned weight loss or gain greater than 10 pounds over the last 2 months? No Is patient's Hgb A1C (Glycosylated Hemoglobin) greater than 9.5? No Is patient receiving Total Parenteral Nutrition (TPN) or Tube Feedings? No Patient Health Education Screen BARRIERS/SPECIAL NEEDS: No barriers identified PREFERRED STYLE OF LEARNING: Listening Reading Client Assistive Service (RITO) Screen Does the patient require assistance with outpatient visit? No Influenza Immunization: The patient declines to receive the recommended dose of seasonal influenza vaccine. Immunization: INFLUENZA, UNSPECIFIED FORMULATION Refusal Reason: OTHER Patient refuses all immunization(s) in the FLU group Date Documented: 07/09/23 09:09 /maame/ TOMASA Lackey [facility] Signed: 07/09/2023 09:10 SAPPHIRE [facility]
--- OUTSIDE RECORDS SUMMARY | 2024-01-15 11:08 | XMS_ITS | Encounter Summary ---
Author Name [facility] Organization [facility] Address [address] [place] [address] Support Name Relationship Address Phone IKE GREENYCE Next of Kin [address] [phone] DEMETRA GREEN Emergency Contact [address] [phone] Insurance Providers: All historical and current Section [...] Name Patient's Relationship to Policy Lawson [place] MCR (WNR) MEDICARE ADVANTAGE MCR (WNR) Oct 07, 2015 [id number] [phone] VAISHNAVI GREEN ERT PATIENT Selected Encounter This section includes the information on record at ID for the Encounter. Date/Time Encounter Type Encounter Description Reason Provider Source Dec 30, 2023 12:30 PM OFFICE O/P EST MOD 30 MIN RHEUMATOLOGY/ART HRITIS ICD-10-CM M06.4 Inflammatory polyarthropathy JACOB BLISS MD [facility] Encounter Template Text not used by ID Assessments - Encounter Diagnoses This section includes the primary and secondary diagnoses documented for the Encounter. Date/Time Primary/Secondary Diagnosis Diagnosis Name Provider Source Dec 30, 2023 04:17 PM PRIMARY Inflammatory polyarthropathy JACOB BLISS MD [facility] Dec 30, 2023 04:17 PM SECONDARY Other senior living (current) drug therapy JACOB BLISS MD [facility] Dec 30, 2023 04:17 PM SECONDARY Unspecified episcleritis, unspecified eye JACOB BLISS MD [facility] Plan of Treatment: Future Appointments (+ 6 months) and Future Tests (+/- 45 days) The Plan of Treatment section includes future care activities for the [facility] This section includes future appointments and future orders which are active, pending or scheduled. Future Appointments This section includes appointments that were scheduled to occur 6 months from the date of the Encounter, up to a maximum of 20 appointments. The data comes from all [facility] facilities. Appointment Date/Time Appointment Type Appointme nt Facility Name Jan 13, 2024 11:30 AM AMBULATORY - MEDICINE [facility] Apr 23, 2024 11:30 AM AMBULATORY MEDICINE [facility] Lab Results: +/- 30 days [...] Range Comment Dec 02, 2023 11:20 AM [facility] ALT/SGPT Specimen Type: PLASMA No comment entered. Ordering Provider: DELMER BLISS MD Report Released Date/Time: Jul 15, 2023 06:28 PM Reporting Lab: [facility] [id number] Performing Lab: [facility] [id number] ALT/SGPT 23 <55 Dec 02, 2023 11:20 AM [facility] AST/SGOT Specimen Type: PLASMA No comment entered. Ordering Provider: DELMER BLISS MD Report Released Date/Time: Jul 15, 2023 06:28 PM Reporting Lab: [facility] [id number] Performing Lab: [facility] [id number] AST/SGOT 20 <34 Dec 02, 2023 11:20 AM [facility] SED RATE Specimen Type: BLOOD No comment entered. Ordering Provider: DELMER BLISS MD Report Released Date/Time: Jul 15, 2023 06:28 PM Reporting Lab: [facility] [id number] Performing Lab: [facility] [id number] SED RATE 97 H 5-15 Dec 02, 2023 11:20 AM [facility] CREATININE(INCLUDES EGFR) Specimen Type: PLASMA No comment entered. Ordering Provider: DELMER BLISS MD Report Released Date/Time: Jul 15, 2023 06:28 PM Reporting Lab: [facility] [id number] Performing Lab: [facility] [id number] CREATININE 0.8 0.7-1.2 .CREAT EGFR(CKD-EPI) >90 >60 Dec 02, 2023 11:20 AM [facility] CBC & DIFF Specimen Type: BLOOD Comment: Manual Differential Performed Ordering Provider: DELMER BLISS MD Report Released Date/Time: Jul 15, 2023 06:28 PM Reporting Lab: [facility] [id number] Performing Lab: [facility] [id number] WBC 19.25 H 4.0-11.0 RBC 3.40 L [...] smoking, or tobacco-related health factor, from the ID facility where the Encounter took place. Date/Time Current Smoking Status Comment Facil juliann Jul 23, 2017 07:44 AM [facility] Tobacco Use History This section includes a history of the smoking, or tobacco-related health factors, that were collected on or before the date of the Encounter. The data comes from the ID facility where the Encounter took place. Date/Time Smoking Status/Tobacco Use Comment Maria Isabel valle Jul 24, 2016 08:09 AM FORMER TOBACCO USER 7Y OR [facility] Jul 27, 2015 07:54 AM FORMER TOBACCO USER 7Y OR [facility] Jun 18, 2014 09:49 AM FORMER TOBACCO USER 7Y OR [facility] Nov 22, 2010 09:21 AM FOR[facility] Jun 30, 2009 08:27 AM FORMER TOBACCO USER 7Y OR [facility] Advance Directives: All historical and current [...] 22, 2018 ADVANCE DIRECTIVE DEONTE DIAZ [facility] Jul 22, 2018 ADVANCE DIRECTIVE DISCUSSION DEONTE DIAZ [facility] Encounter Notes: All associated encounter notes This section contains the clinical notes associated to the Encounter. Date/Time Encounter Note(s) Provider Source Dec 30, 2023 08:39 AM RHEUMATOLOGY ATTENDING NOTE: LOCAL TITLE: RHEUMATOLOGY CLINIC NOTE STANDARD TITLE: RHEUMATOLOGY ATTENDING NOTE DATE OF NOTE: DEC 30, 2023@08:39 ENTRY DATE: DEC 30, 2023@08:39:06 AUTHOR: JOCELYNN BLISS EXP COSIGNER: URGENCY: STATUS: COMPLETED CC: F/U Arthralgia, Hemochromatosis, Chondrocalcinosis/CPPD, OA, seronegative inflammatory arthritis Multiple recent hospitalizations Video visit scheduled today, unable to connect audio so used phone as additional resource. History of present illness: Pt well known to me from my [facility] practice, now following at [facility]. Multifactorial arthralgia concerns. History of multiple orthopedic surgeries including CTS , reverse total shoulder. History of Hemochromatosis and MGUS, with monitoring through his greenhouse laborer ( Dr Cara Brown) for this. History [...] irritate his chronic dermatitis, does follow with [facility]. Was noting increasing pain in right wrist, prednisone previously increased to 10 mg daily without benefit for this, decreased back to 5 mg daily. Recheck RF/ CCP remain neg.Status post R wrist injection through Ortho (Dr Lula Yap at [facility]) with benefit 12/15/21,. He has also seen [...] point. History of anterior scleritis/episcleritis, follows with [facility], has been treated with topicals intermittently [...] to 10 mg daily, with some improvement. Also with known wrist cyst, follows with local orthopedist, excision may be next step Interim history: Complicated recent history over the last several months, just discharged from [place] for pneumonia/Parapneumonic effusion/question empyema. Not able to pull a discharge summary through V but will try to obtain this. Per patient had 3 chest tubes, then surgery with Dr Saenz, significant infection found. Discharged to rehab facility where he is currently residing, anticipated stay is about [address] Saenz in recent days, cxr looked , has been off antibiotics for ~ 2 days now. Pain ~ 5 around incision site. Has been working with PT at the care facility. Was off multiple arthritis medications, Plaquenil has been resumed and feels it has provided benefit, arthralgias are about back to baseline currently, however he is not sure exactly which other meds have been resumed. I have asked that a med list from his care facility be sent over for our review as well. ROS: - Constitutional:No fevers - HEENT:No mouth sores - CVS: denies new concerns, will be seeing Cardiology for follow-up, upcoming - RESP: No change in resp status - GI: No change in bowel habits - SKIN : no new rashes Past Medical History: Hallux valgus AND bunion ([facility] [id number])Hammer toe ([facility] [id number]) Essential hypertension ([facility] 05501385) Gout ([facility] 45547501) Benign prostatic hyperplasia ([facility] 972637Adepdxvn legs ([facility]CT 67822536) Hemochromatosis ([facility] 681952832) Chronic low back pain ([facility] 492440334) Osteoarthritis of knee ([facility] 247610549) Obstructive sleep apnea ([facility] 18049819) History of male erectile disorder ([facility] 4Dupuytren's contracture ([facility] 627632803) Bunion ([facility] 761467241) Chronic sinusitis ([facility] 30115345) Deviated nasal septum ([facility] 664278240) Obesity ([facility] 291967962) Pseudophakia ([facility] 58344383) Benign monoclonal gammopathy ([facility] 72799652) Orchialgia ([facility] 14398160) History of inflammatory bowel disease ([facility] 587314792) Injury of tendon of the rotator cuff of Impaired fasting glycaemia ([facility] 161399052) Edema ([facility] 281987885) Hallux valgus AND bunion ([facility] 343497253) Inflammatory polyarthropathy ([facility] 126130Khzhaoiipxmaidquw (SCT 935383104) Episcleritis ([facility] 162733) Gastroesophageal reflux disease ([facility] 430563207) Sensorineural hearing loss, bilateral (SDry eyes ([facility] 863612483) History of polyp of colon ([facility] 026299481Vurakpx of gout ([facility] 849339086) Social Hx: Marital status: Allergies: SEASONAL ALLERGIES (Jun 16, 2009) LEVOFLOXACIN (Oct 20, 2010) DICLOFENAC (Jul 13, 2022) Active Medications: Active Outpatient Medications (including Supplies): Active Outpatient Medications Status 1) ALLOPURINOL 300MG TAB TAKE ONE TABLET BY MOUTH EVERY ACTIVE MORNING 2) ATENOLOL 50/CHLORTHALIDONE 25MG TAB TAKE 1 TABLET BY ACTIVE MOUTH EVERY DAY 3) CLEANSING CLOTH ATTENDS PKT USE 1 WASHCLOTH TOPICALLY ACTIVE DIRECTED 4) CYCLOSPORINE 0.05% (PF) OPH EMUL 0.4ML INSTILL 1 DROP ACTIVE BOTH EYES TWICE A DAY 5) DEPEND UNDERWEAR,MAXIMUM,MEN X-LARGE USE 1 BRIEF ACTIVE DIRECTED 6) DICLOFENAC NA 1% TOP GEL APPLY 4 GRAMS TOPICALLY FOUR ACTIVE TIMES A DAY NEEDED TO AFFECTED AREA FOR PAIN 7) DOCUSATE NA 100MG CAP TAKE ONE CAPSULE BY MOUTH TWICE ACTIVE A DAY NEEDED FOR CONSTIPATION 90 DAY SUPPLY 8) DOXAZOSIN MESYLATE 8MG TAB TAKE ONE TABLET BY MOUTH ACTIVE EVERY DAY 9) HYDROXYCHLOROQUINE SULFATE 200MG TAB TAKE ONE TABLET ACTIVE (S) BY MOUTH EVERY DAY 10) LACTOBACILLUS ACIDOPHILUS TAB TAKE 1 TABLET BY MOUTH ACTIVE EVERY MORNING 11) OMEPRAZOLE 20MG EC CAP TAKE TWO CAPSULES BY MOUTH ACTIVE EVERY DAY ON AN EMPTY STOMACH, AT LEAST 30 MINUTES PRIOR TO A MEAL 12) POLYETHYLENE GLYCOL 3350 ORAL PWDR TAKE 17 GRAMS BY ACTIVE MOUTH EVERY DAY FOR CONSTIPATION MIXED IN JUICE OR WATER DIRECTED USE THE CAP A MEASURE 13) PRAMIPEXOLE DIHYDROCHLORIDE 0.25MG TAB TAKE THREE ACTIVE TABLETS BY MOUTH EVERY EVENING FOR RESTLESS LEGS 14) PREDNISOLONE ACETATE 1% OPH SUSP INSTILL 1 DROP IN ACTIVE RIGHT EYE EVERY DAY 15) PREDNISONE 5MG TAB TAKE 1 TO 2 TABLETS BY MOUTH EVERY ACTIVE (S) DAY NEEDED FOR JOINT PAIN * TAKE 1 TO 2 TABLETS DAILY DIRECTED TAPER 16) VANICREAM TOP CREAM APPLY THIN LAYER TOPICALLY [...] 5MG MOUTH TWICE A DAY ACTIVE NEEDED 22 Total Medications Physical Examination: No exam, Pt speaking appropriately, no labored breathing LABORATORY DATA: WBC 19.25 H (12/02/23) HGB 8.5 L (12/02/23) PLT 481 H (12/02/23) CREATININE 0.8 (12/02/23) COMPUTED CREATININE CLEARANCE____ URINE PROTEIN____ SGOT 20 (12/02/23) SGPT 23 (12/02/23) ALK PHOSPHATASE____ BILIRUBIN, TOTAL____ WESTERGREN 97 H (12/02/23) C-REACTIVE PROTEIN____ RHEUMATOID FACTOR____ CCP URIC ACID____ URIC ACID CRYSTALS____ ANTINUCLEAR ABY____ SLT - SHANIQUA No data available for: .SHANIQUA SCREEN ANTI-CLAUDIO ANTI-RESIDENTIAL LIFE DIRECTOR ANTI-SSA/RO ANTI-SSB/LA ANTI-SCL-70 ANTI-IKE-1 ANCA No data available Aldolase ANTI-HBs____ HBsAg____ ANTI-HEPATITIS C NEGATIVE SERUM (09/11/21 08:08) NEGATIVE SERUM (06/27/18 10:19) Imaging: Assessment/Plan: Osteoarthritis, suspected changes associated with hemachromatosis/ chondrocalcinosis. [place] to have component of polyarticular CPPD, seronegative [...] leflunomide to sulfasalazine. Over time right wrist was becoming more bothersome, difficult to say exactly what is driving this given his complex history. Previously Ophthalmology notes reviewed ,felt to have some increased risk factors for Plaquenil toxicity although none was noted specifically on exam, dosage lowered to 1 daily with close monitoring through ophthalmology. No Plaquenil toxicity noted on last exam. He has had intermittently active episcleritis. Following surgery our plan had been to consider addition of biologic/Humira, however he has unfortunately had quite a song road. Fortunately he seems to be doing okay now following chest surgery. We will review his med list when available, and make recommendations if needed although he seems to be doing okay at this point. I do want to check in with him very soon, we will plan recheck again in about 2 weeks/VVC. Let me know if changes arise/concerns in the interim. /maame/ JOCELYNN BLISS MD Rheumatology, Staff Physician Signed: 12/30/2023 16:17 JOCELYNN BLISS MD [facility]
--- OUTSIDE RECORDS SUMMARY | 2024-01-15 11:08 | XMS_ITS | Encounter Summary ---
Author Name Department of Vetera Affairs Organization Department of Vetera [facility] Address [address] [place] [address] Support Name Relationship Address Phone BARBARA GREENE [...] Name Patient's Relationship to Policy [place] MCR (WNR) MEDICARE ADVANTAGE MCR (WNR) Oct 07, 2015 [id number] [phone] VAISHNAVI GREEN ERT PATIENT Selected Encounter This section includes the information on record at [facility] for the Encounter. Date/Time Encounter Type Encounter Description Reason Provider Source Dec 30, 2023 12:38 PM Outpatient Encounter SLEEP MEDICINE ROQUE DONATO Encounter Template Text not used by [facility] Plan of Treatment: Future Appointments (+ 6 months) and Future Tests (+/- 45 days) The Plan of Treatment section includes future care activities for the patient from all [facility] treatmentfacilities. This section includes future appointments and future orders which are active, pending or scheduled. Future Appointments This section includes appointments that were scheduled to occur 6 months from the date of the Encounter, up to a maximum of 20 appointments. The data comes from all [facility] treatment facilities. Appointment Date/Time Appointment Type Appointme nt Facility Name Jan 13, 2024 11:30 AM AMBULATORY - MEDICINE [facility] Apr 23, 2024 11:30 AM AMBULATORY - MEDICINE [facility] Lab Results: +/- 30 days of the encounter This section includes the Chemistry and Hematology Lab Results on record with [facility] for the patient. Radiology Reports and Pathology Reports are provided separately, in subsequent sections. Lab Results This section contains the Chemistry/Hematology Results that were resulted 30 days before or 30 daysafter the date of the Encounter. Date/Time Source Result Type Result - Unit Interpretation Reference Range Comment Dec 02, 2023 11:20 AM [facility] ALT/SGPT Specimen Type: PLASMA No comment entered. Ordering Provider: DELMER BLISS MD Report Released Date/Time: Jul 15, 2023 06:28 PM Reporting Lab: [facility] [id number] Performing Lab: [facility] [id number] ALT/SGPT 23 <55 Dec 02, 2023 11:20 AM [facility] CREATININE(INCLUDES EGFR) Specimen Type: PLASMA No comment entered. Ordering Provider: DELMER BLISS MD Report Released Date/Time: Jul 15, 2023 06:28 PM Reporting Lab: [facility] [id number] Performing Lab: [facility] [phone] CREATININE 0.8 0.7-1.2 .CREAT EGFR(CKD-EPI) >90 >60 Dec 02, 2023 11:20 AM [facility] SED RATE Specimen Type: BLOOD No comment entered. Ordering Provider: DELMER BLISS MD Report Released Date/Time: Jul 15, 2023 06:28 PM Reporting Lab: [facility] [id number] Performing Lab: [facility] [id number] SED RATE 97 H 5-15 Dec 02, 2023 11:20 AM [facility] AST/SGOT Specimen Type: PLASMA No comment entered. Ordering Provider: DELMER BLISS MD Report Released Date/Time: Jul 15, 2023 06:28 PM Reporting Lab: [facility] [phone] Performing Lab: [facility] [id number] AST/SGOT 20 <34 Dec 02, 2023 11:20 AM [facility] CBC & DIFF Specimen Type: BLOOD Comment: Manual Differential Performed Ordering Provider: DELMER BLISS MD Report Released Date/Time: Jul 15, 2023 06:28 PM Reporting Lab: [facility] [id number] Performing Lab: [facility] [id number] WBC 19.25 H 4.0-11.0 RBC 3.40 L [...] and tobacco- related health factors from the [facility] facility where the Encounter took place. Current Smoking Status This section includes the most current smoking, or tobacco-related health factor, from the [facility] facility where the Encounter took place. Date/Time Current Smoking Status Comment Facil ity Jul 23, 2017 07:44 AM FORMER TOBACCO USER 7Y OR [facility] Tobacco Use History This section includes a history of the smoking, or tobacco-related health factors, that were collected on or before the date of the Encounter. The data comes from the [facility] facility where the Encounter took place. Date/Time Smoking Status/Tobacco Use Comment F acility Jul 24, 2016 08:09 AM FORMER TOBACCO USER 7Y OR [facility] Jul 27, 2015 07:54 AM FORMER TOBACCO USER 7Y OR [facility] Jun 18, 2014 09:49 AM FORMER TOBACCO USER 7Y OR [facility] Nov 22, 2010 09:21 AM FORMER TOBACCO USER 7Y OR [facility] Jun 30, 2009 08:27 AM FORMER TOBACCO USER 7Y OR [facility] [facility] Advance Directives: All historical and current Section Date Range: From patient's date of to the date document was created. This section includes ALL of a patient's completed or amended [facility] Advance and Rescinded Directives. The entries below indicate that a directive exists for the patient, but an actual copy is not included with this document. The data comes from all [facility] facilities. Date Advance Directives Provider Source Jul 22, 2018 ADVANCE DIRECTIVE DEONTE DIAZ [facility] Jul 22, 2018 ADVANCE DIRECTIVE DISCUSSION DEONTE DIAZ [facility] Encounter Notes: All associated encounter notes This section contains the clinical notes associated to the Encounter. Date/Time Encounter Note(s) Provider Source Dec 30, 2023 12:38 PM SLEEP MEDICINE SEC URE MESSAGING: LOCAL TITLE: SLEEP SECURE MESSAGING STANDARD TITLE: SLEEP MEDICINE SECURE MESSAGING DATE OF NOTE: DEC 30, 2023@12:38 ENTRY DATE: DEC 30, 2023@12:38:05 AUTHOR: IVAN DONATO EXP COSIGNER: URGENCY: STATUS: COMPLETED ------Original Message ------ Sent: 12/30/2023 08:05 AM ET From: VIC GREEN To: [facility]-Sleep--C/APAP Clinic @ Subject: General:ResMed I have a Resmed machine and I'm having trouble sleeping with the mask on. I have been in and out of the hospital since July 19 2024. Back surgery and surgery to remove blood clots from the my lung and from my heart. And lastly I had surgery to remove infection from my right lung. I'm recovering from surgery and I'm having therapy daily. I'm having trouble with my machine CPap can't seem to find a setting that is comfortable for me I sleep about half hour to hour so I have not been using it. My question is what can be done. ------Original Message ------ Sent: 12/30/2023 10:40 AM ET From: IVAN DONATO To: VIC GREEN Subject: General:ResMed Good morning, I can try and make an adjustment to your PAP; are you feeling like there is too much pressure or too little. Prior to the beginning of the month you had been doing quite well on CPAP and I don't note much change in device reported data. You are also due for a follow up with your sleep doctor so I can have a sales exhibitor reach out to assist with scheduling that follow up. RegardsIvan Registered Respiratory Therapist ------Original Message ------ Sent: 12/30/2023 11:36 AM ET From: VIC GREEN To: [facility]-Sleep--C/APAP Clinic @ Subject: General:ResMed I was in the hospital on oxygen mix and kind of out of it so can you adjust it down a little bit and I will message if it worked or if it has to go up. If I'm over due to see the Doctor please set up a video call for me. It's too hard for me to come up to the [facility] as I'm in a wheelchair and can't get around to will. Thank You ------Original Message ------ Sent: 12/30/2023 12:41 PM ET From: FARHAD SHELDON To: VIC GREEN Subject: General:ResMed Looking at your download from before you were in the hospotial, it looks like your mask leak has increase. Please try adjusting your mask to improve the seal of the mask. You can use the fit mask test in the my options screen to help with that . Please contact us if that does not help with the problem. Thank you- Farhad SAUNDERS RRT [facility]- Sleep ------Original Message ------ Sent: 12/30/2023 01:37 PM ET From: IVAN DONATO To: VIC GREEN Subject: General:ResMed I will make a slight adjustment to lower your pressures. I will have a sales exhibitor reach out to help arrange VVC appointment with physician. Regards, Ivan Donato Registered Respiratory Therapist /es/ IVAN DONATO, SUPERINTENDENT OIL FIELD DRILLING SUPERINTENDENT OIL FIELD DRILLING Signed: 12/30/2023 12:38 Receipt Acknowledged By: 12/31/2023 09:05 /maame/ JORGE GARRISON ADVANCED GLASS SMOOTHER IVAN DONATO [facility]
--- OUTSIDE RECORDS SUMMARY | 2024-01-15 11:08 | XMS_ITS | Encounter Summary ---
Author Name Department of Vetera Affairs Organization Department of Vetera Affairs Address [address] [place] [address] Support Name Relationship Address Phone BARBARA GREENE [...] MEDICARE ADVANTAGE MCR (WNR) Oct 07, 2015 [id number] [phone] VAISHNAVI GREEN ERT PATIENT Selected Encounter This section includes the information on record at [facility] for the Encounter. Date/Time Encounter Type Encounter Description Reason Provider Source Dec 23, 2023 09:02 AM Outpatient Encounter RHEUMATOLOGY/ARTHRI JORGE JASSO Encounter Template Text not used by [facility] Plan of Treatment: Future Appointments (+ 6 [...] Date/Time Appointment Type Appointme nt Facility Name Dec 30, 2023 12:30 PM AMBULATORY - MEDICINE [facility] Jan 13, 2024 11:30 AM AMBULATORY - MEDICINE [facility] Apr 23, 2024 11:30 AM AMBULATORY - MEDICINE [facility] Lab Results: +/- 30 days of the [...] Range Comment Dec 02, 2023 11:20 AM [facility] ALT/SGPT Specimen Type: PLASMA No comment entered. Ordering Provider: DELMER BLISS MD Report Released Date/Time: Jul 15, 2023 06:28 PM Reporting Lab: [facility] [id number] Performing Lab: [facility] [phone] ALT/SGPT 23 <55 Dec 02, 2023 11:20 AM [facility] AST/SGOT Specimen Type: PLASMA No comment entered. Ordering Provider: DELMER BLISS MD Report Released Date/Time: Jul 15, 2023 06:28 PM Reporting Lab: [facility] [phone] Performing Lab: [facility] [phone] AST/SGOT 20 <34 Dec 02, 2023 11:20 AM [facility] SED RATE Specimen Type: BLOOD No comment entered. Ordering Provider: DELMER BLISS MD Report Released Date/Time: Jul 15, 2023 06:28 PM Reporting Lab: [facility] [id number] Performing Lab: [facility] [phone] SED RATE 97 H 5-15 Dec 02, 2023 11:20 AM [facility] CREATININE(INCLUDES EGFR) Specimen Type: PLASMA No comment entered. Ordering Provider: DELMER BLISS MD Report Released Date/Time: Jul 15, 2023 06:28 PM Reporting Lab: [facility] [id number] Performing Lab: [facility] [phone] CREATININE 0.8 0.7-1.2 .CREAT EGFR(CKD-EPI) >90 >60 Dec 02, 2023 11:20 AM [facility] CBC & DIFF Specimen Type: BLOOD Comment: Manual Differential Performed Ordering Provider: DELMER BLISS MD Report Released Date/Time: Jul 15, 2023 06:28 PM Reporting Lab: [facility] [id number] Performing Lab: [facility] [id number] WBC 19.25 H 4.0-11.0 RBC 3.40 L [...] and tobacco- related health factors from the [facility] facility where the Encounter took place. Current Smoking Status This section includes the most current smoking, or tobacco-related health factor, from the [facility] facility where the Encounter took place. Date/Time Current Smoking Status Comment Facil ity Jul 23, 2017 07:44 AM FORMER TOBACCO USER 7Y OR [facility] Tobacco Use History This section includes a history of the smoking, or tobacco-related health factors, that were collected on or before the date of the Encounter. The data comes from the [facility] facility where the Encounter took place. Date/Time Smoking Status/Tobacco Use Comment F acility Jul 24, 2016 08:09 AM FORMER TOBACCO USER 7Y OR [facility] Jul 27, 2015 07:54 AM FORMER TOBACCO USER 7Y OR [facility] Jun 18, 2014 09:49 AM FORMER TOBACCO USER 7Y OR [facility] Nov 22, 2010 09:21 AM FORMER TOBACCO USER 7Y OR [facility] Jun 30, 2009 08:27 AM FORMER TOBACCO USER 7Y OR [facility] Advance Directives: All historical and current [...] Jul 22, 2018 ADVANCE DIRECTIVE DEONTE DIAZ [facility] Jul 22, 2018 ADVANCE DIRECTIVE DISCUSSION DEONTE DIAZ [facility] Encounter Notes: All associated encounter notes This section contains the clinical notes associated to the Encounter. Date/Time Encounter Note(s) Provider Source Dec 23, 2023 01:30 PM ADDENDUM: LOCAL TITLE: Addendum STANDARD TITLE: ADDENDUM DATE OF NOTE: DEC 23, 2023@13:30:05 ENTRY DATE: DEC 23, 2023@13:30:06 AUTHOR: JOCELYNN BLISS EXP COSIGNER: URGENCY: STATUS: COMPLETED I definitely would like to catch up with him - can we schedule as a VVC next Friday 12/29 overbook at 12: 30 ? No labs needed Orders in , thanks ! /maame/ JOCELYNN BLISS MD Rheumatology, Staff Physician Signed: 12/23/2023 13:32 Receipt Acknowledged By: 12/24/2023 14:02 /maame/ GINI GUTIERREZ Advanced Stock Fitter ====== --- Original Document --- 12/23/23 RHEUMATOLOGY SECURE MESSAGING: ------Original Message ------- Sent: 12/22/2023 09:04 PM ET From: VIC GREEN To: [facility]-Rheumatology - @ Subject: General:Right lung surgery For Augustus to see. I'm am at a nursing facility right now in [facility] only 15 minutes from home better for my not to be on the road to much. Just wondering what we can get together for a video call so we can discuss all of my surgeries and hospital stays which are to many Please give me a few choices of days and times that would work for you and me. I've only been here since Saturday and haven't had a schedule yet but it seems like lunchtime would be a good time to have a video call Thanks Yan /maame/ KALEE BULLARDCOAL SHOOTER NURSE Signed: 12/23/2023 09:02 Receipt Acknowledged By: 12/23/2023 13:30 /maame/ JOCELYNN BLISS MD Rheumatology, Staff Physician 12/23/2023 10:35 /es/ GINI GUTIERREZ Advanced Stock Fitter JOCELYNN BLISS MD [facility] Dec 23, 2023 09:02 AM RHEUMATOLOGY SECUR E MESSAGING: LOCAL TITLE: RHEUMATOLOGY SECURE MESSAGING STANDARD TITLE: RHEUMATOLOGY SECURE MESSAGING DATE OF NOTE: DEC 23, 2023@09:02 ENTRY DATE: DEC 23, 2023@09:02:56 AUTHOR: KALEE BULLARD EXP COSIGNER: URGENCY: STATUS: COMPLETED RHEUMATOLOGY SECURE MESSAGING Has ADDENDA ------Original Message ------- Sent: 12/22/2023 09:04 PM ET From: VIC GREEN To: [facility]-Rheumatology - @ Subject: General:Right lung surgery For Augustus to see. I'm am at a nursing facility right now in [facility] only 15 minutes from home better for my not to be on the road to much. Just wondering what we can get together for a video call so we can discuss all of my surgeries and hospital stays which are to many Please give me a few choices of days and times that would work for you and me. I've only been here since Saturday and haven't had a schedule yet but it seems like lunchtime would be a good time to have a video call Thanks Yan /maame/ KALEE BULLARD RN STAFF NURSE Signed: 12/23/2023 09:02 Receipt Acknowledged By: 12/23/2023 13:30 /maame/ JOCELYNN BLISS MD Rheumatology, Staff Physician 12/23/2023 10:35 /maame/ GINI GUTIERREZ Advanced Stock Fitter 12/23/2023 ADDENDUM STATUS: COMPLETED I definitely would like to catch up with him - can we schedule as a VVC next Friday 12/29 overbook at 12: 30 ? No labs needed Orders in , thanks ! /maame/ JOCELYNN BLISS MD Rheumatology, Staff Physician Signed: 12/23/2023 13:32 Receipt Acknowledged By: * AWAITING SIGNATURE * GINI GUTIERREZ [facility]
--- OUTSIDE RECORDS SUMMARY | 2024-01-15 11:08 | XMS_ITS | Encounter Summary ---
Author Name Department of Vetera Affairs Organization Department of Vetera Affairs Address [address] [place] [address] Support Name Relationship Address Phone IKE GREENYCE [...] MEDICARE ADVANTAGE MCR (WNR) Oct 07, 2015 [id number] [phone] VAISHNAVI GREEN ERT PATIENT Selected Encounter This section includes the information on record at [place] for the Encounter. Date/Time Encounter Type Encounter Description Reason Pro vider Source Jan 13, 2024 12:09 PM Outpatient Encounter RHEUMATOLOGY/ARTHRITI S IHE Encounter Template Text not used by [place] Plan of Treatment: Future Appointments (+ 6 months) and Future Tests (+/- 45 days) The Plan of Treatment section includes future care activities for the patient from all [place] treatmentfacilities. This section includes future appointments and future orders which are active, pending or scheduled. Future Appointments This section includes appointments that were scheduled to occur 6 months from the date of the Encounter, up to a maximum of 20 appointments. The data comes from all [place] treatment facilities. Appointment Date/Time Appointment Type Appointme nt Facility Name Apr 23, 2024 11:30 AM AMBULATORY - MEDICINE [facility] Social History: Smoking Status (Most current) and Tobacco Use (All prior to encounter date) This section includes the most current, and the historical, smoking and tobacco- related health factors from the [place] facility where the Encounter took place. Current Smoking Status This section includes the most current smoking, or tobacco-related health factor, from the [place] facility where the Encounter took place. Date/Time Current Smoking Status Comment Facil ity Jul 23, 2017 07:44 AM FORMER TOBACCO USER OR [facility] Tobacco Use History This section includes a history of the smoking, or tobacco-related health factors, that were collected on or before the date of the Encounter. The data comes from the [place] facility where the Encounter took place. Date/Time Smoking Status/Tobacco Use Comment F acility Jul 24, 2016 08:09 AM FORMER TOBACCO USER 7 OR [facility] Jul 27, 2015 07:54 AM FORMER TOBACCO USER 7 OR [facility] Jun 18, 2014 09:49 AM FORMER TOBACCO USER 7 OR [facility] Nov 22, 2010 09:21 AM FORMER TOBACCO USER 7 OR [facility] Jun 30, 2009 08:27 AM FORMER TOBACCO USER 7 OR [facility] Advance Directives: All historical and current Section Date Range: From patient's date of to the date document was created. This section includes ALL of a patient's completed or amended [place] Advance and Rescinded Directives. The entries below indicate that a directive exists for the patient, but an actual copy is not included with this document. The data comes from all [facility]. Date Advance Directives Provider Source Jul 22, 2018 ADVANCE DIRECTIVE DEONTE DIAZ [facility] Jul 22, 2018 ADVANCE DIRECTIVE DISCUSSION DEONTE DIAZ [facility] Encounter Notes: All associated encounter notes This section contains the clinical notes associated to the Encounter. Date/Time Encounter Note(s) Provider Source Jan 13, 2024 12:09 PM REPORT OF CONTACT: LOCAL TITLE: APPOINTMENT SCHEDULING NOTE STANDARD TITLE: REPORT OF CONTACT DATE OF NOTE: JAN 13, 2024@12:09 ENTRY DATE: JAN 13, 2024@12:10 AUTHOR: GINI GUTIERREZ COSIGNER: URGENCY: STATUS: COMPLETED Attempted to schedule Return to clinic (RTC) Contact attempt made to [place] 1st attempt Telephone 2nd attempt Letter - Sent letter by regular [place] mail to address on file: VIC GREEN [address] [place], [place] [address] Disposition order request after Jan Left message on voice mail to call back to this number If calls back, schedule appt for: 01/13/2024 11:54 New Order entered by JOCELYNN BLISS MD (STAFF PHYSICIAN) Order Text: Return to [facility] RHEUM PHONE IZAIAH on or around ( Jan 27, 2024 ) for a total of 1 appointment(s) No labs . OK to OB at 11;30 or 12;00 if no open slots /es/ GINI GUTIERREZ Advanced Glass Cutter Signed: 01/13/2024 12:11 GINI GUTIERREZ [facility]
--- OUTSIDE RECORDS SUMMARY | 2024-01-15 11:08 | XMS_ITS | Encounter Summary ---
Author Name Department of Vetera Affairs Organization Department of Vetera [facility] Address [address] [place] [address] Support Name Relationship Address Phone BARBARA GREENE Next of Kin [address] [phone] DEMETRA GREEN Emergency Contact [address] [phone] Insurance Providers: All historical and current Section [...] Name Patient's Relationship to Policy [employer] MCR (WNR) MEDICARE ADVANTAGE MCR (WNR) Oct 07, 2015 [id number] [phone] VAISHNAVI GREEN ERT PATIENT Selected Encounter This section includes the information on record at [place] for the Encounter. Date/Time Encounter Type Encounter Description Reason Provider Source Jan 13, 2024 11:30 AM OFFICE O/P EST MOD 30 MIN RHEUMATOLOGY/ART HRITIS ICD-10-CM M06.4 Inflammatory polyarthropathy JACOB BLISS MD [facility] Encounter Template Text not used by [place] Assessments - Encounter Diagnoses This section includes the primary and secondary diagnoses documented for the Encounter. Date/Time Primary/Secondary Diagnosis Diagnosis Name Provider Source Jan 13, 2024 12:34 PM PRIMARY Inflammatory polyarthropathy JACOB BLISS MD [facility] Jan 13, 2024 12:34 PM SECONDARY Other chondrocalcinosis, unspecified site JACOB BLISS MD [facility] Jan 13, 2024 12:34 PM SECONDARY Other termite control technician (current) drug therapy JACOB BLISS MD [facility] Jan 13, 2024 12:34 PM SECONDARY Unspecified episcleritis, unspecified eye IZAIAH,JACOB CARSON Riggins MD [facility] Plan of Treatment: Future Appointments (+ 6 months) and Future Tests (+/- 45 days) The Plan of Treatment section includes future care activities for the patient from all [place] treatmentfacilities. This section includes future appointments and future orders which are active, pending or scheduled. Future Appointments This section includes appointments that were scheduled to occur 6 months from the date of the Encounter, up to a maximum of 20 appointments. The data comes from all [place] treatment facilities. Appointment Date/Time Appointment Type Appointme nt Facility Name Apr 23, 2024 11:30 AM AMBULATORY - MEDICINE [facility] Social History: Smoking Status (Most current) and Tobacco Use (All prior to encounter date) This section includes the most current, and the historical, smoking and tobacco- related health factors from the [place] facility where the Encounter took place. Current Smoking Status This section includes the most current smoking, or tobacco-related health factor, from the [place] facility where the Encounter took place. Date/Time Current Smoking Status Comment Facil ity Jul 23, 2017 07:44 AM FORMER TOBACCO USER 7Y OR [facility] Tobacco Use History This section includes a history of the smoking, or tobacco-related health factors, that were collected on or before the date of the Encounter. The data comes from the [place] facility where the Encounter took place. Date/Time Smoking Status/Tobacco Use Comment F acility Jul 24, 2016 08:09 AM FORMER TOBACCO USER 7Y OR GREATE R [facility] Jul 27, 2015 07:54 AM FORMER TOBACCO USER 7Y OR GREATE R [facility] Jun 18, 2014 09:49 AM FORMER TOBACCO USER 7Y OR [facility]ATE R [facility] Nov 22, 2010 09:21 AM FORMER TOBACCO USER 7Y OR [facility]ATE R [facility] Jun 30, 2009 08:27 AM FORMER TOBACCO USER 7Y OR [facility]ATE R [facility] Advance Directives: All historical and current Section Date Range: From patient's date of to the date document was created. This section includes ALL of a patient's completed or amended [place] Advance and Rescinded Directives. The entries below indicate that a directive exists for the patient, but an actual copy is not included with this document. The data comes from all [place] facilities. Date Advance Directives Provider Source Jul 22, 2018 ADVANCE DIRECTIVE DEONTE DIAZ [facility] Jul 22, 2018 ADVANCE DIRECTIVE DISCUSSION DEONTE DIAZ [facility] Encounter Notes: All associated encounter notes This section contains the clinical notes associated to the Encounter. Date/Time Encounter Note(s) Provider Source Jan 13, 2024 11:31 AM RHEUMATOLOGY ATTENDING NOTE: LOCAL TITLE: RHEUMATOLOGY CLINIC NOTE STANDARD TITLE: RHEUMATOLOGY ATTENDING NOTE DATE OF NOTE: JAN 13, 2024@11:31 ENTRY DATE: JAN 13, 2024@11:31:18 AUTHOR: JOCELYNN BLISS EXP COSIGNER: URGENCY: STATUS: COMPLETED CC: PHONE VISITF Arthralgia, Hemochromatosis, Chondrocalcinosis/CPPD, OA, seronegative inflammatory arthritis Multiple recent hospitalizations History of present illness: Pt well known to me from my [facility] practice, now following at [facility]. Multifactorial arthralgia concerns. History of multiple orthopedic surgeries including CTS , reverse total shoulder. 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 History [...] irritate his chronic dermatitis, does follow with [facility]. Was noting increasing pain in right wrist, prednisone previously increased to 10 mg daily without benefit for this, decreased back to 5 mg daily. Recheck RF/ CCP remain neg.Status post R wrist injection through Ortho (Dr Lula Yap at [facility]) with benefit 12/15/21,. He has [...] point. History of anterior scleritis/episcleritis, follows with [facility], has been treated with topicals intermittently [...] local orthopedist, excision may be next step Complicated recent history over the last several months, recently discharged from [place] for pneumonia/Parapneumonic effusion/question empyema. Per patient had 3 chest tubes, then surgery with Dr Saenz, significant infection found. Discharged to rehab facility where he is currently residing, anticipated stay is about [address] Saenz, cxr looked , has been off antibiotics . Was off multiple arthritis medications, Plaquenil has been resumed and feels it has provided benefit, arthralgias ~baseline. -- Interim history: Feels is making good progress at the care facility. Hopefully will be discharged next week. Chest incision pain continues to improve, no pain with deep breaths, no coughing. I did receive his medication list from the care facility, continues on his Plaquenil, not currently on his baseline prednisone. At our phone visit 2 weeks ago felt arthritis was doing okay, but now feeling wrist symptoms are becoming more bothersome again - right greater than left. Not associated with swelling. He does feel like prednisone may need to be restarted at this point. He has been having some mechanical pattern ankle pain, seems to be related to activities with physical therapy rather than inflammatory pattern arthralgia. ROS: - Constitutional:No fevers - HEENT:No mouth sores - CVS: Denies cardiac concerns. - RESP: See HPI. - GI: Started on some laxatives at care center - SKIN : no new rashes Past Medical History: Hallux valgus AND bunion (RUST [id number])Hammer toe (RUST [id number]) Essential hypertension (RUST 72963431) Gout (RUST 52381382) Benign prostatic hyperplasia (SCT 569141Gufjzijm legs (RUST [id number]) Hemochromatosis (RUST 694671390) Chronic low back pain (RUST 062955539) Osteoarthritis of knee (SCT 325039528) Obstructive sleep apnea (RUST 46963538) History of male erectile disorder (SCT 4Dupuytren's contracture (SCT 644015243) Bunion (SCT 485005996) Chronic sinusitis (SCT 38429230) Deviated nasal septum (SCT 445691939) Obesity (SCT 476128646) Pseudophakia (SCT 41028031) Benign monoclonal gammopathy (SCT 18395658) Orchialgia (SCT 93503630) History of inflammatory bowel disease (RUST 889633283) Injury of tendon of the rotator cuff of Impaired fasting glycaemia (RUST 653900952) Edema (SCT 551509794) Hallux valgus AND bunion (SCT 548207303) Inflammatory polyarthropathy (SCT 715180Xnjzgfrorgmasmbtw (SCT 490856848) 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) Gastroesophageal reflux disease (SCT 012297083) Sensorineural hearing loss, bilateral (SDry eyes (RUST 072698601) History of polyp of colon (SCT 475440523Oaqhncx of gout (RUST 359226056) Social Hx: Marital status: Allergies: SEASONAL ALLERGIES [...] ONE TABLET ACTIVE BY MOUTH EVERY DAY 10) LACTOBACILLUS ACIDOPHILUS [...] 22 Total Medications Physical Examination: No exam, phone visit Pt speaking appropriately, no labored breathing LABORATORY [...] No data available for: .SHANIQUA SCREEN ANTI-CLAUDIO ANTI-OIL DISTRIBUTOR TENDER ANTI-SSA/RO ANTI-SSB/LA ANTI-SCL-70 ANTI-IKE-1 ANCA No data available Aldolase ANTI-HBs____ HBsAg____ ANTI-HEPATITIS C NEGATIVE SERUM (09/11/21 08:08) NEGATIVE SERUM (06/27/18 10:19) Imaging: Assessment/Plan: Osteoarthritis, suspected changes associated with hemachromatosis/ chondrocalcinosis. [place] to have component of polyarticular CPPD, seronegative [...] had quite a song road. Fortunately he continues to improve and discharge from care facility is anticipated in the next week. I would like to restart his prednisone at 5 mg daily, will communicate this to his team there. Call/send me a secure message if symptoms are worsening or not improving with restarting. We will plan a phone visit in 2 weeks for recheck. Also discussed I will be going to the [facility] starting in March, and I would like to see him for an in person visit there on March 23. PHONE START TIME: 1135 AM PHONE END TIME : 1149 AM /maame/ JOCELYNN BLISS MD Rheumatology, Staff Physician Signed: 01/13/2024 12:34 JOCELYNN BLISS MD [facility]
--- OUTSIDE RECORDS SUMMARY | 2024-01-15 11:08 | XMS_ITS | Encounter Summary ---
Author Name Department of Vetera Affairs Organization Department of Vetera Affairs Address [address] [place] [id number] Support Name Relationship Address Phone BARBARA GREENE [...] MEDICARE ADVANTAGE MCR (WNR) Oct 07, 2015 [id number] [phone] VAISHNAVI GREEN ERT PATIENT Selected Encounter This section includes the information on record at ID for the Encounter. Date/Time Encounter Type Encounter Description Reason Pro vider Source Dec 09, 2023 12:00 PM Outpatient Encounter RHEUMATOLOGY/ARTHRITI S IHE Encounter Template Text not used by ID [...] 30, 2023 12:30 PM AMBULATORY - MEDICINE [facility] Jan 13, 2024 11:30 AM AMBULATORY - MEDICINE [facility] Apr 23, 2024 11:30 AM AMBULATORY - MEDICINE [facility] Lab Results: +/- 30 days [...] Range Comment Dec 02, 2023 11:20 AM [facility] AST/SGOT Specimen Type: PLASMA No comment entered. Ordering Provider: DELMER BLISS MD Report Released Date/Time: Jul 15, 2023 06:28 PM Reporting Lab: [facility] [id number] Performing Lab: [facility] [id number] AST/SGOT 20 <34 Dec 02, 2023 11:20 AM [facility] ALT/SGPT Specimen Type: PLASMA No comment entered. Ordering Provider: DELMER BLISS MD Report Released Date/Time: Jul 15, 2023 06:28 PM Reporting Lab: [facility] [address] Performing Lab: [facility] [address] ALT/SGPT 23 <55 Dec 02, 2023 11:20 AM [facility] CREATININE(INCLUDES EGFR) Specimen Type: PLASMA No comment entered. Ordering Provider: DELMER BLISS MD Report Released Date/Time: Jul 15, 2023 06:28 PM Reporting Lab: [facility] [address] Performing Lab: [facility] [address] CREATININE 0.8 0.7-1.2 .CREAT EGFR(CKD-EPI) >90 >60 Dec 02, 2023 11:20 AM [facility] SED RATE Specimen Type: BLOOD No comment entered. Ordering Provider: DELMER BLISS MD Report Released Date/Time: Jul 15, 2023 06:28 PM Reporting Lab: [facility] [address] Performing Lab: [facility] [address] SED RATE 97 H 5-15 Dec 02, 2023 11:20 AM [facility] CBC & DIFF Specimen Type: BLOOD Comment: Manual Differential Performed Ordering Provider: DELMER BLISS MD Report Released Date/Time: Jul 15, 2023 06:28 PM Reporting Lab: [facility] [address] Performing Lab: [facility] [address] WBC 19.25 H 4.0-11.0 RBC 3.40 L [...] 07:44 AM FORMER TOBACCO USER 7Y OR [facility] Tobacco Use History This section includes a history of the smoking, or tobacco-related health factors, that were collected on or before the date of the Encounter. The data comes from the ID facility where the Encounter took place. Date/Time Smoking Status/Tobacco Use Comment F acility Jul 24, 2016 08:09 AM FORMER TOBACCO USER 7Y OR [facility] Jul 27, 2015 07:54 AM FORMER TOBACCO USER 7Y OR [facility] Jun 18, 2014 09:49 AM FORMER TOBACCO USER [address]Y [address] [facility] Nov 22, 2010 09:21 AM FORMER TOBACCO USER [address]Y OR [facility] [facility] Jun 30, 2009 08:27 AM FORMER TOBACCO USER 7Y OR [facility] [facility] Advance Directives: All historical and [...] Jul 22, 2018 ADVANCE DIRECTIVE DEONTE DIAZ [facility] Jul 22, 2018 ADVANCE DIRECTIVE DISCUSSION DEONTE DIAZ [facility]
--- NOTE | 2024-01-15 11:15 | FL_ITS ---
Patient: VIC GREEN Facility:?[facility] Patient ID:?[id number] Site Patient ID:?[id number] Site :?[id number] Study:?XRay-Abdomen Barium swallow modified READ-01/15/2024 11:33:54 AM Ordering Physician:?BERTO RUGGIERO Final Report: INDICATION: Difficulty swallowing TECHNIQUE: Modified barium swallow dysphagia. Fluoroscopic time 2 minutes 9 seconds. COMPARISON: None FINDINGS/IMPRESSION: Laryngeal penetration occurred with thin barium and aspiration occurred toward the end of the examination with slight cough reflex. Some difficulty initiating the swallowing mechanism. No obstruction. Dictated by Claudy Novak MD @ 01/15/2024 2:35:06 PM Signed by:?Claudy Novak MD @01/15/2024 2:35:06 PM (Electronic Signature)
== END 2024-01-15 10:59 | disposition home or self-care (01) ==
LOC: RAD 11:02
PROVIDERS: PCP Nurse Practitioner Adult Health; Visit Provider Nurse Practitioner Adult Health
DX: R13.10 Dysphagia, unspecified (principal)
CPT/HCPCS: 74230; 92611

== ENCOUNTER 2024-04-01 11:17 | Outpatient (CLI) | payer MEDICARE, BC, SELFPAY ==
--- NOTE | 2024-04-01 11:15 | CRLHL7_ITS ---
For Patients: As a result of the Century Cures Act, medical imaging exams and procedure reports are released immediately into your electronic medical record. You may view this report before your referring provider. If you have questions, please contact your health care provider. Indication: Assess swallow for acute aspiration Technique: In the recorded video swallow study various barium consistencies were utilized to assess the patient`s swallow. Please see the speech pathologist`s note for complete video swallow results. Patient was provided thin barium liquid which showed some mild penetration without signs of aspiration. He was provided thicker pudding/purees consistency barium with cracker/cookie no signs of penetration or aspiration. Overall, normal video swallow study. Comparison: Discussed previous video swallow with TAMPER OPERATOR. Does appear the patient was utilizing a lateral chin tuck for swallowing thin liquids. Findings: Overall normal video swallow please see TAMPER OPERATOR dictation for complete recorded video swallow results. Patient was able to tolerate thin/purees/pudding consistencies without signs of significant penetration or aspiration. Impression: Normal recorded video swallow assessing for aspiration. Dictated by Kumar Oliveros MD @ 04/01/2024 11:57:50 AM (Electronically Signed)
--- OUTSIDE RECORDS SUMMARY | 2024-04-01 11:21 | XMS_ITS | Encounter Summary ---
Author Name [facility] Organization [facility] Address [address] [place] [id number] Care Team Providers Care Agricultural Services Director Name Role Phone TISHA HEARD Primary Care Provider Unavailabl e Insurance Providers: All historical and current Section Date Range: From patient's date of to the date document was created. This section includes the names of all active insurance providers for the patient. Insurance Provider Type of Coverage Plan Name Start of Policy Coverage End of Policy Coverage Group Number Member ID Insurance Provider's Telephone Number Policy Lawson's Name Patient's Relationship to Policy Lawson [facility] (WNR) MEDICARE ADVANTAGE [facility] (WNR) Oct 07, 2015 [id number] [phone] VAISHNAVI GREEN ERT PATIENT Selected Encounter This section includes the information on record at [place] for the Encounter. Date/Time Encounter Type Encounter Description Reason Provider Source Jan 27, 2024 11:30 AM Outpatient Encounter TELEPHONE/MEDICI [place] ICD-10-CM M06.4 Inflammatory polyarthropathy JACOB BLISS MD [facility] Encounter Template Text not used by [place] Assessments - Encounter Diagnoses This section includes the primary and secondary diagnoses documented for the Encounter. Date/Time Primary/Secondary Diagnosis Diagnosis Name Provider Source Jan 27, 2024 11:30 AM PRIMARY Inflammatory polyarthropathy JACOB BLISS MD [facility] Jan 27, 2024 11:30 AM SECONDARY USP (current) use of systemic steroids JACOB BLISS MD [facility] Plan of Treatment: Future Appointments (+ 6 months) and Future Tests (+/- 45 days) The Plan of Treatment section includes future care activities for the patient from all [facility] This section includes future appointments and future orders which are active, pending or scheduled. Future Appointments This section includes appointments that were scheduled to occur 6 months from the date of the Encounter, up to a maximum of 20 appointments. The data comes from all [place] treatment [facility] [place] [facility]. Appointment Date/Time Appointment Type Appointme nt Facility Name Mar 17, 2024 11:00 AM [facility] Mar 23, 2024 11:30 AM [facility] Mar 26, 2024 10:00 AM AMBULATORY - REHAB MEDICIN [facility] Apr 06, 2024 10:45 AM AMBULATORY - NONE [facility] May 12, 2024 01:50 PM [facility]ORY - NONE [facility] May 18, 2024 10:00 AM [facility] May 25, 2024 11:00 AM [facility] Active, Pending, and Scheduled Orders This section includes a listing of several types of active, pending, and scheduled orders, including clinic medications orders, diagnostic test orders, procedure orders and consult orders; where the start date of the order is 45 days before the date of the Encounter or 45 days after the date of theEncounter. The data comes from all [facility]. Test Date/Time Test Type Test Details Facility Name February 06, 2024 07:53 PM Consult Order COMMUNITY CARE-OPHTHALMOLOGY Cons Clinical Coder's Choice [facility] Social History: Smoking Status (Most current) and Tobacco Use (All prior to encounter date) This section includes the most current, and the historical, smoking and tobacco- related health factors from the [place] facility where the Encounter took place. Current Smoking Status This section includes the most current smoking, or tobacco-related health factor, from the [place] facility where the Encounter took place. Date/Time Current Smoking Status Comment Facil ity Jul 23, 2017 07:44 AM FORMER TOBACCO USER 7Y OR [place] [facility] Tobacco Use History This section includes a history of the smoking, or tobacco-related health factors, that were collected on or before the date of the Encounter. The data comes from the [place] facility where the Encounter took place. Date/Time Smoking Status/Tobacco Use Comment F acility Jul 24, 2016 08:09 AM FORMER TOBACCO USER 7Y OR [place] Jul 27, 2015 07:54 AM FORMER TOBACCO USER 7Y OR [place] Jun 18, 2014 09:49 AM FORMER TOBACCO USER 7Y OR [facility] Nov 22, 2010 09:21 AM FORMER TOBACCO USER 7Y OR [facility] Jun 30, 2009 08:27 AM FORMER TOBACCO USER 7Y OR [facility] Advance Directives: All historical and current Section Date Range: From patient's date of to the date document was created. This section includes ALL of a patient's completed or amended [place] Advance and Rescinded Directives. The entries below indicate that a directive exists for the patient, but an actual copy is not included with this document. The data comes from all [place] facilities. Date Advance Directives Provider Source Jul 22, 2018 ADVANCE DIRECTIVE [facility] Jul 22, 2018 ADVANCE DIRECTIVE DISCUSSION EMILYDEONTE [facility] Encounter Notes: All associated encounter notes This section contains the clinical notes associated to the Encounter. Date/Time Encounter Note(s) Provider Source Jan 27, 2024 11:49 AM RHEUMATOLOGY ATTENDING NOTE: LOCAL TITLE: RHEUMATOLOGY CLINIC NOTE STANDARD TITLE: RHEUMATOLOGY ATTENDING NOTE DATE OF NOTE: JAN 27, 2024@11:49 ENTRY DATE: JAN 27, 2024@11:49:25 AUTHOR: JOCELYNN BLISS EXP COSIGNER: URGENCY: STATUS: COMPLETED CC: PHONE VISIT Arthralgia, Hemochromatosis, Chondrocalcinosis/CPPD, OA, seronegative inflammatory arthritis Multiple recent hospitalizations History of present illness: Pt well known to me from my [facility] practice, now following at [facility]. Multifactorial arthralgia concerns. History of multiple orthopedic surgeries including CTS , reverse total shoulder. History of Hemochromatosis and MGUS, with monitoring through his sander wooden pencils ( Dr Cara Brown) for this. History [...] injection through Ortho (Dr Lula Yap at [facility]) with benefit 12/15/21,. He [...] the last several months, recently discharged from [facility] for pneumonia/Parapneumonic effusion/question empyema. Per patient had 3 chest tubes, then surgery with Dr Saenz, significant infection found. Discharged to rehab facility where he is currently residing, anticipated stay is about [address] Saenz, cxr looked , has been off antibiotics . Was off multiple arthritis medications, Plaquenil has been resumed and feels it has provided benefit, arthralgias ~baseline. At last visit was still in care facility, he had not been on any prednisone so 5 mg daily was restarted given concerns of worsening wrist pain/swelling. -- Interim history: Has been home ~ week. Chest doing well, still a little sore. Prednisone restarted 5 mg , has helped, but wrists are still painful. Swelling has improved. No new arthralgias noted. Feels like he is continuing to recover/get stronger following significant hospital stay. ROS: - Constitutional:No new concerns - HEENT:No new concerns - CVS: Denies cardiac concerns. - RESP: See HPI - GI: No change in bowel habits - SKIN : no new rashes Past Medical History: Hallux valgus AND bunion ([facility] [id number])Hammer toe ([facility] [id number]) Essential hypertension ([facility] [id number]) Gout ([facility] [id number]) Benign prostatic hyperplasia ([facility] [id number] legs ([facility] [id number]) Hemochromatosis ([facility] [id number]) Chronic low back pain ([facility] [id number]) Osteoarthritis of knee ([facility] [id number]) Obstructive sleep apnea ([facility] [id number]) History of male erectile disorder (SCT 4Dupuytren's contracture (SCT 917498305) Bunion ([facility] 546814947) Chronic sinusitis ([facility] 25818780) Deviated nasal septum ([facility] 553284013) Obesity ([facility] 244327547) Pseudophakia ([facility] 94520901) Benign monoclonal gammopathy ([facility] 38378823) Orchialgia ([facility] 89187434) History of inflammatory bowel disease ([facility] 911121979) Injury of tendon of the rotator cuff of Impaired fasting glycaemia (SCT 777249218) Edema (SCT 483078522) Hallux valgus AND bunion ([facility]CT 613248901) Inflammatory polyarthropathy (SCT 462188Uuvxrmkmfubraesyt (SCT 042067798) Episcleritis (SCT 387110) Gastroesophageal reflux disease (SCT 919732585) Sensorineural hearing loss, bilateral (SDry eyes (SCT 368499259) History of polyp of colon (SCT 406695993Sbzscnj of gout ([facility] [id number]) Social Hx: Marital status: Allergies: SEASONAL ALLERGIES [...] EVERY DAY 15) PREDNISONE 5MG TAB TAKE ONE TABLET BY MOUTH EVERY DAY HOLD 16) VANICREAM TOP CREAM APPLY THIN LAYER [...] No data available for: .SHANIQUA SCREEN ANTI-CLAUDIO ANTI-[facility] ANTI-SSA/RO ANTI-SSB/LA ANTI-SCL-70 ANTI-IKE-1 ANCA No data available Aldolase ANTI-HBs____ HBsAg____ ANTI-HEPATITIS C NEGATIVE SERUM (09/11/21 08:08) NEGATIVE SERUM (06/27/18 10:19) Imaging: Assessment/Plan: Osteoarthritis, suspected changes associated with hemachromatosis/ chondrocalcinosis. [place] to have component of polyarticular CPPD, seronegative [...] has unfortunately had quite a song road. Continues to recover, now at home. Discussed options. We will increase prednisone to 10 mg daily for 2 weeks, then if doing okay back to 5 mg daily. Will also add back his sulfasalazine, let me know if any GI concerns noted with restarting. Could do 1 tab daily for 5 to 7 days then go back to previous twice daily dose. - F/u 03/23 [facility] with labs PHONE START TIME: 1150 AM PHONE END TIME : 1200 AM /es/ JOCELYNN BLISS MD Rheumatology, Staff Physician Signed: 01/27/2024 16:03 JOCELYNN BLISS MD [facility]
--- OUTSIDE RECORDS SUMMARY | 2024-04-01 11:21 | XMS_ITS | Continuity of Care Document ---
Author Name [facility] Organization [facility] Care Team Providers Care Real Estate Administrator Name Role Phone [facility] Unavailable Unavailable Problems Combined list of problems from Department of Defense and Veterans Affairs facilities. It does not include entries that were removed or entered in error. Problem Status Onset Date Problem Type Date of Resolution Comments Source Benign monoclonal gammopathy Active Condition Jun 25, 2018 Entered By: CHACHO MARTIN Comment: IgG kappa [facility] Benign prostatic hyperplasia Active Condition [facility] Bunion Active Condition [facility] Chondrocalcinosis Active Condition [facility] Chronic low back pain Active Condition Jun 25, 2018 Entered By: CHACHO MARTIN Comment: since 1995 [facility] Chronic sinusitis Active Condition [facility] Deviated nasal septum Active Condition [facility] Dry eyes Active Condition [facility] Dupuytren's contracture Active Condition [facility] Edema Active Condition [facility] Episcleritis Active Condition [facility] Essential hypertension Active Condition [facility] Gastroesophageal reflux disease Active Condition [facility] Gout Active Condition [facility] Hallux valgus AND bunion Active Condition [facility] Hallux valgus AND bunion (SNOMED CT 822609743) Active Condition [facility] Hammer toe (SNOMED CT 530435057) Active Condition [facility] Hemochromatosis [facility] History of gout Active Condition [facility] History of inflammatory bowel disease Active Condition [facility] History of male erectile disorder Active Condition [facility] History of polyp of colon Active Condition [facility] Impaired fasting glycaemia Active Condition [facility] Inflammatory polyarthropathy Active Condition [facility] Injury of tendon of the rotator cuff of shoulder Active Condition Jun 25, 2018 Entered By: CHACHO MARTIN Comment: surgery right ? 2 , left ? 1 [facility] Liver function tests outside reference range Active Condition [facility] Obesity Active Condition [facility] Obstructive sleep apnea Active Condition May 01, 2023 Entered By: PETE PERALTA Comment: resmed airsense s11 apap 14-20 ramp 8x15 min [facility] Orchialgia Active Condition Jun 25, 2018 Entered By: CHACHO MARTIN W Comment: 2009 [facility] Osteoarthritis of knee Active Condition Jul 06, 2020 Entered By: López RATLIFF Comment: R TKA 2018, L TKA [facility] Pseudophakia Active Condition [facility] Restless legs Active Condition [facility] Sensorineural hearing loss, bilateral Active Condition [facility] Hypertension (SNOMED CT [id number]) Inactive Condition 04/16/2018 [facility] Diagnosis: ICD-10-CM R26.89 Other abnormalities of gait and mobility Active Diagnosis [facility] Diagnosis: ICD-10-CM M06.4 Inflammatory polyarthropathy Active Diagnosis [facility] Diagnosis: ICD-10-CM Z73.6 Limitation of activities due to disability Active Diagnosis [facility] Diagnosis: ICD-10-CM Z74.09 Other reduced mobility Active Diagnosis [facility] Diagnosis: ICD-10-CM G47.33 Obstructive sleep apnea (adult) (pediatric) Active Diagnosis [facility] Diagnosis: ICD-10-CM M54.51 Vertebrogenic low back pain Active Diagnosis [facility] Diagnosis: ICD-10-CM L98.9 Disorder of the skin and subcutaneous tissue, unspecified Active Diagnosis [facility] Diagnosis: ICD-10-CM Z01.118 Encntr for exam of ears and hearing w oth abnormal findings Active Diagnosis [facility] Diagnosis: ICD-10-CM Z46.1 Encounter for fitting and adjustment of hearing aid Active Diagnosis [facility] Diagnosis: ICD-10-CM M54.50 Low back pain, unspecified Active Diagnosis [facility] Medications Combined list of outpatient medications from Department of Defense and [facility] Affairs facilities.Medications provided include 1) outpatient medications from the last 15 months, and 2) patient-reported medications. Medication Details Route Status Patient Instructions Prescription Expires Prescription Number Last Dispense Date Ordering Provider Order Date Order Qty Source ALLOPURINOL 300MG TAB TAKE ONE TABLET BY MOUTH EVERY MORNING ORAL ACTIVE 07/09/2024 [id number] 4 FÉLIX,A NNE 2022 90 [facility] ALLOPURINOL 300MG TAB TAKE ONE TABLET BY MOUTH EVERY MORNING ORAL DISCONT INUED 07/10/2023 [id number] 3 FÉLIX,A NNE 2021 90 [facility] ATENOLOL 50MG/CHLORT HALIDONE 25MG TAB TAKE 1 TABLET BY MOUTH EVERY DAY ORAL ACTIVE 07/09/2024 [id number] 3 FÉLIX,A NNE 2022 90 [facility] ATENOLOL 50MG/CHLORT HALIDONE 25MG TAB TAKE 1 TABLET BY MOUTH EVERY DAY ORAL DISCONT INUED 07/14/2023 [id number] 3 FÉLIX,A NNE 2021 90 [facility] CELECOXIB 200MG CAP TAKE 1 CAPSULE BY MOUTH TWICE A DAY ORAL ACTIVE TAZ MAKI 2008 [facility] CYCLOSPORIN E 0.05% (PF) EMULSION,OP H,0.4ML INSTILL 1 DROP BOTH EYES TWICE A DAY OPHTHA LMIC ACTIVE 10/30/2024 [id number] 4 SUDHIR GONZALEZ 2023 60 [facility] CYCLOSPORIN E 0.05% (PF) EMULSION,OP H,0.4ML 1 DROP BOTH EYES TWICE A DAY OPHTHA LMIC 07/18/2023 [id number] 3 SUDHIR GONZALEZ [address] [facility] DICLOFENAC NA 1% GEL,TOP APPLY 4 GRAMS TOPICALL Y FOUR TIMES A DAY NEEDED TO AFFECTED AREA FOR PAIN TOPICA L 03/15/2024 [id number] 3 JOCELYNN BLISS MD 2022 100 [facility] DOCUSATE NA 100MG CAP TAKE ONE CAPSULE BY MOUTH TWICE A DAY NEEDED FOR CONSTIPA TION 90 DAY SUPPLY ORAL ACTIVE 07/09/2024 [id number] 4 FÉLIX,A NNE 2022 200 [facility] DOCUSATE NA 100MG CAP TAKE ONE CAPSULE BY MOUTH TWICE A DAY NEEDED FOR CONSTIPA TION 90 DAY SUPPLY ORAL DISCONT INUED 07/14/2023 [id number] 3 FÉLIX,A NNE 2021 200 [facility] DOXAZOSIN MESYLATE 8MG TAB TAKE ONE TABLET BY MOUTH EVERY DAY ORAL ACTIVE 07/09/2024 [id number] 4 FÉLIX,A NNE 2022 90 [facility] DOXAZOSIN MESYLATE 8MG TAB TAKE ONE TABLET BY MOUTH EVERY DAY ORAL DISCONT INUED 07/14/2023 [id number] FÉLIX,A NNE 2021 90 [facility] FLUTICASONE PROPIONATE 50MCG/SPRAY SOLN,NASAL, 16GM SPRAY 2 SPRAYS IN EACH NOSTRIL AT BEDTIME FOR NASAL SYMPTOMS NASAL 12/15/2023 [id number] 3 ZACHARY OAKLEY 2022 1 [place] GABAPENTIN 300MG CAP TAKE 1 CAPSULE BY MOUTH THREE TIMES A DAY ORAL ACTIVE TAZ MAKI 2008 [facility] HYDROXYCHLO ROQUINE SO4 200MG TAB TAKE ONE TABLET BY MOUTH EVERY DAY ORAL SUSPEND ED 03/24/2025 [id number] 4 JOCELYNN BLISS MD 2023 90 [facility] HYDROXYCHLO ROQUINE SO4 200MG TAB TAKE ONE TABLET BY MOUTH EVERY DAY ORAL DISCONT INUED 10/28/2024 [id number] 4 JOCELYNN BLISS MD 2023 90 [facility] HYDROXYCHLO ROQUINE SO4 200MG TAB TAKE ONE TABLET BY MOUTH EVERY DAY ORAL DISCONT INUED 02/05/2024 [id number] 3 JOCELYNN BLISS MD 2022 90 [facility] HYDROXYCHLO ROQUINE SO4 200MG TAB TAKE ONE TABLET BY MOUTH EVERY DAY ORAL DISCONT INUED 05/08/2023 [id number] 3 JOCELYNN BLISS MD 2021 90 [facility] LACTOBACILL US ACIDOPHILUS TAB TAKE 1 TABLET BY MOUTH EVERY MORNING ORAL ACTIVE 07/09/2024 [id number] 4 FÉLIX,A NNE 2022 100 [facility] LACTOBACILL US ACIDOPHILUS TAB TAKE 1 TABLET BY MOUTH EVERY MORNING ORAL DISCONT INUED 07/14/2023 [id number] 3 FÉLIX,A NNE 2021 100 [facility] LEFLUNOMIDE 20MG TAB TAKE ONE TABLET BY MOUTH EVERY DAY STACIA Chandler ORAL ACTIVE 04/25/2024 [id number] 4 JOCELYNN BLISS MD 2023 30 [facility] LEFLUNOMIDE 20MG TAB TAKE ONE TABLET BY MOUTH EVERY DAY ORAL DISCONT INUED 06/11/2023 [id number] 3 JOCELYNN BLISS MD 2022 90 [facility] LEFLUNOMIDE 20MG TAB TAKE ONE TABLET BY MOUTH EVERY DAY ORAL 08/25/2023 [id number] 3 JOCELYNN BLISS MD [address] [facility] LUBIPROSTON E CAP,ORAL TAKE 8 MCG BY MOUTH TWICE A DAY ORAL ACTIVE Hola MARTIN 2018 [facility] MIRABEGRON 25MG TAB,SA TAKE ONE TABLET BY MOUTH EVERY DAY FOR OVERACTI VE BLADDER - SWALLOW WHOLE; DO NOT CRUSH ORAL ACTIVE 03/03/2025 [id number] 4 FÉLIX,A NNE 2023 30 [facility] MULTIVITAMI NS CAP/TAB TAKE ONE TABLET BY MOUTH EVERY DAY ORAL ACTIVE TAZ MAKI 2008 [facility] [place] [facility] OMEPRAZOLE 20MG CAP,EC TAKE TWO CAPSULES BY MOUTH EVERY DAY ON AN EMPTY STOMACH, AT LEAST 30 MINUTES PRIOR TO A MEAL ORAL ACTIVE 07/09/2024 [id number] 3 FÉLIX,A NNE 2022 180 [facility] OMEPRAZOLE 20MG CAP,EC TAKE TWO CAPSULES BY MOUTH EVERY DAY ON AN EMPTY STOMACH, AT LEAST 30 MINUTES PRIOR TO A MEAL ORAL DISCONT INUED 07/14/2023 [id number] 3 FÉLIXCarlos NNE 2021 180 [facility] OXYCODONE HCL 20MG TAB,SA TAKE ONE TABLET BY MOUTH EVERY 12 HOURS ORAL ACTIVE oHla MARTIN W 2017 [facility] OXYCODONE HCL 5MG TAB TAKE ONE TABLET BY MOUTH TWICE A DAY NEEDED ORAL ACTIVE Hola MARTIN CRISTIAN W 2017 [facility] POLYETHYLEN E GLYCOL 3350 PWDR,ORAL TAKE 17 GRAMS BY MOUTH EVERY DAY FOR CONSTIPA TION MIXED IN JUICE OR WATER DIRECTED USE THE CAP A MEASURE ORAL ACTIVE 10/09/2024 [id number] 4 FÉLIXCarlos NNE 2023 510 [facility] PRAMIPEXOLE DIHYDROCHLO RIDE 0.25MG TAB TAKE THREE TABLETS BY MOUTH EVERY EVENING FOR RESTLESS LEGS ORAL SUSPEND ED 09/20/2024 [id number] 4 [facility] 2022 270 [facility] PRAMIPEXOLE DIHYDROCHLO RIDE 0.25MG TAB TAKE THREE TABLETS BY MOUTH EVERY EVENING FOR RESTLESS LEGS ORAL DISCONT INUED 06/16/2023 [id number] 3 JOANNE CARDONA [facility] 2021 270 [facility] PREDNISOLON E ACETATE 1% SUSP,OPH INSTILL 1 DROP IN RIGHT EYE EVERY DAY OPHTHA LMIC ACTIVE 10/30/2024 [id number] 4 SUDHIR GONZALEZ 2023 5 [facility] PREDNISOLON E ACETATE 1% SUSP,OPH INSTILL 1 DROP IN RIGHT EYE EVERY DAY OPHTHA LMIC DISCONT INUED 05/16/2024 [id number] 3 SUDHIR GONZALEZ 2022 5 [facility] PREDNISOLON E ACETATE 1% SUSP,OPH INSTILL 1 DROP IN RIGHT EYE EVERY OTHER DAY SHAKE WELL OPHTHA LMIC 06/06/2023 [id number] 3 SUDHIR GONZALEZ 2021 5 [facility] PREDNISONE 5MG TAB TAKE ONE TABLET BY MOUTH EVERY DAY ORAL HOLD 01/13/2025 [id number] JOCELYNN BLISS MD 2023 90 [facility] PREDNISONE 5MG TAB TAKE 1 TO 2 TABLETS BY MOUTH EVERY DAY NEEDED FOR JOINT PAIN * TAKE 1 TO 2 TABLETS DAILY DIRECTED TAPER ORAL DISCONT INUED (EDIT) 11/04/2024 [id number] 4 JOCELYNN BLISS MD 2023 180 [facility] PREDNISONE 5MG TAB TAKE 1 TO 2 TABLETS BY MOUTH EVERY DAY NEEDED FOR JOINT PAIN * TAKE 1 TO 2 TABLETS DAILY DIRECTED TAPER ORAL DISCONT INUED 12/18/2023 [id number] 3 JOCELYNN BLISS MD 2022 180 [facility] PREGABALIN 100MG CAP,ORAL TAKE ONE CAPSULE BY MOUTH AT BEDTIME FOR RESTLESS LEGS SYNDROME ORAL DISCONT INUED 11/14/2023 [id number] 3 PETE BROWN 2022 30 [facility] PREGABALIN 25MG CAP,ORAL TAKE ONE CAPSULE BY MOUTH AT BEDTIME FOR 1 WEEK, THEN TAKE TWO CAPSULES AT BEDTIME FOR 1 WEEK, THEN TAKE THREE CAPSULES AT BEDTIME FOR 1 WEEK, THEN TAKE FOUR CAPSULES AT BEDTIME FOR RESTLESS LEGS SYNDROME START WITH ONE CAPSULE AT BEDTIME. INCREASE TIL EFFECTIV E. MAXIMUM 4 CAPSULES . ORAL DISCONT INUED 10/12/2023 [id number] 3 JOANNE CARDONA 2022 30 [facility] PREGABALIN 25MG CAP,ORAL TAKE 2 CAPSULES BY MOUTH AT BEDTIME FOR 1 WEEK, THEN TAKE 3 CAPSULES AT BEDTIME NEEDED FOR 1 WEEK, THEN TAKE 4 CAPSULES AT BEDTIME NEEDED FOR RESTLESS LEGS SYNDROME ORAL 06/14/2023 [id number] 3 PETE BROWN 2022 91 [facility] PREGABALIN 75MG CAP,ORAL TAKE ONE CAPSULE BY MOUTH AT BEDTIME FOR RESTLESS LEGS SYNDROME ORAL ACTIVE 09/27/2024 [id number] 4 ANJALI PELLETIER 2023 30 [facility] PREGABALIN 75MG CAP,ORAL TAKE ONE CAPSULE BY MOUTH AT BEDTIME -- START FOR RLS WITH ONE PILL AT NIGHT AND TITRATE TO EFFECT IF NOT LIMITED BY SIDE EFFECT. MAX OF 100MG. -- START FOR RLS WITH ONE PILL AT NIGHT AND TITRATE TO EFFECT IF NOT LIMITED BY SIDE EFFECT. MAX OF 100MG. ORAL 12/20/2023 [id number] 4 JOANNE CARDONA JAHAT 2022 30 [facility] VANICREAM APPLY THIN LAYER TOPICALL Y EVERY DAY FOR DRY SKIN TO AREAS OF DRY SKIN, IDEALLY WITHIN 3 MINUTES AFTER BATH OR SHOWER. FOR DRY SKIN TO AREAS OF DRY SKIN, IDEALLY WITHIN 3 MINUTES AFTER BATH OR SHOWER. TOPICA L ACTIVE 07/09/2024 [id number] 3 Carlos HEARD NNE 2022 454 [facility] Allergies, Adverse Reactions, Alerts Combined list of allergies from Department of Defense and Veterans Affairs facilities. It does not include entries that were removed or entered in error. Substance Category Reaction Severity Reaction type Status Date Reported Comments Source DICLOFENAC Propensity to adverse reactions to drug (finding) Eruption MILD active 2 [facility] LEVOFLOXACIN Propensity to adverse reactions to drug (finding) Muscle pain, Muscle weakness active 1 [facility] SEASONAL ALLERGIES Propensity to adverse reaction (finding) Allergic rhinitis active 9 [facility] Immunizations Combined list of available immunizations from the Department of Defense and Veterans Affairs facilities. Immunization Series Date Given Administered By Site Reaction Lot Number CVX Code Drug Veneer Matcher Status Comments Source COVID-19 ([employer]), MRNA, LNP-S, PF, ONESIMO-SUCROSE, 30 MCG/0.3 ML (AGES 12+ YEARS) 2022 309 complet ed [facility] INFLUENZA VACCINE, QUADRIVALENT, ADJUVANTED 2022 205 complet ed [facility] COVID-19 (PFIZER), MRNA, LNP-S, BIVALENT, PF, 30 MCG/0.3 ML DOSE 2022 300 complet ed [facility] INFLUENZA VACCINE, QUADRIVALENT, ADJUVANTED 2021 205 complet ed [facility] COVID-19 (PFIZER), MRNA, LNP-S, PF, 30 MCG/0.3 ML DOSE, ONESIMO-SUCROSE (AGES 12+ YEARS) 4 2021 217 complet ed PFR; [id number]; 2 [facility] COVID-19 (MODERNA), MRNA, LNP-S, PF, 100 MCG/0.5ML DOSE OR 50 MCG/0.25ML DOSE 3 2020 207 complet ed [facility] INFLUENZA, INJECTABLE, QUADRIVALENT, PRESERVATIVE FREE 2020 150 complet ed [facility] COVID-19 (MODERNA), MRNA, LNP-S, PF, 100 MCG/0.5 ML DOSE 2 2020 207 complet ed MOD: [id number]; 1 [facility] COVID-19 (MODERNA), MRNA, LNP-S, PF, 100 MCG/0.5 ML DOSE 1 2020 207 complet ed MOD; [id number]; 1 [facility] ZOSTER RECOMBINANT 2 2019 187 complet ed [facility] ZOSTER RECOMBINANT 1 2019 187 complet ed [facility] INFLUENZA VACCINE, QUADRIVALENT, ADJUVANTED 2019 205 complet ed [facility] INFLUENZA, UNSPECIFIED FORMULATION 2019 88 complet ed [facility] INFLUENZA, TRIVALENT, ADJUVANTED 2018 168 complet ed [facility] INFLUENZA, SEASONAL, INJECTABLE 2018 141 complet ed [facility] INFLUENZA, TRIVALENT, ADJUVANTED 2018 168 complet ed [facility] INFLUENZA, TRIVALENT, ADJUVANTED 2017 168 complet ed [facility] TD (ADULT), 2 LF TETANUS TOXOID, PRESERVATIVE FREE, ADSORBED 2017 09 complet ed [employer], [id number], 05/02/20 [facility] INFLUENZA, TRIVALENT, ADJUVANTED 2016 168 complet ed [facility] INFLUENZA, HIGH DOSE SEASONAL 2016 135 complet ed [facility] INFLUENZA, HIGH DOSE SEASONAL 2015 135 complet ed [facility] INFLUENZA, HIGH DOSE SEASONAL 2015 135 complet ed [facility] PNEUMOCOCCAL CONJUGATE PCV 13 2015 133 complet ed [facility] INFLUENZA, HIGH DOSE SEASONAL 2014 135 complet ed [facility] INFLUENZA, SEASONAL, INJECTABLE 2014 141 complet ed [facility] PNEUMOCOCCAL CONJUGATE PCV 13 2014 133 complet ed [facility] INFLUENZA, UNSPECIFIED FORMULATION 2013 88 complet ed [facility] INFLUENZA, HIGH DOSE SEASONAL 2013 135 complet ed [facility] PNEUMOCOCCAL POLYSACCHARID E PPV23 2012 33 complet ed [facility] INFLUENZA, SEASONAL, INJECTABLE 2012 141 complet ed [facility] INFLUENZA, UNSPECIFIED FORMULATION 2012 88 complet ed [facility] PNEUMOCOCCAL, UNSPECIFIED FORMULATION 2012 109 complet ed [facility] ZOSTER LIVE 2012 121 complet ed merck;[id number]'01/06 [facility] INFLUENZA, SEASONAL, INJECTABLE 2011 141 complet ed [facility] INFLUENZA, UNSPECIFIED FORMULATION 2011 88 complet ed [facility] INFLUENZA, SEASONAL, INJECTABLE, PRESERVATIVE FREE 2010 140 complet ed [facility] INFLUENZA, UNSPECIFIED FORMULATION 2010 88 complet ed [facility] INFLUENZA, UNSPECIFIED FORMULATION 2009 88 complet ed [facility] INFLUENZA, SEASONAL, INJECTABLE 2009 141 complet ed [facility] TDAP 2009 115 complet ed [facility] INFLUENZA, UNSPECIFIED FORMULATION 2008 88 complet ed [facility] INFLUENZA, SEASONAL, INJECTABLE 2007 141 complet ed [facility] TDAP 2007 115 complet ed [facility] TD(ADULT) UNSPECIFIED FORMULATION 2007 139 complet ed [facility] INFLUENZA, SEASONAL, INJECTABLE 2006 141 complet ed [facility] INFLUENZA, SEASONAL, INJECTABLE 2005 141 complet ed [facility] INFLUENZA, UNSPECIFIED FORMULATION 2004 88 complet ed [facility] INFLUENZA, UNSPECIFIED FORMULATION 2002 88 complet ed [facility] INFLUENZA (HISTORICAL) 1996 STAFF,NURSE 88 complet ed [facility] Results Combined list of recent chemistry, hematology and other laboratory results from Department of Defense and Veterans Affairs, ranging from 15 months to all on record, depending upon the facility. Order Name Results Value Reference Range Date Interpretation Specimen Comments Source [facility] CHEM PANEL CREATININE [MASS/VOLU ME] IN SERUM OR PLASMA 0.7 mg/dL 0.7 - 1.2 03/17 Specimen Type: PLASMA No comment entered. Ordering Provider: DEAN BULLARD Report Released Date/Time: February 28, 2024 11:38 AM Reporting Lab: [facility] [phone] Performing Lab: [facility] [address] [place] [facility] CHEM PANEL ALKALINE PHOSPHATAS E [ENZYMATIC ACTIVITY/V OLUME] IN SERUM OR PLASMA 187 U/L 40 - 150 03/17 H Specimen Type: PLASMA No comment entered. Ordering Provider: DEAN BULLARD Report Released Date/Time: February 28, 2024 11:38 AM Reporting Lab: [facility] [phone] Performing Lab: [facility] [address] [place] [facility] CHEM PANEL ALANINE AMINOTRANS FERASE [ENZYMATIC ACTIVITY/V OLUME] IN SERUM OR PLASMA 48 U/L <55 - 55 03/17 Specimen Type: PLASMA No comment entered. Ordering Provider: DEAN BULLARD Report Released Date/Time: February 28, 2024 11:38 AM Reporting Lab: [facility] [address] Performing Lab: [facility] [address] [place] [facility] CHEM PANEL ASPARTATE AMINOTRANS FERASE [ENZYMATIC ACTIVITY/V OLUME] IN SERUM OR PLASMA 51 U/L <34 - 34 03/17 H Specimen Type: PLASMA No comment entered. Ordering Provider: DEAN BULLARD Report Released Date/Time: February 28, 2024 11:38 AM Reporting Lab: [facility] [phone] Performing Lab: [facility] [address] [place] [facility] CHEM PANEL C REACTIVE PROTEIN [MASS/VOLU ME] IN SERUM OR PLASMA BY HIGH SENSITIVIT Y METHOD 64.06 mg/L <5.00 - 5.00 03/17 H Specimen Type: PLASMA No comment entered. Ordering Provider: DEAN BULLARD Report Released Date/Time: February 28, 2024 11:38 AM Reporting Lab: [facility] [address] Performing Lab: [facility] [address] [place] [facility] CHEM PANEL GLOMERULAR FILTRATION RATE/1.73 SQ M.PREDICTE D [VOLUME RATE/AREA] IN SERUM, PLASMA OR BLOOD BY CREATININE -BASED FORMULA (CKD-EPI 2020) >90 60 03/17 Specimen Type: PLASMA No comment entered. Ordering Provider: DEAN BULLARD Report Released Date/Time: February 28, 2024 11:38 AM Reporting Lab: [facility] [address] Performing Lab: [facility] [address] [place] [facility] HEME PANEL LEUKOCYTES [#/VOLUME] IN BLOOD BY AUTOMATED COUNT 9.98 10*3/uL 4.0 - 11.0 03/17 Specimen Type: BLOOD Comment: Automated Differentia l Performed Ordering Provider: DEAN BULLARD Report Released Date/Time: February 28, 2024 11:38 AM Reporting Lab: [facility] [address] Performing Lab: [facility] [address] [place] [facility] HEME PANEL ERYTHROCYT ES [#/VOLUME] IN BLOOD BY AUTOMATED COUNT 3.99 10*6/uL 4.6 - 6.2 03/17 L Specimen Type: BLOOD Comment: Automated Differentia l Performed Ordering Provider: DEAN BULLARD Report Released Date/Time: February 28, 2024 11:38 AM Reporting Lab: [facility] [phone] Performing Lab: [facility] [address] [place] [facility] HEME PANEL HEMOGLOBIN [MASS/VOLU ME] IN BLOOD 11.7 g/dL 13.5 - 17.9 03/17 L Specimen Type: BLOOD Comment: Automated Differentia l Performed Ordering Provider: DEAN BULLARD Report Released Date/Time: February 28, 2024 11:38 AM Reporting Lab: [facility] [phone] Performing Lab: [facility] [address] [place] [facility] HEME PANEL HEMATOCRIT [VOLUME FRACTION] OF BLOOD BY AUTOMATED COUNT 37.0 41 - 54 03/17 L Specimen Type: BLOOD Comment: Automated Differentia l Performed Ordering Provider: DEAN BULLARD Report Released Date/Time: February 28, 2024 11:38 AM Reporting Lab: [facility] [address] Performing Lab: [facility] [address] [place] [facility] HEME PANEL MCV [ENTITIC VOLUME] BY AUTOMATED COUNT 92.7 fL 80 - 100 03/17 Specimen Type: BLOOD Comment: Automated Differentia l Performed Ordering Provider: DEAN BULLARD Report Released Date/Time: February 28, 2024 11:38 AM Reporting Lab: [facility] [address] Performing Lab: [facility] [address] [place] [facility]ATO LOG[facility] HEME PANEL MCH [ENTITIC MASS] BY AUTOMATED COUNT 29.3 pg 27 - 33 03/17 Specimen Type: BLOOD Comment: Automated Differentia l Performed Ordering Provider: DEAN BULLARD Report Released Date/Time: February 28, 2024 11:38 AM Reporting Lab: [facility] [address] Performing Lab: [facility] [address] [place] [facility]HEUMATO LOGY HEME PANEL MCHC [MASS/VOLU ME] BY AUTOMATED COUNT 31.6 g/dL 32.0 - 37.5 03/17 L Specimen Type: BLOOD Comment: Automated Differentia l Performed Ordering Provider: DEAN BULLARD Report Released Date/Time: February 28, 2024 11:38 AM Reporting Lab: [facility] [address] Performing Lab: [facility] [address] [place] [facility] R[facility]ATO LOGY HEME PANEL PLATELETS [#/VOLUME] IN BLOOD BY AUTOMATED COUNT 278 10*3/uL 150 - 400 03/17 Specimen Type: BLOOD Comment: Automated Differentia l Performed Ordering Provider: DEAN BULLARD Report Released Date/Time: February 28, 2024 11:38 AM Reporting Lab: [facility] [id number] Performing Lab: [facility] [id number] [place] [facility] RHEUMATO LOGY HEME PANEL PLATELET MEAN VOLUME [ENTITIC VOLUME] IN BLOOD BY AUTOMATED COUNT 10.0 fL 7.4 - 10.4 03/17 Specimen Type: BLOOD Comment: Automated Differentia l Performed Ordering Provider: DEAN BULLARD Report Released Date/Time: February 28, 2024 11:38 AM Reporting Lab: [facility] [address] Performing Lab: [facility] [address] [place] [facility] RHEUMATO LOGY HEME PANEL NEUTROPHIL S/100 LEUKOCYTES IN BLOOD BY MANUAL COUNT 72.3 40.0 - 80.0 03/17 Specimen Type: BLOOD Comment: Automated Differentia l Performed Ordering Provider: DEAN BULLARD Report Released Date/Time: February 28, 2024 11:38 AM Reporting Lab: [facility] [address] Performing Lab: [facility] [address] [place] [facility] RHEUMATO LOGY HEME PANEL LYMPHOCYTE S/100 LEUKOCYTES IN BLOOD BY MANUAL COUNT 17.3 15.0 - 45.0 03/17 Specimen Type: BLOOD Comment: Automated Differentia l Performed Ordering Provider: DEAN BULLARD Report Released Date/Time: February 28, 2024 11:38 AM Reporting Lab: [facility] [address] Performing Lab: [facility] [address] [place] [facility] RHEUM[facility] LOGY HEME PANEL MONOCYTES/ 100 LEUKOCYTES IN BLOOD BY AUTOMATED COUNT 6.4 2.0 - 12.0 03/17 Specimen Type: BLOOD Comment: Automated Differentia l Performed Ordering Provider: DEAN BULLARD Report Released Date/Time: February 28, 2024 11:38 AM Reporting Lab: [facility] [address] Performing Lab: [facility] [address] [place] [facility] [place] HEME PANEL EOSINOPHIL S/100 LEUKOCYTES IN BLOOD BY AUTOMATED COUNT 2.1 0.0 - 6.0 03/17 Specimen Type: BLOOD Comment: Automated Differentia l Performed Ordering Provider: DEAN BULLARD Report Released Date/Time: February 28, 2024 11:38 AM Reporting Lab: [facility] [address] Performing Lab: [facility] [address] [place] [facility]HEUM[facility] LOG[place] HEME PANEL BASOPHILS/ 100 LEUKOCYTES IN BLOOD BY MANUAL COUNT 0.6 0.0 - 2.0 03/17 Specimen Type: BLOOD Comment: Automated Differentia l Performed Ordering Provider: DEAN BULLARD Report Released Date/Time: February 28, 2024 11:38 AM Reporting Lab: [facility] [address] Performing Lab: [facility] [address] [place] [facility] PANEL ERYTHROCYT E DISTRIBUTI ON WIDTH [RATIO] BY AUTOMATED COUNT 17.1 11.5 - 14.5 03/17 H Specimen Type: BLOOD Comment: Automated Differentia l Performed Ordering Provider: DEAN BULLARD Report Released Date/Time: February 28, 2024 11:38 AM Reporting Lab: [facility] [address] Performing Lab: [facility] [address] [place] [facility] R[facility]UM[facility] LOG[facility] HEME PANEL LYMPHOCYTE S [#/VOLUME] IN BLOOD BY AUTOMATED COUNT 1.73 10*3/uL 1.0 - 4.0 03/17 Specimen Type: BLOOD Comment: Automated Differentia l Performed Ordering Provider: DEAN BULLARD Report Released Date/Time: February 28, 2024 11:38 AM Reporting Lab: [facility] [address] Performing Lab: [facility] [address] [place] [facility] R[facility]UM[facility] LOG[facility] HEME PANEL MONOCYTES [#/VOLUME] IN BLOOD BY AUTOMATED COUNT 0.64 10*3/uL 0.1 - 1.0 03/17 Specimen Type: BLOOD Comment: Automated Differentia l Performed Ordering Provider: DEAN BULLARD Report Released Date/Time: February 28, 2024 11:38 AM Reporting Lab: [facility] [address] Performing Lab: [facility] [address] [place] [facility]UM[facility] LOG[facility] HEME PANEL NEUTROPHIL S [#/VOLUME] IN BLOOD BY AUTOMATED COUNT 7.21 10*3/uL 2.0 - 7.7 03/17 Specimen Type: BLOOD Comment: Automated Differentia l Performed Ordering Provider: DEAN BULLARD Report Released Date/Time: February 28, 2024 11:38 AM Reporting Lab: [facility] [address] Performing Lab: [facility] [address] [place] [facility] RHEUM[facility] LOGY HEME PANEL EOSINOPHIL S [#/VOLUME] IN BLOOD BY AUTOMATED COUNT 0.21 10*3/uL 0 - 0.5 03/17 Specimen Type: BLOOD Comment: Automated Differentia l Performed Ordering Provider: DEAN BULLARD Report Released Date/Time: February 28, 2024 11:38 AM Reporting Lab: [facility] [address] Performing Lab: [facility] [address] [place] [facility] HEME PANEL BASOPHILS [#/VOLUME] IN BLOOD BY AUTOMATED COUNT 0.06 10*3/uL 0 - 0.2 03/17 Specimen Type: BLOOD Comment: Automated Differentia l Performed Ordering Provider: DEAN BULLARD Report Released Date/Time: February 28, 2024 11:38 AM Reporting Lab: [facility] [address] Performing Lab: [facility] [address] [place] [facility] PANEL IG(META,MY CASE,PRO) 1.3 03/17 Specimen Type: BLOOD Comment: Automated Differentia l Performed Ordering Provider: DEAN BULLARD Report Released Date/Time: February 28, 2024 11:38 AM Reporting Lab: [facility] [address] Performing Lab: [facility] [address] [place] [facility] PANEL IMMATURE GRANULOCYT ES [PRESENCE] IN BLOOD BY AUTOMATED COUNT 0.13 10*3/uL 0 - 0.1 03/17 H Specimen Type: BLOOD Comment: Automated Differentia l Performed Ordering Provider: DEAN BULLARD Report Released Date/Time: February 28, 2024 11:38 AM Reporting Lab: [facility] [address] Performing Lab: [facility] [address] [place] [facility] PANEL PLATELETS RETICULATE D/100 PLATELETS IN BLOOD BY AUTOMATED COUNT 2.1 0 - 10 03/17 Specimen Type: BLOOD Comment: Automated Differentia l Performed Ordering Provider: DEAN BULLARD Report Released Date/Time: February 28, 2024 11:38 AM Reporting Lab: [facility] [address] Performing Lab: [facility] [address] [place] [facility]EM[facility] PANEL ERYTHROCYT E SEDIMENTAT ION RATE 113 mm/h 5 - 15 03/17 H Specimen Type: BLOOD Comment: Automated Differentia l Performed Ordering Provider: DEAN BULLARD Report Released Date/Time: February 28, 2024 11:38 AM Reporting Lab: [facility] [address] Performing Lab: [facility] [address] [place] [facility] ALT/SGPT ALANINE AMINOTRANS FERASE [ENZYMATIC ACTIVITY/V OLUME] IN SERUM OR PLASMA 23 U/L <55 - 55 12/02 Specimen Type: PLASMA No comment entered. Ordering Provider: ST ANASTACIO BLISS MD Report Released Date/Time: Jul 15, 2023 06:28 PM Reporting Lab: [facility] [address] Performing Lab: [facility] [address] [facility] AST/SGOT ASPARTATE AMINOTRANS FERASE [ENZYMATIC ACTIVITY/V OLUME] IN SERUM OR PLASMA 20 U/L <34 - 34 12/02 Specimen Type: PLASMA No comment entered. Ordering Provider: ST ANASTACIO BLISS MD Report Released Date/Time: Jul 15, 2023 06:28 PM Reporting Lab: [facility] [address] Performing Lab: [facility] [address] [facility] CBC & DIFF LEUKOCYTES [#/VOLUME] IN BLOOD BY AUTOMATED COUNT 19.25 10*3/uL 4.0 - 11.0 12/02 H Specimen Type: BLOOD Comment: Manual Differentia l Performed Ordering Provider: ST ANASTACIO BLISS MD Report Released Date/Time: Jul 15, 2023 06:28 PM Reporting Lab: [facility] [address] Performing Lab: [facility] [address] [facility] CBC & DIFF ERYTHROCYT ES [#/VOLUME] IN BLOOD BY AUTOMATED COUNT 3.40 10*6/uL 4.6 - 6.2 12/02 L Specimen Type: BLOOD Comment: Manual Differentia l Performed Ordering Provider: ST ANASTACIO BLISS MD Report Released Date/Time: Jul 15, 2023 06:28 PM Reporting Lab: [facility] [address] Performing Lab: [facility] [address] [facility] CBC & DIFF HEMOGLOBIN [MASS/VOLU ME] IN BLOOD 8.5 g/dL 13.5 - 17.9 12/02 L Specimen Type: BLOOD Comment: Manual Differentia l Performed Ordering Provider: ST ANASTACIO BLISS MD Report Released Date/Time: Jul 15, 2023 06:28 PM Reporting Lab: [facility] [address] Performing Lab: [facility] [address] [facility] CBC & DIFF HEMATOCRIT [VOLUME FRACTION] OF BLOOD BY AUTOMATED COUNT 28.3 41 - 54 12/02 L Specimen Type: BLOOD Comment: Manual Differentia l Performed Ordering Provider: ST ANASTACIO BLISS MD Report Released Date/Time: Jul 15, 2023 06:28 PM Reporting Lab: [facility] [address] Performing Lab: [facility] [address] [facility] CBC & DIFF MCV [ENTITIC VOLUME] BY AUTOMATED COUNT 83.2 fL 80 - 100 12/02 Specimen Type: BLOOD Comment: Manual Differentia l Performed Ordering Provider: ST ANASTACIO BLISS MD Report Released Date/Time: Jul 15, 2023 06:28 PM Reporting Lab: [facility] [address] Performing Lab: [facility] [address] [facility] CBC & DIFF MCH [ENTITIC MASS] BY AUTOMATED COUNT 25.0 pg 27 - 33 12/02 L Specimen Type: BLOOD Comment: Manual Differentia l Performed Ordering Provider: ST ANASTACIO BLISS MD Report Released Date/Time: Jul 15, 2023 06:28 PM Reporting Lab: [facility] [address] Performing Lab: [facility] [address] [facility] CBC & DIFF MCHC [MASS/VOLU ME] BY AUTOMATED COUNT 30.0 g/dL 32.0 - 37.5 12/02 L Specimen Type: BLOOD Comment: Manual Differentia l Performed Ordering Provider: ST ANASTACIO BLISS MD Report Released Date/Time: Jul 15, 2023 06:28 PM Reporting Lab: [facility] [address] Performing Lab: [facility] [address] [facility] CBC & DIFF PLATELETS [#/VOLUME] IN BLOOD BY AUTOMATED COUNT 481 10*3/uL 150 - 400 12/02 H Specimen Type: BLOOD Comment: Manual Differentia l Performed Ordering Provider: ST ANASTACIO BLISS MD Report Released Date/Time: Jul 15, 2023 06:28 PM Reporting Lab: [facility] [address] Performing Lab: [facility] [address] [facility] CBC & DIFF PLATELET MEAN VOLUME [ENTITIC VOLUME] IN BLOOD BY AUTOMATED COUNT 9.1 fL 7.4 - 10.4 12/02 Specimen Type: BLOOD Comment: Manual Differentia l Performed Ordering Provider: ST ANASTACIO BLISS MD Report Released Date/Time: Jul 15, 2023 06:28 PM Reporting Lab: [facility] [address] Performing Lab: [facility] [address] [facility] CBC & DIFF NEUTROPHIL S/100 LEUKOCYTES IN BLOOD BY MANUAL COUNT 85.5 12/02 Specimen Type: BLOOD Comment: Manual Differentia l Performed Ordering Provider: ST ANASTACIO BLISS MD Report Released Date/Time: Jul 15, 2023 06:28 PM Reporting Lab: [facility] [address] Performing Lab: [facility] [address] [facility] CBC & DIFF LYMPHOCYTE S/100 LEUKOCYTES IN BLOOD BY MANUAL COUNT 10.5 12/02 Specimen Type: BLOOD Comment: Manual Differentia l Performed Ordering Provider: ST ANASTACIO BLISS MD Report Released Date/Time: Jul 15, 2023 06:28 PM Reporting Lab: [facility] [address] Performing Lab: [facility] [address] [facility] CBC & DIFF MONOCYTES/ 100 LEUKOCYTES IN BLOOD BY AUTOMATED COUNT 3.0 12/02 Specimen Type: BLOOD Comment: Manual Differentia l Performed Ordering Provider: ST ANASTACIO BLISS MD Report Released Date/Time: Jul 15, 2023 06:28 PM Reporting Lab: [facility] [address] Performing Lab: [facility] [address] [facility] CBC & DIFF EOSINOPHIL S/100 LEUKOCYTES IN BLOOD BY AUTOMATED COUNT 0.5 12/02 Specimen Type: BLOOD Comment: Manual Differentia l Performed Ordering Provider: ST ANASTACIO BLISS MD Report Released Date/Time: Jul 15, 2023 06:28 PM Reporting Lab: [facility] [address] Performing Lab: [facility] [address] [facility] CBC & DIFF BASOPHILS/ 100 LEUKOCYTES IN BLOOD BY MANUAL COUNT 0.5 12/02 Specimen Type: BLOOD Comment: Manual Differentia l Performed Ordering Provider: ST ANASTACIO BLISS MD Report Released Date/Time: Jul 15, 2023 06:28 PM Reporting Lab: [facility] [address] Performing Lab: [facility] [address] [facility] CBC & DIFF ANISOCYTOS IS [PRESENCE] IN BLOOD BY LIGHT MICROSCOPY MODERATE 12/02 Specimen Type: BLOOD Comment: Manual Differentia l Performed Ordering Provider: ST ANASTACIO BLISS MD Report Released Date/Time: Jul 15, 2023 06:28 PM Reporting Lab: [facility] [address] Performing Lab: [facility] [address] [facility] CBC & DIFF MICROCYTES [PRESENCE] IN BLOOD BY LIGHT MICROSCOPY SLIGHT 12/02 Specimen Type: BLOOD Comment: Manual Differentia l Performed Ordering Provider: ST ANASTACIO BLISS MD Report Released Date/Time: Jul 15, 2023 06:28 PM Reporting Lab: [facility] [address] Performing Lab: [facility] [address] [facility] CBC & DIFF MACROCYTES [PRESENCE] IN BLOOD BY LIGHT MICROSCOPY SLIGHT 12/02 Specimen Type: BLOOD Comment: Manual Differentia l Performed Ordering Provider: ST ANASTACIO BLISS MD Report Released Date/Time: Jul 15, 2023 06:28 PM Reporting Lab: [facility] [address] Performing Lab: [facility] [address] [facility] CBC & DIFF POLYCHROMA KATHRYN [PRESENCE] IN BLOOD BY LIGHT MICROSCOPY SLIGHT 12/02 Specimen Type: BLOOD Comment: Manual Differentia l Performed Ordering Provider: ST ANASTACIO BLISS MD Report Released Date/Time: Jul 15, 2023 06:28 PM Reporting Lab: [facility] [address] Performing Lab: [facility] [address] [facility] CBC & DIFF HYPOCHROMI A [PRESENCE] IN BLOOD BY LIGHT MICROSCOPY MODERATE 12/02 Specimen Type: BLOOD Comment: Manual Differentia l Performed Ordering Provider: ST ANASTACIO BLISS MD Report Released Date/Time: Jul 15, 2023 06:28 PM Reporting Lab: [facility] [address] Performing Lab: [facility] [address] [facility] CBC & DIFF ERYTHROCYT E DISTRIBUTI ON WIDTH [RATIO] BY AUTOMATED COUNT 18.2 11.5 - 14.5 12/02 H Specimen Type: BLOOD Comment: Manual Differentia l Performed Ordering Provider: ST ANASTACIO BLISS MD Report Released Date/Time: Jul 15, 2023 06:28 PM Reporting Lab: [facility] [address] Performing Lab: [facility] [address] [facility] CBC & DIFF LYMPHOCYTE S [#/VOLUME] IN BLOOD BY AUTOMATED COUNT 2.02 10*3/uL 1.0 - 4.0 12/02 Specimen Type: BLOOD Comment: Manual Differentia l Performed Ordering Provider: ST ANASTACIO BLISS MD Report Released Date/Time: Jul 15, 2023 06:28 PM Reporting Lab: [facility] [address] Performing Lab: [facility] [address] [facility] CBC & DIFF MONOCYTES [#/VOLUME] IN BLOOD BY AUTOMATED COUNT 0.58 10*3/uL 0.1 - 1.0 12/02 Specimen Type: BLOOD Comment: Manual Differentia l Performed Ordering Provider: ST ANASTACIO BLISS MD Report Released Date/Time: Jul 15, 2023 06:28 PM Reporting Lab: [facility] [address] Performing Lab: [facility] [address] [facility] CBC & DIFF NEUTROPHIL S [#/VOLUME] IN BLOOD BY AUTOMATED COUNT 16.46 10*3/uL 2.0 - 7.7 12/02 H Specimen Type: BLOOD Comment: Manual Differentia l Performed Ordering Provider: ST ANASTACIO BLISS MD Report Released Date/Time: Jul 15, 2023 06:28 PM Reporting Lab: [facility] [address] Performing Lab: [facility] [address] [facility] CBC & DIFF EOSINOPHIL S [#/VOLUME] IN BLOOD BY AUTOMATED COUNT 0.10 10*3/uL 0 - 0.5 12/02 Specimen Type: BLOOD Comment: Manual Differentia l Performed Ordering Provider: ST ANASTACIO BLISS MD Report Released Date/Time: Jul 15, 2023 06:28 PM Reporting Lab: [facility] [address] Performing Lab: [facility] [address] [facility] CBC & DIFF BASOPHILS [#/VOLUME] IN BLOOD BY AUTOMATED COUNT 0.10 10*3/uL 0 - 0.2 12/02 Specimen Type: BLOOD Comment: Manual Differentia l Performed Ordering Provider: ST ANASTACIO BLISS MD Report Released Date/Time: Jul 15, 2023 06:28 PM Reporting Lab: [facility] [address] Performing Lab: [facility] [address] [facility] CBC & DIFF ERYTHROCYT E MORPHOLOGY FINDING [IDENTIFIE R] IN BLOOD PRESENT 12/02 Specimen Type: BLOOD Comment: Manual Differentia l Performed Ordering Provider: ST ANASTACIO BLISS MD Report Released Date/Time: Jul 15, 2023 06:28 PM Reporting Lab: [facility] [address] Performing Lab: [facility] [address] [facility] CREATINI NE(INCLU JUAN ANTONIO EGFR) CREATININE [MASS/VOLU ME] IN SERUM OR PLASMA 0.8 mg/dL 0.7 - 1.2 12/02 Specimen Type: PLASMA No comment entered. Ordering Provider: ST ANASTACIO BLISS MD Report Released Date/Time: Jul 15, 2023 06:28 PM Reporting Lab: [facility] [address] Performing Lab: [facility] [address] [facility] CREATINI NE(INCLU JUAN ANTONIO EGFR) GLOMERULAR FILTRATION RATE/1.73 SQ M.PREDICTE D [VOLUME RATE/AREA] IN SERUM, PLASMA OR BLOOD BY CREATININE -BASED FORMULA (CKD-EPI 2020) >90 60 12/02 Specimen Type: PLASMA No comment entered. Ordering Provider: ST ANASTACIO BLISS MD Report Released Date/Time: Jul 15, 2023 06:28 PM Reporting Lab: [facility] [address] Performing Lab: [facility] [address] [facility] SED RATE ERYTHROCYT E SEDIMENTAT ION RATE 97 mm/h 5 - 15 12/02 H Specimen Type: BLOOD No comment entered. Ordering Provider: ST ANASTACIO BLISS MD Report Released Date/Time: Jul 15, 2023 06:28 PM Reporting Lab: [facility] [address] Performing Lab: [facility] [address] [facility] CBC LEUKOCYTES [#/VOLUME] IN BLOOD BY AUTOMATED COUNT 10.76 10*3/uL 4.0 - 11.0 07/09 Specimen Type: BLOOD No comment entered. Ordering Provider: SANDRA HEARD Report Released Date/Time: Jul 09, 2023 09:30 AM Reporting Lab: [facility] [address] Performing Lab: [facility] [address] [facility] CBC ERYTHROCYT ES [#/VOLUME] IN BLOOD BY AUTOMATED COUNT 4.21 10*6/uL 4.6 - 6.2 07/09 L Specimen Type: BLOOD No comment entered. Ordering Provider: SANDRA HEARD Report Released Date/Time: Jul 09, 2023 09:30 AM Reporting Lab: [facility] [address] Performing Lab: [facility] [address] [facility] CBC HEMOGLOBIN [MASS/VOLU ME] IN BLOOD 13.4 g/dL 13.5 - 17.9 07/09 L Specimen Type: BLOOD No comment entered. Ordering Provider: SANDRA HEARD Report Released Date/Time: Jul 09, 2023 09:30 AM Reporting Lab: [facility] [address] Performing Lab: [facility] [address] [facility] CBC HEMATOCRIT [VOLUME FRACTION] OF BLOOD BY AUTOMATED COUNT 39.6 41 - 54 07/09 L Specimen Type: BLOOD No comment entered. Ordering Provider: SANDRA HEARD Report Released Date/Time: Jul 09, 2023 09:30 AM Reporting Lab: [facility] [address] Performing Lab: [facility] [address] [facility] CBC MCV [ENTITIC VOLUME] BY AUTOMATED COUNT 94.1 fL 80 - 100 07/09 Specimen Type: BLOOD No comment entered. Ordering Provider: SANDRA HEARD Report Released Date/Time: Jul 09, 2023 09:30 AM Reporting Lab: [facility] [address] Performing Lab: [facility] [address] [facility] CBC MCH [ENTITIC MASS] BY AUTOMATED COUNT 31.8 pg 27 - 33 07/09 Specimen Type: BLOOD No comment entered. Ordering Provider: SANDRA HEARD Report Released Date/Time: Jul 09, 2023 09:30 AM Reporting Lab: [facility] [address] Performing Lab: [facility] [address] [facility] CBC MCHC [MASS/VOLU ME] BY AUTOMATED COUNT 33.8 g/dL 32.0 - 37.5 07/09 Specimen Type: BLOOD No comment entered. Ordering Provider: SANDRA HEARD Report Released Date/Time: Jul 09, 2023 09:30 AM Reporting Lab: [facility] [address] Performing Lab: [facility] [address] [facility] CBC PLATELETS [#/VOLUME] IN BLOOD BY AUTOMATED COUNT 215 10*3/uL 150 - 400 07/09 Specimen Type: BLOOD No comment entered. Ordering Provider: SANDRA HEARD Report Released Date/Time: Jul 09, 2023 09:30 AM Reporting Lab: [facility] [address] Performing Lab: [facility] [address] [facility] CBC PLATELET MEAN VOLUME [ENTITIC VOLUME] IN BLOOD BY AUTOMATED COUNT 11.0 fL 7.4 - 10.4 07/09 H Specimen Type: BLOOD No comment entered. Ordering Provider: SANDRA HEARD Report Released Date/Time: Jul 09, 2023 09:30 AM Reporting Lab: [facility] [address] Performing Lab: [facility] [address] [facility] CBC ERYTHROCYT E DISTRIBUTI ON WIDTH [RATIO] BY AUTOMATED COUNT 13.2 11.5 - 14.5 07/09 Specimen Type: BLOOD No comment entered. Ordering Provider: SANDRA HEARD Report Released Date/Time: Jul 09, 2023 09:30 AM Reporting Lab: [facility] [address] Performing Lab: [facility] [address] [facility] HEMOGLOB IN A1C HEMOGLOBIN A1C/HEMOGL OBIN.TOTAL [...] Jul 09, 2023 09:30 AM Reporting Lab: [facility] [address] Performing Lab: [facility] [address] [facility] LIPID PANEL,NO N-FASTIN G CHOLESTERO L [MASS/VOLU ME] IN SERUM OR PLASMA 157 mg/dL <199 - 199 07/09 Specimen Type: PLASMA No comment entered. Ordering Provider: SANDRA HEARD Report Released Date/Time: Jul 09, 2023 09:30 AM Reporting Lab: [facility] [address] Performing Lab: [facility] [address] [facility] LIPID PANEL,NO N-FASTIN G CHOLESTERO L IN HDL [MASS/VOLU ME] IN SERUM OR PLASMA 43 mg/dL 40 07/09 Specimen Type: PLASMA No comment entered. Ordering Provider: SANDRA HEARD Report Released Date/Time: Jul 09, 2023 09:30 AM Reporting Lab: [facility] [address] Performing Lab: [facility] [address] [facility] LIPID PANEL,NO N-FASTIN G CHOLESTERO L IN LDL [MASS/VOLU ME] IN SERUM OR PLASMA BY CALCULATIO N 90 mg/dL <99 - 99 07/09 Specimen Type: PLASMA No comment entered. Ordering Provider: SANDRA HEARD Report Released Date/Time: Jul 09, 2023 09:30 AM Reporting Lab: [facility] [address] Performing Lab: [facility] [address] [facility] LIPID PANEL,NO N-FASTIN G CHOLESTERO L IN VLDL [MASS/VOLU ME] IN SERUM OR PLASMA BY CALCULATIO N 24 mg/dL <29 - 29 07/09 Specimen Type: PLASMA No comment entered. Ordering Provider: SANDRA HEARD Report Released Date/Time: Jul 09, 2023 09:30 AM Reporting Lab: [facility] [id number] Performing Lab: [facility] [id number] [facility] LIPID PANEL,NO N-FASTIN G CHOLESTERO L NON HDL [MASS/VOLU ME] IN SERUM OR PLASMA 114 mg/dL <129 - 129 07/09 Specimen Type: PLASMA No comment entered. Ordering Provider: SANDRA HEARD Report Released Date/Time: Jul 09, 2023 09:30 AM Reporting Lab: [facility] [phone] Performing Lab: [facility] [address] [facility] LIPID PANEL,NO N-FASTIN G TRIGLYCERI DE [MASS/VOLU ME] IN SERUM OR PLASMA 118 mg/dL <149 - 149 07/09 Specimen Type: PLASMA No comment entered. Ordering Provider: SANDRA HEARD Report Released Date/Time: Jul 09, 2023 09:30 AM Reporting Lab: [facility] [phone] Performing Lab: [facility] [phone] [facility] Vital Signs Combined list of inpatient and outpatient Vital Signs from [facility] [employer] [facility] and [facility], ranging from 12 months to all on record, depending upon the facility. Vital Sign Value Date Comments Source Encounters Combined list of: 1) Encounters from Department of Veterans Affairs facilities going back up to thelast 18 months. 2) Encounters from the Department of Defense facilities going back up to 280 months. Location Location Details Encounter Type Encounter Number Reason For Visit Attending Provider ADM Date DC Date Status Disposition Source [place] [facility] Outpatient Encounter [id number] ODELL LLOYD AEGhislaine F 10/05 [facility] [place] [facility] Outpatient Encounter [id number] CHATO RUGGIERO IDGET M 10/07 [facility] [place] [facility] Outpatient Encounter [id number] CHATO RUGGIERO IDGET M 10/09 [facility] [place] [facility] Outpatient Encounter [id number] PETE PERALTA ICA S 10/29 [facility] [place] [facility] Outpatient Encounter [id number] 10/30 [facility] [place] [facility] Outpatient Encounter [id number] PETE PERALTA ICA S 10/30 [facility] [place] [facility] Outpatient Encounter [id number] 11/01 [facility] [place] [facility] OFF/OP CNSLTJ NEW/EST MOD 40 [id number] Diagnos is: ICD-10- CM M54.50 Low back pain, unspeci fied
KNUFF,JACOB ANTONI T 11/05 [facility] HEARING AID CHECK BOTH EARS [id number] Diagnos is: ICD-10- CM Z46.1 Encount er for fitting and adjustm ent of hearing aid<br/ > CHARLENE WATKINS López 11/07 [facility] OFFICE O/P EST MOD 30-39 MIN [id number] Diagnos is: ICD-10- CM 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
Geraldine BLISS MD 11/13 [facility] Outpatient Encounter [id number] 11/16 [facility] Outpatient Encounter [id number] 11/27 [facility] Outpatient Encounter [id number] Diagnos is: ICD-10- CM G47.33 Obstruc tive sleep apnea (adult) (pediat issa)
ALEXUS CARDONA AHAT 12/14 [facility] Outpatient Encounter [id number] Diagnos is: ICD-10- CM 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
Geraldine BLISS MD 12/17 [facility] HEARING AID FITTING/CH ECKING [id number] Diagnos is: ICD-10- CM Z01.118 Encntr for exam of ears and hearing w oth abnorma l finding s
RUBI NAVARRO 01/08 [facility] Outpatient Encounter [id number] 01/29 [facility] Outpatient Encounter [id number] 01/30 [facility] Outpatient Encounter [id number] 01/30 [place] [facility] [place] [facility] Outpatient Encounter [id number] 02/04 [place] [facility] [place] [facility] Outpatient Encounter [id number] 02/07 [place] [facility] [place] [facility] PRO PHONE CALL 11-20 MIN [id number] [id number] Diagnos is: ICD-10- CM G47.33 Obstruc tive sleep apnea (adult) (pediat issa)
PETE PERALTA S 02/09 [place] [facility] [place] [facility] Outpatient Encounter [id number] 02/21 [facility] [place] [facility] Outpatient Encounter [id number] 02/21 [place] [facility] [place] [facility] Outpatient Encounter [id number] PETE PERALTA S 03/07 [place] [facility] OFF[facility] O/P EST MOD 30-39 MIN [id number] Diagnos is: ICD-10- CM 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
Geraldine BLISS MD 03/12 [facility] [place] [facility] Outpatient Encounter [id number] López BULLARD 03/14 [facility] OFF/OP EST MAY X REQ PHY/QHP [id number] Diagnos is: ICD-10- CM L98.9 Disorde r of the skin and subcuta neous tissue, unspeci fied
BONNY STRICKLAND 03/14 [facility] [place] [facility] Outpatient Encounter [id number] 03/21 [place] [facility] [place] [facility] Outpatient Encounter [id number] 03/26 [place] [facility] [place] [facility] Outpatient Encounter [id number] CACHORRO DENSON 04/08 [place] [facility] [place] [facility] OFFICE O/P EST MOD 30-39 MIN [id number] [id number] Diagnos is: ICD-10- CM G47.33 Obstruc tive sleep apnea (adult) (pediat issa)
ALEXUS CARDONA 04/10 [place] [facility] [place] [facility] Outpatient Encounter [id number] López BULLARD 04/16 [facility] [place] [facility] Outpatient Encounter [id number] PETE PERALTA ICA S 04/17 [facility] [place] [facility] Outpatient Encounter [id number] PETE PERALTA ICA S 04/18 [place] [facility] [place] [facility] Outpatient Encounter [id number] BONNY STRICKLAND 04/19 [facility] [place] [facility] Outpatient Encounter [id number] PETE PERALTA ICA S 04/19 [place] [facility] [place] [facility] PT EDUCATION NOC INDIVID [id number] Diagnos is: ICD-10- CM G47.33 Obstruc tive sleep apnea (adult) (pediat issa)
PETE PERALTA ICA S 04/23 [facility] [place] [facility] Outpatient Encounter [id number] PETE PERALTA ICA S 04/25 [place] [facility] [place] [facility] Outpatient Encounter [id number] PETE PERALTA ICA S 04/26 [place] [facility] [place] [facility] Outpatient Encounter [id number] López BULLARD 04/29 [facility] [place] [facility] Outpatient Encounter [id number] 04/29 [facility] [place] [facility] PT EDUCATION NOC INDIVID [id number] Diagnos is: ICD-10- CM G47.33 Obstruc tive sleep apnea (adult) (pediat issa)
PETE PERALTA 05/01 [facility] [place] [facility] Outpatient Encounter [id number] 05/14 [facility] [place] [facility] Outpatient Encounter [id number] 05/16 [facility] [place] [facility] OFFICE O/P EST MOD 30-39 MIN [id number] Diagnos is: ICD-10- CM 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
Geraldine BLISS MD 05/27 [facility] [place] [facility] Outpatient Encounter [id number] 07/09 [facility] [place] [facility] Outpatient Encounter [id number] ALIZE HEARD 07/09 [facility] OFFICE O/P EST MOD 30-39 MIN [id number] Diagnos is: ICD-10- CM M54.51 Vertebr ogenic low back pain
ALIZE HEARD NE 07/09 [facility] [place] [facility] OFFICE O/P EST MOD 30-39 MIN [id number] [id number] Diagnos is: ICD-10- CM G47.33 Obstruc tive sleep apnea (adult) (pediat issa)
ALEXUS CARDONA 07/10 [place] [facility] [place] [facility] Outpatient Encounter [id number] CAROL OLSON 07/18 [place] [facility] [place] [facility] Outpatient Encounter [id number] López BULLARD 09/03 [place] [facility] [place] [facility] Outpatient Encounter [id number] 09/03 [place] [facility] [place] [facility] Outpatient Encounter [id number] 09/03 [place] [facility] [place] [facility] Outpatient Encounter [id number] Geraldine BLISS MD 09/04 [facility] [place] [facility] SELF CARE MNGMENT TRAINING [id number] Diagnos is: ICD-10- CM Z74.09 Other reduced mobilit y
FRANCESCO BALL 09/11 [place] [facility] [place] [facility] Outpatient Encounter [id number] 09/17 [place] [facility] [place] [facility] Outpatient Encounter [id number] 09/23 [place] [facility] [place] [facility] Outpatient Encounter [id number] 09/25 [place] [facility] [place] [facility] Outpatient Encounter [id number] BONNY STRICKLAND 10/01 [place] [facility] [place] [facility] Outpatient Encounter [id number] BONNY STRICKLAND 10/01 [place] [facility] [place] [facility] Outpatient Encounter [id number] 10/04 [place] [facility] [place] [facility] Outpatient Encounter [id number] ANAND VERMA 10/09 [place] [facility] [place] [facility] Outpatient Encounter [id number] ANAND VERMA 10/09 [facility] [place] [facility] SELF CARE MNGMENT TRAINING [id number] Diagnos is: ICD-10- CM Z73.6 Limitat ion of activit ies due to disabil ity<br/ > RA STEFANI LITTLEJOHN 11/26 [place] [facility] [place] [facility] Outpatient Encounter [id number] PETE PERALTA 11/26 [place] [facility] [place] [facility] Outpatient Encounter [id number] López BULLARD 12/22 [facility] OFFICE O/P EST MOD 30 MIN [id number] Diagnos is: ICD-10- CM 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
Geraldine BLISS MD 01/26 [facility] [place] [facility] Outpatient Encounter [id number] 02/05 [place] [facility] [place] [facility] Outpatient Encounter [id number] CAROL OLSON 02/05 [place] [facility] [place] [facility] Outpatient Encounter [id number] PHUONG SHELDON 02/11 [place] [facility] [place] [facility] Outpatient Encounter [id number] 02/16 [place] [facility] [place] [facility] Outpatient Encounter [id number] 02/17 [place] [facility] [place] [facility] Outpatient Encounter [id number] 02/26 [place] [facility] [place] [facility] Outpatient Encounter [id number] López BULLARD 02/27 [place] [facility] OFFICE O/P EST MOD 30 MIN [id number] Diagnos is: ICD-10- CM 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
Geraldine BLISS MD 03/23 [facility] GAIT TRAINING THERAPY [id number] Diagnos is: ICD-10- CM R26.89 Other abnorma lities of gait and mobilit y
DICKSON DICKINSON 03/26 [facility] [place] [facility] Outpatient Encounter [id number] ALIZE HEARD 03/27 [place] [facility] [place] [facility] Outpatient Encounter [id number] MORRIS MCNEIL 03/27 [facility] Social History Combined list of available smoking, tobacco, and other social history from Department of Defense and Veterans Affairs facilities. Social History Type Response Date Comment Sourc e Tobacco smoking status PAIS VA-TOBACCO QUIT 15 YRS OR MORE 07/09/2023 [facility] History of tobacco use VA-TOBACCO FORMER USER 07/09/2023 [facility] History of tobacco use VA-TOBACCO FORMER USER 07/13/2022 [facility] History of tobacco use MO-TOBACCO NEVER USED 07/06/2021 [facility] History of tobacco use MO-TOBACCO FORMER USER 07/06/2020 [facility] History of tobacco use MO-TOBACCO QUIT 1 5 YRS OR MORE 04/23/2019 [facility] History of tobacco use FORMER TOBACCO US ER 7Y OR GREATER 06/27/2018 [facility] History of tobacco use FORMER TOBACCO US ER 7Y OR GREATER 07/23/2017 [facility] History of tobacco use FORMER TOBACCO US ER 7Y OR GREATER 07/24/2016 [facility] History of tobacco use FORMER TOBACCO US ER 7Y OR GREATER 07/27/2015 [facility] History of tobacco use FORMER TOBACCO US ER 7Y OR GREATER 06/18/2014 [facility] History of tobacco use FORMER TOBACCO US ER 7Y OR GREATER 11/22/2010 [facility] History of tobacco use FORMER TOBACCO US ER 7Y OR GREATER 06/30/2009 [facility] Plan of Care List of future care activities from Department of Veterans Affairs facilities. Additional future care activities may be listed in the Assessment and Plan section. Date/Time Care Activity Care Activity Detail Facili ty 04/06/2024 AMBULATORY - NONE AM[facility]ATORY - NONE [facility] 05/12/2024 AMBULATORY - NONE AMBULATORY - NONE [facility] 05/18/2024 AMBULATORY - MEDICINE AMBULATORY - MEDICI [facility] 05/25/2024 AMBULATORY - MEDICINE AMBULATORY - MEDICI NE [facility] 09/10/2024 AMBULATORY - MEDICINE AMBULATORY - MEDICI [facility] 03/26/2024 Consult Order PROSTHETICS REQU EST Cons Product Manager Medical Device's Choice [facility] 04/06/2024 Laboratory - Cabinetmaker Apprentice ry Order ALT/SGPT PLASMA SP ONCE [facility] 04/06/2024 Laboratory - Cabinetmaker Apprentice ry Order ALKALINE PHOSPHATASE PLASMA SP [facility] 04/06/2024 Laboratory - Cabinetmaker Apprentice ry Order AST/SGOT PLASMA SP [facility] 04/06/2024 Laboratory - Cabinetmaker Apprentice ry Order CREATININE(INCLUDES EGFR) PLASMA SP [facility] 04/06/2024 Laboratory - Cabinetmaker Apprentice ry Order CBC and DIFF BLOOD SP [facility] Advance Directives List of completed, amended, or rescinded Advance Directives on record at Department of [facility] facilities. An actual copy of the Directive is not included. Date Advance Directive Provider Source 07/22/2018 ADVANCE DIRECTIVE DEONTE DIAZ [facility] 07/22/2018 ADVANCE DIRECTIVE DISCUSSION DEONTE DIAZ [facility]
--- OUTSIDE RECORDS SUMMARY | 2024-04-01 11:21 | XMS_ITS | Encounter Summary ---
Author Name [facility] Organization [facility] Address [address] [place] [address] Care Team Providers Care Certified Drug Counselor Name Role Phone TISHA HEARD Primary Care [...] Name Patient's Relationship to Policy Lawson BCBS [facility] (WNR) MEDICARE ADVANTAGE [facility] (WNR) Oct 07, 2015 [id number] [phone] VAISHNAVI GREEN ERT PATIENT Selected Encounter This section includes the information on record at PA for the Encounter. Date/Time Encounter Type Encounter Description Reason Pro vider Source February 06, 2024 12:46 PM Outpatient Encounter COMMUNITY CARE CONSULT E Encounter Template Text not used by PA Plan of Treatment: Future Appointments (+ 6 months) and Future Tests (+/- 45 days) The Plan of Treatment section includes future care activities for the patient from all PA treatmentfacilities. This section includes future appointments and future orders which are active, pending or scheduled. Future Appointments This section includes appointments that were scheduled to occur 6 months from the date of the Encounter, up to a maximum of 20 appointments. The data comes from all PA treatment facilities. Appointment Date/Time Appointment Type Appointme nt Facility Name Mar 17, 2024 11:00 AM AM[facility]UL[facility]ORY [facility]ICINE [facility] Mar 23, 2024 11:30 AM AMBULATORY - MEDICINE [facility] Mar 26, 2024 10:00 AM AMBULATORY - REHAB MEDICIN E [facility] Apr 06, 2024 10:45 AM AMBULATORY - NONE [facility] May 12, 2024 01:50 PM AMBULATORY - NONE [facility] May 18, 2024 10:00 AM AMBULATORY - MEDICINE [facility] May 25, 2024 11:00 AM AMBULATORY - MEDICINE [facility] Active, Pending, and Scheduled Orders This section includes a listing of several types of active, pending, and scheduled orders, including clinic medications orders, diagnostic test orders, procedure orders and consult orders; where the start date of the order is 45 days before the date of the Encounter or 45 days after the date of theEncounter. The data comes from all PA treatment facilities. Test Date/Time Test Type Test Details Facility Name February 06, 2024 07:53 PM Consult Order COMMUNITY CARE-OPHTHALMOLOGY Cons Farm Machine Operator's Choice [facility] Social History: Smoking Status (Most current) and Tobacco Use (All prior to encounter date) This section includes the most current, and the historical, smoking and tobacco- related health factors from the PA facility where the Encounter took place. Current Smoking Status This section includes the most current smoking, or tobacco-related health factor, from the PA facility where the Encounter took place. Date/Time Current Smoking Status Comment Facil ity Jul 23, 2017 07:44 AM FORMER TOBACCO USER 7Y OR [facility] R [facility] Tobacco Use History This section includes a history of the smoking, or tobacco-related health factors, that were collected on or before the date of the Encounter. The data comes from the PA facility where the Encounter took place. Date/Time Smoking Status/Tobacco Use Comment F acility Jul 24, 2016 08:09 AM FORMER TOBACCO USER 7Y OR GREATE R [facility] Jul 27, 2015 07:54 AM FORMER TOBACCO USER 7Y OR GREATE R [facility] Jun 18, 2014 09:49 AM FORMER TOBACCO USER 7Y OR GREATE R [facility] Nov 22, 2010 09:21 AM FORMER TOBACCO USER 7Y OR GREATE R [facility] Jun 30, 2009 08:27 AM FORMER TOBACCO USER 7Y OR GREATE R [facility] Advance Directives: All historical and current Section Date Range: From patient's date of to the date document was created. This section includes ALL of a patient's completed or amended PA Advance and Rescinded Directives. The entries below indicate that a directive exists for the patient, but an actual copy is not included with this document. The data comes from all PA facilities. Date Advance Directives Provider Source Jul 22, 2018 ADVANCE DIRECTIVE [facility] Jul 22, 2018 ADVANCE DIRECTIVE DISCUSSION DEONTE DIAZ [facility] Encounter Notes: All associated encounter notes This section contains the clinical notes associated to the Encounter. Date/Time Encounter Note(s) Provider Source February 06, 2024 12:46 PM NONVA NOTE: LOCAL TITLE: COMMUNITY CARE-REQUEST FOR SERVICE NOTE STANDARD TITLE: NONVA NOTE DATE OF NOTE: FEBRUARY 06, 2024@12:46 ENTRY DATE: FEBRUARY 06, 2024@12:46:24 AUTHOR: SCOTTIE VASQUES EXP COSIGNER: URGENCY: STATUS: COMPLETED RFAS with records uploaded to Ophthalmology Consult #[id number] Request id for a new Ophthalmology consult for ongoing care. Previous consult expires 02/21/24, please review note date 01/30/[address] if indicated Thank You. /maame/ SCOTTIE VASQUES RN audio video technician Program Management Specialist Signed: 02/06/2024 12:48 Receipt Acknowledged By: 02/06/2024 15:19 /maame/ LUPE JONES MD OPHTHALMOLOGY STAFF SURGEON SCOTTIE VASQUES [facility]
--- OUTSIDE RECORDS SUMMARY | 2024-04-01 11:22 | XMS_ITS | Encounter Summary ---
Author Name Department of Vetera Affairs Organization Department of Vetera [facility] Address [address] [place] [address] Care Team Providers Care Videogame Tester Name Role Phone TISHA HEARD Primary Care [...] Name Patient's Relationship to Policy Lawson BCBS [facility] (WNR) MEDICARE ADVANTAGE [facility] (WNR) Oct 07, 2015 [id number] [phone] VAISHNAVI GREEN ERT PATIENT Selected Encounter This section includes the information on record at [place] for the Encounter. Date/Time Encounter Type Encounter Description Reason Provider Source February 06, 2024 01:20 PM Outpatient Encounter SLEEP MEDICINE ROQUE FREY Encounter Template Text not used by AL Plan of Treatment: Future Appointments (+ 6 months) and Future Tests (+/- 45 days) The Plan of Treatment section includes future care activities for the patient from all [place] treatmentfacilities. This section includes future appointments and future orders which are active, pending or scheduled. Future Appointments This section includes appointments that were scheduled to occur 6 months from the date of the Encounter, up to a maximum of 20 appointments. The data comes from all [place] treatment facilities. Appointment Date/Time Appointment Type Appointme nt Facility Name Mar 17, 2024 11:00 AM AMBULATORY - MEDICINE [facility]ANESSA Beard [facility] Mar 23, 2024 11:30 AM AMBULATORY - MEDICINE VANESSA Beard [facility] Mar 26, 2024 10:00 AM AMBULATORY - REHAB MEDICIN E [facility]ard [facility] Apr 06, 2024 10:45 AM AMBULATORY - NONE SANDY Scanlon [facility] May 12, 2024 01:50 PM AMBULATORY - NONE VIOLA JEFFERY [facility] May 18, 2024 10:00 AM AMBULATORY - MEDICINE [facility] May 25, 2024 11:00 AM AMBULATORY - MEDICINE VANESSA Beard [facility] Active, Pending, and Scheduled Orders This section includes a listing of several types of active, pending, and scheduled orders, including clinic medications orders, diagnostic test orders, procedure orders and consult orders; where the start date of the order is 45 days before the date of the Encounter or 45 days after the date of theEncounter. The data comes from all [place] treatment facilities. Test Date/Time Test Type Test Details Facility Name February 06, 2024 07:53 PM Consult Order COMMUNITY CARE-OPHTHALMOLOGY Cons Gin Operator's [facility] Social History: Smoking Status (Most current) and Tobacco Use (All prior to encounter date) This section includes the most current, and the historical, smoking and tobacco- related health factors from the [place] facility where the Encounter took place. Current Smoking Status This section includes the most current smoking, or tobacco-related health factor, from the [place] facility where the Encounter took place. Date/Time Current Smoking Status Comment Facil ity Jul 23, 2017 07:44 AM FORMER TOBACCO USER 7Y OR [facility] R [facility] Tobacco Use History This section includes a history of the smoking, or tobacco-related health factors, that were collected on or before the date of the Encounter. The data comes from the [place] facility where the Encounter took place. Date/Time Smoking Status/Tobacco Use Comment F acility Jul 24, 2016 08:09 AM FORMER TOBACCO USER 7Y OR [facility] Jul 27, 2015 07:54 AM FORMER TOBACCO USER 7Y OR [facility] Jun 18, 2014 09:49 AM FORMER TOBACCO USER 7Y OR [facility] Nov 22, 2010 09:21 AM FOR[facility] Jun 30, 2009 08:27 AM FORMER TOBACCO USER 7Y [facility] Advance Directives: All historical and current Section Date Range: From patient's date of to the date document was created. This section includes ALL of a patient's completed or amended [place] Advance and Rescinded Directives. The entries below indicate that a directive exists for the patient, but an actual copy is not included with this document. The data comes from all [place] facilities. Date Advance Directives Provider Source Jul 22, 2018 ADVANCE DIRECTIVE DEONTE DIAZ [facility] Jul 22, 2018 ADVANCE DIRECTIVE DISCUSSION DEONTE DIAZ [facility] Encounter Notes: All associated encounter notes This section contains the clinical notes associated to the Encounter. Date/Time Encounter Note(s) Provider Source February 06, 2024 01:20 PM SLEEP MEDICINE SEC URE MESSAGING: LOCAL TITLE: SLEEP SECURE MESSAGING STANDARD TITLE: SLEEP MEDICINE SECURE MESSAGING DATE OF NOTE: FEBRUARY 06, 2024@13:20 ENTRY DATE: FEBRUARY 06, 2024@13:20:34 AUTHOR: IVAN FREY EXP COSIGNER: URGENCY: STATUS: COMPLETED ------Original Message ------- Sent: 02/06/2024 02:02 PM ET From: VIC GREEN To: [facility]-Sleep--C/APAP Clinic @ Subject: General:Inspire Has the [facility] started using inspire to help the veterans that are struggling with the mask with leakage and doesn't fit right. Just checking to see if the VA is using inspire yet. Thank You ------Original Message ------- Sent: 02/06/2024 02:20 PM ET From: IVAN FREY To: VIC GREEN Subject: General:Inspire Good day, You can certainly talk about this with Dr Umanzor in April during your visit. The [facility] does perform Inspire implantation but there are rigorous standards. 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 I would recommend you discuss furhter with Dr Umanzor. Ivan Kim Registered Respiratory Therapist /es/ IVAN FREY, VIDEOGAME TESTER VIDEOGAME TESTER Signed: 02/06/2024 13:20 IVAN FREY [facility]
--- OUTSIDE RECORDS SUMMARY | 2024-04-01 11:22 | XMS_ITS | Encounter Summary ---
Author Name Department of Vetera Affairs Organization Department of Vetera [facility] Address [address] [place] [id number] Care Team Providers Care Company Accountant Name Role Phone TISHA HEARD Primary Care [...] Name Patient's Relationship to Policy Lawson BCBS [facility] (WNR) MEDICARE ADVANTAGE [facility] (WNR) Oct 07, 2015 [id number] [phone] VAISHNAVI GREEN ERT PATIENT Selected Encounter This section includes the information on record at [place] for the Encounter. Date/Time Encounter Type Encounter Description Reason Provider Source February 12, 2024 04:04 PM Outpatient Encounter SLEEP MEDICINE FARHAD SHELDON Encounter Template Text not used by [place] Plan of Treatment: Future Appointments (+ 6 months) and Future Tests (+/- 45 days) The Plan of Treatment section includes future care activities for the patient from all [place] treatmentfacilities. This section includes future appointments and future orders which are active, pending or scheduled. Future Appointments This section includes appointments that were scheduled to occur 6 months from the date of the Encounter, up to a maximum of 20 appointments. The data comes from all [place] treatment facilities. Appointment Date/Time Appointment Type Appointme [...] 01:50 PM AMBULATORY - NONE VIOLA JEFFERY [facility] May 18, 2024 10:00 AM AMBULATORY - [...] of theEncounter. The data comes from all [place] treatment facilities. Test Date/Time Test Type Test Details Facility Name February 06, 2024 07:53 PM Consult Order COMMUNITY CARE-OPHTHALMOLOGY Cons Barrel Tester And Drainer's [facility] Social History: Smoking Status (Most current) and Tobacco Use (All prior to encounter date) This section includes the most current, and the historical, smoking and tobacco- related health factors from the [place] facility where the Encounter took place. Current Smoking Status This section includes the most current smoking, or tobacco-related health factor, from the [place] facility where the Encounter took place. Date/Time Current Smoking Status Comment Facil ity Jul 23, 2017 07:44 AM FORMER TOBACCO USER 7Y OR [facility] Tobacco Use History This section includes a history of the smoking, or tobacco-related health factors, that were collected on or before the date of the Encounter. The data comes from the [place] facility where the Encounter took place. Date/Time Smoking Status/Tobacco Use Comment F acility Jul 24, 2016 08:09 AM FORMER TOBACCO USER 7Y OR [facility] Jul 27, 2015 07:54 AM FORMER TOBACCO USER 7Y OR [facility] Jun 18, 2014 09:49 AM FORMER TOBACCO USER 7[facility] Nov 22, 2010 09:21 AM FORMER TOBACCO USER 7Y OR [facility] Jun 30, 2009 08:27 AM FORMER TOBACCO USER 7Y OR [facility] R [facility] Advance Directives: All historical and current Section Date Range: From patient's date of to the date document was created. This section includes ALL of a patient's completed or amended [place] Advance and Rescinded Directives. The entries below indicate that a directive exists for the patient, but an actual copy is not included with this document. The data comes from all [place] facilities. Date Advance Directives Provider Source Jul 22, 2018 ADVANCE DIRECTIVE DEONTE DIAZ [facility] Jul 22, 2018 ADVANCE DIRECTIVE DISCUSSION DEONTE DIAZ [facility] Encounter Notes: All associated encounter notes This section contains the clinical notes associated to the Encounter. Date/Time Encounter Note(s) Provider Source February 12, 2024 04:04 PM PULMONARY SECURE M ESSAGING: LOCAL TITLE: PULMONARY SECURE MESSAGING STANDARD TITLE: PULMONARY SECURE MESSAGING DATE OF NOTE: FEBRUARY 12, 2024@16:04 ENTRY DATE: FEBRUARY 12, 2024@16:04:05 AUTHOR: FARHAD SHELDON EXP COSIGNER: URGENCY: STATUS: COMPLETED ------Original Message ---- Sent: 02/12/2024 04:29 PM ET From: VIC GREEN To: [facility]-Sleep--C/APAP Clinic @ Subject: General:Resmed replacement Is there any chance that there is an order sheet that you can send me so I can put the right code in to get equipment from. I have the order card that came with the last order put I can't find the boxing sheet to get the order numbers. ------Original Message ---- Sent: 02/12/2024 05:03 PM ET From: FARHAD SHELDON To: VIC GREEN Subject: General:Resmed replacement [place] has all you equipment on file. you should only be ordering from your resmed 11 machine. I will remover your dreamstation 2 machines from your record to make it easier for you. thank you Farhad Sheldon BS MEDICAL IMAGING SPECIALIST [facility]- Sleep /es/ FARHAD SHELDON MEDICAL IMAGING SPECIALIST Signed: 02/12/2024 16:04 FARHAD SHELDON [facility]
--- OUTSIDE RECORDS SUMMARY | 2024-04-01 11:23 | XMS_ITS | Encounter Summary ---
Author Name Department of Vetera Affairs Organization Department of Vetera [facility] Address [address] [place] [address] Care Team Providers Care Ticketing Agent Name Role Phone TISHA HEARD Primary Care [...] Relationship to Policy Lawson BCBS [facility] (WNR) MEDICARE ADVANTAGE [facility] (WNR) Oct 07, 2015 [id number] [phone] VAISHNAVI GREEN ERT PATIENT Selected Encounter This section includes the information on record at NH for the Encounter. Date/Time Encounter Type Encounter Description Reason Provider Source February 28, 2024 11:35 AM Outpatient Encounter RHEUMATOLOGY/ARTHRI JORGE JASSO Encounter Template Text not used by NH Plan of Treatment: Future Appointments (+ 6 months) and Future Tests (+/- 45 days) The Plan of Treatment section includes future care activities for the patient from all [place] treatmentfacilities. This section includes future appointments and future orders which are active, pending or scheduled. Future Appointments This section includes appointments that were scheduled to occur 6 months from the date of the Encounter, up to a maximum of 20 appointments. The data comes from all [place] treatment facilities. Appointment Date/Time Appointment Type Appointme nt Facility Name Mar 17, 2024 11:00 AM AMBULATORY - MEDICINE [facility]SA [facility] Mar 23, 2024 11:30 AM AMBULATORY - MEDICINE [facility]SA [facility] Mar 26, 2024 10:00 AM AMBULATORY - REHAB MEDICIN E VANESSA Beard [facility] Apr 06, 2024 10:45 AM AMBULATORY - NONE [facility] Scan[facility] May 12, 2024 01:50 PM AMBULATORY - NONE [facility] May 18, 2024 10:00 AM AMBULATORY - MEDICINE [facility]SA Beard [facility] May 25, 2024 11:00 AM AMBULATORY - MEDICINE [facility] Active, Pending, and Scheduled Orders This section includes a listing of several types of active, pending, and scheduled orders, including clinic medications orders, diagnostic test orders, procedure orders and consult orders; where the start date of the order is 45 days before the date of the Encounter or 45 days after the date of theEncounter. The data comes from all [place] treatment facilities. Test Date/Time Test Type Test Details Facility Name February 06, 2024 07:53 PM Consult Order COMMUNITY CARE-OPHTHALMOLOGY Cons Dye Boarding Machine Operator's Choice [facility] Apr 06, 2024 12:00 AM Laboratory - Chemi stry Order ALT/SGPT PLASMA SP ONCE [facility]SA [facility] Apr 06, 2024 12:00 AM Laboratory - Chemi stry Order AST/SGOT PLASMA SP VANESSA [facility] Apr 06, 2024 12:00 AM Laboratory - Chemi stry Order ALKALINE PHOSPHATASE PLASMA SP VANESSA [facility] Apr 06, 2024 12:00 AM Laboratory - Chemi stry Order CREATININE(INCLUDES EGFR) PLASMA SP VANESSA Baerd [facility] Apr 06, 2024 12:00 AM Laboratory - Chemi stry Order CBC & DIFF BLOOD SP VANESSA [facility] Lab Results: +/- 30 days of the encounter This section includes the Chemistry and Hematology Lab Results on record with NH for the patient. Radiology Reports and Pathology Reports are provided separately, in subsequent sections. Lab Results This section contains the Chemistry/Hematology Results that were resulted 30 days before or 30 daysafter the date of the Encounter. Date/Time Source Result Type Result - Unit Interpretation Reference Range Comment Mar 17, 2024 10:50 AM [facility] RHEUMATOLOGY CHEM PANEL Specimen Type: PLASMA No comment entered. Ordering Provider: ESPERANZA BULLARD Report Released Date/Time: February 28, 2024 11:38 AM Reporting Lab: [facility] [id number] Performing Lab: [facility] [id number] CREATININE 0.7 mg/dL 0.7-1.2 ALKALINE PHOSPHATASE 187 U/L H 40-150 ALT/SGPT 48 U/L <55 AST/SGOT 51 U/L H <34 C-REACTIVE PROTEIN 64.06 mg/L H <5.00 .CREAT EGFR(CKD-EPI) >90 >60 Mar 17, 2024 10:50 AM [facility] RHEUMATOLOGY HEME PANEL Specimen Type: BLOOD Comment: Automated Differential Performed Ordering Provider: ESPERANZA BULLARD Report Released Date/Time: February 28, 2024 11:38 AM Reporting Lab: [facility] [id number] Performing Lab: [facility] [id number] WBC 9.98 10*3/uL 4.0-11.0 RBC 3.99 10*6/uL L 4.6-6.2 HGB 11.7 g/dL L 13.5-17.9 HCT 37.0 L 41-54 MCV 92.7 fL 80-100 MCH 29.3 pg 27-33 MCHC 31.6 g/dL L 32.0-37.5 PLT 278 10*3/uL 150-400 MPV 10.0 fL 7.4-10.4 NEUT 72.3 40.0-80.0 LYMPHS 17.3 15.0-45.0 MONO 6.4 2.0-12.0 EOSINO 2.1 0.0-6.0 BASO 0.6 0.0-2.0 RDW 17.1 H 11.5-14.5 ABS LYMPH 1.73 10*3/uL 1.0-4.0 ABS MONO 0.64 10*3/uL 0.1-1.0 ABS NEUT 7.21 10*3/uL 2.0-7.7 ABS EOS 0.21 10*3/uL 0-0.5 ABS BASO 0.06 10*3/uL 0-0.2 IG(META,MYELO, PRO) 1.3 ABS IMMATURE GRAN 0.13 10*3/uL H 0-0.1 IPF 2.1 0-10 SED RATE 113 mm/h H 5-15 Social History: Smoking Status (Most current) and Tobacco Use (All prior to encounter date) This section includes the most current, and the historical, smoking and tobacco- related health factors from the [place] facility where the Encounter took place. Current Smoking Status This section includes the most current smoking, or tobacco-related health factor, from the [place] facility where the Encounter took place. Date/Time Current Smoking Status Comment Facil ity Jul 23, 2017 07:44 AM FORMER TOBACCO USER OR [facility] Tobacco Use History This section includes a history of the smoking, or tobacco-related health factors, that were collected on or before the date of the Encounter. The data comes from the [place] facility where the Encounter took place. Date/Time Smoking Status/Tobacco Use Comment F acility Jul 24, 2016 08:09 AM FORMER TOBACCO USER 7 OR [facility] Jul 27, 2015 07:54 AM FORMER TOBACCO USER 7Y OR [facility] Jun 18, 2014 09:49 AM FORMER TOBACCO USER 7 OR [facility] Nov 22, 2010 09:21 AM FORMER TOBACCO USER 7 OR [facility] Jun 30, 2009 08:27 AM FORMER TOBACCO USER 7 OR [facility] Advance Directives: All historical and current Section Date Range: From patient's date of to the date document was created. This section includes ALL of a patient's completed or amended [place] Advance and Rescinded Directives. The entries below indicate that a directive exists for the patient, but an actual copy is not included with this document. The data comes from all [facility]. Date Advance Directives Provider Source Jul 22, 2018 ADVANCE DIRECTIVE DEONTE DIAZ [facility] Jul 22, 2018 ADVANCE DIRECTIVE DISCUSSION DEONTE DIAZ [facility] Encounter Notes: All associated encounter notes This section contains the clinical notes associated to the Encounter. Date/Time Encounter Note(s) Provider Source February 28, 2024 11:35 AM RHEUMATOLOGY SECUR E MESSAGING: LOCAL TITLE: RHEUMATOLOGY SECURE MESSAGING STANDARD TITLE: RHEUMATOLOGY SECURE MESSAGING DATE OF NOTE: FEBRUARY 28, 2024@11:35 ENTRY DATE: FEBRUARY 28, 2024@11:35:43 AUTHOR: KALEE BULLARD COSIGNER: URGENCY: STATUS: COMPLETED RHEUMATOLOGY SECURE MESSAGING Has ADDENDA ------Original Message ----- Sent: 02/28/2024 09:13 AM ET From: VIC GREEN To: [facility]-Rheumatology - @ Subject: Appointment:Appointment Last time I talked to Dr Coffman she said that I should be able to get a appointment to see her in [place] the first part of March so I'm wondering if that will happen as I'm having trouble with my arthritis all over. Thanks /maame/ KALEE BULLARD,BABY DOCTOR NURSE Signed: 02/28/2024 11:35 02/28/2024 ADDENDUM STATUS: COMPLETED Per last Rheum phone [place] note 01/26 - F/u 03/23 [facility] with labs Rheum Appt scheduled at [place] CB w Dr. Coffman 03/23 at 1130. Pt does not want to make a separate trip to have labs done prior so labs scheduled same day at 1100 per pt preference - he is aware that his results will not be available when he see's Dr. Coffman. /maame/ KALEE BULLARD,BABY DOCTOR NURSE Signed: 02/28/2024 11:44 KALEE BULLARD [facility]
--- OUTSIDE RECORDS SUMMARY | 2024-04-01 11:23 | XMS_ITS | Encounter Summary ---
Author Name Department of Vetera Affairs Organization Department of Vetera Affairs Address [address] [place] [address] Care Team Providers Care Economic Manager Name Role Phone TISHA HEARD Primary Care [...] Name Patient's Relationship to Policy Lawson BCBS [facility] (WNR) MEDICARE ADVANTAGE [facility] (WNR) Oct 07, 2015 [id number] [phone] VAISHNAVI GREEN ERT PATIENT Selected Encounter This section includes the information on record at [place] for the Encounter. Date/Time Encounter Type Encounter Description Reason Pro vider Source February 18, 2024 03:43 PM Outpatient Encounter COMMUNITY CARE CONSULT E [...] 01:50 PM AMBULATORY - NONE VIOLA JEFFERY [facility] May 18, 2024 10:00 AM [...] 07:53 PM Consult Order COMMUNITY CARE-OPHTHALMOLOGY Cons Geophysical Operator's Choice [facility] Lab Results: +/- 30 days of the encounter This section includes the Chemistry and Hematology Lab Results on record with PA for the patient. Radiology Reports and Pathology Reports are provided separately, in subsequent sections. Lab Results This section contains the Chemistry/Hematology Results that were resulted 30 days before or 30 daysafter the date of the Encounter. Date/Time Source Result Type Result - Unit Interpretation Reference Range Comment Mar 17, 2024 10:50 AM [facility] RHEUMATOLOGY CHEM PANEL Specimen Type: PLASMA No comment entered. Ordering Provider: ESPERANZA BULLARD Report Released Date/Time: February 28, 2024 11:38 AM Reporting Lab: [facility] [id number] Performing Lab: [facility] [id number] CREATININE 0.7 mg/dL 0.7-1.2 ALKALINE PHOSPHATASE 187 U/L H 40-150 ALT/SGPT 48 U/L <55 AST/SGOT 51 U/L H <34 C-REACTIVE PROTEIN 64.06 mg/L H <5.00 .CREAT EGFR(CKD-EPI) >90 >60 Mar 17, 2024 10:50 AM [facility] RHEUMATOLOGY HEME PANEL Specimen Type: BLOOD Comment: Automated Differential Performed Ordering Provider: ESPERANZA BULLARD Report Released Date/Time: February 28, 2024 11:38 AM Reporting Lab: [facility] [id number] Performing Lab: [facility] [id number] WBC 9.98 10*3/uL 4.0-11.0 RBC 3.99 10*6/uL [...] FORMER TOBACCO USER 7Y OR GREATE R [facility] Tobacco Use History This section includes a history of the smoking, or tobacco-related health factors, that were collected on or before the date of the Encounter. The data comes from the [place] facility where the Encounter took place. Date/Time Smoking Status/Tobacco Use Comment F ackeshav Jul 24, 2016 08:09 AM FORMER TOBACCO USER 7Y OR KARLIE R [facility] Jul 27, 2015 07:54 AM FORMER TOBACCO USER 7Y OR KARLIE R [facility] Jun 18, 2014 09:49 AM FORMER TOBACCO USER 7Y OR GREATE R [facility] Nov 22, 2010 09:21 AM FORMER TOBACCO USER 7Y OR KARLIE R [facility] Jun 30, 2009 08:27 AM FORMER TOBACCO USER 7Y OR [facility] Advance Directives: All historical and current [...] Jul 22, 2018 ADVANCE DIRECTIVE DEONTE DIAZ [facility] Jul 22, 2018 ADVANCE DIRECTIVE DISCUSSION DEONTE DIAZ [facility] Encounter Notes: All associated encounter notes This section contains the clinical notes associated to the Encounter. Date/Time Encounter Note(s) Provider Source February 18, 2024 03:43 PM NONVA NOTE: LOCAL TITLE: COMMUNITY CARE APPOINTMENT LETTER (AUTOPRINT) STANDARD TITLE: NONVA NOTE DATE OF NOTE: FEBRUARY 18, 2024@15:43 ENTRY DATE: FEBRUARY 18, 2024@15:44 AUTHOR: ZAKI SERNA COSIGNER: URGENCY: STATUS: COMPLETED February VIC GREEN [address] [place], [place] [address] Dear VIC GREEN, Your VA provider has referred you to a provider within the community for care. Your medical care for OPHTHALMOLOGY has been authorized with the community care provider listed below. DO NOT REPORT TO THE [facility] Provider info: An appointment has been scheduled for you on: 05/12/2024 Office name, address, phone number: [facility] [address] [address] Authorization number: [id number] Referral issue date: 2024-02-07 Expiration date: 2025-05-12 (subject to change based on first appointment) *Please bring this appt letter containing your authorization information to your appointment* If you are unable to keep this appointment or the appointment is no longer needed, please contact the community provider above for notification/rescheduling and then call the [facility] Office of Community Care at [phone] during the hours of 8:30AM - 3:00PM. If you need additional care/services not mentioned above or your authorization has and additional care is needed, please contact your primary care provider for a new referral. To review all care/service(s) approved under your referral, please go to the following link: [email or web address]) Co-Payments: If you are required to pay a VA co-payment, you will be billed by the VA for each authorized visit that you attend. However, you are NOT REQUIRED to make co-payments to a community provider. Thank you for the opportunity to serve you. Sincerely, [facility] ([facility]) /maame/ ZAKI NUÑEZ ADVANCED MSA Signed: 02/18/2024 15:44 ZAKI SERNA [facility]
--- OUTSIDE RECORDS SUMMARY | 2024-04-01 11:23 | XMS_ITS | Encounter Summary ---
Author Name Department of Vetera Affairs Organization Department of Vetera Affairs Address [address] [place] [address] Care Team Providers Care Hood Fitter Name Role Phone TISHA HEARD Primary Care [...] Name Patient's Relationship to Policy Lawson BCBS [facility] (WNR) MEDICARE ADVANTAGE [facility] (WNR) Oct 07, 2015 [id number] [phone] VAISHNAVI GREEN ERT PATIENT Selected Encounter This section includes the information on record at [place] for the Encounter. Date/Time Encounter Type Encounter Description Reason Pro vider Source February 27, 2024 08:54 AM Outpatient Encounter TELEPHONE PRIMARY CARE E Encounter Template Text not used by [...] AM AMBULATORY - MEDICINE VANESSA [facility] Mar 23, 2024 11:30 AM AMBULATORY - MEDICINE VANESSA Beard [facility] Mar 26, 2024 10:00 AM AMBULATORY - REHAB MEDICIN E VANESSA Beard [facility] Apr 06, 2024 10:45 AM AMBULATORY - NONE KUSH Scanlon RONNIE [facility] May 12, 2024 01:50 PM AMBULATORY - NONE [facility] May 18, 2024 10:00 AM AMBULATORY - MEDICINE VANESSA Beard JACKI [facility] May 25, 2024 11:00 AM AMBULATORY - MEDICINE VANESSA [facility] Active, Pending, and Scheduled Orders This section [...] 07:53 PM Consult Order COMMUNITY CARE-OPHTHALMOLOGY Cons Towel Hemmer's Choice [facility] Apr 06, 2024 12:00 AM Laboratory - Chemi stry Order ALT/SGPT PLASMA SP ONCE VANESSA Beard [facility] Apr 06, 2024 12:00 AM Laboratory - Chemi stry Order AST/SGOT PLASMA SP VANESSA [facility] Apr 06, 2024 12:00 AM Laboratory - Chemi stry Order ALKALINE PHOSPHATASE PLASMA SP VANESSA [facility] Apr 06, 2024 12:00 AM Laboratory - Chemi stry Order CREATININE(INCLUDES EGFR) PLASMA SP VANESSA Beard [facility] Apr 06, 2024 12:00 AM Laboratory - Chemi stry Order CBC & DIFF BLOOD SP VANESSA [facility] Lab Results: +/- 30 days of [...] Range Comment Mar 17, 2024 10:50 AM [facility] RHEUMATOLOGY CHEM PANEL Specimen Type: PLASMA No comment entered. Ordering Provider: ESPERANZA BULLARD Report Released Date/Time: February 28, 2024 11:38 AM Reporting Lab: [facility] [phone] Performing Lab: [facility] [id number] CREATININE 0.7 mg/dL 0.7-1.2 ALKALINE PHOSPHATASE 187 U/L H 40-150 ALT/SGPT 48 U/L <55 AST/SGOT 51 U/L H <34 C-REACTIVE PROTEIN 64.06 mg/L H <5.00 .CREAT EGFR(CKD-EPI) >90 >60 Mar 17, 2024 10:50 AM [facility] RHEUMATOLOGY HEME PANEL Specimen Type: BLOOD Comment: Automated Differential Performed Ordering Provider: ESPERANZA BULLARD Report Released Date/Time: February 28, 2024 11:38 AM Reporting Lab: [facility] [id number] Performing Lab: [facility] [id number] WBC 9.98 10*3/uL 4.0-11.0 RBC 3.99 10*6/uL [...] 2017 07:44 AM FORMER TOBACCO USER OR [facility] Tobacco Use History This section includes a history of the smoking, or tobacco-related health factors, that were collected on or before the date of the Encounter. The data comes from the [place] facility where the Encounter took place. Date/Time Smoking Status/Tobacco Use Comment F acility Jul 24, 2016 08:09 AM FORMER TOBACCO USER 7 OR [facility] Jul 27, 2015 07:54 AM FORMER TOBACCO USER 7Y OR [facility] Jun 18, 2014 09:49 AM FORMER TOBACCO USER 7Y OR [facility] Nov 22, 2010 09:21 AM FORMER TOBACCO USER 7Y OR [facility] Jun 30, 2009 08:27 AM FORMER TOBACCO USER 7 OR [facility] Advance Directives: All historical and [...] Jul 22, 2018 ADVANCE DIRECTIVE DEONTE DIAZ [facility] Jul 22, 2018 ADVANCE DIRECTIVE DISCUSSION DEONTE DIAZ [facility] Encounter Notes: All associated encounter notes This section contains the clinical notes associated to the Encounter. Date/Time Encounter Note(s) Provider Source February 27, 2024 08:54 AM PRIMARY CARE NONVA NOTE: LOCAL TITLE: CO-MANAGED CARE NOTE STANDARD TITLE: PRIMARY CARE NONVA NOTE DATE OF NOTE: FEBRUARY 27, 2024@08:54 ENTRY DATE: FEBRUARY 27, 2024@08:54:24 AUTHOR: GRACIELA HILL COSIGNER: URGENCY: STATUS: COMPLETED Received request for: 1. mirabegron ER 25 mg tablet take 1 tablet (25 mg) daily QTY: 90 Refills: 3 Indication: BPH Rx written by: Casa Sterling MD Facility: [facility] Local provider phone # [phone] Local provider fax # [phone] Records scanned and available for review in [employer] or [email or web address]. Please view alert senior mortgage underwriter if: VA PCP needs further information to make decision (specify) -or- VA PCP recommends alternative (specify) -or- Request is denied (pt. will need to continue to fill outside of VA). Gardener will then relay the above to local prescriber's office. /maame/ GRACIELA HILL LPN Co-Food Service Specialist Signed: 02/27/2024 08:57 Receipt Acknowledged By: 03/02/2024 14:48 /maame/ TISHA HEARD M.D. Physician, Kush [facility]ges [facility] GRACIELA HILL [facility]
--- OUTSIDE RECORDS SUMMARY | 2024-04-01 11:23 | XMS_ITS | Encounter Summary ---
Author Name Department of Vetera Affairs Organization Department of Vetera Affairs Address [address] [place] [address] Care Team Providers Care Fire Captain Marine Name Role Phone TISHA HEARD Primary Care [...] Name Patient's Relationship to Policy Lawson BCBS [facility] (WNR) MEDICARE ADVANTAGE [facility] (WNR) Oct 07, 2015 [id number] [phone] VAISHNAVI GREEN ERT PATIENT Selected Encounter This section includes the information on record at [place] for the Encounter. Date/Time Encounter Type Encounter Description Reason Pro vider Source February 17, 2024 12:13 PM Outpatient Encounter COMMUNITY CARE CONSULT E Encounter Template Text not used by [place] Plan of Treatment: Future Appointments (+ 6 months) and Future Tests (+/- 45 days) The Plan of Treatment section includes future care activities for the patient from all [place] treatmentfacilities. This section includes future appointments and future orders which are active, pending or scheduled. Future Appointments This section includes appointments that were scheduled to occur 6 months from the date of the Encounter, up to a maximum of 20 appointments. The data comes from all [place] treatment facilities. Appointment Date/Time Appointment Type Appointme [...] 01:50 PM AMBULATORY - NONE VIOLA JEFFERY [facility] May 18, 2024 10:00 AM AMBULATORY [...] of theEncounter. The data comes from all [place] treatment facilities. Test Date/Time Test Type Test Details Facility Name February 06, 2024 07:53 PM Consult Order COMMUNITY CARE-OPHTHALMOLOGY Cons Outsoles Channel Opener's Choice [facility] Lab Results: +/- 30 days of the encounter This section includes the Chemistry and Hematology Lab Results on record with [place] for the patient. Radiology Reports and Pathology Reports are provided separately, in subsequent sections. Lab Results This section contains the Chemistry/Hematology Results that were resulted 30 days before or 30 daysafter the date of the Encounter. Date/Time Source Result Type Result - Unit Interpretation Reference Range Comment Mar 17, 2024 10:50 AM [facility] RHEUMATOLOGY CHEM PANEL Specimen Type: PLASMA No comment entered. Ordering Provider: ESPERANZA BULLARD Report Released Date/Time: February 28, 2024 11:38 AM Reporting Lab: [facility] [id number] Performing Lab: [facility] [id number] CREATININE 0.7 mg/dL 0.7-1.2 ALKALINE PHOSPHATASE 187 U/L H 40-150 ALT/SGPT 48 U/L <55 AST/SGOT 51 U/L H <34 C-REACTIVE PROTEIN 64.06 mg/L H <5.00 .CREAT EGFR(CKD-EPI) >90 >60 Mar 17, 2024 10:50 AM [facility] RHEUMATOLOGY HEME PANEL Specimen Type: BLOOD Comment: Automated Differential Performed Ordering Provider: ESPERANZA BULLARD Report Released Date/Time: February 28, 2024 11:38 AM Reporting Lab: [facility] [phone] Performing Lab: [facility] [address] WBC 9.98 10*3/uL 4.0-11.0 RBC 3.99 10*6/uL [...] and tobacco- related health factors from the [place] facility where the Encounter took place. Current Smoking Status This section includes the most current smoking, or tobacco-related health factor, from the [place] facility where the Encounter took place. Date/Time Current Smoking Status Comment Facil ity Jul 23, 2017 07:44 AM FORMER TOBACCO USER 7Y OR GREATE R [facility] Tobacco Use History This section includes a history of the smoking, or tobacco-related health factors, that were collected on or before the date of the Encounter. The data comes from the [place] facility where the Encounter took place. Date/Time Smoking Status/Tobacco Use Comment F acility Jul 24, 2016 08:09 AM FORMER TOBACCO USER 7Y OR [place] [facility] Jul 27, 2015 07:54 AM FORMER TOBACCO USER 7Y OR [facility] R [facility] Jun 18, 2014 09:49 AM [facility] Nov 22, 2010 09:21 AM FORMER TOBACCO USER 7Y OR [facility] Gilson [facility] Jun 30, 2009 08:27 AM FORMER TOBACCO USER 7Y OR [facility] Advance Directives: All historical and current Section Date Range: From patient's date of to the date document was created. This section includes ALL of a patient's completed or amended [place] Advance and Rescinded Directives. The entries below indicate that a directive exists for the patient, but an actual copy is not included with this document. The data comes from all [facility]. Date Advance Directives Provider Source Jul 22, 2018 ADVANCE DIRECTIVE DEONTE DIAZFORMERLY [facility] Jul 22, 2018 ADVANCE DIRECTIVE DISCUSSION DEONTE DIAZ [facility] Encounter Notes: All associated encounter notes This section contains the clinical notes associated to the Encounter. Date/Time Encounter Note(s) Provider Source February 17, 2024 12:13 PM PHARMACY NOTE: LOCAL TITLE: PHARMACY NON [place] CARE MEDICATIONS STANDARD TITLE: PHARMACY NOTE DATE OF NOTE: FEBRUARY 17, 2024@12:13 ENTRY DATE: FEBRUARY 17, 2024@12:13:11 AUTHOR: STERLING BRIAN EXP COSIGNER: URGENCY: STATUS: COMPLETED [facility] RECEIVED electronic prescription(s) (eRX(s)) from NON-[place] Provider: JUANI REDDY Date eRX received: February Outside (NON-VA) provider not authorized to write for prescription(s) through [place] pharmacy. Prescription request REDIRECTED via FAX to [facility] for review: eRx Reference #: [id number] eRx Prescription Information: eRx Drug: mirabegron ER 25 mg tablet,extended release 24 hr (MYRBETRIQ) eRx Qty: 90 eRx Refills: 3 eRx Days Supply: eRx Written Date: FEBRUARY 17, 2024 eRx Issue Date: Prohibit Renewals: No eRx Sig: Take 1 Tablet (25 mg) by mouth once daily. /es/ STERLING BRIAN pharmacist Signed: 02/17/2024 12:15 STERLING BRIAN [facility]
--- OUTSIDE RECORDS SUMMARY | 2024-04-01 11:24 | XMS_ITS | Encounter Summary ---
Author Name Department of Vetera Affairs Organization Department of Vetera ns Affairs Address [address] [place] [address] Care Team Providers Care Slate Roofer Helper Name Role Phone TISHA HEARD Primary Care [...] Relationship to Policy Lawson BCBS [facility] (WNR) MEDICARE ADVANTAGE [facility] (WNR) Oct 07, 2015 [id number] [phone] VAISHNAVI GREEN ERT PATIENT Selected Encounter This section includes the information on record at MD for the Encounter. Date/Time Encounter Type Encounter Description Reason Provider Source Mar 23, 2024 11:30 AM OFFICE O/P EST MOD 30 MIN RHEUMATOLOGY/ART HRITIS ICD-10-CM M06.4 Inflammatory polyarthropathy JACOB BLISS MD E Encounter Template Text not used by [facility] Assessments - Encounter Diagnoses This section includes the primary and secondary diagnoses documented for the Encounter. Date/Time Primary/Secondary Diagnosis Diagnosis Name Provider Source Mar 23, 2024 01:50 PM PRIMARY Inflammatory polyarthropathy DELMER BLISS MD [facility] Mar 23, 2024 01:50 PM SECONDARY Abnormal results of liver function studies DELMER BLISS MD [facility] Mar 23, 2024 01:50 PM SECONDARY [facility] (current) use of systemic steroids DELMER BLISS MD [facility] Mar 23, 2024 01:50 PM SECONDARY Other skilled nursing (current) drug therapy DELMER BLISS MD [facility] Plan of Treatment: Future Appointments (+ 6 months) and Future Tests (+/- 45 days) The Plan of Treatment section includes future care activities for the [facility] This section includes future appointments and future orders which are active, pending or scheduled. Future Appointments This section includes appointments that were scheduled to occur 6 months from the date of the Encounter, up to a maximum of 20 appointments. The data comes from all MD treatment facilities. Appointment Date/Time Appointment Type Appointme nt Facility Name Mar 26, 2024 10:00 AM AMBULATORY - REHAB MEDICIN E VANESSA ECHEVERRIA [facility] Apr 06, 2024 10:45 AM AMBULATORY - NONE SANDY Scanlon EA [facility] May 12, 2024 01:50 PM AMBULATORY - NONE VIOLA JEFFERY [facility] May 18, 2024 10:00 AM AMBULATORY - MEDICINE VANESSA ECHEVERRIA [facility] May 25, 2024 11:00 AM AMBULATORY - MEDICINE VANESSA ECHEVERRIA [facility] Sep 10, 2024 11:00 AM AMBULATORY - MEDICINE DOV [facility] Active, Pending, and Scheduled Orders This section includes a listing of several types of active, pending, and scheduled orders, including clinic medications orders, diagnostic test orders, procedure orders and consult orders; where the start date of the order is 45 days before the date of the Encounter or 45 days after the date of theEncounter. The data comes from all [facility]. Test Date/Time Test Type Test Details Facility Name Apr 06, 2024 12:00 AM Laboratory - Chemi stry Order ALT/SGPT PLASMA SP ONCE VANESSA Chirag JACKI [facility] Apr 06, 2024 12:00 AM Laboratory - Chemi stry Order ALKALINE PHOSPHATASE PLASMA SP VANESSA Chirag JACKI [facility] Apr 06, 2024 12:00 AM Laboratory - Chemi stry Order AST/SGOT PLASMA SP VANESSA Chirag JACKI [facility] Apr 06, 2024 12:00 AM Laboratory - Chemi stry Order CREATININE(INCLUDES EGFR) PLASMA SP VANESSA Chirag JACKI [facility] Apr 06, 2024 12:00 AM Laboratory - Chemi stry Order CBC & DIFF BLOOD SP VANESSA Beard JACKI [facility] Lab Results: +/- 30 days of the encounter This section includes the Chemistry and Hematology Lab Results on record with MD for the patient. Radiology Reports and Pathology Reports are provided separately, in subsequent sections. Lab Results This section contains the Chemistry/Hematology Results that were resulted 30 days before or 30 daysafter the date of the Encounter. Date/Time Source Result Type Result - Unit Interpretation Reference Range Comment Mar 17, 2024 10:50 AM [facility] RHEUMATOLOGY CHEM PANEL Specimen Type: PLASMA No comment entered. Ordering Provider: ESPERANZA BULLARD Report Released Date/Time: February 28, 2024 11:38 AM Reporting Lab: [facility] [id number] Performing Lab: [facility] [id number] CREATININE 0.7 mg/dL 0.7-1.2 ALKALINE PHOSPHATASE 187 U/L H 40-150 ALT/SGPT 48 U/L <55 AST/SGOT 51 U/L H <34 C-REACTIVE PROTEIN 64.06 mg/L H <5.00 .CREAT EGFR(CKD-EPI) >90 >60 Mar 17, 2024 10:50 AM [facility] RHEUMATOLOGY HEME PANEL Specimen Type: BLOOD Comment: Automated Differential Performed Ordering Provider: ESPERANZA BULLARD Report Released Date/Time: February 28, 2024 11:38 AM Reporting Lab: [facility] [id number] Performing Lab: [facility] [id number] WBC 9.98 10*3/uL 4.0-11.0 RBC 3.99 10*6/uL [...] 0-10 SED RATE 113 mm/h H 5-15 Vital Signs: All taken on the encounter date This section contains inpatient and outpatient Vital Signs collected on the date of the Encounter. Date/Time Temperature Pulse Blood Pressure Respiratory Rate SP02 Pain Height Weight Body Mass Index Source Mar 23, 2024 11:31 AM 148/72 VANESSA ECHEVERRIA [facility] Advance Directives: All historical and current Section Date Range: From patient's date of to the date document was created. This section includes ALL of a patient's completed or amended MD Advance and Rescinded Directives. The entries below indicate that a directive exists for the patient, but an actual copy is not included with this document. The data comes from all MD facilities. Date Advance Directives Provider Source Jul 22, 2018 ADVANCE DIRECTIVE DEONTE DIAZ [facility] Jul 22, 2018 ADVANCE DIRECTIVE DISCUSSION DENOTE DIAZ [facility] Encounter Notes: All associated encounter notes This section contains the clinical notes associated to the Encounter. Date/Time Encounter Note(s) Provider Source Mar 23, 2024 01:41 PM RHEUMATOLOGY ATTENDING NOTE: LOCAL TITLE: RHEUMATOLOGY CLINIC NOTE STANDARD TITLE: RHEUMATOLOGY ATTENDING NOTE DATE OF NOTE: MAR 23, 2024@13:41 ENTRY DATE: MAR 09, 2024@17:13:35 AUTHOR: JOCELYNN BLISS EXP COSIGNER: URGENCY: STATUS: COMPLETED CC: Arthralgia, Hemochromatosis, Chondrocalcinosis/CPPD, OA, seronegative inflammatory arthritis Multiple recent hospitalizations History of present illness: Pt well known to me from my [facility] practice, now following at [facility]. Multifactorial arthralgia concerns. History of multiple orthopedic surgeries including CTS , reverse total shoulder. History of Hemochromatosis and MGUS, with monitoring through his photovoltaic solar cell designer ( Dr Cara Brown) for this. History [...] irritate his chronic dermatitis, does follow with [facility] D[facility]. Was noting increasing pain in right wrist, prednisone previously increased to 10 mg daily without benefit for this, decreased back to 5 mg daily. Recheck RF/ CCP remain neg.Status post R wrist injection through Ortho (Dr Lula Yap at [facility]) with benefit 12/15/21,. He has [...] point. History of anterior scleritis/episcleritis, follows with [facility], has been treated with topicals intermittently [...] the last several months, recently discharged from [facility] for pneumonia/Parapneumonic effusion/question empyema. Per patient had 3 chest tubes, then surgery with Dr Saenz, significant infection found. Discharged to rehab facility where he is currently residing, anticipated stay is about [address] Saenz, cxr looked , has been off antibiotics . Was off multiple arthritis medications, Plaquenil has been resumed and feels it has provided benefit, arthralgias ~baseline. Was in a care facility for approximately a month, he had not been on any prednisone so 5 mg daily was restarted given concerns of worsening wrist pain/swelling. -- Interim history: Now back on prednisone and sulfasalazine. Previously on 10 mg, taper down to 5 mg for the last several weeks. Arthralgias have been more bothersome, hands and wrists, does think things were going better on prednisone at 10 mg. Overall feeling he is getting stronger since being home. ROS: - Constitutional:No fevers - HEENT:No oral ulcers - CVS: Denies cardiac concerns. - RESP: No change in resp status - GI: No change in bowel habits - SKIN : no new rashes --------- Past Medical History: Hallux valgus AND bunion (SCT 139049295)Hammer toe (SCT 166242762) Essential hypertension (SCT 06824466) Gout (SCT 79275927) Benign prostatic hyperplasia (SCT 398682Qkkwzfct legs (SCT 61090339) Hemochromatosis (SCT 594806143) Chronic low back pain (SCT 848263987) Osteoarthritis of knee (SCT 568398501) Obstructive sleep apnea (SCT 30050389) History of male erectile disorder (SCT 4Dupuytren's contracture (SCT 067120769) Bunion (SCT 496196665) Chronic sinusitis (SCT 61964640) Deviated nasal septum (SCT 499799259) Obesity (SCT 881994543) Pseudophakia (SCT 61595269) Benign monoclonal gammopathy (SCT 22065157) Orchialgia (SCT 74042073) History of inflammatory bowel disease ([facility] 251356732) Injury of tendon of the rotator cuff of Impaired fasting glycaemia (SCT 356353075) Edema (SCT 732389149) Hallux valgus AND bunion (SCT 866887793) Inflammatory polyarthropathy (SCT 697367Fhfttuwfxhwhqhbns (SCT 873774056) Episcleritis (SCT 958250) Gastroesophageal reflux disease (SCT 146114288) Sensorineural hearing loss, bilateral (SDry eyes (SCT 410610777) History of polyp of colon (SCT 439611636Gzjkwhu of gout (SCT 862140285) --------- Social Hx: Marital status: Allergies: SEASONAL ALLERGIES [...] TABLET BY MOUTH ACTIVE EVERY MORNING 11) MIRABEGRON 25MG SA TAB TAKE ONE TABLET BY MOUTH EVERY ACTIVE DAY FOR OVERACTIVE BLADDER - SWALLOW WHOLE; DO NOT CRUSH 12) OMEPRAZOLE 20MG EC CAP TAKE TWO CAPSULES BY MOUTH ACTIVE EVERY DAY ON AN EMPTY STOMACH, AT LEAST 30 MINUTES PRIOR TO A MEAL 13) POLYETHYLENE GLYCOL 3350 ORAL PWDR TAKE 17 GRAMS BY ACTIVE MOUTH EVERY DAY FOR CONSTIPATION MIXED IN JUICE OR WATER DIRECTED USE THE CAP A MEASURE 14) PRAMIPEXOLE DIHYDROCHLORIDE 0.25MG TAB TAKE THREE ACTIVE TABLETS BY MOUTH EVERY EVENING FOR RESTLESS LEGS 15) PREDNISOLONE ACETATE 1% OPH SUSP INSTILL 1 DROP IN ACTIVE RIGHT EYE EVERY DAY 16) PREDNISONE 5MG TAB TAKE ONE TABLET BY MOUTH EVERY DAY HOLD 17) VANICREAM TOP CREAM APPLY THIN LAYER [...] A DAY ACTIVE NEEDED 23 Total Medications Physical Examination: Vital signs: As per Nurse note GENERAL: NAD. HEENT: PERRL, EOMI, non icteric SKIN focused exam remarkable findings are: no rash noted. Good skin turgor and normal tenting.No digital pitting MSK , focused exam remarkable findings are: Chronic right wrist swelling worse than previous exams, some cystic change with synovitis. Multiple fingers are more swollen than previously noted as well. LABORATORY DATA: WBC 19.25 H (12/02/23) HGB 8.5 L (12/02/23) PLT 481 H (12/02/23) CREATININE 0.8 (12/02/23) COMPUTED CREATININE CLEARANCE____ URINE PROTEIN____ SGOT 20 (12/02/23) SGPT 23 (12/02/23) ALK PHOSPHATASE____ BILIRUBIN, TOTAL____ WESTERGREN 97 H (12/02/23) C-REACTIVE PROTEIN____ RHEUMATOID FACTOR____ CCP URIC ACID____ URIC ACID CRYSTALS____ ANTINUCLEAR ABY____ SLT - SHANIQUA No data available for: .SHANIQUA SCREEN ANTI-CLAUDIO ANTI-ROTARY SURFACE GRINDER ANTI-SSA/RO ANTI-SSB/LA ANTI-SCL-70 ANTI-IKE-1 ANCA No data available Aldolase ANTI-HBs____ HBsAg____ ANTI-HEPATITIS C NEGATIVE SERUM (09/11/21 08:08) NEGATIVE SERUM (06/27/18 10:19) Imaging: Assessment/Plan: Osteoarthritis, suspected changes associated with hemachromatosis/ chondrocalcinosis. [place] to have component of polyarticular CPPD, seronegative [...] more bothersome, difficult to say exactly what was driving this given his complex history. Previously [...] has unfortunately had quite a song road. Sulfasalazine has been added back although does seem to have much more joint swelling, feels arthritis has been more bothersome. Discussed options at this point. Were both in agreement adding back leflunomide is a reasonable next step. We had considered adding in biologic previously, however with his recent history and like to hold off on this and see if we can get some benefit with less immunosuppressive approach. Did note LFTs are mildly increased, no clear answer for this, does not consume alcohol. We will recheck again in 2 weeks especially in light of resuming leflunomide. Let me know if any concerns noted with restarting. We will have him go back up to 10 mg of prednisone daily. - F/u 05/25 LCP [facility] with labs /es/ JOCELYNN BLISS MD Rheumatology, Staff Physician Signed: 03/23/2024 13:51 JOCELYNN BLISS MD [facility] Mar 23, 2024 11:32 AM PRIMARY CARE NURSING NOTE: LOCAL TITLE: [facility] NURSING PROGRESS NOTE STANDARD TITLE: PRIMARY CARE NURSING NOTE DATE OF NOTE: MAR 23, 2024@11:32 ENTRY DATE: MAR 23, 2024@11:32:05 AUTHOR: NASH MENESES EXP COSIGNER: URGENCY: STATUS: COMPLETED TYPE OF VISIT: Appointment Check In Type of appointment: In-person appointment REASON FOR VISIT: Rheumatology Follow up ALLERGIES: SEASONAL ALLERGIES (Jun 16, 2009) LEVOFLOXACIN (Oct 20, 2010) DICLOFENAC (Jul 13, 2022) VITAL SIGNS: Blood Pressure: 148/72 (03/23/2024 11:31) Pulse: 86 (07/09/2023 08:57) Respiration: 16 (07/09/2023 08:57) Temperature: 97.3 F [36.3 C] (07/09/2023 08:57) Weight: 218.4 lb [99.06 kg] (07/09/2023 08:57) Height: 64 in [162.6 cm] (07/09/2023 08:57) BMI: 37.6 O2 Sat: 94% (07/09/2023 08:57) Pain: 10 (07/09/2023 08:57) PAIN SCREEN: Patient is having significant pain that they would like to talk to their provider about today. Old (Chronic) (began more than 6 months ago) Patient states their average pain this past week is 5 Patient states the average number on how the chronic pain affects their enjoyment of life the past week is 5 Patient states during the past week the average number on how the pain has interfered with their general activity is 5 /maame/ Nash Meneses LPN Signed: 03/23/2024 11:33 NASH MENESES OC
--- OUTSIDE RECORDS SUMMARY | 2024-04-01 11:24 | XMS_ITS | Encounter Summary ---
Author Name Department of Vetera Affairs Organization Department of Vetera ns Affairs Address [address] [place] [address] Care Team Providers Care Tester Food Products Name Role Phone TISHA HEARD Primary Care [...] Lawson's Name Patient's Relationship to Policy [facility]IC[facility] ADVANTAGE [facility] (WNR) Oct 07, 2015 [id number] [phone] VAISHNAVI GREEN ERT PATIENT Selected Encounter This section includes the information on record at MD for the Encounter. Date/Time Encounter Type Encounter Description Reason Provider Source Mar 26, 2024 10:00 AM GAIT TRAINING THERAPY PHYSICAL THERAPY ICD-10-CM R26.89 Other abnormalities of gait and mobility ANCA DICKINSON IHLeanna Encounter Template Text not used by MD Assessments - Encounter Diagnoses This section includes the primary and secondary diagnoses documented for the Encounter. Date/Time Primary/Secondary Diagnosis Diagnosis Name Provider Source Mar 26, 2024 11:20 AM PRIMARY Other abnormalities of gait and mobility [facility]SON DICKINSON [facility] Plan of Treatment: Future Appointments (+ [...] 20 appointments. The data comes from all [facility]. Appointment Date/Time Appointment Type Appointme nt Facility Name Apr 06, 2024 10:45 AM AMBULATORY - NONE SANDY Scanlon [facility] May 12, 2024 01:50 PM AMBULATORY - NONE VIOLA JEFFERY [facility] May 18, 2024 10:00 AM AMBULATORY - MEDICINE VANESSA C ECHEVERRIA CB May 25, 2024 11:00 AM AMBULATORY - MEDICINE VANESSA C ECHEVERRIA CB Sep 10, 2024 11:00 AM AMBULATORY - MEDICINE DOV PIKE [facility] Active, Pending, and Scheduled Orders This section includes a listing of several types of active, pending, and scheduled orders, including clinic medications orders, diagnostic test orders, procedure orders and consult orders; where the start date of the order is 45 days before the date of the Encounter or 45 days after the date of theEncounter. The data comes from all [facility]. Test Date/Time Test Type Test Details Facility Name Apr 06, 2024 12:00 AM Laboratory - Chemi stry Order ALT/SGPT PLASMA SP ONCE VANESSA C ECHEVERRIA [facility] Apr 06, 2024 12:00 AM Laboratory - Chemi stry Order AST/SGOT PLASMA SP VANESSA C ECHEVERRIA [facility] Apr 06, 2024 12:00 AM Laboratory - Chemi stry Order ALKALINE PHOSPHATASE PLASMA SP VANESSA C [facility] Apr 06, 2024 12:00 AM Laboratory - Chemi stry Order CREATININE(INCLUDES EGFR) PLASMA SP VANESSA C ECHEVERRIA [facility] Apr 06, 2024 12:00 AM Laboratory - Chemi stry Order CBC & DIFF BLOOD SP VANESSA C [facility] Lab Results: +/- 30 days of [...] Range Comment Mar 17, 2024 10:50 AM [facility] RHEUMATOLOGY CHEM PANEL Specimen Type: PLASMA No comment entered. Ordering Provider: ESPERANZA BULLARD Report Released Date/Time: February 28, 2024 11:38 AM Reporting Lab: [facility] [id number] Performing Lab: [facility] [address] CREATININE 0.7 mg/dL 0.7-1.2 ALKALINE PHOSPHATASE 187 U/L H 40-150 ALT/SGPT 48 U/L <55 AST/SGOT 51 U/L H <34 C-REACTIVE PROTEIN 64.06 mg/L H <5.00 .CREAT EGFR(CKD-EPI) >90 >60 Mar 17, 2024 10:50 AM [facility] RHEUMATOLOGY HEME PANEL Specimen Type: BLOOD Comment: Automated Differential Performed Ordering Provider: ESPERANZA BULLARD Report Released Date/Time: February 28, 2024 11:38 AM Reporting Lab: [facility] [address] Performing Lab: [facility] [address] WBC 9.98 10*3/uL 4.0-11.0 RBC 3.99 10*6/uL [...] 0-10 SED RATE 113 mm/h H 5-15 Advance Directives: All historical and current Section [...] Source Jul 22, 2018 ADVANCE DIRECTIVE DEONTE DIAZRUBYIvan [facility] Jul 22, 2018 ADVANCE DIRECTIVE DISCUSSION DEONTE DIAZ [facility] Encounter Notes: All associated encounter notes This section contains the clinical notes associated to the Encounter. Date/Time Encounter Note(s) Provider Source Mar 26, 2024 07:43 AM PHYSICAL THERAPY I NITIAL EVALUATION NOTE: LOCAL TITLE: PT-EVALUATION NOTE STANDARD TITLE: PHYSICAL THERAPY INITIAL EVALUATION NOTE DATE OF NOTE: MAR 26, 2024@07:43 ENTRY DATE: MAR 26, 2024@07:43:12 AUTHOR: DICKSON DICKINSON EXP COSIGNER: URGENCY: STATUS: COMPLETED Brief Physical Therapy Evaluation for Equipment Provision Dx: other abnormalities of gait/mobility Tx: PT evaluation x15 minutes, Gait Training x15 minutes Active problems - Computerized Problem List is the source for the followin. Hallux valgus AND bunion (SNOMED CT 631258711) 2. Hammer toe (SNOMED CT 996890293) 3. Essential hypertension 4. Gout 5. Benign prostatic hyperplasia 6. Restless legs 7. Hemochromatosis 8. Chronic low back pain - since 1995 9. Osteoarthritis of knee - R TKA 2018, L TKA 10. Obstructive sleep apnea - [...] eyes 31. History of polyp of colon 32. History of gout 33. Liver function tests outside reference range CSS DUE- Performed at the bottom SUBJECTIVE: Pt is a 78yo [place] presenting to PT to be evaluated for a rollator and a SEC. Pt had major back surgery last July and has been having difficulty ambulating since. He coded twice during this time due to blood clots. Pt states that he hasn't had any falls in the past month, but notes that he has struggled to walk without UE support. Notes that he borrowed a 4WW from a friend to improve his balance. Notes that he is unable to ambulate without an assistive device. Weight/Height for DME purposes: 218.4 lb [99.06 kg] (07/09/2023 08:57) 64 in [162.6 cm] (07/09/2023 08:57) Pt Goal: Receive 4WW and SPC Pain: Minimal low back discomfort Falls: 2-3 in the past 6 months Home Environment: House, 1 step to enter, bedrooms upstairs, tub-shower, grab bars, Wheelchair, tub transfer bench, bed rail, hasn't drove in a long time, Prior Level of Function: Received assistance for most ADL's Red Flags: No personal history of cancer. Denies any UE or LE progressive weakness, unexplained weight loss, loss of bowel/bladder control, pain with rest, fevers, chills, infections. OBJECTIVE: OBSERVATION: Pt ambulates with 4WW, slow gait speed, short strides GAIT SPEED: 0.43 m/s (measure over 10 feet or 5 ceiling tiles; convert to m/s {10/sec*0.305}) < 0.4 m/s were more likely to be household ambulator 0.4 - 0.8 m/s limited community ambulator > 0.8 m/s community ambulator >1.1 for effective community ambulation FUNCTIONAL STRENGTH SCREEN: *30-Second Chair Stand Test: 8 reps with UE support Normative Repetitions (Leanne & Gerard, 2013) Age Men Women 75-79 11-17 10-15 *Timed Up and Go (TUG): -Trial 1: 18 -Trial 2: 18 -Average: 18 -Assisted Device: 4WW >12 seconds indicated increased risk for falling Interventions: Gait Training: Education and demonstration provided regarding proper rollator use including ambulation, brakes, curb assist, sitting on rollator to rest with rollator against stationary object, transfers and folding to load into vehicle. -Pt independently ambulating 50 ft with rollator -Pt independently manipulating brakes -Pt independently using curb assist -Pt independently transferring with device -Pt independently folding device -Pt instructed in adjusting rollator once received from prosthetics Education and demonstration provided regarding use and gait sequencing with single end cane. -Pt independently ambulating 50 ft with cane without loss of balance -Pt independently transferring with device ASSESSMENT/PLAN: Pt is a 78 year old male being evaluated by physical therapy today in order to receive a 4WW and SPC. Pt ambulates with slow gait speed and demonstrates functional weakness, increasing his risks for falls. Educated Pt on use of both the rollator and SPC. Pt demonstrates independence with use and improved gait speed/confidence with use. Consults placed to prosthetics. Pt is currently working with community care PT and at the time does not require [facility] the [facility]. CLINICAL PRESENTATION: stable Patient indicates readiness to learn, verbalizes understanding, agreement and satisfaction with the treatment plan. Denies further questions. GOAL: 1. Pt will safely ambulate with rollator walker and SPC to meet pt goal of increasing tolerated walking distance/walking more safely within 1 visits. GOAL MET. Suicide Screen: C-SSRS Screening [place]-Suicide Severity Rating Scale (C-SSRS Screener) 1. Over the past month, have you wished you were or wished you could go to sleep and not wake up? No 2. Over the past month, have you had any actual thoughts of killing yourself? No 3. Over the past month, have you been thinking about how you might do this? Response not required due to responses to other questions. 4. Over the past month, have you had these thoughts and had some intention of acting on them? Response not required due to responses to other questions. 5. Over the past month, have you started to work out or worked out the details of how to kill yourself? Response not required due to responses to other questions. 6. If yes, at any time in the past month did you intend to carry out this plan? Response not required due to responses to other questions. 7. In your lifetime, have you ever done anything, started to do anything, or prepared to do anything to end your life (for example, collected pills, obtained a gun, gave away valuables, went to the roof but didn't jump)? No 8. If YES, was this within the past 3 months? Response not required due to responses to other questions. /maame/ DICKSON DICKINSON PHYIASAEL THERAPIST Signed: 03/26/2024 11:20 DICKSON DICKINSON [facility]
--- OUTSIDE RECORDS SUMMARY | 2024-04-01 11:25 | XMS_ITS | Encounter Summary ---
Author Name Department of Vetera Affairs Organization Department of Vetera Affairs Address [address] [place] [address] Care Team Providers Care Spa Director Name Role Phone TISHA HEARD Primary [...] Name Patient's Relationship to Policy Lawson BCBS [facility] (WNR) MEDICARE ADVANTAGE [facility] (WNR) Oct 07, 2015 [id number] [phone] VAISHNAVI GREEN ERT PATIENT Selected Encounter This section includes the information on record at [place] for the Encounter. Date/Time Encounter Type Encounter Description Reason Provider Source Mar 27, 2024 07:35 AM Outpatient Encounter TELEPHONE TRIAGE TISHA HEARD Encounter Template Text not used by [place] Plan of Treatment: Future Appointments (+ 6 [...] AM AMBULATORY - NONE SANDY Scanlon EA [facility] May 12, 2024 01:50 PM AMBULATORY - NONE VIOLA JEFFERY [facility] May 18, 2024 10:00 AM AMBULATORY - MEDICINE VANESSA Beard JACKI [facility] May 25, 2024 11:00 AM AMBULATORY - MEDICINE VANESSA ECHEVERRIA [facility] Sep 10, 2024 11:00 AM AMBULATORY - MEDICINE DOV PIKE [facility] Active, Pending, and Scheduled Orders This section includes a listing of several types of active, pending, and scheduled orders, including clinic medications orders, diagnostic test orders, procedure orders and consult orders; where the start date of the order is 45 days before the date of the Encounter or 45 days after the date of theEncounter. The data comes from all [place] treatment facilities. Test Date/Time Test Type Test Details Facility Name Apr 06, 2024 12:00 AM Laboratory - Chemi stry Order ALT/SGPT PLASMA SP ONCE VANESSA ECHEVERRIA [facility] Apr 06, 2024 12:00 AM Laboratory - Chemi stry Order AST/SGOT PLASMA SP VANESSA Beard [facility] Apr 06, 2024 12:00 AM Laboratory - Chemi stry Order ALKALINE PHOSPHATASE PLASMA SP VANESSA Beard [facility] Apr 06, 2024 12:00 AM Laboratory - Chemi stry Order CREATININE(INCLUDES EGFR) PLASMA SP VANESSA Beard [facility] Apr 06, 2024 12:00 AM Laboratory - Chemi stry Order CBC & DIFF BLOOD VANESSA Beard [facility] Lab Results: +/- 30 days of the encounter This section includes the Chemistry and Hematology Lab Results on record with [place] for the patient. Radiology Reports and Pathology Reports are provided separately, in subsequent sections. Lab Results This section contains the Chemistry/Hematology Results that were resulted 30 days before or 30 daysafter the date of the Encounter. Date/Time Source Result Type Result - Unit Interpretation Reference Range Comment Mar 17, 2024 10:50 AM [facility] RHEUMATOLOGY CHEM PANEL Specimen Type: PLASMA No comment entered. Ordering Provider: ESPERANZA BULLARD Report Released Date/Time: February 28, 2024 11:38 AM Reporting Lab: [facility] [id number] Performing Lab: [facility] [id number] CREATININE 0.7 mg/dL 0.7-1.2 ALKALINE PHOSPHATASE 187 U/L H 40-150 ALT/SGPT 48 U/L <55 AST/SGOT 51 U/L H <34 C-REACTIVE PROTEIN 64.06 mg/L H <5.00 .CREAT EGFR(CKD-EPI) >90 >60 Mar 17, 2024 10:50 AM [facility] RHEUMATOLOGY HEME PANEL Specimen Type: BLOOD Comment: Automated Differential Performed Ordering Provider: ESPERANZA BULLARD Report Released Date/Time: February 28, 2024 11:38 AM Reporting Lab: [facility] [id number] Performing Lab: [facility] [id number] WBC 9.98 10*3/uL 4.0-11.0 RBC 3.99 10*6/uL [...] Current Smoking Status Comment Lex ity Jul 23, 2017 07:44 AM FORMER TOBACCO USER 7Y OR [facility] Tobacco Use History This section includes a history of the smoking, or tobacco-related health factors, that were collected on or before the date of the Encounter. The data comes from the [place] facility where the Encounter took place. Date/Time Smoking Status/Tobacco Use Comment F acility Jul 24, 2016 08:09 AM FORMER TOBACCO USER 7Y OR [facility] Jul 27, 2015 07:54 AM FORMER TOBACCO USER 7Y OR [facility] Jun 18, 2014 09:49 AM FORMER TOBACCO USER 7Y OR [facility] Nov 22, 2010 09:21 AM [facility] Jun 30, 2009 08:27 AM FORMER TOBACCO USER 7Y OR [facility] R [facility] Advance Directives: All historical and current Section Date Range: From patient's date of to the date document was created. This section includes ALL of a patient's completed or amended [place] Advance and Rescinded Directives. The entries below indicate that a directive exists for the patient, but an actual copy is not included with this document. The data comes from all [facility]. Date Advance Directives Provider Source Jul 22, 2018 ADVANCE DIRECTIVE DEONTE DIAZ [facility] Jul 22, 2018 ADVANCE DIRECTIVE DISCUSSION DEONTE DIAZ [facility] Encounter Notes: All associated encounter notes This section contains the clinical notes associated to the Encounter. Date/Time Encounter Note(s) Provider Source Mar 27, 2024 07:35 AM PHARMACY NOTE: LOCAL TITLE: CCC: PHARMACY I STANDARD TITLE: PHARMACY NOTE DATE OF NOTE: MAR 27, 2024@07:35 ENTRY DATE: MAR 27, 2024@07:35:33 AUTHOR: TOMAS MCDONALD EXP COSIGNER: URGENCY: STATUS: COMPLETED Medication renewal request - controlled substance: Medication renewal(s) requested by: [facility] Controlled substance(s): PREGABALIN 75MG ORAL CAP Medications to be: MAILED OUT ===== PRESCRIPTION DRUG MONITORING PROGRAM (PDMP) (frequency of PDMP checks should be done in compliance with most restrictive guidance considering provider licensure, state and local/VHA policy) ===== PDMP has been completed Last PDMP Note Resolution: Last done - 05/14/2023@16:21:45 Computed Finding: [facility]-Progress Note 05/14/2023@16:21:45 value - STATE PRESCRIPTION DRUG MONITORING PROGRAM; Author: JASON BROWN J ===== LAST URINE DRUG SCREEN (UDS frequency per provider discretion) (Every 3 months or per local requirement or when clinically indicated) ===== No UDS data found ===== ALLERGIES ===== ALLERGIES: SEASONAL ALLERGIES (Jun 16, 2009) LEVOFLOXACIN (Oct 20, 2010) DICLOFENAC (Jul 13, 2022) Alerts are not monitored regularly by this user due to incoming calls through [facility] ([facility]) Contact Center. Please follow up with local outpatient pharmacy for any immediate or urgent needs. Medications: Active and Recently Outpatient Medications (excluding Supplies): Active Outpatient Medications Status ========= 1) ALLOPURINOL 300MG TAB TAKE ONE TABLET BY MOUTH EVERY ACTIVE MORNING 2) ATENOLOL 50/CHLORTHALIDONE 25MG TAB TAKE 1 TABLET BY ACTIVE MOUTH EVERY DAY 3) CYCLOSPORINE 0.05% (PF) OPH EMUL 0.4ML INSTILL 1 DROP ACTIVE BOTH EYES TWICE A DAY 4) DOCUSATE NA 100MG CAP TAKE ONE CAPSULE BY MOUTH TWICE ACTIVE A DAY NEEDED FOR CONSTIPATION 90 DAY SUPPLY 5) DOXAZOSIN MESYLATE 8MG TAB TAKE ONE TABLET BY MOUTH ACTIVE EVERY DAY 6) HYDROXYCHLOROQUINE SULFATE 200MG TAB TAKE ONE TABLET ACTIVE (S) BY MOUTH EVERY DAY 7) LACTOBACILLUS ACIDOPHILUS TAB TAKE 1 TABLET BY MOUTH ACTIVE EVERY MORNING 8) LEFLUNOMIDE 20MG TAB TAKE ONE TABLET BY MOUTH EVERY ACTIVE (S) DAY ARTHRITIS 9) MIRABEGRON 25MG SA TAB TAKE ONE TABLET BY MOUTH EVERY ACTIVE DAY FOR OVERACTIVE BLADDER - SWALLOW WHOLE; DO NOT CRUSH 10) OMEPRAZOLE 20MG EC CAP TAKE TWO CAPSULES BY MOUTH ACTIVE EVERY DAY ON AN EMPTY STOMACH, AT LEAST 30 MINUTES PRIOR TO A MEAL 11) POLYETHYLENE GLYCOL 3350 ORAL PWDR TAKE 17 GRAMS BY ACTIVE MOUTH EVERY DAY FOR CONSTIPATION MIXED IN JUICE OR WATER DIRECTED USE THE CAP A MEASURE 12) PRAMIPEXOLE DIHYDROCHLORIDE 0.25MG TAB TAKE THREE ACTIVE (S) TABLETS BY MOUTH EVERY EVENING FOR RESTLESS LEGS 13) PREDNISOLONE ACETATE 1% OPH SUSP INSTILL 1 DROP IN ACTIVE RIGHT EYE EVERY DAY 14) PREDNISONE 5MG TAB TAKE ONE TABLET BY MOUTH EVERY DAY HOLD 15) VANICREAM TOP CREAM APPLY THIN LAYER TOPICALLY EVERY ACTIVE DAY FOR DRY SKIN TO AREAS OF DRY SKIN, IDEALLY WITHIN 3 MINUTES AFTER BATH OR SHOWER. Inactive Outpatient Medications Status ========= 1) DICLOFENAC NA 1% TOP GEL APPLY 4 GRAMS TOPICALLY FOUR TIMES A DAY NEEDED TO AFFECTED AREA FOR PAIN Active Non-VA Medications Status ========= 1) Non-VA CELECOXIB 200MG CAP 200MG MOUTH [...] A DAY ACTIVE NEEDED 22 Total Medications /maame/ TOMAS MCDONALD CPHT V23 [facility] TUBULAR PRODUCTS FABRICATOR Signed: 03/27/2024 07:37 Receipt Acknowledged By: 03/27/2024 07:44 /es/ CAROL FREY, INSTRUCTOR PHYSICAL INSTRUCTOR PHYSICAL TOMAS MCDONALD [facility]
--- OUTSIDE RECORDS SUMMARY | 2024-04-01 11:25 | XMS_ITS | Encounter Summary ---
Author Name Department of Vetera Affairs Organization Department of Vetera [facility] Address [address] [place] [address] Care Team Providers Care Test Facility Engineer Name Role Phone TISHA HEARD Primary Care [...] Patient's Relationship to Policy Lawson BCBS [facility] (WNR) MEDICARE ADVANTAGE [facility] (WNR) Oct 07, 2015 [id number] [phone] VAISHNAVI GREEN ERT PATIENT Selected Encounter This section includes the information on record at [place] for the Encounter. Date/Time Encounter Type Encounter Description Reason Provider Source Mar 27, 2024 08:34 AM Outpatient Encounter SLEEP MEDICINE LEIGHANN MCNEIL Encounter Template Text not used by [place] Plan of Treatment: Future Appointments (+ 6 [...] The data comes from all [place] treatment facilities. Appointment Date/Time Appointment Type Appointme nt Facility Name Apr 06, 2024 10:45 AM AMBULATORY - NONE SANDY Scanlon EA [facility] May 12, 2024 01:50 PM AMBULATORY - NONE VIOLA JEFFERY [facility] May 18, 2024 10:00 AM AMBULATORY - MEDICINE VANESSA Beard JACKI [facility] May 25, 2024 11:00 AM AMBULATORY - MEDICINE VANESSA ECHEVERRIA [facility] Sep 10, 2024 11:00 AM AMBULATORY - MEDICINE DOV PIKE [facility] Active, Pending, and Scheduled Orders This section includes a listing of several types of active, pending, and scheduled orders, including clinic medications orders, diagnostic test orders, procedure orders and consult orders; where the start date of the order is 45 days before the date of the Encounter or 45 days after the date of theEncounter. The data comes from all [place] treatment facilities. Test Date/Time Test Type Test Details Facility Name Apr 06, 2024 12:00 AM Laboratory - Chemi stry Order ALT/SGPT PLASMA SP ONCE VANESSA ECHEVERRIA [facility] Apr 06, 2024 12:00 AM Laboratory - Chemi stry Order AST/SGOT PLASMA SP VANESSA Beard [facility] Apr 06, 2024 12:00 AM Laboratory - Chemi stry Order ALKALINE PHOSPHATASE PLASMA SP VANESSA Beard [facility] Apr 06, 2024 12:00 AM Laboratory - Chemi stry Order CREATININE(INCLUDES EGFR) PLASMA SP VANESSA Beard [facility] Apr 06, 2024 12:00 AM Laboratory - Chemi stry Order CBC & DIFF BLOOD VANESSA Beard [facility] Lab Results: +/- 30 days of the encounter This section includes the Chemistry and Hematology Lab Results on record with [place] for the patient. Radiology Reports and Pathology Reports are provided separately, in subsequent sections. Lab Results This section contains the Chemistry/Hematology Results that were resulted 30 days before or 30 daysafter the date of the Encounter. Date/Time Source Result Type Result - Unit Interpretation Reference Range Comment Mar 17, 2024 10:[address] [facility] RHEUMATOLOGY CHEM PANEL Specimen Type: PLASMA No comment entered. Ordering Provider: ESPERNAZA BULLARD Report Released Date/Time: February 28, 2024 11:38 AM Reporting Lab: [facility] [id number] Performing Lab: [facility] [id number] CREATININE 0.7 mg/dL 0.7-1.2 ALKALINE PHOSPHATASE 187 U/L H 40-150 ALT/SGPT 48 U/L <55 AST/SGOT 51 U/L H <34 C-REACTIVE PROTEIN 64.06 mg/L H <5.00 .CREAT EGFR(CKD-EPI) >90 >60 Mar 17, 2024 10:[address] [facility] RHEUMATOLOGY HEME PANEL Specimen Type: BLOOD Comment: Automated Differential Performed Ordering Provider: ESPERANZA BULLARD Report Released Date/Time: February 28, 2024 11:38 AM Reporting Lab: [facility] [id number] Performing Lab: [facility] [id number] WBC 9.98 10*3/uL 4.0-11.0 RBC 3.99 10*6/uL [...] 07:44 AM FOR[facility] Tobacco Use History This section includes a history of the smoking, or tobacco-related health factors, that were collected on or before the date of the Encounter. The data comes from the [place] facility where the Encounter took place. Date/Time Smoking Status/Tobacco Use Comment F acility Jul 24, 2016 08:09 AM FORMER TOBACCO USER 7Y [facility] Jul 27, 2015 07:54 AM FORMER TOBACCO USER 7Y [facility] Jun 18, 2014 09:49 AM FORMER TOBACCO USER 7Y OR [facility] Nov 22, 2010 09:21 AM FORMER TOBACCO USER 7[facility] Jun 30, 2009 08:27 AM FORMER TOBACCO USER 7Y OR [facility] R [facility] Advance Directives: All historical and current Section Date Range: From patient's date of to the date document was created. This section includes ALL of a patient's completed or amended [place] Advance and Rescinded Directives. The entries below indicate that a directive exists for the patient, but an actual copy is not included with this document. The data comes from all [place] facilities. Date Advance Directives Provider Source Jul 22, 2018 ADVANCE DIRECTIVE DEONTE DIAZ [facility] Jul 22, 2018 ADVANCE DIRECTIVE DISCUSSION DEONTE DIAZ [facility] Encounter Notes: All associated encounter notes This section contains the clinical notes associated to the Encounter. Date/Time Encounter Note(s) Provider Source Mar 27, 2024 10:04 AM ADDENDUM: LOCAL TITLE: Addendum STANDARD TITLE: ADDENDUM DATE OF NOTE: MAR 27, 2024@10:04:49 ENTRY DATE: MAR 27, 2024@10:04:49 AUTHOR: LEIGHANN MCNEIL EXP COSIGNER: URGENCY: STATUS: COMPLETED -Alerting sleep provider to patient refill request for Pregabalin 75mg for RLS. /maame/ LEIGHANN MCNEIL RN REGISTERED NURSE Signed: 03/27/2024 10:06 Receipt Acknowledged By: 03/27/2024 12:49 /maame/ ANJALI UMANZOR MD PULMONARY, CRITICAL CARE AND SLEEP MEDICINE === --- Original Document --- 03/27/24 SLEEP SECURE MESSAGING: ------Original Message ------ Sent: 03/26/2024 07:12 PM ET From: VIC GREEN Maria Isabel [facility] @ Subject: Medication:Renew pregabalin I will need a refill of the pregabalin 75mg that Dr Garza put me on before my surgery back in July 19 which turned into a couple of months in the hospital. So I'm in the process of recovering and I'm sleeping better with the added benefit of this medication. Any questions please feel free to call me at [phone]. Feel free to leave a message as I have therapy twice a week and medical appointments here and [place] [facility] so we are on the move a lot. Thank You I'm almost out of the pregabalin I have about ten day supply left. ------Original Message ------ Sent: 03/27/2024 09:25 AM ET From: LEIGHANN MCNEIL To: VIC GREEN Maria Isabel Subject: Medication:Renew pregabalin Hi Mr. Green, You are scheduled to see your new sleep provider, Dr. Umanzor, for a virtual visit on 09/10/24 at 11:00 AM. As she will be your provider, I've asked her if she is willing to refill this prescription. She agreed, but will only do so as long as you keep your appointment with her so she can follow-up with you in the future. For now, I will forward the refill request to her, and we will see you in September. Leighann Anderson RN, BSN Sleep Medicine Doctor Assistant /es/ LEIGHANN MCNEIL RN REGISTERED NURSE Signed: 03/27/2024 08:[address] [facility] Mar 27, 2024 08:34 AM SLEEP MEDICINE SEC URE MESSAGING: LOCAL TITLE: SLEEP SECURE MESSAGING STANDARD TITLE: SLEEP MEDICINE SECURE MESSAGING DATE OF NOTE: MAR 27, 2024@08:34 ENTRY DATE: MAR 27, 2024@08:34:52 AUTHOR: LEIGHANN MCNEIL EXP COSIGNER: URGENCY: STATUS: COMPLETED SLEEP SECURE MESSAGING Has ADDENDA ------Original Message ------ Sent: 03/26/2024 07:12 PM ET From: VIC GREEN [facility]: [facility] @ Subject: Medication:Renew pregabalin I will need a refill of the pregabalin [address]mg [address] Garza put me on before my surgery back in July 19 which turned into a couple of months in the hospital. So I'm in the process of recovering and I'm sleeping better with the added benefit of this medication. Any questions please feel free to call me at [phone]. Feel free to leave a message as I have therapy twice a week and medical appointments here and [place] [facility] so we are on the move a lot. Thank You I'm almost out of the pregabalin I have about ten day supply left. ------Original Message ------ Sent: 03/27/2024 09:25 AM ET From: LEIGHANN MCNEIL To: VIC GREEN Subject: Medication:Renew pregabalin Hi Mr. Green, You are scheduled to see your new sleep provider, Dr. Umanzor, for a virtual visit on 09/10/24 at 11:00 AM. As she will be your provider, I've asked her if she is willing to refill this prescription. She agreed, but will only do so as long as you keep your appointment with her so she can follow-up with you in the future. For now, I will forward the refill request to her, and we will see you in September. Kindly, LAURO Lawton, BSN Sleep Medicine Doctor Assistant /es/ LEIGHANN MCNEIL RN REGISTERED NURSE Signed: 03/27/2024 08:34 03/27/2024 ADDENDUM STATUS: COMPLETED -Alerting sleep provider to patient refill request for Pregabalin 75mg for RLS. /maame/ LEIGHANN MCNEIL RN REGISTERED NURSE Signed: 03/27/2024 10:06 Receipt Acknowledged By: * AWAITING SIGNATURE * ANJALI UMANZOR [facility]
--- OUTSIDE RECORDS SUMMARY | 2024-04-01 11:25 | XMS_ITS | Encounter Summary ---
Author Name [facility] of Veter[facility] Affairs Organization Department of [facility] Address [address] [place] [id number] Care Team Providers Care Desktop Technician Name Role Phone TISHA HEARD Primary Care [...] Name Patient's Relationship to Policy Lawson BCBS [facility] (WNR) MEDICARE ADVANTAGE [facility] (WNR) Oct 07, 2015 [id number] [phone] VAISHNAVI GREEN ERT PATIENT Selected Encounter This section includes the information on record at [place] for the Encounter. Date/Time Encounter Type Encounter Description Reason Pro vider Source Apr 01, 2024 08:27 AM Outpatient Encounter SLEEP MEDICINE E Encounter Template Text not used by [place] Plan of Treatment: Future Appointments (+ 6 months) and Future Tests (+/- 45 days) The Plan of Treatment section includes future care activities for the patient from all [place] treatmentfacilities. This section includes future appointments and future orders which are active, pending or scheduled. Future Appointments This section includes appointments that were scheduled to occur 6 months from the date of the Encounter, up to a maximum of 20 appointments. The data comes from all [place] treatment facilities. Appointment Date/Time Appointment Type Appointme nt Facility Name Apr 06, 2024 10:45 AM AMBULATORY - NONE [facility] May 12, 2024 01:50 PM AMBULATORY - NONE [facility]OLA [facility] May 18, 2024 10:00 AM AMBULATORY - MEDICINE VANESSA Beard [facility] May 25, 2024 11:00 AM AMBULATORY - MEDICINE VANESSA Beard [facility] Sep 10, 2024 11:00 AM AMBULATORY - MEDICINE DOV [facility] Active, Pending, and Scheduled Orders This section includes a listing of several types of active, pending, and scheduled orders, including clinic medications orders, diagnostic test orders, procedure orders and consult orders; where the start date of the order is 45 days before the date of the Encounter or 45 days after the date of theEncounter. The data comes from all [place] treatment facilities. Test Date/Time Test Type Test Details Facility Name Apr 06, 2024 12:00 AM Laboratory - Chemi stry Order ALT/SGPT PLASMA SP ONCE [facility] Apr 06, 2024 12:00 AM Laboratory - Chemi stry Order ALKALINE PHOSPHATASE PLASMA SP [facility] Beard [facility] Apr 06, 2024 12:00 AM Laboratory - Chemi stry Order CBC & DIFF BLOOD SP [facility]ESSA Beard [facility] Apr 06, 2024 12:00 AM Laboratory - Chemi stry Order CREATININE(INCLUDES EGFR) PLASMA SP [facility]ANESSA Beard [facility] Apr 06, 2024 12:00 AM Laboratory - Chemi stry Order AST/SGOT PLASMA SP VANESSA Beard [facility] Lab Results: +/- 30 days of the encounter This section includes the Chemistry and Hematology Lab Results on record with [place] for the patient. Radiology Reports and Pathology Reports are provided separately, in subsequent sections. Lab Results This section contains the Chemistry/Hematology Results that were resulted 30 days before or 30 daysafter the date of the Encounter. Date/Time Source Result Type Result - Unit Interpretation Reference Range Comment Mar 17, 2024 10:50 AM [facility] RHEUMATOLOGY CHEM PANEL Specimen Type: PLASMA No comment entered. Ordering Provider: ESPERANZA BULLARD Report Released Date/Time: February 28, 2024 11:38 AM Reporting Lab: [facility] [id number] Performing Lab: [facility] [id number] CREATININE 0.7 mg/dL 0.7-1.2 ALKALINE PHOSPHATASE 187 U/L H 40-150 ALT/SGPT 48 U/L <55 AST/SGOT 51 U/L H <34 C-REACTIVE PROTEIN 64.06 mg/L H <5.00 .CREAT EGFR(CKD-EPI) >90 >60 Mar 17, 2024 10:50 AM [facility] RHEUMATOLOGY HEME PANEL Specimen Type: BLOOD Comment: Automated Differential Performed Ordering Provider: ESPERANZA BULLARD Report Released Date/Time: February 28, 2024 11:38 AM Reporting Lab: [facility] [id number] Performing Lab: [facility] [id number] WBC 9.98 10*3/uL 4.0-11.0 RBC 3.99 10*6/uL [...] and tobacco- related health factors from the [place] facility where the Encounter took place. Current Smoking Status This section includes the most current smoking, or tobacco-related health factor, from the [place] facility where the Encounter took place. Date/Time Current Smoking Status Comment Lex ity Jul 23, 2017 07:44 AM FORMER TOBACCO USER 7Y OR GREATE R [facility] Tobacco Use History This section includes a history of the smoking, or tobacco-related health factors, that were collected on or before the date of the Encounter. The data comes from the [place] facility where the Encounter took place. Date/Time Smoking Status/Tobacco Use Comment F acility Jul 24, 2016 08:09 AM FORMER TOBACCO USER 7Y OR GREATE R [facility] Jul 27, 2015 07:54 AM FORMER TOBACCO USER 7Y OR GREATE R [facility] Jun 18, 2014 09:49 AM FORMER TOBACCO USER 7Y OR GREATE R [facility] Nov 22, 2010 09:21 AM FORMER TOBACCO USER 7Y OR GREATE R [facility] Jun 30, 2009 08:27 AM FORMER TOBACCO USER 7Y OR [facility] R [facility] Advance Directives: All historical and current Section Date Range: From patient's date of to the date document was created. This section includes ALL of a patient's completed or amended [place] Advance and Rescinded Directives. The entries below indicate that a directive exists for the patient, but an actual copy is not included with this document. The data comes from all [place] facilities. Date Advance Directives Provider Source Jul 22, 2018 ADVANCE DIRECTIVE EMILYDEONTERenee ROD [facility] Jul 22, 2018 ADVANCE DIRECTIVE DISCUSSION RYANNE DIAZY Tim [facility] Encounter Notes: All associated encounter notes This section contains the clinical notes associated to the Encounter. Date/Time Encounter Note(s) Provider Source Apr 01, 2024 08:28 AM ACCOUNTING OF DISC LOSURES NOTE: LOCAL TITLE: STATE PRESCRIPTION DRUG MONITORING PROGRAM STANDARD TITLE: ACCOUNTING OF DISCLOSURES NOTE DATE OF NOTE: APR 01, 2024@08:28:38 ENTRY DATE: APR 01, 2024@08:28:38 AUTHOR: JOSEPH UMANZOR EXP COSIGNER: URGENCY: STATUS: COMPLETED This PDMP query was submitted by Joseph Umanzor MD. The clinical justification for this PDMP query is to review controlled substances prescribed outside of the [facility], and any additional information that may become available, as an important component of standard clinical care, and in accordance with [facility] policy. Patient information was shared with the [place]MP [place]. Prescription(s) filled outside the [facility] in the last 90 days are noted. However, they do not raise significant safety concerns and do not influence the treatment plan at this time. /es/ JOSEPH UMANZOR MD PULMONARY, CRITICAL CARE AND SLEEP MEDICINE Signed: 04/01/2024 08:28 JOSEPH UMANZOR [facility]
--- OUTSIDE RECORDS SUMMARY | 2024-04-01 11:26 | XMS_ITS | Clinical Summary ---
Author Organization [employer] [facility] Address [place], [place] [address] Care Team Providers Care Battery Container Inspector Name Role Phone Brandyn Musa V Unavailable [phone] Lisa Villaseñor NP Primary Care Provider Cara Brown MD Unavailable [phone] Lula Mandujano NP Unavailable Allergies Active [...] by mouth once daily. 10/28/19 24 Active atenoloL (TENORMIN) 25 mg tabletIndications:h ypertension Take 12.5 mg by mouth once daily. Active oxyCODONE 10 mg tabletIndications:P ain medication agreement,Pain management contract agreement Take 1 Tablet (10 mg) by mouth every 3 hours if needed for Pain. 20 Tablet 12/19/19 24 Active pregabalin (LYRICA) 75 mg capsuleIndications: Pain medication agreement,Pain management contract agreement Take 1 Capsule (75 mg) by mouth at bedtime. 20 Capsule 12/19/19 24 Active sertraline (ZOLOFT) 50 mg tabletIndications:D epression, recurrent (HC) Take 1/2 tab daily for 2 weeks then 1 tab daily. 90 Tablet 01/21/20 24 Active Additional Information Patient taking differently: 50 mg Oral, Take 1/2 tab daily for 2 weeks then 1 tab daily., Reported on 02/27/2024 mirabegron EXTENDED-release (MYRBETRIQ) 25 mg tabletIndications:U rge incontinence of urine,OAB (overactive bladder) Take 1 Tablet (25 mg) by mouth once daily. 90 Tablet 3 02/17/20 24 Active lubiprostone (AMITIZA) 8 mcg capIndications:Pain medication agreement Take 2 capsule in am and 1 in evening 270 Capsule 3 02/27/20 24 Active warfarin (COUMADIN) 2 mg tabletIndications:P E (pulmonary thromboembolism) (HC),PEA (Pulseless electrical activity) (HC),Other acute pulmonary embolism without acute cor pulmonale (HC),Anticoagulatio n monitoring, INR range 2-3 Take by mouth 8 mg (2 mg x 4) every Mon, Shilpa; 6 mg (2 mg x 3) all other days in the evening OR as directed 300 Tablet 06/21/20 24 Active leflunomide (ARAVA) 20 mg tablet Take 20 mg by mouth. 03/26/20 Active gabapentin (NEURONTIN) 600 mg tabletIndications:I nflammatory polyarthropathy (HC),Pain medication agreement Take 1 Tablet (600 mg) by mouth three times daily. 90 Tablet 1 03/30/20 Active gabapentin (NEURONTIN) 600 mg tabletIndications:I nflammatory polyarthropathy (HC),Pain medication agreement Take 0.5 Tablets (300 mg) by mouth at bedtime. 45 Tablet 1 03/30/20 Active oxyCODONE (OxyCONTIN) 20 mg SUSTAINED release tabletIndications:P ain management contract agreement,Encounter related to worker's compensation claim,Nontraumatic complete tear of rotator cuff, unspecified laterality Take 1 Tablet (20 mg) by mouth every 12 hours. 60 Tablet 03/30/20 Active gabapentin (NEURONTIN) 600 mg tabletIndications:I nflammatory polyarthropathy (HC),Pain medication agreement Take 1 Tablet (600 mg) by mouth three times daily. 20 Tablet 12/19/19 24 024 Discontinued(Re order (E-cancel not sent)) gabapentin (NEURONTIN) 600 mg tabletIndications:I nflammatory polyarthropathy (HC),Pain medication agreement Take 0.5 Tablets (300 mg) by mouth at bedtime. 20 Tablet 12/19/19 24 024 Discontinued(Re order (E-cancel not sent)) OxyCONTIN 20 mg SUSTAINED release tabletIndications:P ain management contract agreement,Encounter related to worker's compensation claim,Nontraumatic complete tear of rotator cuff, unspecified laterality TAKE ONE TABLET BY MOUTH EVERY 12 HOURS 60 Tablet 02/11/20 24 024 Discontinued warfarin (COUMADIN) 2 mg tabletIndications:p revention of venous thromboembolism recurrence Take by mouth 02/26: 5 mg; 02/27: 5 mg; 02/28: 5 mg; 03/01: 5 mg; 03/02: 4 mg 02/27/20 24 024 Discontinued(Re order (E-cancel not sent)) warfarin (COUMADIN) 2 mg tabletIndications:p revention of venous thromboembolism recurrence Take by mouth 03/03: 6 mg; 03/04: 6 mg; 30: 5 mg in the evening OR as directed 03/03/20 24 024 Discontinued(Re order (E-cancel not sent)) warfarin (COUMADIN) 2 mg tabletIndications:p revention of venous thromboembolism recurrence Take by mouth 03/06: 6 mg; 6/1: 6 mg; 6/2: 6 mg; 6/3: 5 mg in the evening OR as directed 03/06/20 024 Discontinued(Re order (E-cancel not sent)) warfarin (COUMADIN) 2 mg tabletIndications:p revention of venous thromboembolism recurrence Take by mouth 6/4: 6 mg; 6/5: 6 mg; 6/6: 5 mg in the evening OR as directed 03/10/20 24 024 Discontinued(Ot her - add note to specify (E-cancel not sent)) OxyCONTIN 20 mg SUSTAINED release tabletIndications:P ain management contract agreement,Encounter related to worker's compensation claim,Nontraumatic complete tear of rotator cuff, unspecified laterality TAKE ONE TABLET BY MOUTH EVERY 12 HOURS 60 Tablet 03/12/20 24 024 Discontinued(Re order (E-cancel not sent)) warfarin (COUMADIN) 2 mg tabletIndications:p revention of venous thromboembolism recurrence Take by mouth 6/7: 6 mg; 6/8: 6 mg; 6/9: 6 mg; 6/10: 6 mg in the evening OR as directed 03/13/20 24 024 Discontinued(Ot her - add note to specify (E-cancel not sent)) warfarin (COUMADIN) 2 mg tabletIndications:p revention of venous thromboembolism recurrence Take by mouth 6 mg (2 mg x 3) every day in the evening OR as directed 03/17/20 24 024 Discontinued Active Problems Patient Care Coordination No te Formatting of this note migh t be different from the original. Patient goes to the [place] [facility] fax [phone] Problem Noted Date Diagnosed Date OAB (overactive bladder) 02/17/2024 BPH with obstruction/lower urinary tract symptom s 02/16/2024 Hydrocele, right 02/16/2024 Elevated PSA 02/16/2024 Anemia 12/06/2023 HYPERTENSION 12/05/2023 RLL pneumonia 12/05/2023 [...] 10/20/2015 Hereditary hemochromatosis 07/04/2015 Overview: Follows with [facility] Wilman Rodrigo TOUR PRODUCTION SUPERVISOR BPH (benign prostatic hyperplasia) 04/27/2015 S/P total [...] Encounters Date Type Department Care Team Description 03/30/2024 10:10 AM CDT Office Visit [address] [address] Lisa Villaseñor NP Medication Management (W/C ) 03/30/2024 9:50 AM CDT Orders Only [address] [place] [address] Lab, [facility] 03/30/2024 Anticoagulation (warfarin) [address] [place] [address] 1, [facility] Anticoagulation 03/30/2024 Travel 03/27/2024 [address] [address] Lisa Villaseñor NP Refill Request (Warfarin) 03/26/2024 3:20 PM CDT [address] [address] Lab, [facility] 03/26/2024 [address] [address] Lisa Villaseñor NP Anticoagulation (04/06/24 Left shoulder steroid injection ) 03/26/2024 Anticoagulation (warfarin) [address] [place] [address] 1, [facility] Anticoagulation 03/26/2024 Travel 03/20/2024 10:30 AM CDT Orders Only [address] [place] [address] Lab, [facility] 03/20/2024 Anticoagulation (warfarin) [address] [place] [address] 1, [facility] Anticoagulation 03/20/2024 Travel 03/17/2024 1:00 PM CDT Orders Only [address] [place] [address] Lab, [facility] 03/17/2024 Anticoagulation (warfarin) [address] [place] [address] 1, [facility] Anticoagulation 03/17/2024 Travel 03/13/2024 9:30 AM CDT Orders Only [address] [place] [address] Lab, [facility] 03/13/2024 Anticoagulation (warfarin) [address] [place] [address] 1, [facility] Anticoagulation 03/13/2024 Travel 03/12/[address] [place] [address] Lisa Villaseñor NP Refill Request (Oxycontin) 03/10/2024 10:10 AM CDT Orders Only [address] [place] [address] Lab, [facility] 03/10/2024 Anticoagulation (warfarin) [address] [place] [address] 1, [facility] Anticoagulation 03/10/2024 Travel 03/07/2024 Travel 03/06/2024 11:30 AM CDT Orders Only [address] [place] [address] Lab, [facility] 03/06/2024 Anticoagulation (warfarin) [address] [place] [address] 1, [facility] Anticoagulation 03/06/2024 Travel 03/03/2024 1:50 PM CDT Orders Only [address] [place] [address] Lab, [facility] 03/03/2024 Anticoagulation (warfarin) [address] [place] [address] 1, [facility] Anticoagulation 03/03/2024 Travel 02/27/2024 9:55 AM CDT Ancillary Procedure [address] [place] [address] 02/27/2024 8:50 AM CDT Office Visit [address] [place] [address] Lisa Villaseñor NP Medication Management 02/27/2024 Anticoagulation (warfarin) [address] [place] [address] 1, [facility] Anticoagulation 02/27/2024 Travel 02/20/2024 11:00 AM CDT Orders Only [address] [place] [address] Lab, [facility] 02/20/[address], [place] [address] Lisa Villaseñor NP Anticoagulation (Dose Review) 02/20/2024 Anticoagulation (warfarin) [address] [place] [address] 1, [facility] Anticoagulation 02/20/2024 Travel 02/17/2024 11:50 AM CDT Orders Only [address] [place] [address] Lab, [facility] 02/17/2024 11:00 AM CDT Office Visit [address] [place] [address] Casa Sterling MD Consult (bph) 02/17/2024 Anticoagulation (warfarin) [address] [place] [address] Lisa Villaseñor NP Anticoagulation 02/17/2024 Travel 02/14/2024 3:00 PM CDT Orders Only [address] [place] [address] Lab, [facility] 02/14/[address] [place] [address] 1, [facility] Anticoagulation (Hold/bridge) 02/14/2024 Anticoagulation (warfarin) [address] [place] [address] 1, [facility] Anticoagulation 02/14/2024 Travel 02/14/[address] [place] [address] Lisa Villaseñor NP Medication Management (amitiza) 02/11/2024 10:50 AM CDT Orders Only [address] [place] [address] Lab, [facility] 02/11/[address] [place] [address] Lisa Villaseñor NP Anticoagulation (Dosing approval) 02/11/2024 Anticoagulation (warfarin) [address] [place] [address] 1, [facility] Anticoagulation 02/11/2024 Travel 02/11/[address] [place] [address] Lisa Villaseñor NP Refill Request (Amitiza) 02/08/2024 Anticoagulation (warfarin) [address] [place] [address] 1, [facility] Anticoagulation 02/07/2024 3:30 PM CDT Orders Only [address] [place] [address] Lab, [facility] Lab 02/07/2024 Travel 02/05/[address] [place] [address] Lisa Villaseñor NP Refill Request (Oxycontin) 01/31/2024 10:45 AM CDT Office Visit [facility] [address] [facility] [place] [address] Lula Mandujano, RANJIT Follow Up 01/31/2024 9:50 AM CDT Orders Only [address] [place] [address] Lab, [facility] 01/31/2024 Anticoagulation (warfarin) [address] [place] [address] 1, [facility] Anticoagulation 01/31/2024 Travel 01/28/2024 Travel 01/27/2024 Telephone [facility] [address] [facility] [place] [address] Lula Mandujano, TOUR PRODUCTION SUPERVISOR Questions 01/27/[address] [place] [address] Lisa Villaseñor NP Form (Plan of Care.Home Health PT services. 2x's per week) 01/24/2024 10:30 AM CDT - 01/24/2024 11:59 PM CDT Hospital Encounter [facility] [address] [facility] [place] [address] Hereditary hemochromatosis (HC) [E83.110]; PE (pulmonary thromboembolism) (HC); VTE (venous thromboembolism) 01/24/2024 Anticoagulation (warfarin) [address] [address] , [facility] Anticoagulation 01/24/2024 Travel 01/22/[address] [address] Lisa Villaseñor NP Anticoagulation (INR OVERDUE REMINDER #2 ) 01/21/2024 10:50 AM CDT Office Visit [facility] [address] [facility] [place] [address] Lisa Villaseñor NP Hospital F/U 01/21/2024 Travel 01/16/2024 Travel 01/15/2024 Orders Only [facility] Scanner 1 scan: (1-Ord) [facility], CL BARIUM SWALLOW MODIFIED, 01/15/2024 01/09/2024 Lab Requisition [facility] [phone] Anneliese Diehl NP 01/06/2024 Telephone [facility] [address] [place] [address] Lisa Villaseñor NP Anticoagulation (CHART UPDATE/INR OVERDUE REMINDER #1 ) 01/03/2024 10:10 AM CDT Office Visit [address] [address] Lisa Villaseñor NP Consult (INR ) 01/03/2024 9:30 AM CDT Office Visit [address] [address] Lisa Villaseñor, RANJIT Occ Med (medication) 01/03/2024 Travel 12/26/2023 Lab Requisition [facility] [phone] Sid Barboza MD from Last 3 Months Immunizations Name Administration Dates Next Due AMB Influenza, IIV3 (Age >=3 years)(Flu Clinic Only) 07/25/2010,07/28/2008 Amb Influenza, Inact (High-d ose) (Flu Clinic Only) 06/24/2014 COVID-19 vaccine (Moderna 100mcg/0.5mL) PF, MDV 09/15/2021,12/17/2020,11/19/2020 COVID-19 vaccine (GuidesMob-Bio NTech 30mcg/0.3mL) 12YO+ ONESIMO-SUCROSE PF, MDV 01/11/2022 [...] 01/01/1977 Smokeless Tobacco: Never Tobacco Cessation:Counseling Given: Not Answered Alcohol Use Standard Drinks/Week Comments Not Currently 2 (1 standard drink = 0.6 oz [...] Sign Reading Time Taken Comments Blood Pressure 130/64 03/30/2024 10:03 AM CDT Pulse 84 03/30/2024 10:03 AM CDT Temperature 36.5 ??C (97.7 ??F) 01/31/2024 10:36 AM C DT Respiratory Rate 14 03/30/2024 10:03 AM CDT Oxygen Saturation 99% 02/17/2024 10:59 AM CDT Inhaled Oxygen Concentration - - Weight 87.5 kg (193 lb) 03/30/2024 10:03 AM CDT Height 165.1 cm (5' 5) 01/21/2024 10:54 AM CDT Body Mass Index 32.12 01/21/2024 10:54 AM CDT Plan of Treatment Upcoming Encounters Date Type Department Care Team (Late st Contact Info) Description 04/10/2024 11:10 AM CDT Orders [place] [address] [place] [address] [facility] 04/13/2024 10:30 AM CDT Nurse/Clinic Staff Only [facility] [address] [facility] [place] [address] 2024 10:30 AM CDT Appointment [facility] [address] [facility] [place] [address] 04/24/2024 12:50 PM CDT Office Visit [facility] [address] [facility] [place] [address] Lisa Villaseñor NP [address] [place] [address] 04/27/2024 11:00 AM CDT Office Visit [facility] [address] [facility] [place] [address] Cara Brown MD [address] [place] [address] 06/16/2024 10:30 AM CDT Office Visit [facility] [address] [facility] [place] [address] Lisa Villaseñor NP [address] [facility] [place] [address] Health Maintenance Due Date Last Done Comments COVID-19 vaccine series ( season) 2023 07/09/2023, 11/16/2022, 01/11/2022, Additional history exists Depression screening for age 12+ 04/05/2024 04/05/2023, 04/05/2023, 11/10/2021, Additional history exists Medicare Wellness for age 65+ 05/14/2024 11/19/2019 Postponed from 11/19/2020 (Patient discretion) Influenza for age 65+ 06/07/2024 07/09/2023 , 07/13/2022, 07/06/2021, Additional history exists BMI (ht and wt on same day) for age 18+ 01/20/2025 01/21/2024, 09/09/2023, 06/07/2023, Additional history exists Tetanus booster 06/27/2028 06/27/2018, 10/2009, 06/16/2008, Additional history exists Tdap Completed 10/07/2009, 06/16/2008 Pneumococcal series for age 65+ Completed 10/10/2015, 10/07/2014, 07/03/2013, Additional history exists Hepatitis C screening for age 18-79 Completed 07/11/2016 Zoster (shingles) series for age 50+ Completed 09/06/2020, 07/06/2020, 03/11/2013 Medical Devices Implanted Type Area Extension Educator Device Identifier Shelf Expiration Date Model / Serial / Lot Anchr Full Threaded 4.5mm - [id number] Implanted:Qty: 2 on 12/06/2010 at [facility] Left: Shoulder [employer]/CONMED [id number]# / / [id number] Baseplate [id number] Std Post - [id number] Implanted:Qty: 1 on 04/14/2014 at [facility] Right: Shoulder [employer] [id number]# / [id number] / Screw Rev [id number] Self Tap Canclls Lock - [id number] Implanted:Qty: 1 on 04/14/2014 at [facility] Right: Shoulder [employer] [id number]# / / Screw Rev [id number] Self Tap Canclls Lock - [id number] Implanted:Qty: 1 on 04/14/2014 at [facility] Right: Shoulder [employer] [id number]# / / Screw Rev [id number] Comp Self Tap Cnclls - [id number] Implanted:Qty: 1 on 04/14/2014 at [facility] Right: Shoulder [employer] [id number]# / / Glenoid [id number] 10deg Aeq Rev Ii Tilted - [id number] Implanted:Qty: 1 on 04/14/2014 at [facility] Right: Shoulder [employer] [id number]# / [id number] / Stem Hum Sz3b Ascend Flex Std - [id number] Implanted:Qty: 1 on 04/14/2014 at [facility] Right: Shoulder [employer] [id number]# / [id number] / Liner Hum Sz36mm +6 Ascend Flex - [id number] Implanted:Qty: 1 on 04/14/2014 at [facility] Right: Shoulder [employer] [id number]# / [id number] / Ty Sz0 Ascend Flex Hi Off - [id number] Implanted:Qty: 1 on 04/14/2014 at [facility] Right: Shoulder [employer] KHG862# / [id number] / Cement Simplex P#6191-1-010 - [id number] Implanted:Qty: 1 on 02/08/2015 by Abel Dowd MD at [facility] Left: Knee [employer] 01/04/2017 6191-1-01 0 / / [id number] Cement Simplex P#6191-1-010 - [id number] Implanted:Qty: 1 on 02/08/2015 by Abel Dowd MD at [facility] Left: Knee [employer] 02/03/2017 6191-1-01 0 / / [id number] - [id number] Implanted:Qty: 1 on 02/08/2015 by Abel Dowd MD at [facility] Left: Knee [employer] 10/06/2024 [id number] / / [id number] Description:Iwona Nonporou s tibial baseplate [id number] - [id number] Implanted:Qty: 1 on 02/08/2015 by Abel Dowd MD at [facility] Left: Knee [employer] 11/06/2024 [id number] / / [id number] Description:Yamilet ii resur facing patellar component [id number] - [id number] Implanted:Qty: 1 on 02/08/2015 by Abel Dowd MD at [facility] Left: Knee [employer] 01/04/2025 [id number] / / [id number] Description:Bi-cruciate stab ilized journey II BCS oxinium femoral component [id number] - [id number] Implanted:Qty: 1 on 02/08/2015 by Abel Dowd MD at [facility] Left: Knee [employer] 10/06/2024 [id number] / / [id number] Description:Iwona II BCS X LPE, A/P 48mm, M/L 68 mm, Articular insert Procedures Procedure Name Priority Date/Time Associated Diagnosis Comments PROTIME-INR STAT 03/30/2024 9:51 AM CDT PE (pulmonary thromboembolism) (HC) PEA (Pulseless electrical activity) (HC) Other acute pulmonary embolism without acute cor pulmonale (HC) Anticoagulation monitoring, INR range 2-3 PROTIME-INR STAT 03/26/2024 3:19 PM CDT PE (pulmonary thromboembolism) (HC) PEA (Pulseless electrical activity) (HC) Other acute pulmonary embolism without acute cor pulmonale (HC) Anticoagulation monitoring, INR range 2-3 PROTIME-INR STAT 03/20/2024 10:31 AM CDT PE (pulmonary thromboembolism) (HC) PEA (Pulseless electrical activity) (HC) Other acute pulmonary embolism without acute cor pulmonale (HC) Anticoagulation monitoring, INR range 2-3 PROTIME-INR STAT 03/17/2024 12:58 PM CDT PE (pulmonary thromboembolism) (HC) PEA (Pulseless electrical activity) (HC) Other acute pulmonary embolism without acute cor pulmonale (HC) Anticoagulation monitoring, INR range 2-3 PROTIME-INR STAT 03/13/2024 9:33 AM CDT PE (pulmonary thromboembolism) (HC) PEA (Pulseless electrical activity) (HC) Other acute pulmonary embolism without acute cor pulmonale (HC) Anticoagulation monitoring, INR range 2-3 PROTIME-INR STAT 03/10/2024 10:12 AM CDT PE (pulmonary thromboembolism) (HC) PEA (Pulseless electrical activity) (HC) Other acute pulmonary embolism without acute cor pulmonale (HC) Anticoagulation monitoring, INR range 2-3 PROTIME-INR STAT 03/06/2024 11:23 AM CDT PE (pulmonary thromboembolism) (HC) PEA (Pulseless electrical activity) (HC) Other acute pulmonary embolism without acute cor pulmonale (HC) Anticoagulation monitoring, INR range 2-3 PROTIME-INR STAT 03/03/2024 1:50 PM CDT PE (pulmonary thromboembolism) (HC) PEA (Pulseless electrical activity) (HC) Other acute pulmonary embolism without acute cor pulmonale (HC) Anticoagulation monitoring, INR range 2-3 XR CHEST 2 VIEWS PA AND LATERAL MIKEL 02/27/2024 10:01 AM CDT Acute aspiration pneumonia (HC) PROTIME-INR Routine 02/27/2024 9:56 AM CDT Anticoagulation monitoring, INR range 2-3 PROTIME-INR STAT 02/20/2024 10:59 AM CDT PE (pulmonary thromboembolism) (HC) PEA (Pulseless electrical activity) (HC) Other acute pulmonary embolism without acute cor pulmonale (HC) Anticoagulation monitoring, INR range 2-3 UA W/ SEDIMENT EXAM REFLEXED PER CRITERIA Routine 02/17/2024 11:59 AM CDT Urge incontinence of urine PSA TOTAL (DIAGNOSTIC) Routine 11:43 AM CDT Elevated PSA PROTIME-INR STAT 02/17/2024 11:43 AM CDT PE (pulmonary thromboembolism) (HC) PEA (Pulseless electrical activity) (HC) Other acute pulmonary embolism without acute cor pulmonale (HC) Anticoagulation monitoring, INR range 2-3 NH ARNALDO POST-VOIDING RESIDUAL URINE&/BLADDER CAP Routine 02/17/2024 12:00 AM CDT Urge incontinence of urine OAB (overactive bladder) Benign prostatic hyperplasia with lower urinary tract symptoms, symptom details unspecified PROTIME-INR STAT 02/14/2024 3:00 PM CDT PE (pulmonary thromboembolism) (HC) PEA (Pulseless electrical activity) (HC) Other acute pulmonary embolism without acute cor pulmonale (HC) Anticoagulation monitoring, INR range 2-3 PROTIME-INR STAT 02/11/2024 11:03 AM CDT PE (pulmonary thromboembolism) (HC) PEA (Pulseless electrical activity) (HC) Other acute pulmonary embolism without acute cor pulmonale (HC) Anticoagulation monitoring, INR range 2-3 PROTIME-INR STAT 02/07/2024 3:36 PM CDT PE (pulmonary thromboembolism) (HC) PEA (Pulseless electrical activity) (HC) Other acute pulmonary embolism without acute cor pulmonale (HC) Anticoagulation monitoring, INR range 2-3 PROTIME-INR STAT 01/31/2024 10:04 AM CDT PE (pulmonary thromboembolism) (HC) PEA (Pulseless electrical activity) (HC) Other acute pulmonary embolism without acute cor pulmonale (HC) Anticoagulation monitoring, INR range 2-3 RED CELL MORPHOLOGY Timed 01/24/2024 1 0:53 AM CDT Hereditary hemochromatosis (HC) [E83.110] PLATELET ESTIMATE Timed 01/24/2024 10: 53 AM CDT Hereditary hemochromatosis (HC) [E83.110] MANUAL DIFFERENTIAL Timed 01/24/2024 1 0:53 AM CDT Hereditary hemochromatosis (HC) [E83.110] PROTIME-INR Today 01/24/2024 10:53 AM CDT PE (pulmonary thromboembolism) (HC) VTE (venous thromboembolism) CBC WITH AUTO DIFFERENTIAL Timed 01/24/2024 10:53 AM CDT Hereditary hemochromatosis (HC) [E83.110] PROTEIN ELP,SERUM Today 01/24/2024 10: 53 AM CDT Hereditary hemochromatosis (HC) [E83.110] IMMUNOGLOBULINS FREE LT CHAIN SERUM Today 01/24/2024 10:53 AM CDT Hereditary hemochromatosis (HC) [E83.110] IGG Today 01/24/2024 10:53 AM CDT Hereditary hemochromatosis (HC) [E83.110] COMP METABOLIC PANEL Today 01/24/2024 10:53 AM CDT Hereditary hemochromatosis (HC) [E83.110] CBC WITH AUTO DIFFERENTIAL Today 01/24/2024 10:53 AM CDT Hereditary hemochromatosis (HC) [E83.110] SCAN-RADIOLOGY REPORT 01/15/2024 12:00 AM CDT RED CELL MORPHOLOGY Routine 01/14/2024 7 :49 [...] Routine 12/31/2023 7:12 AM CDT Anemia, unspecified ANTI HCV Routine 07/11/2016 11:13 AM CDT Arthralgia, unspecified joint High risk medication use from Last 3 Months or Most Recently Relevant to Health Maintenance Results * (ABNORMAL) PROTIME-INR (03/30/2024 9:51 AM CDT) Only the most recent of16 resultswithin the time period is included. INR 1.7(H) <1.3 03/30/2024 10:54 AM CDT [facility] PROTIME 18.9(H) 10.3 - 12.3 sec 03/30/2024 10:54 AM CDT [facility] Blood BLOOD SPECIMEN / Unknown Venipuncture / Unknown 03/30/2024 9:51 AM CDT 03/30/2024 9:51 AM CDT Narrative [facility] - 03/30/2024 10:54 AM CDT ?Therapeutic Range 2.0-3.0 for most [...] seconds if the patient is on UFH. Lisa Villaseñor NP HEMATOLOGY [facility] [address] [place] [address] * XR CHEST 2 VIEWS PA AND LATERAL (02/27/2024 10:01 AM CDT) Anatomical Region Laterality Modality CHEST, THORAX, Lung, HEART Compu saul Radiography 02/27/2024 10:0 7 AM CDT Impressions 02/27/2024 10:07 AM CDT Clearing bilateral lung infiltrates with minimal residual interstitial scarring. Chronic elevation right hemidiaphragm with pleural thickening. No pneumothorax or pleural effusion. Dictated by Hola Gold MD @ 02/27/2024 10:07:30 AM (Electronically Signed) Narrative 02/27/2024 10:07 AM CDT For Patients: ??As a result of the Cures Act, medical imaging exams and procedure reports are released immediately into your electronic medical record. ??You may view this report before your referring provider. ??If you have questions, please contact your health care provider. INDICATION: Acute aspiration pneumonia TECHNIQUE: Chest 2 views. COMPARISON: Portable chest 12/17/2023 FINDINGS: Cardiovascular and mediastinum: Heart size and vasculature are normal in caliber and appearance. Mediastinum is within normal limits. Lungs and pleural spaces: Clearing bilateral lung infiltrates with minimal residual. Chronic elevation right hemidiaphragm with pleural thickening. No pneumothorax or pleural effusion. Bones and soft tissues: No degenerative spine. Fusion hardware. Right shoulder arthroplasty. Metallic tack left humeral head. Procedure Note Wilton Gold MD - 02/27/2024 For Patients: As a result of the Cures Act, medical imagingexams and procedure reports are released immediately into your electronicmedical record. You may view this report before your referring provider.If you have questions, please contact your health care provider. INDICATION: Acute aspiration pneumonia TECHNIQUE: Chest 2 views. COMPARISON: Portable chest 12/17/2023 FINDINGS: Cardiovascular and mediastinum: Heart size and vasculature are normal incaliber and appearance. Mediastinum is within normal limits. Lungs and pleural spaces: Clearing bilateral lung infiltrates with minimalresidual. Chronic elevation right hemidiaphragm with pleural thickening.No pneumothorax or pleural effusion. Bones and soft tissues: No degenerative spine. Fusion hardware. Rightshoulder arthroplasty. Metallic tack left humeral head. IMPRESSION: Clearing bilateral lung infiltrates with minimal residual interstitialscarring. Chronic elevation right hemidiaphragm with pleural thickening. No pneumothorax or pleural effusion. Dictated by Hola Gold MD @ 02/27/2024 10:07:30 AM (Electronically Signed) Lisa Villaseñor NP GENERAL IMAGING * UA W/ SEDIMENT EXAM REFLEXED PER CRITERIA (02/17/2024 11:59 AM CDT) COLOR Yellow Yellow Color 02/17/2024 12:05 PM CDT [facility] CLARITY Clear Clear Clarity 02/17/2024 12:05 PM CDT [facility] SPECIFIC GRAVITY,URINE 1.015 1.010, 1.015, 1.020, 1.025 02/17/2024 12:05 PM [facility] PH,URINE 6.5 6.0, 7.0, 8.0, 5.5, 6.5, 7.5, 8.5 02/17/2024 12:05 PM [facility] UROBILINOGEN, QUALITATIVE Normal Normal EU/dl 02/17/2024 12:05 PM [facility] PROTEIN, URINE Negative Negative mg/dL 02/17/2024 12:05 PM [facility] GLUCOSE, URINE Negative Negative mg/dL 02/17/2024 12:05 PM [facility] KETONES,URINE Negative Negative mg/dL 02/17/2024 12:05 PM [facility] BILIRUBIN,URI NE Negative Negative 02/17/2024 12:05 PM [facility] OCCULT BLOOD,URINE Negative Negative 02/17/2024 12:05 PM [facility] NITRITE Negative Negative 02/17/2024 12:05 PM [facility] LEUKOCYTE ESTERASE Negative Negative 02/17/2024 12:05 PM [facility] Urine URINE SPECIMEN / Unknown Non-Blood / Unknown 02/17/2024 11:59 AM CDT 02/17/2024 11:59 AM CDT Casa Sterling MD URINE Performing Organization Address City/State/[facility] Co de Phone Number [facility] [address] [place] [address] * (ABNORMAL) PSA TOTAL (DIAGNOSTIC) (02/17/2024 11:43 AM CDT) PSA TOTAL (DIAGNOSTIC) 4.08(H) <4.00 ng/mL 02/18/2024 7:39 AM CDT [facility] Blood BLOOD SPECIMEN / Unknown Venipuncture / Unknown 02/17/2024 11:43 AM CDT 02/17/2024 11:44 AM CDT N[facility]ative [facility] - 02/18/2024 7:39 AM CDT The test method changed on 04/02/2023. If this test has been used for serial monitoring, rebaselining is recommended. Rebaselining consists of 2 measurements, collected 3-6 weeks apart. The Ariel Elecsys total PSA assay is an electrochemiluminescence immunoassay ECLIA performed on the Ariel Archie e immunoassay analyzers. Values obtained with different assay methods may be different and cannot be used interchangeably. Casa Sterling MD CHEMISTRY [facility] [address] [place] [address], * [place] ARNALDO POST-VOIDING RESIDUAL URINE&/BLADDER CAP (02/17/2024 12:00 AM CDT) Casa Sterling MD PB - URINARY S YSTEM SERVICES * (ABNORMAL) CBC WITH AUTO DIFFERENTIAL (01/24/2024 10:53 AM CDT) Only the most recent of2 resultswithin the time period is included. WHITE BLOOD COUNT 12.0(H) 4.5 - 11.0 thou/cu mm 01/24/2024 11:14 AM [facility] RED BLOOD COUNT 3.70(L) 4.30 - 5.90 mil/cu mm 01/24/2024 11:14 AM [facility] HEMOGLOBIN 10.3(L) 13.5 - 17.5 g/dL 01/24/2024 11:14 AM [facility] HEMATOCRIT 33.7(L) 37.0 - 53.0 % 01/24/2024 11:14 AM [facility] MCV 91 80 - 100 fL 01/24/2024 11:14 AM [facility] MCH 27.8 26.0 - 34.0 pg 01/24/2024 11:14 AM [facility] MCHC 30.6(L) 32.0 - 36.0 g/dL 01/24/2024 11:14 AM [facility] RDW 19.2(H) 11.5 - 15.5 % 01/24/2024 11:14 AM CDT [facility] PLATELET COUNT 308 140 - 440 thou/cu mm 01/24/2024 11:14 AM CDT [facility] MPV 9.1 6.5 - 11.0 fL 01/24/2024 11:14 AM CDT [facility] Blood BLOOD SPECIMEN / Unknown Venipuncture / Unknown 01/24/2024 10:53 AM CDT 01/24/2024 10:53 AM CDT [facility] - 01/24/2024 11:14 AM CDT This procedure was originally ordered at [facility]. This procedure was originally ordered at [facility]. This procedure was originally ordered at [facility]. Cara Brown MD HEMATOLOGY Performing Organization Address [facility] de Phone Number [facility] [address] [place] [address] * RED CELL MORPHOLOGY (01/24/2024 10:53 AM CDT) Only the most recent of2 resultswithin the time period is included. RBC COMMENT RBC morphology appears normal RBC morphology appears normal, RBC morphology within normal limits for newborns. 01/24/2024 11:14 AM CDT [facility] Blood BLOOD SPECIMEN / Unknown Venipuncture / Unknown 01/24/2024 10:53 AM CDT 01/24/2024 10:53 AM CDT [facility] - 01/24/2024 11:14 AM CDT This procedure was originally ordered at [facility]. This procedure was originally ordered at [facility]. This procedure was originally ordered at [facility]. Cara Brown MD HEMATOLOGY Performing Organization Address [facility] Co de Phone Number [facility] [address] [place] [address] * PLATELET ESTIMATE (01/24/2024 10:53 AM CDT) Only the most recent of2 resultswithin the time period is included. PLATELET ESTIMATE Adequate Adequate, No estimate 01/24/2024 11:14 AM CDT [facility] Blood BLOOD SPECIMEN / Unknown Venipuncture / Unknown 01/24/2024 10:53 AM CDT 01/24/2024 10:53 AM CDT Narrative [facility] - 01/24/2024 11:14 AM CDT This procedure was originally ordered at [facility]. This procedure was originally ordered at [facility]. This procedure was originally ordered at [facility]. Cara Brown MD HEMATOLOGY Performing Organization Address [facility]/ZIP Co de Phone Number [facility] [address] [place] [phone] * (ABNORMAL) IMMUNOGLOBULINS FREE LT CHAIN SERUM (01/24/2024 10:53 AM CDT) KAPPA FREE LIGHT CHAIN, S 5.09(H) 0.33 - 1.94 mg/dL 01/27/2024 12:45 PM CDT [facility] TRAL [facility]ORATORY LAMBDA FREE LIGHT CHAIN, S 3.32(H) 0.57 - 2.63 mg/dL 01/27/2024 12:45 PM CDT [facility] TRAL LABORATORY KAPPA/LAMBDA FLC RATIO 1.53 0.26 - 1.65 01/27/2024 12:45 PM CDT [facility] TRAL [facility]ATORY Blood BLOOD SPECIMEN / Unknown Venipuncture / Unknown 01/24/2024 10:53 AM CDT 01/24/2024 10:53 AM CDT Cara Brown MD SEND OUTS Performing Organization Address City/[facility]/ZIP Co de Phone Number [facility] [address] [place] [address], * (ABNORMAL) MANUAL DIFFERENTIAL (01/24/2024 10:53 AM CDT) Only the most recent of2 resultswithin the time period is included. % NEUTROPHILS 82.0 % 01/24/2024 11:14 AM T [facility] % LYMPHOCYTES 8.0 % 01/24/2024 11:14 AM T [facility] % MONOCYTES 6.0 % 01/24/2024 11:14 AM [facility] % EOSINOPHILS 3.0 % 01/24/2024 11:14 AM [facility] % BASOPHILS 1.0 % 01/24/2024 11:14 AM [facility] NEUTROPHILS ABSOLUTE 9.8(H) 1.7 - 7.0 thou/cu mm 01/24/2024 11:14 AM T [facility] LYMPHOCYTES ABSOLUTE 1.0 0.9 - 2.9 thou/cu mm 01/24/2024 11:14 AM [facility] MONOCYTES ABSOLUTE 0.7 <0.9 thou/cu mm 01/24/2024 11:14 AM [facility] EOSINOPHILS ABSOLUTE 0.4 <0.5 thou/cu mm 01/24/2024 11:14 AM [facility] BASOPHILS ABSOLUTE 0.1 <0.3 thou/cu mm 01/24/2024 11:14 AM [facility] Blood BLOOD SPECIMEN / Unknown Venipuncture / Unknown 01/24/2024 10:53 AM CDT 01/24/2024 10:53 AM CDT [facility] - 01/24/2024 11:14 AM CDT This procedure was originally ordered at [facility]. This procedure was originally ordered at [facility]. This procedure was originally ordered at [facility]. Cara Brown MD HEMATOLOGY [facility] [address] [place] [address] * (ABNORMAL) IGG (01/24/2024 10:53 AM CDT) IGG 1,811.58(H ) 610.30 - 1,616.00 mg/dL 01/27/2024 12:44 PM CDT [facility] Blood BLOOD SPECIMEN / Unknown Venipuncture / Unknown 01/24/2024 10:53 AM CDT 01/24/2024 10:53 AM CDT Cara Brown MD CHEMISTRY [facility] [address] [place] [address], * (ABNORMAL) PROTEIN ELP,SERUM (01/24/2024 10:53 AM CDT) ELP,ALBUMIN 2.71(L) 3.31 - 5.31 g/dL 01/28/2024 12:30 PM CDT [facility] ELP,ALPHA 1 0.42 0.19 - 0.42 g/dL 01/28/2024 12:30 PM CDT [facility] ELP,ALPHA 2 1.07(H) 0.44 - 1.03 g/dL 01/28/2024 12:30 PM CDT [facility] ELP,GAMMA 1.59(H) 0.59 - 1.46 g/dL 01/28/2024 12:30 PM CDT [facility] ELP,BETA 0.81 0.52 - 1.05 g/dL 01/28/2024 12:30 PM CDT [facility] MONOCLONAL PEAK 1 0.79 <=0.00 g/dL 01/28/2024 12:30 PM CDT [facility] ELP INTERP,SERUM Interval study shows essentially no change in magnitude of previously identified monoclonal peak. Previous Study: 0.76 gm/dL on 11/21/2023. Interpreted and electronically signed by: Sapphire Gerardo MD 01/28/2024 12:30 PM CDT [facility] PROTEIN,TOTAL 6.6 6.0 - 8.0 g/dL 01/28/2024 12:30 PM [facility] Blood BLOOD SPECIMEN / Unknown Venipuncture / Unknown 01/24/2024 10:53 AM CDT 01/24/2024 10:53 AM CDT Cara Brown MD CHEMISTRY [facility] [address] [place] [address], * (ABNORMAL) COMP METABOLIC PANEL (01/24/2024 10:53 AM CDT) SODIUM 138 136 - 145 mmol/L 01/24/2024 11:22 AM [facility] POTASSIUM 3.7 3.5 - 5.1 mmol/L 01/24/2024 11:22 AM [facility] CHLORIDE 101 98 - 107 mmol/L 01/24/2024 11:22 AM [facility] CO2,TOTAL 28 22 - 29 mmol/L 01/24/2024 11:22 AM [facility] ANION GAP 9 5 - 18 01/24/2024 11:22 AM [facility] GLUCOSE 160(H) 70 - 99 mg/dL 01/24/2024 11:22 AM [facility] CALCIUM 9.3 8.8 - 10.2 mg/dL 01/24/2024 11:22 AM [facility] BUN 10 8 - 23 mg/dL 01/24/2024 11:22 AM [facility] CREATININE 0.61(L) 0.70 - 1.20 mg/dL 01/24/2024 11:22 AM [facility] BUN/CREAT RATIO 16 10 - 20 11:22 AM [facility] eGFR >90 >90 mL/min/1.7 3m2 01/24/2024 11:22 AM [facility] Comment:As of 2021, eG FR is calculated by the CKD-EPI creatinine equation without race adjustment. ??eGFR can be influenced by muscle mass, exercise, and diet. ??The reported eGFR is an estimation only and is only applicable if the renal function is stable. ALBUMIN 3.3(L) 4.0 - 4.9 g/dL 01/24/2024 11:22 AM T [facility] PROTEIN,TOTAL 7.4 6.0 - 8.0 g/dL 01/24/2024 11:22 AM [facility] BILIRUBIN,TOTAL 0.4 0.0 - 1.2 mg/dL 01/24/2024 11:22 AM [facility] ALK PHOSPHATASE 199(H) 40 - 129 IU/L 01/24/2024 11:22 AM [facility] ALT (SGPT) 8(L) 10 - 50 IU/L 01/24/2024 11:22 AM [facility] AST (SGOT) 26 10 - 50 IU/L 01/24/2024 11:22 AM [facility] Blood BLOOD SPECIMEN / Unknown Venipuncture / Unknown 01/24/2024 10:53 AM CDT 01/24/2024 10:53 AM CDT Cara Brown MD CHEMISTRY Performing Organization Address [facility]/State/ZIP Co de Phone Number [facility] [address] [place] [address] * SCAN-RADIOLOGY REPORT (01/15/2024 12:00 AM CDT) Anatomical Region Laterality Modality Other Scanner OTHER * (ABNORMAL) BASIC METABOLIC PANEL (01/14/2024 7:49 AM CDT) SODIUM 147(H) 136 - 145 mmol/L 01/14/2024 9:35 AM T [facility] POTASSIUM 3.9 3.5 - 5.1 mmol/L 01/14/2024 9:35 AM T [facility] CHLORIDE 106 98 - 107 mmol/L 01/14/2024 9:35 AM T [facility] CO2,TOTAL 32(H) 22 - 29 mmol/L 01/14/2024 9:35 AM [facility] ANION GAP 9 5 - 18 01/14/2024 9:35 AM [facility] GLUCOSE 89 70 - 99 mg/dL 01/14/2024 9:35 AM [facility] CALCIUM 9.9 8.8 - 10.2 mg/dL 01/14/2024 9:35 AM [facility] BUN 15 8 - 23 mg/dL 01/14/2024 9:35 AM [facility] CREATININE 0.72 0.70 - 1.20 mg/dL 01/14/2024 9:35 AM [facility] BUN/CREAT RATIO 21(H) 10 - 20 9:35 AM [facility] eGFR >90 >90 mL/min/1.7 3m2 01/14/2024 9:35 AM [facility] Comment:As of 2021, eG FR is calculated by the CKD-EPI creatinine equation without race adjustment. ??eGFR can be influenced by muscle mass, exercise, and diet. ??The reported eGFR is an estimation only and is only applicable if the renal function is stable. Blood BLOOD SPECIMEN / Unknown Venipuncture / Unknown 01/14/2024 7:49 AM CDT 01/14/2024 8:59 AM CDT Anneliese Diehl NP CHEMISTRY [facility] [address] [place] [address] * (ABNORMAL) HEMOGLOBIN (12/31/2023 7:12 AM CDT) HEMOGLOBIN 9.5(L) 13.5 - 17.5 g/dL 12/31/2023 9:29 AM T [facility] MCV 90 80 - 100 fL 12/31/2023 9:29 AM [facility] Blood BLOOD SPECIMEN / Unknown Venipuncture / Unknown 12/31/2023 7:12 AM CDT 12/31/2023 9:16 AM CDT Sid Barboza MD HEMATOLOGY [facility] [address] [place] [address] * ANTI HCV (07/11/2016 11:13 AM CDT) HEPATITIS C ANTIBODY Non-Reacti ve Non-Reacti ve 07/11/2016 5:36 PM CDT [facility] Blood BLOOD SPECIMEN / Unknown Venipuncture / Unknown 07/11/2016 11:13 AM CDT 07/11/2016 11:13 AM CDT Narrative [facility] - 07/11/2016 5:36 PM CDT Antibodies to HCV not detected; does not exclude the possibility of exposure to HCV. Lisa Coffman MD SEND OUTS [facility] [address] [place] [address], [place] from Last 3 Months or Most Recently Relevant to Health Maintenance Advance Directives Documents on File Type Date Recorded Patient Test Borer Helper Expl anation Healthcare Directive 08/12/2017 12:28 AM [...] Comments Code Status Discussion: Discussed Care Teams Battery Container Inspector Relationship Specialty Start Date End Date Lisa Villaseñor NP [address] [place] [address] PCP - General Family Practice 02/10/15 Brandyn Musa V [address] [facility] [place] [place] Ophthalmology Family Practice 04/04/12 Cara Brown MD [address] [place] [address] Hematology Hematology and Oncology 05/09/20 Lula Mandujano NP [address] [place] [address] Hematology Nurse Practitioner - Family 05/09/20
--- OUTSIDE RECORDS SUMMARY | 2024-04-01 11:26 | XMS_ITS | Continuity of Care Document ---
Author Organization [facility] Address [address] [address] [place] [address] Phone Care Team Providers Care Drawing Operator Name Role Phone Unavailable Unavailable Unavailable Allergies, Adverse Reactions, Alerts Substance Reaction Status Criticality levofloxacin Active No Information Medications Medication Instructions Dosage Effective Dates (start - stop) Status Comments allopurinol 300 mg tablet take 1 tablet by oral route every day 300 MG - Active Aspir-81 81 mg tablet,delayed release take 1 tablet by oral route every day - Active atenolol 50 mg tablet take 1 tablet by oral route every day 50 MG - Active hydrochlorothiazide 25 mg tablet take 1 Tablet by oral route every day 25 MG - Active Celebrex 200 mg capsule take 1 capsule b y oral route every 2 days 200 MG - Active docusate sodium 100 mg capsule take 1 capsule by ORAL route every day at bedtime as needed 100 MG - Active doxazosin 4 mg tablet take 1 tablet by oral route every day 4 MG - Active finasteride 5 mg tablet take 1 tablet by oral route every day 5 MG - Active loratadine 10 mg tablet take 1 tablet by oral route every day 10 MG - Active omeprazole 20 mg capsule,delayed release take 1 capsule by ORAL route every day before a meal 20 MG - Active oxycodone 20 mg tablet take 1 tablet by oral route every 4 - 6 hours as needed 20 MG - Active Refresh Celluvisc 1 % eye gel in a dropperette apply 1 - 2 drops by ophthalmic route every 2 days 1-2 drops - Active Requip 4 mg tablet take 1 tablet by oral route every day 4 MG - Active multivitamin tablet take 1 tablet by oral route every day with food - Active Fiber Therapy oral powder take 1 packet by oral route every day 1 packet - Active Neurontin 300 mg capsule take 2 capsule by ORAL route 2 times every day 600 MG - Active Procedures Procedure Date Offic/outpt E&m [facility] 5 Advance Directives Directive Yes / No Effective Date File Name No Information Encounters Encounter Description Practice Location Reason(s) For Visit Diagnoses Date Provider Providers Copied on Encounter [facility], [address] [address], [place], [id number], [place] tel:[phone] [facility] No Information 6 No Information Referring Provider: Listed Not. [facility], [address] [address], [place], [id number], [place] tel:[phone] [facility] Hemochromatosis, hereditary 6 No Information Offic/outpt E&m [facility], [address] [address], [place], [id number], [place] tel:[phone] [facility] GI Symptoms or Concerns (chief complaint) Hemochromatosis, hereditaryDietary counseling and surveillance 5 No Information Referring Provider: John Ivy MD S, [address] [facility] [address], [place], [address]. tel:[phone] Family History Family Member Type Diagnosis Age At Onset Mother Problem (finding) Thyroid disorder Father Problem (finding) Father Problem (finding) asthma Sister Problem (finding) Hepatitis C Daughter Problem (finding) Alive and well Father Problem (finding) Leukemia Son Problem (finding) Alive and well Immunizations Vaccine Date Status Comments Influenza virus vaccine, inj ectable, quadrivalent, split virus, preservative free, 3 years or older Fluarix Quad administered Source: Other Pro vider Payers Payer name Insurance type Covered libertarian ID Authoriza tion(s) [employer] [place] [employer] [place] [id number] Social History Type Description Quantity Date Captured Comments Alcohol Use Details Unknown Caffeine Use Details Unknown Tobacco Use Status Smoking Status No Information Sex Male Chief Complaint And Reason For Visit No Information Reason For Referral Reason For Referral No Information Plan Of Treatment Date Type Action Status Goal Lifestyle education regardin g diet completed Referral Ordered: Ferritin Appointment date/timeframe: 11/15/2015 ordered History Of Present Illness Encounter Date Complaint History Of Prese nt Illness GI Symptoms or Concerns This pat ient comes to clinic for consultation regarding a new diagnosis of hereditary hemochromatosis. He is accompanied by his daughter.The patient had some lab work at his Primary Clinic that included ferritin. His first ferritin was mildly elevated 513. His reticulocyte count was also high at 2.2%. In followup of this ferritin, he had a repeat of his iron studies and also an HFE gene testing. The repeat ferritin was 433 with an iron saturation of 41%. 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 His hemoglobin is slightly low from [place] at 13.1. This appears to have been fairly stable over the last months and years. The patient is not certain why his hemoglobin is lower. 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 He has been followed by Hematology. The patient's liver tests are all normal including ALT 22, AST 25, alkaline phosphatase 86, total bilirubin 0.3, and albumin 3.9. His platelet count is also well within normal range at 285,000. MR of the abdomen found decreased signal in the Functional Status Date Functional Assessmen t No Information Instructions Date Instruction Additional Infor kari Lifestyle education regarding di et Related to Dietary counseling and surveillance Assessments Type Assessment Date No Information Patient Care Teams Name Effective Dates (start - stop) Status Members No Information
== END 2024-04-01 11:18 | disposition home or self-care (01) ==
LOC: RAD 11:19
PROVIDERS: PCP Nurse Practitioner Family; Visit Provider Nurse Practitioner Family
DX: J69.0 Pneumonitis due to inhalation of food and vomit (principal)
CPT/HCPCS: 74230; 92611

== ENCOUNTER 2025-01-14 14:31 | Outpatient (CLI) | payer OTHER, SELFPAY ==
--- NOTE | 2025-01-14 14:45 | CRLHL7_ITS ---
For Patients: As a result of the Century Cures Act, medical imaging exams and procedure reports are released immediately into your electronic medical record. You may view this report before your referring provider. If you have questions, please contact your health care provider. BILATERAL LOWER EXTREMITY ULTRASOUND 01/14/2025 INDICATION: Bilateral leg edema, weak pulses. COMPARISON: None. TECHNIQUE: The lower extremity arteries were examined per exam specific protocol with lundy-scale ultrasound, color-flow and Doppler spectral analysis. Peak systolic velocities (PSV), Doppler waveform quality and velocity ratios, if applicable, were documented at sites per exam specific protocol. FINDINGS: There is bilateral subcutaneous edema, notably in the below-knee tissue. Scattered atherosclerotic disease bilaterally. RIGHT PSV WAVEFORM INVESTMENT FUND MANAGER: 122.3 Triphasic DFA: 103.7 Triphasic FA Prx: 119.9 Triphasic FA Mid: 179.9 Triphasic FA Dist: 136.2 Biphasic POP A: 111.7 Triphasic SHEN A: 8.8 Monophasic ASSESSMENT SPECIALIST: 28.6 Monophasic IAM: 121.1 Biphasic DPA: 17.6 Monophasic LEFT PSV WAVEFORM INVESTMENT FUND MANAGER: 140.3 Triphasic DFA: 122.7 Biphasic FA Prx: 133.7 Triphasic FA Mid: 140.5 Biphasic FA Dist: 122.7 Biphasic POP A: 80.9 Triphasic SHEN A: 6.6 Monophasic ASSESSMENT SPECIALIST: 107.0 Biphasic IAM: 71.1 Monophasic DPA: 8.3 Monophasic IMPRESSION: Suboptimal visualization of the bilateral lower extremity below-knee vasculature. 1. Right lower extremity: - Above knee vasculature demonstrates multiphasic waveforms with no velocity shift to suggest a significant stenosis. - Below-knee vasculature demonstrates predominantly monophasic waveforms compatible with scattered atherosclerotic disease. 2. Left lower extremity: - Above knee vasculature demonstrates multiphasic waveforms with no velocity shift to suggest a hemodynamically significant stenosis. - Below-knee vasculature demonstrates predominantly monophasic waveforms compatible with scattered atherosclerotic disease. Jase Jennings M.D. [email or web address] Ruby DW/Dictated by: Jase Jennings MD @ 01/16/2025 11:24:00 AM (Electronically Signed)
== END 2025-01-14 14:32 | disposition home or self-care (01) ==
PROVIDERS: PCP Nurse Practitioner Family; Visit Provider Internal Medicine
DX: I73.9 Peripheral vascular disease, unspecified (principal); I70.203 Unspecified atherosclerosis of native arteries of extremities, bilateral legs; R60.0 Localized edema
CPT/HCPCS: 93926